=== PATIENT | female | born 1985 | race Hispanic/Latino ===

== ENCOUNTER 2018-01-15 10:22 | Emergency (ER) | payer SELFPAY ==
[2018-01-15 11:05] LABS: APPEARANCE,URINE Cloudy (CLEAR); BILIRUBIN,URINE Negative (NEGATIVE); COLOR,URINE Yellow (YELLOW); GLUCOSE, URINE (UA) >=1000 mg/dL (NEGATIVE); KETONES,URINE Negative (NEGATIVE); LEUKOCYTE ESTERASE ,URINE Moderate (NEGATIVE); NITRATE,URINE Negative (NEGATIVE); OCCULT BLOOD,URINE Trace (NEGATIVE); PH,URINE 6.5 (5.0-8.0); PROTEIN,URINE Negative (NEGATIVE); UROBILINOGEN,URINE 0.2 mg/dL (0.2-1.0)
[2018-01-15 11:15] LABS: HCG,QUAL RESULT NEGATIVE (NEGATIVE)
[2018-01-15 11:25] LABS: BASOPHILS % (AUTO) 0.5 % (0.0-5.0); EOSINOPHILS % (AUTO) 3.9 % (0.0-8.0); HEMATOCRIT 39.4 % (36-48); LYMPHOCYTES % (AUTO) 31.6 % (21.0-51.0); MEAN CORPUSCULAR HEMOGLOBIN 29.3 pg (27.0-33.0); MEAN CORPUSCULAR VOLUME 86.1 fL (79-99); MONOCYTES % (AUTO) 7.3 % (3.0-13.0); NEUTROPHILS % (AUTO) 56.7 % (40.0-77.0); PLATELET COUNT (AUTO) 254 K/uL (130-400); RED BLOOD CELL COUNT(AUTO) 4.58 MIL/uL (4.00-5.50); RED CELL DISTRIBUTION WIDTH 12.7 % (11.0-15.5); WHITE BLOOD COUNT (AUTO) 6.2 K/uL (4.8-10.8)
[2018-01-15 11:31] LABS: AMPHET/METH SCREEN,URINE NEGATIVE (NEGATIVE); BARBITURATE SCREEN, URINE NEGATIVE (NEGATIVE); BENZODIAZEPINES SCREEN,URINE NEGATIVE (NEGATIVE); CANNABINOID SCREEN,URINE NEGATIVE (NEGATIVE); COCAINE SCREEN,URINE POSITIVE (NEGATIVE); OPIATE SCREEN,URINE NEGATIVE (NEGATIVE); PHENCYCLIDINE SCREEN,URINE NEGATIVE (NEGATIVE)
[2018-01-15 11:41] LABS: POTASSIUM 4.2 mmol/L (3.5-5.1)
[2018-01-15 11:42] LABS: ALBUMIN 2.8 g/dL (3.5-5.0); BILIRUBIN,TOTAL 0.1 mg/dL (0.2-1.0); CREATININE 0.9 mg/dL (0.5-1.5)
[2018-01-15 11:48] LABS: BACTERIA,URINE Few /HPF (None Seen); RBC,URINE 0-1 /HPF (0-1)
[2018-01-15] MEDS ORDERED: INSULIN HUMULIN R 100 UNIT/ML 3ML ONE ×2 (12:30→14:25)
[2018-01-15] MEDS ORDERED: CEFTRIAXONE SODIUM 1 GM ONE (12:31)
[2018-01-15] MEDS ORDERED: ACETAMINOPHEN EXTRA STRENGTH 500 MG TABLET ONE (12:54)
[2018-01-15] MEDS ORDERED: SODIUM CHLORIDE 0.9% 1000ML 1,000 ML IV ONE (14:24)
== END 2018-01-15 17:06 | disposition home or self-care (01) ==
LOC: EDH 10:22
DX: N30.00 Acute cystitis without hematuria (principal); E11.65 Type 2 diabetes mellitus with hyperglycemia; F14.10 Cocaine abuse, uncomplicated; Z91.14 Patient's other noncompliance with medication regimen; Z79.4 Long term (current) use of insulin; Z86.73 Personal history of transient ischemic attack (TIA), and cerebral infarction without residual deficits; Z87.891 Personal history of nicotine dependence
CPT/HCPCS: 36415; 80053; 80305; 81001; 81025; 82550; 82948 ×3; 84484 ×2; 85025; 87088; 87186; 93005 ×2; 96361; 96374; 96375; 96376; 99285; J0696; J1815 ×2; J7030

== ENCOUNTER 2018-10-11 11:51 | Emergency (ER) | payer OTHER ==
[2018-10-11] MEDS ORDERED: SODIUM CHLORIDE 0.9% 1000ML 1,000 ML IV ONE ×2 (12:32→13:26)
[2018-10-11] MEDS ORDERED: PROCHLORPERAZINE EDISYLATE 10 MG/2 ML VIAL ONE (12:33)
[2018-10-11 12:41] LABS: BASOPHILS % (AUTO) 0.5 % (0.0-5.0); EOSINOPHILS % (AUTO) 5.1 % (0.0-8.0); HEMATOCRIT 39.4 % (36-48); LYMPHOCYTES % (AUTO) 29.5 % (21.0-51.0); MEAN CORPUSCULAR HEMOGLOBIN 29.7 pg (27.0-33.0); MEAN CORPUSCULAR HGB CONC 33.7 g/dL (32.0-36.0); MEAN CORPUSCULAR VOLUME 88.1 fL (79-99); MONOCYTES % (AUTO) 5.5 % (3.0-13.0); NEUTROPHILS % (AUTO) 59.4 % (40.0-77.0); PLATELET COUNT (AUTO) 269 K/uL (130-400); RED BLOOD CELL COUNT(AUTO) 4.47 MIL/uL (4.00-5.50); RED CELL DISTRIBUTION WIDTH 13.2 % (11.0-15.5); WHITE BLOOD COUNT (AUTO) 7.1 K/uL (4.8-10.8)
[2018-10-11 13:06] LABS: APPEARANCE,URINE Cloudy (CLEAR); BILIRUBIN,URINE Negative (NEGATIVE); COLOR,URINE Yellow (YELLOW); GLUCOSE, URINE (UA) >=1000 mg/dL (NEGATIVE); KETONES,URINE Negative (NEGATIVE); LEUKOCYTE ESTERASE ,URINE Negative (NEGATIVE); NITRATE,URINE Negative (NEGATIVE); OCCULT BLOOD,URINE Negative (NEGATIVE); PH,URINE 6.5 (5.0-8.0); PROTEIN,URINE Negative (NEGATIVE); UROBILINOGEN,URINE 0.2 mg/dL (0.2-1.0)
[2018-10-11 13:10] LABS: ALANINE AMINOTRANSFERASE 24 U/L (12-78); ALBUMIN 2.9 g/dL (3.5-5.0); ASPARTATE AMINOTRANSFERASE 18 U/L (10-37); BILIRUBIN,DIRECT < 0.1 mg/dL (0.0-0.3); BILIRUBIN,TOTAL 0.2 mg/dL (0.2-1.0); CARBON DIOXIDE 29 mmol/L (21-32); CHLORIDE 100 mmol/L (101-111); CREATINE KINASE, TOTAL 54 U/L (21-232); CREATININE 0.8 mg/dL (0.5-1.5); GLOMERULAR FILTR. RATE CALC 87 mL/min (>60); POTASSIUM 4.2 mmol/L (3.5-5.1); SODIUM SERUM 135 mmol/L (136-145); UREA NITROGEN, BLOOD 10 mg/dL (7-18)
[2018-10-11 13:11] LABS: HCG,QUAL RESULT NEGATIVE (NEGATIVE)
[2018-10-11 13:13] LABS: AMPHET/METH SCREEN,URINE NEGATIVE (NEGATIVE); BARBITURATE SCREEN, URINE NEGATIVE (NEGATIVE); BENZODIAZEPINES SCREEN,URINE NEGATIVE (NEGATIVE); CANNABINOID SCREEN,URINE NEGATIVE (NEGATIVE); COCAINE SCREEN,URINE POSITIVE (NEGATIVE); OPIATE SCREEN,URINE NEGATIVE (NEGATIVE); PHENCYCLIDINE SCREEN,URINE NEGATIVE (NEGATIVE)
[2018-10-11 13:13] LABS: GLUCOSE,RANDOM 475 mg/dL (70-105)
[2018-10-11 13:20] LABS: BACTERIA,URINE Rare /HPF (None Seen); RBC,URINE 0-1 /HPF (0-1); SQUAMOUS EPITHELIAL CELL,UR Moderate /HPF (0-2); YEAST,URINE BUDDING Few /HPF (None Seen)
[2018-10-11] MEDS ORDERED: INSULIN HUMULIN R 100 UNIT/ML 3ML ONE (13:27)
== END 2018-10-11 14:44 | disposition home or self-care (01) ==
LOC: EDH 11:51
DX: F14.10 Cocaine abuse, uncomplicated (principal); R20.2 Paresthesia of skin; E11.65 Type 2 diabetes mellitus with hyperglycemia; R42 Dizziness and giddiness; Z79.4 Long term (current) use of insulin; Z86.73 Personal history of transient ischemic attack (TIA), and cerebral infarction without residual deficits; Z72.0 Tobacco use
CPT/HCPCS: 36415; 80048; 80076; 80305; 81001; 81025; 82550; 85025; 93005; 96361; 96374; 96375; 99284; J0780; J1815; J7030 ×2

== ENCOUNTER 2021-09-30 06:37 | Emergency (ER) | payer SELFPAY ==
[~2021-09-30] VITALS: Ht 154.9 cm; Wt 95.3 kg
[2021-09-30] MEDS ORDERED: MORPHINE 2 MG SYG IVP ONE (07:30)
[2021-09-30] MEDS ORDERED: ONDANSETRON 4MG INJ IVP ONE (07:30)
[2021-09-30] MEDS ORDERED: SULFAMETHOX-TMP DS 800/160 TAB PO SCH (07:30)
[2021-09-30] MEDS ORDERED: 0.9%NACL 1000ML 1,000 ML IV ONE (07:30)
[2021-09-30 07:42] LABS: BASOPHILS % (AUTO) 0.3 % (0.0-5.0); EOSINOPHILS % (AUTO) 3.2 % (0.0-8.0); HEMATOCRIT 35.4 % (36-48); LYMPHOCYTES % (AUTO) 27.3 % (21.0-51.0); MEAN CORPUSCULAR HEMOGLOBIN 28.1 pg (27.0-33.0); MEAN CORPUSCULAR HGB CONC 33.3 g/dL (32.0-36.0); MEAN CORPUSCULAR VOLUME 84.3 fL (79-99); NEUTROPHILS % (AUTO) 60.9 % (40.0-77.0); PLATELET COUNT (AUTO) 297 K/uL (130-400); RED CELL DISTRIBUTION WIDTH 13.2 % (11.0-15.5); WHITE BLOOD COUNT (AUTO) 9.9 K/uL (4.8-10.8)
[2021-09-30 07:54] LABS: ALBUMIN 2.3 g/dL (3.5-5.0)
[2021-09-30 07:56] LABS: BILIRUBIN,TOTAL 0.1 mg/dL (0.2-1.0); TOTAL PROTEIN, SERUM 6.7 g/dL (6.0-8.3)
[2021-09-30] MEDS ORDERED: IOHEXOL-350 75 ML VIAL IV ONE (09:28)
[2021-09-30] MEDS ORDERED: ACET1TAB25 PO (10:26)
[2021-09-30] MEDS ORDERED: SULF1TAB42 PO (10:26)
[2021-09-30] MEDS ORDERED: MORPHINE 2 MG SYG IM ONE (10:30)
[2021-09-30] MEDS ORDERED: KETOROLAC 15MG/ML VIAL (15MG/ML) IV ONE (10:30)
[2021-09-30 11:24] VITALS: BP 126/74
== END 2021-09-30 11:27 | disposition home or self-care (01) ==
LOC: EDH 06:37
DX: L02.811 Cutaneous abscess of head [any part, except face] (principal); E11.9 Type 2 diabetes mellitus without complications; I10 Essential (primary) hypertension; Z79.1 Long term (current) use of non-steroidal anti-inflammatories (NSAID); Z79.899 Other long term (current) drug therapy; Z86.73 Personal history of transient ischemic attack (TIA), and cerebral infarction without residual deficits; Z90.49 Acquired absence of other specified parts of digestive tract
CPT/HCPCS: 36415; 70450; 70491; 80053; 83605; 84703; 85025; 87040 ×2; 96372; 96374; 96375; 99285; J1885; J2405; Q9967

== ENCOUNTER 2021-11-13 10:55 | Emergency (ER) | payer OTHER ==
[~2021-11-13] VITALS: Ht 157.5 cm; Wt 95.3 kg
[~2021-11-13 10:55] MED LIST: GABA-529 PO; HYDR-3830 PO; INSLAN SQ; INSU200I SQ; LOSA25TA2 PO; NIFE-39 PO; PEN1DIS.48 MC; SERT50TA PO
[2021-11-13 11:24] LABS: BASOPHILS % (AUTO) 0.5 % (0.0-5.0); EOSINOPHILS % (AUTO) 4.6 % (0.0-8.0); HEMATOCRIT 32.5 % (36-48); LYMPHOCYTES % (AUTO) 26.6 % (21.0-51.0); MEAN CORPUSCULAR HEMOGLOBIN 27.8 pg (27.0-33.0); MEAN CORPUSCULAR HGB CONC 31.7 g/dL (32.0-36.0); MEAN CORPUSCULAR VOLUME 87.8 fL (79-99); MONOCYTES % (AUTO) 6.2 % (3.0-13.0); NEUTROPHILS % (AUTO) 61.9 % (40.0-77.0); PLATELET COUNT (AUTO) 279 K/uL (130-400); RED CELL DISTRIBUTION WIDTH 13.2 % (11.0-15.5); WHITE BLOOD COUNT (AUTO) 8.1 K/uL (4.8-10.8)
[2021-11-13 11:33] LABS: POTASSIUM 4.9 mmol/L (3.5-5.1)
[2021-11-13 11:34] LABS: ALBUMIN 2.3 g/dL (3.5-5.0); BILIRUBIN,TOTAL 0.1 mg/dL (0.2-1.0); CREATININE 1.4 mg/dL (0.5-1.5); TOTAL PROTEIN, SERUM 6.1 g/dL (6.0-8.3)
[2021-11-13 12:22] LABS: APPEARANCE,URINE CLEAR (CLEAR); BILIRUBIN,URINE NEGATIVE (NEGATIVE); COLOR,URINE YELLOW (YELLOW); GLUCOSE, URINE (UA) >=1000 mg/dL (NEGATIVE); KETONES,URINE NEGATIVE (NEGATIVE); LEUKOCYTE ESTERASE ,URINE NEGATIVE (NEGATIVE); NITRATE,URINE NEGATIVE (NEGATIVE); OCCULT BLOOD,URINE SMALL (NEGATIVE); PROTEIN,URINE 100 mg/dL (NEGATIVE); UROBILINOGEN,URINE 0.2 mg/dL (0.2-1.0)
[2021-11-13 12:23] LABS: HCG,QUAL RESULT NEGATIVE (NEGATIVE)
[2021-11-13] MEDS ORDERED: ASPIRIN 81MG CHEW TAB PO SCH (12:30)
[2021-11-13] MEDS ORDERED: NITROGLYCERIN 1GM OINT 1 INCH/1GM TD SCH (12:30)
[2021-11-13] MEDS ORDERED: INSULIN HUMULIN R 100 UNIT/ML 3ML SQ SCH (12:30)
[2021-11-13] MEDS ORDERED: 0.9%NACL 1000ML 2,000 ML IV SCH (12:30)
[2021-11-13 12:32] LABS: BACTERIA,URINE Rare /HPF (None Seen); RBC,URINE 0-1 /HPF (0-1); SQUAMOUS EPITHELIAL CELL,UR Rare /HPF (0-2)
[2021-11-13] MEDS ORDERED: ASPIRIN 81MG CHEW TAB ONE (12:34)
[2021-11-13] MEDS ORDERED: INSULIN HUMULIN R 100 UNIT/ML 3ML ONE (12:35)
[2021-11-13] MEDS ORDERED: NITROGLYCERIN 1GM OINT 1 INCH/1GM TD ONE (12:35)
[2021-11-13] MEDS ORDERED: IOHEXOL-350 75 ML VIAL IV ONE (12:56)
[2021-11-13] MEDS ORDERED: HYDROMORPHONE 0.5 MG SYG (0.5MG/0.5ML) IVP SCH (14:00)
[2021-11-13 15:33] VITALS: BP 140/53
== END 2021-11-13 15:35 | disposition home or self-care (01) ==
LOC: EDH 10:55
DX: R07.89 Other chest pain (principal); E11.65 Type 2 diabetes mellitus with hyperglycemia; I10 Essential (primary) hypertension; F17.210 Nicotine dependence, cigarettes, uncomplicated; Z79.4 Long term (current) use of insulin; Z79.82 Long term (current) use of aspirin; Z79.899 Other long term (current) drug therapy
CPT/HCPCS: 36415; 71045; 71275; 80053; 81001; 81025; 82948; 83690; 84484; 85025; 85378; 93005; 96361; 96372; 96374; 99285; J1170; J1815; J7030; Q9967

== ENCOUNTER 2023-01-22 19:06 | Emergency (ER) | payer BC, OTHER ==
[~2023-01-22] VITALS: Ht 152.4 cm; Wt 136.1 kg
[2023-01-22] MEDS ORDERED: LISINOPRIL 10 MG TABLET PO ONE (21:00)
[2023-01-22 21:08] LABS: BASOPHILS % (AUTO) 0.3 % (0.0-5.0); EOSINOPHILS % (AUTO) 3.9 % (0.0-8.0); HEMATOCRIT 32.3 % (36-48); LYMPHOCYTES % (AUTO) 38.7 % (21.0-51.0); MEAN CORPUSCULAR HEMOGLOBIN 27.9 pg (27.0-33.0); MEAN CORPUSCULAR HGB CONC 32.5 g/dL (32.0-36.0); MEAN CORPUSCULAR VOLUME 85.9 fL (79-99); MONOCYTES % (AUTO) 6.6 % (3.0-13.0); NEUTROPHILS % (AUTO) 50.2 % (40.0-77.0); PLATELET COUNT (AUTO) 271 K/uL (130-400); RED BLOOD CELL COUNT(AUTO) 3.76 MIL/uL (4.00-5.50); RED CELL DISTRIBUTION WIDTH 13.1 % (11.0-15.5); WHITE BLOOD COUNT (AUTO) 6.4 K/uL (4.8-10.8)
[2023-01-22 21:18] LABS: INR 0.93 (0.85-1.15); PROTHROMBIN TIME 9.1 SEC (9.6-11.6)
[2023-01-22 21:20] LABS: PARTIAL THROMBOPLASTIN TIME 23.6 SEC (26.3-35.5)
[2023-01-22 21:29] LABS: ALBUMIN 2.6 g/dL (3.5-5.0); MAGNESIUM 2.6 mg/dL (1.80-2.40); TOTAL PROTEIN, SERUM 6.9 g/dL (6.0-8.3)
[2023-01-22 21:35] LABS: B-TYPE NATRIURETIC PEPTIDE 43 pg/mL (0-100)
[2023-01-22 22:52] LABS: APPEARANCE,URINE CLEAR (CLEAR); BILIRUBIN,URINE NEGATIVE (NEGATIVE); COLOR,URINE COLORLESS (YELLOW); GLUCOSE, URINE (UA) >=1000 mg/dL (NEGATIVE); KETONES,URINE NEGATIVE (NEGATIVE); LEUKOCYTE ESTERASE ,URINE NEGATIVE Leu/uL (NEGATIVE); NITRATE,URINE NEGATIVE (NEGATIVE); OCCULT BLOOD,URINE SMALL (NEGATIVE); PROTEIN,URINE 100 mg/dL (NEGATIVE); UROBILINOGEN,URINE 0.2 mg/dL (0.2-1.0)
[2023-01-22 22:55] LABS: SQUAMOUS EPITHELIAL CELL,UR RARE /HPF (0-2)
[2023-01-22] MEDS ORDERED: 0.9%NACL 1000ML 1,000 ML IV ONE ×2 (23:00→23:06)
[2023-01-22] MEDS ORDERED: INSULIN HUMULIN R 100 UNIT/ML 3ML IV ONE (23:00)
[2023-01-22] MEDS ORDERED: INSULIN HUMULIN R 100 UNIT/ML 3ML ONE (23:06)
[2023-01-22] MEDS ORDERED: HYDRALAZINE 20MG/ML VIAL ONE (23:19)
[2023-01-22] MEDS ORDERED: HYDRALAZINE 20MG/ML VIAL IV ONE (23:30)
[2023-01-22 23:59] VITALS: BP 165/58
[2023-01-23] MEDS ORDERED: HYDRALAZINE 20MG/ML VIAL IV ONE
== END 2023-01-23 00:20 | disposition home or self-care (01) ==
LOC: EDH 19:06
DX: R07.89 Other chest pain (principal); E11.65 Type 2 diabetes mellitus with hyperglycemia; I10 Essential (primary) hypertension; F14.10 Cocaine abuse, uncomplicated; F41.9 Anxiety disorder, unspecified; E11.9 Type 2 diabetes mellitus without complications; E78.00 Pure hypercholesterolemia, unspecified; Z79.4 Long term (current) use of insulin; Z79.899 Other long term (current) drug therapy
CPT/HCPCS: 99284; 96374; 70450; 96361; 96375; 82550; 83735; 84484 ×2; 80053; 85025; 85610; 85730; 82948; 81001; 36415; 96376; 93005 ×2; 83880 ×2; J1815; J7030; J0360

== ENCOUNTER 2023-03-18 16:13 | Observation (INO) | payer BC ==
[~2023-03-18] VITALS: Ht 157.5 cm; Wt 117.0 kg
[~2023-03-18 16:13] MED LIST changes: +AMLO-258 PO; +DICL75TA5 PO; -HYDR-3830 PO; -INSLAN SQ; -INSU200I SQ; -LOSA25TA2 PO; +MONT-39 PO; -NIFE-39 PO; +ONDA4TAB10 PO; -PEN1DIS.48 MC; +PRAV20TA4 PO; +SERT-439 PO; -SERT50TA PO; +TIZA-194 PO; +TRAZ-187 PO
[2023-03-18 16:39] LABS: BASOPHILS % (AUTO) 0.4 % (0.0-5.0); EOSINOPHILS % (AUTO) 2.9 % (0.0-8.0); HEMATOCRIT 39.2 % (36-48); LYMPHOCYTES % (AUTO) 29.2 % (21.0-51.0); MEAN CORPUSCULAR HEMOGLOBIN 27.8 pg (27.0-33.0); MEAN CORPUSCULAR HGB CONC 31.6 g/dL (32.0-36.0); MEAN CORPUSCULAR VOLUME 87.9 fL (79-99); MONOCYTES % (AUTO) 9.7 % (3.0-13.0); NEUTROPHILS % (AUTO) 57.4 % (40.0-77.0); PLATELET COUNT (AUTO) 267 K/uL (130-400); RED BLOOD CELL COUNT(AUTO) 4.46 MIL/uL (4.00-5.50); RED CELL DISTRIBUTION WIDTH 13.6 % (11.0-15.5); WHITE BLOOD COUNT (AUTO) 5.5 K/uL (4.8-10.8)
[2023-03-18 17:20] LABS: ALBUMIN 3.1 g/dL (3.5-5.0); CREATININE 1.7 mg/dL (0.5-1.5); POTASSIUM 4.8 mmol/L (3.5-5.1); TOTAL PROTEIN, SERUM 7.4 g/dL (6.0-8.3)
[2023-03-18] MEDS ORDERED: INSULIN HUMULIN R 100 UNIT/ML 3ML IV ONE ×2 (17:30→18:30)
[2023-03-18 17:31] LABS: ABG OXYGEN SATURATION 76.6 % (95.0-99.0); BASE EXCESS,VENOUS BLOOD GAS 1.5 (-2.0-3.0); HCO3,VENOUS BLOOD GAS 26.3 (21.0-28.0); PCO2,VENOUS BLOOD GAS 42 (32-45); PH,VENOUS BLOOD GAS 7.414 (7.350-7.450)
[2023-03-18] MEDS ORDERED: HYDROCODONE/ACETAMINOPHEN 5/325 MG TAB PO ONE (18:00)
[2023-03-18 18:33] LABS: APPEARANCE,URINE CLEAR (CLEAR); BILIRUBIN,URINE NEGATIVE (NEGATIVE); COLOR,URINE COLORLESS (YELLOW); GLUCOSE, URINE (UA) >=1000 mg/dL (NEGATIVE); KETONES,URINE NEGATIVE (NEGATIVE); LEUKOCYTE ESTERASE ,URINE 25 Leu/uL (NEGATIVE); NITRATE,URINE NEGATIVE (NEGATIVE); PH,URINE 6.5 (5.0-8.0); PROTEIN,URINE 100 mg/dL (NEGATIVE); UROBILINOGEN,URINE 0.2 mg/dL (0.2-1.0)
[2023-03-18] MEDS ORDERED: DEXTROSE 50%-WATER 50 ML DISP.SYRIN IV PRN (19:00)
[2023-03-18] MEDS ORDERED: GLUCAGON 1MG KIT 1 MG ML IM PRN (19:00)
[2023-03-18] MEDS ORDERED: NITROGLYCERIN 0.4 MG SL TAB SL PRN (19:30)
[2023-03-18] MEDS ORDERED: ACETAMINOPHEN 325 MG TAB PO PRN ×2 (19:30)
[2023-03-18] MEDS ORDERED: ONDANSETRON 4MG INJ IV PRN (19:30)
[2023-03-18] MEDS: HEPARIN 5,000 UNIT VIAL SQ SCH (20:57)
[2023-03-18] MEDS ORDERED: FAMOTIDINE 20MG TAB PO SCH (21:00)
[2023-03-18 21:02] LABS: BACTERIA,URINE RARE /HPF (None Seen); SQUAMOUS EPITHELIAL CELL,UR FEW /HPF (0-2)
[2023-03-18 21:03] LABS: OCCULT BLOOD,URINE SMALL (NEGATIVE)
[2023-03-18] MEDS: INSULIN HUMULIN R 100 UNIT/ML 3ML SQ SCH (21:05)
[2023-03-18] MEDS ORDERED: FUROSEMIDE 80 MG TABLET PO SCH (21:30)
[2023-03-18] MEDS ORDERED: TRAZODONE HCL 100 MG TABLET PO PRN (21:30)
[2023-03-18] MEDS ORDERED: CEFTRIAXONE 1G VIAL IVPB SCH (21:30)
[2023-03-18] MEDS ORDERED: EPOE10004 IJ (22:18)
[2023-03-18] MEDS ORDERED: HYDR12.54 PO (22:18)
[2023-03-18] MEDS ORDERED: GABA-529 PO (22:18)
[2023-03-18] MEDS ORDERED: TRAZ-187 PO (22:18)
[2023-03-18] MEDS ORDERED: MONT-39 PO (22:18)
[2023-03-18] MEDS ORDERED: PRAV20TA4 PO (22:18)
[2023-03-18] MEDS ORDERED: ONDA4TAB10 PO (22:18)
[2023-03-18] MEDS ORDERED: ACET-2079 PO (22:18)
[2023-03-18] MEDS ORDERED: ENOX40DI9 SQ (22:18)
[2023-03-18] MEDS ORDERED: INSU100I24 SQ (22:18)
[2023-03-18] MEDS ORDERED: AMLO-258 PO (22:18)
[2023-03-18] MEDS ORDERED: SERT-439 PO (22:18)
[2023-03-18] MEDS ORDERED: IPRA3AMP24 IH (22:18)
[2023-03-18] MEDS ORDERED: INSU100V3 IJ (22:18)
[2023-03-18] MEDS ORDERED: GUAI100L37 PO (22:18)
[2023-03-18] MEDS ORDERED: LACT10SO9 PO (22:18)
[2023-03-18] MEDS ORDERED: TIZA-194 PO (22:18)
[2023-03-18] MEDS ORDERED: FURO80TA87 PO (22:18)
[2023-03-18] MEDS ORDERED: NITR0.4T50 SL (22:18)
[2023-03-18] MEDS ORDERED: VITA1CAP85 PO (22:18)
[2023-03-18] MEDS ORDERED: HYDR-3421 PO (22:18)
[2023-03-18] MEDS ORDERED: DIPH-1242 PO (22:18)
[2023-03-18] MEDS ORDERED: ACET-2247 PO (22:18)
[2023-03-18] MEDS ORDERED: MAAL30 PO (22:18)
[2023-03-18] MEDS ORDERED: FAMO20TA8 PO (22:18)
[2023-03-18] MEDS ORDERED: LINA5TAB PO (22:18)
[2023-03-18] MEDS ORDERED: HYDROXYZINE 25 MG TABLET PO PRN (23:00)
[2023-03-18] MEDS ORDERED: IPRATROPIUM/ALBUTEROL SULFATE 3 ML SOLUTION IH PRN (23:00)
[2023-03-18] MEDS ORDERED: LACTULOSE 20 GM/30 ML UDCUP PO PRN (23:00)
[2023-03-18] MEDS ORDERED: TIZANIDINE HCL 2 MG TABLET PO PRN (23:00)
[2023-03-18] MEDS ORDERED: GUAIFENESIN SUGAR-FREE 100 MG/5 ML UDCUP PO PRN (23:00)
[2023-03-19 06:53] LABS: BASOPHILS % (AUTO) 0.2 % (0.0-5.0); EOSINOPHILS % (AUTO) 4.2 % (0.0-8.0); HEMATOCRIT 36.3 % (36-48); LYMPHOCYTES % (AUTO) 38.1 % (21.0-51.0); MEAN CORPUSCULAR HEMOGLOBIN 27.7 pg (27.0-33.0); MEAN CORPUSCULAR HGB CONC 31.4 g/dL (32.0-36.0); MEAN CORPUSCULAR VOLUME 88.3 fL (79-99); MONOCYTES % (AUTO) 10.2 % (3.0-13.0); NEUTROPHILS % (AUTO) 47.1 % (40.0-77.0); PLATELET COUNT (AUTO) 238 K/uL (130-400); RED BLOOD CELL COUNT(AUTO) 4.11 MIL/uL (4.00-5.50); RED CELL DISTRIBUTION WIDTH 13.7 % (11.0-15.5); WHITE BLOOD COUNT (AUTO) 5.3 K/uL (4.8-10.8)
[2023-03-19 07:29] LABS: POTASSIUM 4.7 mmol/L (3.5-5.1)
[2023-03-19 07:30] LABS: ALBUMIN 2.8 g/dL (3.5-5.0); CREATININE 1.5 mg/dL (0.5-1.5); MAGNESIUM 2.2 mg/dL (1.80-2.40); TOTAL PROTEIN, SERUM 6.9 g/dL (6.0-8.3)
[2023-03-19] MEDS: INSULIN HUMULIN R 100 UNIT/ML 3ML SQ SCH ×2 (08:49→12:54)
[2023-03-19] MEDS ORDERED: AMLODIPINE 5 MG TAB PO SCH (09:00)
[2023-03-19] MEDS ORDERED: LISINOPRIL 40 MG TABLET PO SCH (09:00)
[2023-03-19] MEDS ORDERED: NON-FORMULARY MEDICATION 1 EACH (Hydrochlorothiazide 12.5 MG) PO SCH (09:00)
[2023-03-19] MEDS ORDERED: HYDROCHLOROTHIAZIDE 25 MG TABLET PO SCH (09:00)
[2023-03-19] MEDS ORDERED: METOPROLOL TARTRATE 25 MG TAB PO SCH (09:00)
[2023-03-19] MEDS ORDERED: ASPIRIN 81 MG EC TAB PO SCH (09:00)
[2023-03-19] MEDS ORDERED: SERTRALINE HCL 50 MG TABLET PO SCH (09:00)
[2023-03-19] MEDS ORDERED: FUROSEMIDE 80 MG TABLET PO SCH (09:00)
[2023-03-19] MEDS ORDERED: MONTELUKAST SODIUM 10 MG TAB PO SCH (09:00)
[2023-03-19] MEDS ORDERED: NON-FORMULARY MEDICATION 1 EACH (Pravastatin Sodium 20 MG) PO SCH (09:00)
[2023-03-19] MEDS ORDERED: VITAMIN B COMPLEX 1 CAPSULE PO SCH (09:00)
[2023-03-19] MEDS ORDERED: NON-FORMULARY MEDICATION 1 EACH (Amlodipine Besylate 10 MG) PO SCH (09:00)
[2023-03-19] MEDS: GABAPENTIN 100 MG CAPSULE PO SCH ×2 (09:38→15:35)
[2023-03-19] MEDS: HEPARIN 5,000 UNIT VIAL SQ SCH ×2 (09:40→15:35)
[2023-03-19 15:13] VITALS: BP 99/75
[2023-03-19] MEDS ORDERED: PANTOPRAZOLE 40 MG TAB DR PO SCH (21:00)
[2023-03-19] MEDS ORDERED: ATORVASTATIN 10 MG TABLET PO SCH (21:00)
[2023-03-19] MEDS ORDERED: INSULIN GLARGINE 100 UNITS/ML 10 ML VIAL SQ SCH (21:00)
[2023-03-24] MEDS ORDERED: EPOETIN ALFA-EPBX (NON-ESRD) 10,000 UNIT/ML VIAL IJ NR (09:00)
[2023-03-25] MEDS ORDERED: EPOETIN ALFA 10000 UNIT IJ SCH (09:00)
== END 2023-03-19 17:21 ==
LOC: EDH 16:13 → INTOOBSV 19:01 → EDHIP 19:01
PROVIDERS: ADMIT Internal Medicine; ATTEND Internal Medicine
DX: R07.89 Other chest pain (principal); Z20.822 Contact with and (suspected) exposure to COVID-19; I13.0 Hypertensive heart and chronic kidney disease with heart failure and stage 1 through stage 4 chronic kidney disease, or unspecified chronic kidney disease; I50.32 Chronic diastolic (congestive) heart failure; N18.30 Chronic kidney disease, stage 3 unspecified; E11.65 Type 2 diabetes mellitus with hyperglycemia; K21.9 Gastro-esophageal reflux disease without esophagitis; E78.00 Pure hypercholesterolemia, unspecified; E66.01 Morbid (severe) obesity due to excess calories; F41.9 Anxiety disorder, unspecified; R77.8 Other specified abnormalities of plasma proteins; R10.2 Pelvic and perineal pain; Z68.42 Body mass index [BMI] 45.0-49.9, adult; Z79.899 Other long term (current) drug therapy; Z98.890 Other specified postprocedural states; Z79.4 Long term (current) use of insulin; Z87.01 Personal history of pneumonia (recurrent)
CPT/HCPCS: 96376; 96372 ×2; 96365; 96375; 99285; 83036; 82550 ×2; 83735 ×2; 83874 ×2; 84484 ×3; 80053 ×2; 82803; 83880; 84702; 83690; 85025 ×2; 85378; 87077; 87088; 87186; 82948 ×5; 81001; 36415 ×2; 87635; 71045; 74176; 78582; 93970; 93005 ×2; 36600; 80061; J0696; J1644 ×3; J1815 ×5; A9540; A9558; G0378 ×3

== ENCOUNTER 2023-06-17 20:02 | Observation (INO) | payer BC ==
[~2023-06-17] VITALS: Ht 157.5 cm; Wt 113.2 kg
[~2023-06-17 20:02] MED LIST changes: +DIPH-1242 PO; +FURO40TA5 PO; +GUAI100L37 PO; +INSU100I24 SQ; +IPRA3AMP24 IH; +LISI20TA24 PO; +MAAL30 PO; +NITR0.4T50 SL
[2023-06-17 20:30] LABS: BASOPHILS # (AUTO) 0.02 K/uL (0.00-0.20); BASOPHILS % (AUTO) 0.3 % (0.0-5.0); EOSINOPHILS % (AUTO) 2.6 % (0.0-8.0); HEMATOCRIT 32.6 % (36-48); IMMATURE GRANULOCYTE ABSOLUTE 0.03 K/uL (0-1); LYMPHOCYTES # (AUTO) 2.5 K/uL (1.0-4.8); LYMPHOCYTES % (AUTO) 31.9 % (21.0-51.0); MEAN CORPUSCULAR HEMOGLOBIN 28.7 pg (27.0-33.0); MEAN CORPUSCULAR HGB CONC 33.1 g/dL (32.0-36.0); MEAN CORPUSCULAR VOLUME 86.7 fL (79-99); MONOCYTES # (AUTO) 0.5 K/uL (0.1-1.0); MONOCYTES % (AUTO) 6.8 % (3.0-13.0); NEUTROPHILS # (AUTO) 4.5 K/uL (1.8-7.7); PLATELET COUNT (AUTO) 249 K/uL (130-400); RED BLOOD CELL COUNT(AUTO) 3.76 MIL/uL (4.00-5.50); WHITE BLOOD COUNT (AUTO) 7.7 K/uL (4.8-10.8)
[2023-06-17 20:53] LABS: ALBUMIN 2.4 g/dL (3.5-5.0); BILIRUBIN,TOTAL 0.2 mg/dL (0.2-1.0); CREATININE 2.7 mg/dL (0.5-1.5); TOTAL PROTEIN, SERUM 6.5 g/dL (6.0-8.3)
[2023-06-17 21:20] LABS: APPEARANCE,URINE CLOUDY (CLEAR); BILIRUBIN,URINE NEGATIVE (NEGATIVE); COLOR,URINE YELLOW (YELLOW); GLUCOSE, URINE (UA) >=1000 mg/dL (NEGATIVE); KETONES,URINE NEGATIVE (NEGATIVE); LEUKOCYTE ESTERASE ,URINE NEGATIVE Leu/uL (NEGATIVE); NITRATE,URINE NEGATIVE (NEGATIVE); PH,URINE 5.5 (5.0-8.0); PROTEIN,URINE 300 mg/dL (NEGATIVE); UROBILINOGEN,URINE 0.2 mg/dL (0.2-1.0)
[2023-06-17 21:21] LABS: ADD UA MICROSCOPIC YES
[2023-06-17 21:25] LABS: BACTERIA,URINE MOD /HPF (None Seen); MUCUS,URINE RARE LPF (None Seen); NON-SQUAMOUS EPITHELIAL CELL 1 /HPF (0-2); OTHER CASTS, URINE 8 /LPF (None Seen); SQUAMOUS EPITHELIAL CELL,UR FEW /HPF (0-2); UNCLASSIFIED CRYSTAL 1 /HPF (None Seen); WBC CLUMP FEW /HPF (0-1); YEAST,URINE BUDDING FEW /HPF (None Seen)
[2023-06-17 21:28] LABS: AMPHET/METH SCREEN,URINE NEGATIVE (NEGATIVE); BARBITURATE SCREEN, URINE NEGATIVE (NEGATIVE); BENZODIAZEPINES SCREEN,URINE NEGATIVE (NEGATIVE); CANNABINOID SCREEN,URINE NEGATIVE (NEGATIVE); COCAINE SCREEN,URINE NEGATIVE (NEGATIVE); OPIATE SCREEN,URINE NEGATIVE (NEGATIVE); PHENCYCLIDINE SCREEN,URINE NEGATIVE (NEGATIVE)
[2023-06-17] MEDS ORDERED: INSULIN LISPRO 100 UNIT/ML 3ML SQ ONE (21:30)
[2023-06-17] MEDS ORDERED: KETOROLAC 30MG VIAL (30MG/ML) IVP ONE (21:30)
[2023-06-17] MEDS ORDERED: CEFU500T67 PO (21:35)
[2023-06-17] MEDS ORDERED: FUROSEMIDE 20MG VIAL IV ONE (22:00)
[2023-06-17] MEDS ORDERED: GABAPENTIN 100 MG CAPSULE ONE (23:23)
[2023-06-17] MEDS: GABAPENTIN 100 MG CAPSULE PO SCH (23:30)
[2023-06-18] VITALS (7 sets, daily range): BP systolic 107–196; BP diastolic 57–74; PULSE 68–84; RESP 16–22; O2SAT 96
[2023-06-18] MEDS ORDERED: NITROGLYCERIN 0.4 MG SL TAB SL PRN
[2023-06-18] MEDS: ACETAMINOPHEN 325 MG TAB PO PRN ×2 (01:12→11:01)
[2023-06-18] MEDS ORDERED: GLUCAGON 1MG KIT 1 MG ML IM PRN (02:30)
[2023-06-18] MEDS ORDERED: CLONIDINE HCL 0.1 MG TABLET PO PRN (02:30)
[2023-06-18] MEDS ORDERED: DEXTROSE 50%-WATER 50 ML DISP.SYRIN IV PRN (02:30)
[2023-06-18] MEDS: CEFTRIAXONE 2GM VIAL IVPB SCH (03:47)
[2023-06-18 03:51] LABS: BASOPHILS # (AUTO) 0.03 K/uL (0.00-0.20); BASOPHILS % (AUTO) 0.4 % (0.0-5.0); EOSINOPHILS # (AUTO) 0.25 K/uL (0.00-0.70); EOSINOPHILS % (AUTO) 3.3 % (0.0-8.0); HEMATOCRIT 31.4 % (36-48); IMMATURE GRANULOCYTE ABSOLUTE 0.02 K/uL (0-1); LYMPHOCYTES % (AUTO) 39.4 % (21.0-51.0); MEAN CORPUSCULAR HGB CONC 31.5 g/dL (32.0-36.0); MEAN CORPUSCULAR VOLUME 88.7 fL (79-99); MONOCYTES # (AUTO) 0.6 K/uL (0.1-1.0); MONOCYTES % (AUTO) 7.7 % (3.0-13.0); NEUTROPHILS # (AUTO) 3.7 K/uL (1.8-7.7); NEUTROPHILS % (AUTO) 48.9 % (40.0-77.0); PLATELET COUNT (AUTO) 234 K/uL (130-400); RED BLOOD CELL COUNT(AUTO) 3.54 MIL/uL (4.00-5.50); WHITE BLOOD COUNT (AUTO) 7.5 K/uL (4.8-10.8)
[2023-06-18 03:58] LABS: HEMOGLOBIN A1C 13.1 % (4.0-6.0)
[2023-06-18 04:17] LABS: ALBUMIN 2.2 g/dL (3.5-5.0); BILIRUBIN,TOTAL 0.1 mg/dL (0.2-1.0); CREATININE 2.4 mg/dL (0.5-1.5); POTASSIUM 4.3 mmol/L (3.5-5.1); THYROID STIMULATING HORMONE 0.47 uIU/mL (0.36-3.74); TOTAL PROTEIN, SERUM 5.9 g/dL (6.0-8.3)
[2023-06-18] MEDS: INSULIN HUMULIN R 100 UNIT/ML 3ML SQ SCH ×6 (06:35→21:00)
[2023-06-18] MEDS: Vitamin B Complex/Vit C/Folic Acid PO SCH (08:41)
[2023-06-18] MEDS: FAMOTIDINE 20MG TAB PO SCH (08:41)
[2023-06-18] MEDS: ASPIRIN 81 MG EC TAB PO SCH (08:41)
[2023-06-18] MEDS ORDERED: FENOFIBRATE NANOCRYSTALLIZED 145 MG TAB PO SCH (09:30)
[2023-06-18] MEDS ORDERED: LACTULOSE 20 GM/30 ML UDCUP PO PRN (11:00)
[2023-06-18] MEDS: ONDANSETRON 4MG INJ IV PRN ×2 (11:40→21:54)
[2023-06-18] MEDS: 0.9%NACL 1000ML 1,000 ML IV SCH ×2 (13:49)
[2023-06-18] MEDS ORDERED: ACETAMINOPHEN 325 MG TAB PO PRN ×2 (16:00)
[2023-06-18] MEDS: ACETAMINOPHEN 500 MG TABLET PO PRN ×2 (17:03→21:54)
[2023-06-18 17:35] LABS: PROTEIN,URINE RANDOM 248.7 mg/dL (0-11.9)
[2023-06-18] MEDS: DOCUSATE SODIUM 100 MG CAP PO SCH (20:09)
[2023-06-18] MEDS ORDERED: INSULIN GLARGINE 100 UNITS/ML 10 ML VIAL SQ SCH (21:00)
[2023-06-18] MEDS ORDERED: GUAIFENESIN-DM 200/20 MG 10 ML PO PRN (21:30)
[2023-06-18] MEDS: GABAPENTIN 100 MG CAPSULE PO SCH (21:54)
[2023-06-19] VITALS: BP 129/67; PULSE 64; RESP 20
[2023-06-19] MEDS ORDERED: GABA-529 PO (00:31)
[2023-06-19] MEDS ORDERED: GLIM2TAB30 PO (00:31)
[2023-06-19] MEDS: CEFTRIAXONE 2GM VIAL IVPB SCH (02:21)
[2023-06-19] MEDS: ACETAMINOPHEN 500 MG TABLET PO PRN ×2 (03:36→09:34)
[2023-06-19 04:00] VITALS: BP 149/56; PULSE 70; RESP 18
[2023-06-19 06:00] LABS: BASOPHILS # (AUTO) 0.02 K/uL (0.00-0.20); BASOPHILS % (AUTO) 0.4 % (0.0-5.0); EOSINOPHILS # (AUTO) 0.21 K/uL (0.00-0.70); HEMATOCRIT 33.1 % (36-48); IMMATURE GRANULOCYTE ABSOLUTE 0.01 K/uL (0-1); LYMPHOCYTES # (AUTO) 2.2 K/uL (1.0-4.8); LYMPHOCYTES % (AUTO) 40.7 % (21.0-51.0); MEAN CORPUSCULAR HEMOGLOBIN 28.4 pg (27.0-33.0); MEAN CORPUSCULAR HGB CONC 32.3 g/dL (32.0-36.0); MEAN CORPUSCULAR VOLUME 87.8 fL (79-99); MONOCYTES # (AUTO) 0.3 K/uL (0.1-1.0); MONOCYTES % (AUTO) 6.4 % (3.0-13.0); NEUTROPHILS # (AUTO) 2.6 K/uL (1.8-7.7); NEUTROPHILS % (AUTO) 48.3 % (40.0-77.0); PLATELET COUNT (AUTO) 251 K/uL (130-400); RED BLOOD CELL COUNT(AUTO) 3.77 MIL/uL (4.00-5.50); RED CELL DISTRIBUTION WIDTH 15.3 % (11.0-15.5); WHITE BLOOD COUNT (AUTO) 5.3 K/uL (4.8-10.8)
[2023-06-19] MEDS: 0.9%NACL 1000ML 1,000 ML IV SCH (06:17)
[2023-06-19 06:25] LABS: ALANINE AMINOTRANSFERASE 19 U/L (12-78); ALBUMIN 2.1 g/dL (3.5-5.0); ASPARTATE AMINOTRANSFERASE 18 U/L (10-37); CARBON DIOXIDE 22 mmol/L (21-32); CHLORIDE 108 mmol/L (101-111); CREATININE 1.8 mg/dL (0.5-1.5); FERRITIN 155 ng/mL (15-150); GLOMERULAR FILTR. RATE CALC 36 mL/min (>90); GLUCOSE,RANDOM 251 mg/dL (70-105); POTASSIUM 5.1 mmol/L (3.5-5.1); SODIUM SERUM 137 mmol/L (136-145); TOTAL PROTEIN, SERUM 6.1 g/dL (6.0-8.3); UREA NITROGEN, BLOOD 51 mg/dL (7-18); URIC ACID 7.8 mg/dL (2.6-7.2)
[2023-06-19 06:27] LABS: BILIRUBIN,TOTAL < 0.1 mg/dL (0.2-1.0)
[2023-06-19] MEDS: INSULIN HUMULIN R 100 UNIT/ML 3ML SQ SCH ×2 (06:45)
[2023-06-19 08:00] VITALS: BP 140/66; PULSE 71; RESP 20; O2SAT 98
[2023-06-19] MEDS ORDERED: INSU100I24 SQ (09:04)
[2023-06-19] MEDS ORDERED: CEPH500C2 PO (09:04)
[2023-06-19] MEDS ORDERED: INSU200I SQ (09:04)
[2023-06-19] MEDS: Vitamin B Complex/Vit C/Folic Acid PO SCH (09:30)
[2023-06-19] MEDS: ASPIRIN 81 MG EC TAB PO SCH (09:30)
[2023-06-19] MEDS: FAMOTIDINE 20MG TAB PO SCH (09:30)
[2023-06-19] MEDS: DOCUSATE SODIUM 100 MG CAP PO SCH (09:30)
[2023-06-19 12:00] VITALS: BP 164/56; PULSE 74; RESP 18
== END 2023-06-19 12:40 | disposition home or self-care (01) ==
LOC: EDH 20:02 → EDHIP 23:42 → 4DH 23:59
PROVIDERS: ADMIT Hospitalist; ATTEND Hospitalist
DX: N17.9 Acute kidney failure, unspecified (principal); I13.0 Hypertensive heart and chronic kidney disease with heart failure and stage 1 through stage 4 chronic kidney disease, or unspecified chronic kidney disease; E11.22 Type 2 diabetes mellitus with diabetic chronic kidney disease; I50.9 Heart failure, unspecified; N18.9 Chronic kidney disease, unspecified; D63.1 Anemia in chronic kidney disease; N39.0 Urinary tract infection, site not specified; E86.1 Hypovolemia; E87.1 Hypo-osmolality and hyponatremia; E11.65 Type 2 diabetes mellitus with hyperglycemia; E46 Unspecified protein-calorie malnutrition; E66.01 Morbid (severe) obesity due to excess calories; E78.00 Pure hypercholesterolemia, unspecified; K21.9 Gastro-esophageal reflux disease without esophagitis; I73.9 Peripheral vascular disease, unspecified; E11.51 Type 2 diabetes mellitus with diabetic peripheral angiopathy without gangrene; Z68.42 Body mass index [BMI] 45.0-49.9, adult; Z79.4 Long term (current) use of insulin; Z87.891 Personal history of nicotine dependence; Z90.49 Acquired absence of other specified parts of digestive tract; Z79.899 Other long term (current) drug therapy
CPT/HCPCS: 96372 ×3; 96375 ×2; 99285; 84484 ×4; 80053 ×2; 80305; 85025 ×2; 87088; 81001; 81025; 36415 ×3; 71045; 70450; 93005; 96376; 96365; 80050; 83036; 84156; 82570; 80061; 83880; 87040 ×2; 82948 ×6; 82270; 96366; 83540; 83550; 84550; 82728; G0378 ×37; J1885; J2405 ×2; J0696; 84443

== ENCOUNTER 2023-10-13 12:15 | Emergency (ER) | payer BC ==
[~2023-10-13] VITALS: Ht 157.5 cm; Wt 112.0 kg
[~2023-10-13 12:15] MED LIST changes: -DICL75TA5 PO; -DIPH-1242 PO; -FURO40TA5 PO; +FURO80TA3 PO; +GLIM4TAB36 PO; -GUAI100L37 PO; -INSU100I24 SQ; +INSU200I SQ; +INSU300I SQ; -IPRA3AMP24 IH; -MAAL30 PO; -NITR0.4T50 SL; +SODI650T PO; -TRAZ-187 PO
[2023-10-13 13:21] VITALS: BP 130/70; PULSE 87; RESP 16
[2023-10-13 14:27] LABS: BASOPHILS # (AUTO) 0.03 K/uL (0.00-0.20); BASOPHILS % (AUTO) 0.3 % (0.0-5.0); EOSINOPHILS # (AUTO) 0.13 K/uL (0.00-0.70); EOSINOPHILS % (AUTO) 1.4 % (0.0-8.0); HEMATOCRIT 38.2 % (36-48); IMMATURE GRANULOCYTE ABSOLUTE 0.06 K/uL (0-1); MEAN CORPUSCULAR HEMOGLOBIN 30.4 pg (27.0-33.0); MEAN CORPUSCULAR HGB CONC 32.2 g/dL (32.0-36.0); MEAN CORPUSCULAR VOLUME 94.6 fL (79-99); MONOCYTES # (AUTO) 0.5 K/uL (0.1-1.0); MONOCYTES % (AUTO) 5.3 % (3.0-13.0); NEUTROPHILS # (AUTO) 5.9 K/uL (1.8-7.7); NEUTROPHILS % (AUTO) 61.4 % (40.0-77.0); PLATELET COUNT (AUTO) 266 K/uL (130-400); RED BLOOD CELL COUNT(AUTO) 4.04 MIL/uL (4.00-5.50); RED CELL DISTRIBUTION WIDTH 12.8 % (11.0-15.5); WHITE BLOOD COUNT (AUTO) 9.6 K/uL (4.8-10.8)
[2023-10-13 14:37] LABS: ADD UA MICROSCOPIC YES; APPEARANCE,URINE CLEAR (CLEAR); BILIRUBIN,URINE NEGATIVE (NEGATIVE); COLOR,URINE LIGHT-YELLOW (YELLOW); GLUCOSE, URINE (UA) TRACE mg/dL (NEGATIVE); KETONES,URINE NEGATIVE (NEGATIVE); LEUKOCYTE ESTERASE ,URINE NEGATIVE Leu/uL (NEGATIVE); NITRATE,URINE NEGATIVE (NEGATIVE); OCCULT BLOOD,URINE SMALL (NEGATIVE); PROTEIN,URINE 300 mg/dL (NEGATIVE); UROBILINOGEN,URINE 0.2 mg/dL (0.2-1.0)
[2023-10-13 14:38] LABS: HCG,QUALITATIVE URINE NEGATIVE (NEGATIVE)
[2023-10-13 14:41] LABS: BACTERIA,URINE FEW /HPF (None Seen); MUCUS,URINE RARE LPF (None Seen); SQUAMOUS EPITHELIAL CELL,UR MOD /HPF (0-2)
[2023-10-13 14:42] LABS: CREATININE 1.8 mg/dL (0.5-1.5); POTASSIUM 5.5 mmol/L (3.5-5.1)
[2023-10-13 14:48] LABS: ALBUMIN 2.8 g/dL (3.5-5.0); TOTAL PROTEIN, SERUM 6.9 g/dL (6.0-8.3)
[2023-10-13 15:00] LABS: BILIRUBIN,TOTAL 0.1 mg/dL (0.2-1.0)
== END 2023-10-13 19:48 | disposition home or self-care (01) ==
LOC: EDH 12:15
DX: R10.12 Left upper quadrant pain (principal); R20.2 Paresthesia of skin; I10 Essential (primary) hypertension; E11.9 Type 2 diabetes mellitus without complications; E78.00 Pure hypercholesterolemia, unspecified; F41.9 Anxiety disorder, unspecified; F32.A Depression, unspecified; Z90.49 Acquired absence of other specified parts of digestive tract; Z79.899 Other long term (current) drug therapy; Z98.890 Other specified postprocedural states
CPT/HCPCS: 36415; 70450; 71045; 74176; 80053; 81001; 81025; 83690; 83880; 84484; 85025; 87088; 93005; 93971

== ENCOUNTER 2023-11-18 13:24 | Emergency (ER) | payer BC ==
[~2023-11-18] VITALS: Ht 157.5 cm; Wt 116.1 kg
[~2023-11-18 13:24] MED LIST changes: +AEC81 PO; -AMLO-258 PO; +AZIT250T9 PO; +BACL10TA PO; +DAPA5TAB PO; +HYDR50TA37 PO; +METO2.5T2 PO; +TRAZ-258 PO
[2023-11-18 14:17] VITALS: BP 175/101; PULSE 81; RESP 20
[2023-11-18 14:48] LABS: BASOPHILS # (AUTO) 0.03 K/uL (0.00-0.20); BASOPHILS % (AUTO) 0.4 % (0.0-5.0); EOSINOPHILS # (AUTO) 0.16 K/uL (0.00-0.70); EOSINOPHILS % (AUTO) 2.3 % (0.0-8.0); IMMATURE GRANULOCYTE ABSOLUTE 0.03 K/uL (0-1); LYMPHOCYTES # (AUTO) 2.1 K/uL (1.0-4.8); LYMPHOCYTES % (AUTO) 30.1 % (21.0-51.0); MEAN CORPUSCULAR HEMOGLOBIN 30.6 pg (27.0-33.0); MEAN CORPUSCULAR HGB CONC 33.1 g/dL (32.0-36.0); MEAN CORPUSCULAR VOLUME 92.5 fL (79-99); MONOCYTES # (AUTO) 0.6 K/uL (0.1-1.0); MONOCYTES % (AUTO) 7.9 % (3.0-13.0); NEUTROPHILS # (AUTO) 4.2 K/uL (1.8-7.7); NEUTROPHILS % (AUTO) 58.9 % (40.0-77.0); PLATELET COUNT (AUTO) 258 K/uL (130-400); RED BLOOD CELL COUNT(AUTO) 3.46 MIL/uL (4.00-5.50); RED CELL DISTRIBUTION WIDTH 13.1 % (11.0-15.5); WHITE BLOOD COUNT (AUTO) 7.1 K/uL (4.8-10.8)
[2023-11-18 15:02] LABS: CREATININE 1.6 mg/dL (0.5-1.5); POTASSIUM 5.3 mmol/L (3.5-5.1)
[2023-11-18 15:07] LABS: ALBUMIN 2.6 g/dL (3.5-5.0); BILIRUBIN,TOTAL 0.2 mg/dL (0.2-1.0); TOTAL PROTEIN, SERUM 6.5 g/dL (6.0-8.3)
[2023-11-18] MEDS: KAYEXALATE 15GM/60ML PO ONE (18:24)
== END 2023-11-18 18:29 | disposition home or self-care (01) ==
LOC: EDH 13:24
DX: E87.5 Hyperkalemia (principal); I10 Essential (primary) hypertension; E11.65 Type 2 diabetes mellitus with hyperglycemia; E66.01 Morbid (severe) obesity due to excess calories; Z68.41 Body mass index [BMI] 40.0-44.9, adult; F41.9 Anxiety disorder, unspecified; F32.A Depression, unspecified; E78.00 Pure hypercholesterolemia, unspecified; Z79.82 Long term (current) use of aspirin; Z79.84 Long term (current) use of oral hypoglycemic drugs; Z79.899 Other long term (current) drug therapy; Z98.890 Other specified postprocedural states
CPT/HCPCS: 36415; 80053; 84484; 85025; 93005

== ENCOUNTER 2024-01-27 15:06 | Emergency (ER) | payer BC ==
[~2024-01-27] VITALS: Ht 157.5 cm; Wt 117.9 kg
[2024-01-27 15:44] LABS: BASOPHILS # (AUTO) 0.04 K/uL (0.00-0.20); BASOPHILS % (AUTO) 0.6 % (0.0-5.0); EOSINOPHILS # (AUTO) 0.15 K/uL (0.00-0.70); EOSINOPHILS % (AUTO) 2.4 % (0.0-8.0); HEMATOCRIT 33.6 % (36-48); IMMATURE GRANULOCYTE ABSOLUTE 0.03 K/uL (0-1); LYMPHOCYTES # (AUTO) 1.6 K/uL (1.0-4.8); LYMPHOCYTES % (AUTO) 25.8 % (21.0-51.0); MEAN CORPUSCULAR HEMOGLOBIN 30.9 pg (27.0-33.0); MEAN CORPUSCULAR HGB CONC 34.2 g/dL (32.0-36.0); MEAN CORPUSCULAR VOLUME 90.3 fL (79-99); MONOCYTES # (AUTO) 0.3 K/uL (0.1-1.0); MONOCYTES % (AUTO) 5.4 % (3.0-13.0); NEUTROPHILS # (AUTO) 4.2 K/uL (1.8-7.7); NEUTROPHILS % (AUTO) 65.3 % (40.0-77.0); PLATELET COUNT (AUTO) 240 K/uL (130-400); RED BLOOD CELL COUNT(AUTO) 3.72 MIL/uL (4.00-5.50); WHITE BLOOD COUNT (AUTO) 6.4 K/uL (4.8-10.8)
[2024-01-27 16:09] LABS: ALBUMIN 2.1 g/dL (3.5-5.0); CREATININE 1.7 mg/dL (0.5-1.0); POTASSIUM 4.7 mmol/L (3.5-5.1)
[2024-01-27 16:11] LABS: B-TYPE NATRIURETIC PEPTIDE 114 pg/mL (0-100)
[2024-01-27 16:15] LABS: BILIRUBIN,TOTAL 0.2 mg/dL (0.2-1.0); TOTAL PROTEIN, SERUM 5.8 g/dL (6.0-8.3)
[2024-01-27] MEDS: 0.9%NACL 1000ML 1,000 ML IV ONE (16:40)
[2024-01-27] MEDS: INSULIN HUMULIN R 100 UNIT/ML 3ML IV ONE (16:42)
[2024-01-27] MEDS ORDERED: INSU100I49 SQ (18:29)
[2024-01-27] MEDS ORDERED: GLIP10TA19 PO (18:29)
[2024-01-27] MEDS: ACETAMINOPHEN 325 MG TAB PO ONE (18:41)
[2024-01-27 18:42] VITALS: BP 137/87; PULSE 80; RESP 18; O2SAT 97
[2024-01-27] MEDS ORDERED: IPRATROPIUM/ALBUTEROL SULFATE 3 ML SOLUTION IH ONE (19:00)
== END 2024-01-27 18:49 | disposition home or self-care (01) ==
LOC: EDH 15:06
DX: E11.65 Type 2 diabetes mellitus with hyperglycemia (principal); I12.9 Hypertensive chronic kidney disease with stage 1 through stage 4 chronic kidney disease, or unspecified chronic kidney disease; E11.22 Type 2 diabetes mellitus with diabetic chronic kidney disease; N18.9 Chronic kidney disease, unspecified; E11.40 Type 2 diabetes mellitus with diabetic neuropathy, unspecified; N17.9 Acute kidney failure, unspecified; E78.00 Pure hypercholesterolemia, unspecified; F41.9 Anxiety disorder, unspecified; Z79.4 Long term (current) use of insulin; Z79.82 Long term (current) use of aspirin; Z79.84 Long term (current) use of oral hypoglycemic drugs; Z79.899 Other long term (current) drug therapy; Z90.49 Acquired absence of other specified parts of digestive tract
CPT/HCPCS: 99284; 96374; 96361; 71045; 84484; 80053; 83880; 85025; 82948; 36415; 93005 ×2; J1815; J7030

== ENCOUNTER 2024-03-07 09:43 | Emergency (ER) | payer BC ==
[~2024-03-07] VITALS: Ht 157.5 cm; Wt 115.2 kg
[~2024-03-07 09:43] MED LIST changes: +GLIP10TA19 PO; +INSU100I49 SQ; +ONDA-243 PO; -ONDA4TAB10 PO
[2024-03-07] MEDS: ACETAMINOPHEN 500 MG TABLET PO ONE (10:02)
[2024-03-07 10:23] LABS: BASOPHILS # (AUTO) 0.02 K/uL (0.00-0.20); BASOPHILS % (AUTO) 0.3 % (0.0-5.0); EOSINOPHILS # (AUTO) 0.18 K/uL (0.00-0.70); EOSINOPHILS % (AUTO) 3.1 % (0.0-8.0); HEMATOCRIT 33.6 % (36-48); IMMATURE GRANULOCYTE ABSOLUTE 0.03 K/uL (0-1); LYMPHOCYTES # (AUTO) 1.8 K/uL (1.0-4.8); LYMPHOCYTES % (AUTO) 31.8 % (21.0-51.0); MEAN CORPUSCULAR HEMOGLOBIN 29.6 pg (27.0-33.0); MEAN CORPUSCULAR HGB CONC 32.7 g/dL (32.0-36.0); MEAN CORPUSCULAR VOLUME 90.3 fL (79-99); MONOCYTES # (AUTO) 0.4 K/uL (0.1-1.0); MONOCYTES % (AUTO) 6.8 % (3.0-13.0); NEUTROPHILS # (AUTO) 3.3 K/uL (1.8-7.7); NEUTROPHILS % (AUTO) 57.5 % (40.0-77.0); PLATELET COUNT (AUTO) 233 K/uL (130-400); RED BLOOD CELL COUNT(AUTO) 3.72 MIL/uL (4.00-5.50); RED CELL DISTRIBUTION WIDTH 12.1 % (11.0-15.5); WHITE BLOOD COUNT (AUTO) 5.8 K/uL (4.8-10.8)
[2024-03-07 10:24] LABS: AMPHET/METH SCREEN,URINE NEGATIVE (NEGATIVE); BARBITURATE SCREEN, URINE POSITIVE (NEGATIVE); BENZODIAZEPINES SCREEN,URINE NEGATIVE (NEGATIVE); CANNABINOID SCREEN,URINE NEGATIVE (NEGATIVE); COCAINE SCREEN,URINE NEGATIVE (NEGATIVE); OPIATE SCREEN,URINE NEGATIVE (NEGATIVE); PHENCYCLIDINE SCREEN,URINE NEGATIVE (NEGATIVE)
[2024-03-07 10:36] LABS: CREATININE 1.5 mg/dL (0.5-1.0); POTASSIUM 5.3 mmol/L (3.5-5.1)
[2024-03-07 10:42] LABS: HCG,QUALITATIVE URINE NEGATIVE (NEGATIVE)
[2024-03-07 11:02] LABS: APPEARANCE,URINE CLEAR (CLEAR); BILIRUBIN,URINE NEGATIVE (NEGATIVE); COLOR,URINE LIGHT-YELLOW (YELLOW); GLUCOSE, URINE (UA) >=1000 mg/dL (NEGATIVE); KETONES,URINE NEGATIVE (NEGATIVE); LEUKOCYTE ESTERASE ,URINE NEGATIVE Leu/uL (NEGATIVE); NITRATE,URINE NEGATIVE (NEGATIVE); OCCULT BLOOD,URINE SMALL (NEGATIVE); PROTEIN,URINE 600 mg/dL (NEGATIVE); UROBILINOGEN,URINE 0.2 mg/dL (0.2-1.0)
[2024-03-07 11:10] LABS: ADD UA MICROSCOPIC YES
[2024-03-07 11:12] LABS: BACTERIA,URINE FEW /HPF (None Seen); MUCUS,URINE RARE LPF (None Seen); SQUAMOUS EPITHELIAL CELL,UR FEW /HPF (0-2)
[2024-03-07] MEDS: 0.9%NACL 1000ML 1,000 ML IV ONE (12:05)
[2024-03-07] MEDS: INSULIN HUMULIN R 100 UNIT/ML 3ML IV ONE (12:07)
[2024-03-07 12:37] VITALS: BP 169/60; PULSE 70; RESP 16; O2SAT 99
== END 2024-03-07 12:54 | disposition home or self-care (01) ==
LOC: EDH 09:43
DX: O99.281 Endocrine, nutritional and metabolic diseases complicating pregnancy, first trimester (principal); E87.5 Hyperkalemia; E11.65 Type 2 diabetes mellitus with hyperglycemia; E86.0 Dehydration; I10 Essential (primary) hypertension; E78.00 Pure hypercholesterolemia, unspecified; F32.A Depression, unspecified; F41.9 Anxiety disorder, unspecified; Z3A.01 Less than 8 weeks gestation of pregnancy; Z79.82 Long term (current) use of aspirin; Z79.84 Long term (current) use of oral hypoglycemic drugs; Z79.899 Other long term (current) drug therapy; Z90.49 Acquired absence of other specified parts of digestive tract; Z98.890 Other specified postprocedural states
CPT/HCPCS: 99284; 96374; 96361; 82550; 84484; 80048; 80305; 85025; 82948; 81025; 36415; 81001; J1815; J7030

== ENCOUNTER 2024-04-05 09:55 | Emergency (ER) | payer BC ==
[~2024-04-05] VITALS: Ht 157.5 cm; Wt 115.2 kg
[2024-04-05 10:41] LABS: HEMATOCRIT 33.4 % (36-48); MEAN CORPUSCULAR HEMOGLOBIN 29.9 pg (27.0-33.0); MEAN CORPUSCULAR VOLUME 93.3 fL (79-99); RED BLOOD CELL COUNT(AUTO) 3.58 MIL/uL (4.00-5.50); RED CELL DISTRIBUTION WIDTH 12.6 % (11.0-15.5); WHITE BLOOD COUNT (AUTO) 7.1 K/uL (4.8-10.8)
[2024-04-05 10:45] LABS: CREATININE 2.7 mg/dL (0.5-1.0); POTASSIUM 5.1 mmol/L (3.5-5.1)
[2024-04-05] MEDS: 0.9%NACL 1000ML 1,000 ML IV ONE (11:00)
[2024-04-05] MEDS: INSULIN HUMULIN R 100 UNIT/ML 3ML IV ONE (14:03)
[2024-04-05 14:14] VITALS: BP 106/58; PULSE 82; RESP 14; O2SAT 100
== END 2024-04-05 14:18 | disposition home or self-care (01) ==
LOC: EDH 09:55
DX: R07.89 Other chest pain (principal); I12.9 Hypertensive chronic kidney disease with stage 1 through stage 4 chronic kidney disease, or unspecified chronic kidney disease; E11.22 Type 2 diabetes mellitus with diabetic chronic kidney disease; N18.9 Chronic kidney disease, unspecified; D63.1 Anemia in chronic kidney disease; E11.65 Type 2 diabetes mellitus with hyperglycemia; F32.A Depression, unspecified; F41.9 Anxiety disorder, unspecified; E78.00 Pure hypercholesterolemia, unspecified; E66.9 Obesity, unspecified; Z79.4 Long term (current) use of insulin; Z79.82 Long term (current) use of aspirin; Z79.84 Long term (current) use of oral hypoglycemic drugs; Z79.899 Other long term (current) drug therapy; Z90.49 Acquired absence of other specified parts of digestive tract; Z98.890 Other specified postprocedural states
CPT/HCPCS: 36415; 71045; 80048; 82010; 84484; 85027; 93005

== ENCOUNTER 2024-07-15 12:59 | Emergency (ER) | payer BC ==
[~2024-07-15] VITALS: Ht 157.5 cm; Wt 111.6 kg
[~2024-07-15 12:59] MED LIST changes: -AEC81 PO; +ATOR20TA65 PO; -AZIT250T9 PO; -HYDR50TA37 PO; -INSU100I49 SQ; -INSU300I SQ; -METO2.5T2 PO; -PRAV20TA4 PO; -SERT-439 PO; -TIZA-194 PO; -TRAZ-258 PO
[2024-07-15 14:08] LABS: HEMATOCRIT 34.8 % (36-48); MEAN CORPUSCULAR HEMOGLOBIN 30.1 pg (27.0-33.0); MEAN CORPUSCULAR HGB CONC 33.3 g/dL (32.0-36.0); MEAN CORPUSCULAR VOLUME 90.2 fL (79-99); RED BLOOD CELL COUNT(AUTO) 3.86 MIL/uL (4.00-5.50); RED CELL DISTRIBUTION WIDTH 11.9 % (11.0-15.5); WHITE BLOOD COUNT (AUTO) 9.5 K/uL (4.8-10.8)
[2024-07-15 14:25] LABS: CREATININE 2.3 mg/dL (0.5-1.0); POTASSIUM 4.9 mmol/L (3.5-5.1)
[2024-07-15 14:35] LABS: ALBUMIN 3.3 g/dL (3.5-5.0); BILIRUBIN,TOTAL 0.2 mg/dL (0.2-1.0); MAGNESIUM 2.2 mg/dL (1.80-2.40); TOTAL PROTEIN, SERUM 7.5 g/dL (6.0-8.3)
[2024-07-15 15:32] VITALS: BP 163/86; PULSE 88; RESP 16; TEMP 98.2; O2SAT 97
== END 2024-07-15 15:16 | disposition home or self-care (01) ==
LOC: EDH 12:59
DX: I13.0 Hypertensive heart and chronic kidney disease with heart failure and stage 1 through stage 4 chronic kidney disease, or unspecified chronic kidney disease (principal); E11.22 Type 2 diabetes mellitus with diabetic chronic kidney disease; N18.9 Chronic kidney disease, unspecified; E11.51 Type 2 diabetes mellitus with diabetic peripheral angiopathy without gangrene; E66.01 Morbid (severe) obesity due to excess calories; I50.9 Heart failure, unspecified; J45.909 Unspecified asthma, uncomplicated; Z79.4 Long term (current) use of insulin; Z79.84 Long term (current) use of oral hypoglycemic drugs; Z79.899 Other long term (current) drug therapy; Z90.49 Acquired absence of other specified parts of digestive tract
CPT/HCPCS: 36415; 80053; 83735; 83880; 84484; 85027; 93005

== ENCOUNTER 2025-03-18 10:58 | Emergency (ER) | payer BC ==
[~2025-03-18] VITALS: Ht 157.5 cm; Wt 112.0 kg
[~2025-03-18 10:58] MED LIST changes: +AMLO5TAB4 PO; +ASPI-1719 PO; -BACL10TA PO; +CARV25TA PO; -DAPA5TAB PO; -GLIM4TAB36 PO; -GLIP10TA19 PO; +INSU100I24 SQ; +INSU100I3 SQ; -INSU200I SQ; -LISI20TA24 PO; +SERT-440 PO; +TIZA2CAP9 PO
--- NOTE | 2025-03-18 11:16 | ERN ---
ED Note History of Present Illness Stated Complaint: BREATHING PROBLEMS Chief Complaint: Shortness of Breath Time Seen by MD: 10:59 Dictation: PATIENT IS A 39-YEAR-OLD FEMALE COMING IN VIA EMS WITH COMPLAINTS OF HAVING DIFFUSE ABDOMINAL PAIN WITH CHEST PAIN ONSET THIS MORNING 0 600. NO NAUSEA VOMITING NO ARM PAIN NO BACK PAIN. SHE STATES I DID IN JUST COCAINE LAST NIGHT AND I AM NOT GOING TO LIKE TO YOU. ON-CALL SHE STATES SHE HAS A HISTORY OF STAGE 4 CHRONIC KIDNEY DISEASE DIABETES HYPERTENSION LAST BLOOD SUGAR THIS MORNING WAS 306 STATES SHE HAS NOT BEEN TAKING HER MEDICATIONS BECAUSE SHE CAN NOT TOLERATE HIM BECAUSE SHE IS NAUSEATED. Allergies: Coded Allergies: No Known Drug Allergies (Unverified Allergy, Unknown, 11/05/21) Home Meds Active Scripts Hydroxyzine Pamoate (Hydroxyzine Pamoate) 100 Mg Capsule, 100 MG PO Q6HPRN PRN for ANXIETY, #30 CAP Prov:ASHA HESTER TRAY CHECKER 03/18/25 Amlodipine Besylate (Norvasc 5Mg Tab) 5 Mg Tablet, 10 MG PO DAILY, #30 TAB Prov:ROSA LOZANO MD 02/14/25 Carvedilol (Carvedilol) 25 Mg Tablet, 25 MG PO BID, #60 TAB Prov:ROSA LOZANO MD 02/14/25 Reported Medications Insulin Degludec (Tresiba Flextouch U-100) 100 Unit/Ml (3 Ml) Insuln.pen, 70 UNIT SQ DAILY, SYRINGE 02/11/25 Insulin Aspart (Novolog Flexpen) 100 Unit/Ml (3 Ml) Insuln.pen, 0 SQ BIDLUNCHDINNER, SYRINGE 02/11/25 Aspirin (Aspirin) 81 Mg Tablet, 81 MG PO DAILY, TAB 02/11/25 Furosemide (Furosemide) 80 Mg Tablet, 1 TAB PO BID for 30 Days, #60 TAB 0 Refills 02/11/25 Sertraline HCl (Sertraline HCl) 100 Mg Tablet, 1 TAB PO HS for ANXIETY for 30 Days, #30 TAB 0 Refills 02/08/25 Tizanidine HCl (Tizanidine HCl) 2 Mg Capsule, 2 MG PO TID, CAP 09/18/24 Gabapentin (Gabapentin) 100 Mg Capsule, 300 MG PO TID, CAP 09/18/24 Atorvastatin Calcium (Atorvastatin Calcium) 20 Mg Tablet, 20 MG PO HS, TAB 06/05/24 Sodium Bicarbonate (Sodium Bicarbonate) 650 Mg Tablet, 650 MG PO BID, TAB 09/24/23 Montelukast Sodium (Montelukast Sodium) 10 Mg Tablet, 10 MG PO DAILY, TAB 03/18/23 Ondansetron (Ondansetron Odt) 4 Mg Tab.rapdis, 4 MG PO Q6HPRN PRN for NAUSEA/VOMITING, TAB 02/09/23 Past Medical History Past Medical History: Diabetes-Type II, High Cholesterol, Hypertension, Renal Disese Additional Past Medical Hx: PVD, NEUROPATHY, ESBL Surgical History: Cholecystectomy, Other Surgical History Other: mass liver Social History: Negative, Lives with family, Other History: Not Applicable RN Note Reviewed/Agreed w/PFSH: Yes Review of System Dictation CONSTITUTIONAL: NEGATIVE EXCEPT FOR HPI HEAD/FACE: NEGATIVE EXCEPT FOR HPI EENT: NEGATIVE EXCEPT FOR HPI RESPIRATORY: NEGATIVE EXCEPT FOR HPI CHEST PAIN WITH THE SOB GASTROINTESTINAL/ABDOMINAL: NEGATIVE EXCEPT FOR HPI DIFFUSE ABDOMINAL PAIN WITH NAUSEA GENITOURINARY: NEGATIVE EXCEPT FOR HPI MUSCULOSKELETAL: NEGATIVE EXCEPT FOR HPI INTEGUMENTARY: NEGATIVE EXCEPT FOR HPI NEUROLOGICAL/PSYCH: NEGATIVE EXCEPT FOR HPI HEMATOLOGIC/LYMPHATIC: NEGATIVE EXCEPT FOR HPI ALL SYSTEMS NEGATIVE, EXCEPT NOTED ABOVE. 13 POINT REVIEW OF SYSTEMS ASSESSED AND ALL NEGATIVE EXCEPT FOR ABOVE. Initial Vital Sign VS Vital Signs Date Time Temp Pulse Resp B/P (MAP) Pulse Ox O2 Delivery O2 Flow Rate FiO2 03/18/25 11:05 97.9 80 18 167/82 100 Room Air 0 03/18/25 11:13 21 Physical Exam Dictation VITAL SIGNS REVIEWED GENERAL APPEARANCE: ALERT, ORIENTED X 3, NO ACUTE DISTRESS, WELL DEVELOPED, NOURISHED. MORBID OBESITY HEAD AND FACE: NON-TRAUMATIC. EYES: PERRL, PINK CONJUNCTIVAS, EYELID NO TRAUMA, ANTERIOR CHAMBER WITH ARCUS SENILIS. EARS: PINNAS INTACT AND NO SIGNS OF TRAUMA OR ERYTHEMA EAR CANALS CLEAR AND NO DISCHARGE TM NO ERYTHEMA NOSE: NO DISCHARGE, NO BLEEDING. OROPHARYNX: MOUTH NORMAL, TONGUE PINK, PHARYNX CLEAR,NO ERYTHEMA, TONSILS NO EXUDATES, NO ABSCESSES NOTED, MUCOUS MEMBRANE MOIST NECK: SUPPLE, NON-TENDER, NO THYROMEGALY, NO MASSES, NO JVD, NO BRUITS BREAST:DEFERRED CHEST:NO TENDERNESS, NO CREPITUS, NO PARADOXICAL MOVEMENT, NO RETRACTIONS LUNGS:CLEAR, WELL-VENTILATED, SYMMETRIC, NO RALES, NO WHEEZING, NO RHONCHI, NO STRIDOR, GOOD BREATH SOUNDS BILATERALLY HEART: REGULAR RATE, REGULAR RHYTHM, NO MURMUR, NO GALLOPS VASCULAR: 2+ PERIPHERAL EDEMA BILATERAL LOWER EXTREMITIES, ABDOMEN: SOFT, POSITIVE BOWEL SOUNDS, NONDISTENDED, NO GUARDING, NONTENDER, NO REBOUND, NO MASSES NO HEPATOMEGALY, NO SPLENOMEGALY, NO CHU'S SIGN, NO HERNIAS. NO FOCAL TENDERNESS GENITAL: DEFERRED NEUROLOGICAL: NORMAL SPEECH, MOTOR FUNCTION INTACT, SENSORY FUNCTION INTACT MUSCULOSKELETAL: NECK NONTENDER, FULL RANGE OF MOTION, BACK NONTENDER, FULL RANGE OF MOTION, EXTREMITIES: NONTENDER, FULL RANGE OF MOTION SKIN: COLOR PINK, DRY, NO TURGOR, NO RASH, NO LACERATIONS, NO ABRASIONS, NO CONTUSIONS. LYMPHATIC: DEFERRED Results (Laboratory/Radiology) Laboratory/Radiology Laboratory Tests Test 03/18/25 11:23 03/18/25 11:30 White Blood Count 8.9 K/uL (4.8-10.8) Red Blood Count 4.32 MIL/uL (4.00-5.50) Hemoglobin 12.8 g/dL (12.0-16.0) Hematocrit 38.7 % (36-48) Mean Corpuscular Volume 89.6 fL (79-99) Mean Corpuscular Hemoglobin 29.6 pg (27.0-33.0) Mean Corpuscular Hemoglobin Concent 33.1 g/dL (32.0-36.0) Red Cell Distribution Width 13.4 % (11.0-15.5) Platelet Count 369 K/uL (130-400) Mean Platelet Volume 9.6 fL (7.5-10.5) Immature Granulocyte % (Auto) 0.3 % (0-1) Neutrophils (%) (Auto) 64.7 % (40.0-77.0) Lymphocytes (%) (Auto) 25.9 % (21.0-51.0) Monocytes (%) (Auto) 7.2 % (3.0-13.0) Eosinophils (%) (Auto) 1.6 % (0.0-8.0) Basophils (%) (Auto) 0.3 % (0.0-5.0) Neutrophils # (Auto) 5.8 K/uL (1.8-7.7) Lymphocytes # (Auto) 2.3 K/uL (1.0-4.8) Monocytes # (Auto) 0.6 K/uL (0.1-1.0) Eosinophils # (Auto) 0.14 K/uL (0.00-0.70) Basophils # (Auto) 0.03 K/uL (0.00-0.20) Absolute Immature Granulocyte (auto 0.03 K/uL (0-1) Nucleated Red Blood Cells 0.0 % (0.0-0.19) Sodium Level 134 mmol/L (136-145) L Potassium Level 5.0 mmol/L (3.5-5.1) Chloride Level 105 mmol/L (101-111) Carbon Dioxide Level 22 mmol/L (21-32) Blood Urea Nitrogen 45 mg/dL (7-18) H Creatinine 2.2 mg/dL (0.5-1.0) H Glomerular Filtration Rate Calc 28 mL/min (>90) Random Glucose 157 mg/dL (70-105) H Total Calcium 8.8 mg/dL (8.5-10.1) Magnesium Level 2.20 mg/dL (1.80-2.40) Troponin I High Sensitivity 28 ng/L (4-50) HJ-Fgj-J-Type Natriuretic Peptide 4003 pg/mL (0-125) H Lipase 80 U/L (16-77) H Urine Color LIGHT-YELLOW (YELLOW) Urine Appearance SLIGHTLY CLOUDY (CLEAR) Urine pH 6.0 (5.0-8.0) Urine Specific [place] 1.016 (1.001-1.031) Urine Protein 600 mg/dL (NEGATIVE) H Urine Glucose (UA) 500 mg/dL (NEGATIVE) H Urine Ketones NEGATIVE mg/dL (NEGATIVE) Urine Occult Blood SMALL (NEGATIVE) H Urine Nitrate NEGATIVE (NEGATIVE) Urine Bilirubin NEGATIVE mg/dL (NEGATIVE) Urine Urobilinogen 0.2 mg/dL (0.2-1.0) Urine Leukocyte Esterase NEGATIVE [place]/uL Urine RBC 0-1 /HPF (0-1) Urine WBC 2-5 /HPF (0-1) H Urine Squamous Epithelial Cells Moderate /HPF (0-2) H Urine Bacteria Rare /HPF (None Seen) Urine Opiates Screen NEGATIVE (NEGATIVE) Urine Barbiturates Screen NEGATIVE (NEGATIVE) Urine Phencyclidine Screen NEGATIVE (NEGATIVE) Urine Amphetamines Screen NEGATIVE (NEGATIVE) Urine Benzodiazepines Screen NEGATIVE (NEGATIVE) Urine Cocaine Screen POSITIVE (NEGATIVE) H Urine Marijuana (THC) Screen POSITIVE (NEGATIVE) H SARS-CoV-2 Antigen (Rapid) PRESUMPTIVE NEGATIVE 1212/CHEST X-RAY NEGATIVE Labs Reviewed?: Yes EKG: (+) NSR EKG Comment: EKG NORMAL SINUS RHYTHM/HEART RATE 77/AXIS NORMAL/NO ECTOPY ED Course ED Course Orders Procedure Category Date Status Time Covid19 (Sars Antigen LAB 03/18/25 Complete Rapid) 11:11 Cbc With Differential LAB 03/18/25 Complete 11:11 Chest 1vw RAD 03/18/25 Taken 11:11 12 Lead Ekg Tracing- EKG 03/18/25 Logged Technical 11:11 Magnesium LAB 03/18/25 Complete 11:11 Troponin I High LAB 03/18/25 Complete Sensitivity 11:11 Urinalysis Profile LAB 03/18/25 Complete 11:11 Basic Metabolic Panel LAB 03/18/25 Complete 11:11 Drug Screen Urine LAB 03/18/25 Complete 11:11 Aspirin 325mg Tab PHA 03/18/25 Complete (Aspirin 325mg Tab) 11:30 Probnp LAB 03/18/25 Complete 11:11 Lipase LAB 03/18/25 Complete 11:13 Current Medications Medications (Trade) Dose Ordered Sig/Jai Route PRN Reason Start Time Stop Time Status Last Admin Dose Admin Aspirin (Aspirin 325mg Tab) 325 mg ONCE ONCE PO 03/18/25 11:30 03/18/25 11:31 DC 03/18/25 11:43 Vital Signs Date Time Temp Pulse Resp B/P (MAP) Pulse Ox O2 Delivery O2 Flow Rate FiO2 03/18/25 12:21 98.1 76 16 156/77 98 Room Air* 0 21 03/18/25 11:41 98.1 78 20 106/49 96 Room Air* 0 21 03/18/25 11:13 97.9 80 18 167/82 100 Room Air* 0 21 03/18/25 11:05 97.9 80 18 167/82 100 Room Air 0 HEART Score Response (Comments) Value History: Low suspicion (0) 0 EKG: Normal 0 Risk Factors: 1-2 risk factors (+1) 1 Initial Troponin: Normal limit (0) 0 Total 1 Medical Decision Making MDM MDM: DIFFERENTIAL DIAGNOSIS: ACS/AMI/ELECTROLYTE IMBALANCE/DE HYDRATION/PNEUMONIA/BRONCHITIS/FLUID OVERLOAD/DRUG ABUSE RATIONALE: TESTS CONSIDERED AND ORDERED SECONDARY TO SHARED DECISION MAKING INCLUDE: EKG/LABS/RADIOLOGY PREVIOUS OUTSIDE RECORDS REVIEWED: OLD ER VISITS. RISK OF COMPLICATION AND/OR MORBIDITY OR MORTALITY OF PATIENT MANAGEMENT: NONE MEDICATIONS-PER MEDICATION RECONCILIATION NEED FOR HOSPITALIZATION: PATIENT DOES NOT MEET CRITERIA FOR HOSPITALIZATION. NO NEED FOR EMERGENCY MAJOR/MINOR SURGERY: NO THERE ARE NO SOCIAL CONCERNS WITH THIS PATIENT. POLYSUBSTANCE ABUSE PRESCRIPTION DRUG MANAGEMENT PRESCRIPTIONS WILL INCLUDE SYMPTOMATIC CARE PATIENT'S PRIOR EXTERNAL MEDICAL RECORDS FROM OTHER ER VISITS WERE REVIEWED BY ME INDICATED. PRIOR TESTING AND RESULTS FROM PREVIOUS VISITS WERE REVIEWED. PRIOR TESTS WERE TAKEN INTO ACCOUNT WITH MEDICAL DECISION MAKING AND RESOURCE UTILIZATION, INDEPENDENT HISTORIAN/HISTORIANS WERE USED TO OBTAIN COMPLETE MEDICAL HISTORY. I INDEPENDENTLY INTERPRETED THE TEST THAT WERE PERFORMED, RESULTS WERE REVIEWED BY ME AND CONSIDERED FINDINGS ON RADIOLOGY IF ORDERED. MEDICAL MANAGEMENT AND EXAMINATION INTERPRETATION DISCUSSIONS WERE HAD BY ME WITH OTHER QUALIFIED HEALTHCARE PROFESSIONALS INDICATED FOR THE PATIENT'S CARE. DX & DISP Disposition: Discharge Departure Impression: Primary Impression: Atypical chest pain Additional Impressions: Stage 3 chronic kidney disease, Hyponatremia, Polysubstance abuse, Anemia of chronic renal failure, stage 3b, Uncontrolled diabetes mellitus Condition: Stable Scripts Bumetanide (Bumex) 1 Mg Tab 1 TAB PO DAILY for 5 Days, #5 TAB 0 Refills Prov: ASHA HESTER TRAY CHECKER 03/18/25 Hydroxyzine Pamoate (Hydroxyzine Pamoate) 100 Mg Capsule 100 MG PO Q6HPRN PRN for ANXIETY, #30 CAP Prov: ASHA HESTER TRAY CHECKER 03/18/25 Additional Instructions: FOLLOW-UP WITH PRIMARY CARE PROVIDER IN 1 TO 2 DAYS. TAKE MEDICATIONS DIRECTED HERE IN THE EMERGENCY ROOM. OKAY TO CONTINUE HOME MEDICATIONS UNLESS OTHERWISE DISCUSSED DURING YOUR VISIT IN THE EMERGENCY ROOM TODAY. RETURN TO YOUR NEAREST EMERGENCY ROOM IF SYMPTOMS WORSEN OR IF THERE IS NO IMPROVEMENT. CALL 911 IF YOU NEED IMMEDIATE ASSISTANCE. TAKE TYLENOL OR MOTRIN [id number] NEEDED AND IF NO CONTRAINDICATIONS ARE PRESENT. INCREASE ORAL HYDRATION. A WOUND CULTURE OR URINE CULTURE WAS ORDERED HERE IN THE EMERGENCY ROOM DEPARTMENT PLEASE FOLLOW-UP WITH PRIMARY CARE PROVIDER AND ADVISE THEM TO GET REPEAT PORTS FROM OUR FACILITY. IF YOU HAD ANY RON WRAP/SPLINTS THAT WERE APPLIED HERE, PLEASE DO NOT REMOVE THEM UNTIL YOU SEE YOUR PRIMARY CARE OR SPECIALTY. STOP USING COCAINE OR RISK HEART ATTACK, STROKE, INSTANT . COCAINE IS BEING MIXED WITH FENTANYL AND CAN BE DEADLY. CONTINUE YOUR MEDICATIONS AT HOME AND SEE YOUR PRIMARY CARE DOCTOR FOR FOLLOW UP AND MANAGEMENT. Referrals: GRISEL AGUILA MD (PCP) I have reviewed the case, and I agree with, Diagnosis and Plan ASHA HESTER NP Mar 18, 2025 11:16
[2025-03-18 11:29] LABS: BASOPHILS # (AUTO) 0.03 K/uL (0.00-0.20); BASOPHILS % (AUTO) 0.3 % (0.0-5.0); EOSINOPHILS # (AUTO) 0.14 K/uL (0.00-0.70); EOSINOPHILS % (AUTO) 1.6 % (0.0-8.0); HEMATOCRIT 38.7 % (36-48); IMMATURE GRANULOCYTE ABSOLUTE 0.03 K/uL (0-1); LYMPHOCYTES # (AUTO) 2.3 K/uL (1.0-4.8); LYMPHOCYTES % (AUTO) 25.9 % (21.0-51.0); MEAN CORPUSCULAR HEMOGLOBIN 29.6 pg (27.0-33.0); MEAN CORPUSCULAR HGB CONC 33.1 g/dL (32.0-36.0); MEAN CORPUSCULAR VOLUME 89.6 fL (79-99); MONOCYTES # (AUTO) 0.6 K/uL (0.1-1.0); MONOCYTES % (AUTO) 7.2 % (3.0-13.0); NEUTROPHILS # (AUTO) 5.8 K/uL (1.8-7.7); NEUTROPHILS % (AUTO) 64.7 % (40.0-77.0); PLATELET COUNT (AUTO) 369 K/uL (130-400); RED BLOOD CELL COUNT(AUTO) 4.32 MIL/uL (4.00-5.50); RED CELL DISTRIBUTION WIDTH 13.4 % (11.0-15.5); WHITE BLOOD COUNT (AUTO) 8.9 K/uL (4.8-10.8)
[2025-03-18] MEDS: ASPIRIN 325MG TAB PO ONE (11:43)
[2025-03-18 11:50] LABS: CREATININE 2.2 mg/dL (0.5-1.0); MAGNESIUM 2.2 mg/dL (1.80-2.40)
[2025-03-18 11:55] LABS: BILIRUBIN,URINE NEGATIVE (NEGATIVE); COLOR,URINE LIGHT-YELLOW (YELLOW); GLUCOSE, URINE (UA) 500 mg/dL (NEGATIVE); KETONES,URINE NEGATIVE (NEGATIVE); LEUKOCYTE ESTERASE ,URINE NEGATIVE Leu/uL (NEGATIVE); NITRATE,URINE NEGATIVE (NEGATIVE); OCCULT BLOOD,URINE SMALL (NEGATIVE); PROTEIN,URINE 600 mg/dL (NEGATIVE); UROBILINOGEN,URINE 0.2 mg/dL (0.2-1.0)
[2025-03-18 11:58] LABS: ADD UA MICROSCOPIC YES; APPEARANCE,URINE SLIGHTLY CLOUDY (CLEAR)
[2025-03-18 12:02] LABS: AMPHET/METH SCREEN,URINE NEGATIVE (NEGATIVE); BARBITURATE SCREEN, URINE NEGATIVE (NEGATIVE); BENZODIAZEPINES SCREEN,URINE NEGATIVE (NEGATIVE); CANNABINOID SCREEN,URINE POSITIVE (NEGATIVE); COCAINE SCREEN,URINE POSITIVE (NEGATIVE); OPIATE SCREEN,URINE NEGATIVE (NEGATIVE); PHENCYCLIDINE SCREEN,URINE NEGATIVE (NEGATIVE)
[2025-03-18 12:04] LABS: BACTERIA,URINE Rare /HPF (None Seen); MUCUS,URINE Rare LPF (None Seen); RBC,URINE 0-1 /HPF (0-1); SQUAMOUS EPITHELIAL CELL,UR Moderate /HPF (0-2)
[2025-03-18 12:21] VITALS: BP 156/77; PULSE 76; RESP 16; TEMP 98.1; O2SAT 98
[2025-03-18] MEDS ORDERED: HYDR100C2 PO (12:26)
[2025-03-18] MEDS ORDERED: BUME1TAB7 PO (12:32)
--- NOTE | 2025-03-18 12:44 | HMCIMG ---
EXAM: CR Chest, 1 View. CLINICAL HISTORY: CHEST PAIN COMPARISON: None provided. FINDINGS: LUNGS: The lungs show no infiltrate or other acute finding. PLEURAL SPACES: No evidence of pleural effusion or pneumothorax. MEDIASTINUM: The cardiomediastinal silhouette is within normal limits. BONES: No aggressive appearing osseous lesion seen. IMPRESSION: No acute cardiopulmonary pathology is evident. /[place]
--- NOTE | 2025-03-18 13:36 | EKG ---
[facility] Test Date: 2025-03-18 Test Time: 11:38:45 Pat Name: ALBERTO LEIGH Department: [facility] Room: Gender: F Sba Underwriter: [id number] : [id number] Requested By: ASHA HESTER Order Number: [id number] Reading MD: Jonas Goodwin Measurements Intervals [place] Rate: 77 P: 20 ME: 138 QRS: 22 QRSD: 88 T: 62 QT: 423 QTc: 480 Interpretive Statements Sinus rhythm Compared to ECG 02/15/2025 11:14:41 No significant changes Electronically Signed On 03-18-2025 16:22:38 CDT by Jonas Goodwin Please click the below link to view image of tracing.
== END 2025-03-18 12:39 | disposition home or self-care (01) ==
LOC: EDH 10:58 → EEVIPCON 10:58 → EDH 12:39
DX: I12.9 Hypertensive chronic kidney disease with stage 1 through stage 4 chronic kidney disease, or unspecified chronic kidney disease (principal); E11.22 Type 2 diabetes mellitus with diabetic chronic kidney disease; N18.30 Chronic kidney disease, stage 3 unspecified; E11.51 Type 2 diabetes mellitus with diabetic peripheral angiopathy without gangrene; D63.1 Anemia in chronic kidney disease; E11.65 Type 2 diabetes mellitus with hyperglycemia; E78.00 Pure hypercholesterolemia, unspecified; E87.1 Hypo-osmolality and hyponatremia; F19.10 Other psychoactive substance abuse, uncomplicated; R07.89 Other chest pain; N18.32 Chronic kidney disease, stage 3b; Z79.4 Long term (current) use of insulin; Z79.82 Long term (current) use of aspirin; Z79.899 Other long term (current) drug therapy; Z90.49 Acquired absence of other specified parts of digestive tract; Z20.822 Contact with and (suspected) exposure to COVID-19
CPT/HCPCS: 36415; 71045; 80048; 80305; 81001; 83690; 83735; 83880; 84484; 85025; 87426; 93005; 99284

== ENCOUNTER 2025-05-18 11:35 | Emergency (ER) | payer BC ==
[~2025-05-18] VITALS: Ht 157.5 cm; Wt 108.9 kg
[~2025-05-18 11:35] MED LIST changes: +BUME1TAB7 PO; +HYDR100C2 PO; +OXYC-762 PO
--- NOTE | 2025-05-18 11:43 | ERN ---
ED Note History of Present Illness Stated Complaint: MUILTPLE COMPLAINTS Chief Complaint: Multiple Complaints Time Seen by MD: 11:39 Dictation: PATIENT IS A 40-YEAR-OLD FEMALE TODAY COMING IN WITH COMPLAINTS OF AN OCCIPITAL HEADACHE AND HEART PALPITATIONS INTERMITTENTLY FOR THE LAST 3-4 DAYS. SHE HAS HAD NO NAUSEA VOMITING NO ARM PAIN NO JAW PAIN NO BACK PAIN. SHE STATES SHE TOOK TYLENOL YESTERDAY FOR THE PAIN AND IT HELPED SOME BUT NOT COMPLETELY GO AWAY. SHE IS CURRENTLY ALERT AND ORIENTED X4 SPEECH IS CLEAR NIH IS 0. SHE DOES HAVE DECREASED SENSATION TO BILATERAL LOWER EXTREMITIES BUT STATES SHE HAS DIABETIC NEUROPATHY. PRIMARY CARE DOCTORS [facility]. ADDITIONALLY SHE STATES SHE GAVE UP COCAINE AND DRUGS SEVEN WEEKS AGO HAS BEEN CLEAN SINCE. Allergies: Coded Allergies: No Known Drug Allergies (Unverified Allergy, Unknown, 11/05/21) Home Meds Active Scripts Oxycodone HCl (Oxycodone HCl ER) 10 Mg Tab.er.12h, 1 TAB PO [id number] PRN for pain for 6 Days, #12 TAB 0 Refills Prov:RANI CHAPMAN MD 05/01/25 Bumetanide (Bumex) 1 Mg Tab, 1 TAB PO DAILY for 5 Days, #5 TAB 0 Refills Prov:ASHA HESTER NP 03/18/25 Hydroxyzine Pamoate (Hydroxyzine Pamoate) 100 Mg Capsule, 100 MG PO Q6HPRN PRN for ANXIETY, #30 CAP Prov:ASHA HESTER NP 03/18/25 Amlodipine Besylate (Norvasc 5Mg Tab) 5 Mg Tablet, 10 MG PO DAILY, #30 TAB Prov:ROSA LOZANO MD 02/14/25 Carvedilol (Carvedilol) 25 Mg Tablet, 25 MG PO BID, #60 TAB Prov:ROSA LOZANO MD 02/14/25 Reported Medications Insulin Degludec (Tresiba Flextouch U-100) 100 Unit/Ml (3 Ml) Insuln.pen, 70 UNIT SQ DAILY, SYRINGE 02/11/25 Insulin Aspart (Novolog Flexpen) 100 Unit/Ml (3 Ml) Insuln.pen, 0 SQ BIDLUNCHDINNER, SYRINGE 02/11/25 Aspirin (Aspirin) 81 Mg Tablet, 81 MG PO DAILY, TAB 02/11/25 Furosemide (Furosemide) 80 Mg Tablet, 1 TAB PO BID for 30 Days, #60 TAB 0 Refills 02/11/25 Sertraline HCl (Sertraline HCl) 100 Mg Tablet, 1 TAB PO HS for ANXIETY for 30 Days, #30 TAB 0 Refills 02/08/25 Tizanidine HCl (Tizanidine HCl) 2 Mg Capsule, 2 MG PO TID, CAP 09/18/24 Gabapentin (Gabapentin) 100 Mg Capsule, 300 MG PO TID, CAP 09/18/24 Atorvastatin Calcium (Atorvastatin Calcium) 20 Mg Tablet, 20 MG PO HS, TAB 06/05/24 Sodium Bicarbonate (Sodium Bicarbonate) 650 Mg Tablet, 650 MG PO BID, TAB 09/24/23 Montelukast Sodium (Montelukast Sodium) 10 Mg Tablet, 10 MG PO DAILY, TAB 03/18/23 Ondansetron (Ondansetron Odt) 4 Mg Tab.rapdis, 4 MG PO Q6HPRN PRN for NAUSEA/VOMITING, TAB 02/09/23 Past Medical History Past Medical History: Diabetes-Type II, High Cholesterol, Heart Disease, Hypertension, Liver Disease, Renal Disese Additional Past Medical Hx: PVD, NEUROPATHY, ESBL Surgical History: Cholecystectomy, Other Surgical History Other: mass liver Social History: Negative, Lives with family, Other History: Not Applicable RN Note Reviewed/Agreed w/PFSH: Yes Review of System Dictation CONSTITUTIONAL: NEGATIVE EXCEPT FOR HPI HEAD/FACE: NEGATIVE EXCEPT FOR HPI EENT: NEGATIVE EXCEPT FOR HPI RESPIRATORY: NEGATIVE EXCEPT FOR HPI PALPITATIONS GASTROINTESTINAL/ABDOMINAL: NEGATIVE EXCEPT FOR HPI GENITOURINARY: NEGATIVE EXCEPT FOR HPI MUSCULOSKELETAL: NEGATIVE EXCEPT FOR HPI INTEGUMENTARY: NEGATIVE EXCEPT FOR HPI NEUROLOGICAL/PSYCH: NEGATIVE EXCEPT FOR HPI OCCIPITAL HEADACHE HEMATOLOGIC/LYMPHATIC: NEGATIVE EXCEPT FOR HPI ALL SYSTEMS NEGATIVE, EXCEPT NOTED ABOVE. 13 POINT REVIEW OF SYSTEMS ASSESSED AND ALL NEGATIVE EXCEPT FOR ABOVE. Initial Vital Sign VS Vital Signs Date Time Temp Pulse Resp B/P (MAP) Pulse Ox O2 Delivery O2 Flow Rate FiO2 05/18/25 11:39 98.2 71 16 120/49 100 Room Air 0 05/18/25 11:43 21 Physical Exam Dictation VITAL SIGNS REVIEWED OBESE GENERAL APPEARANCE: ALERT, ORIENTED X 3, MILD ACUTE DISTRESS, WELL DEVELOPED, NOURISHED. HEAD AND FACE: NON-TRAUMATIC. EYES: PERRL, PINK CONJUNCTIVAS, EYELID NO TRAUMA, ANTERIOR CHAMBER WITH ARCUS SENILIS. EARS: PINNAS INTACT AND NO SIGNS OF TRAUMA OR ERYTHEMA EAR CANALS CLEAR AND NO DISCHARGE TM NO ERYTHEMA NOSE: NO DISCHARGE, NO BLEEDING. OROPHARYNX: MOUTH NORMAL, TONGUE PINK, PHARYNX CLEAR,NO ERYTHEMA, TONSILS NO EXUDATES, NO ABSCESSES NOTED, MUCOUS MEMBRANE MOIST NECK: SUPPLE, NON-TENDER, NO THYROMEGALY, NO MASSES, NO JVD, NO BRUITS BREAST:DEFERRED CHEST:NO TENDERNESS, NO CREPITUS, NO PARADOXICAL MOVEMENT, NO RETRACTIONS LUNGS:CLEAR, WELL-VENTILATED, SYMMETRIC, NO RALES, NO WHEEZING, NO RHONCHI, NO STRIDOR, GOOD BREATH SOUNDS BILATERALLY HEART: REGULAR RATE, REGULAR RHYTHM, NO MURMUR, NO GALLOPS VASCULAR: NO PERIPHERAL EDEMA, ABDOMEN: SOFT, POSITIVE BOWEL SOUNDS, NONDISTENDED, NO GUARDING, NONTENDER, NO REBOUND, NO MASSES NO HEPATOMEGALY, NO SPLENOMEGALY, NO CHU'S SIGN, NO HERNIAS. RECTAL: DEFERRED GENITAL: DEFERRED NEUROLOGICAL: NORMAL SPEECH, MOTOR FUNCTION INTACT, SENSORY FUNCTION INTACT NIH IS 0 MUSCULOSKELETAL: NECK NONTENDER, FULL RANGE OF MOTION, BACK NONTENDER, FULL RANGE OF MOTION, EXTREMITIES: NONTENDER, FULL RANGE OF MOTION SKIN: COLOR PINK, DRY, NO TURGOR, NO RASH, NO LACERATIONS, NO ABRASIONS, NO CONTUSIONS. LYMPHATIC: DEFERRED Results (Laboratory/Radiology) Laboratory/Radiology Laboratory Tests Test 05/18/25 11:52 05/18/25 13:40 White Blood Count 6.8 K/uL (4.8-10.8) Red Blood Count 3.25 MIL/uL (4.00-5.50) L Hemoglobin 9.6 g/dL (12.0-16.0) L Hematocrit 30.1 % (36-48) L Mean Corpuscular Volume 92.6 fL (79-99) Mean Corpuscular Hemoglobin 29.5 pg (27.0-33.0) Mean Corpuscular Hemoglobin Concent 31.9 g/dL (32.0-36.0) L Red Cell Distribution Width 12.9 % (11.0-15.5) Platelet Count 291 K/uL (130-400) Mean Platelet Volume 10.7 fL (7.5-10.5) H Immature Granulocyte % (Auto) 0.3 % (0-1) Neutrophils (%) (Auto) 58.4 % (40.0-77.0) Lymphocytes (%) (Auto) 30.0 % (21.0-51.0) Monocytes (%) (Auto) 6.7 % (3.0-13.0) Eosinophils (%) (Auto) 4.0 % (0.0-8.0) Basophils (%) (Auto) 0.6 % (0.0-5.0) Neutrophils # (Auto) 4.0 K/uL (1.8-7.7) Lymphocytes # (Auto) 2.1 K/uL (1.0-4.8) Monocytes # (Auto) 0.5 K/uL (0.1-1.0) Eosinophils # (Auto) 0.27 K/uL (0.00-0.70) Basophils # (Auto) 0.04 K/uL (0.00-0.20) Absolute Immature Granulocyte (auto 0.02 K/uL (0-1) Nucleated Red Blood Cells 0.0 % (0.0-0.19) Sodium Level 138 mmol/L (136-145) Potassium Level 5.0 mmol/L (3.5-5.1) Chloride Level 106 mmol/L (101-111) Carbon Dioxide Level 23 mmol/L (21-32) Blood Urea Nitrogen 56 mg/dL (7-18) H Creatinine 2.9 mg/dL (0.5-1.0) H Glomerular Filtration Rate Calc 20 mL/min (>90) Random Glucose 204 mg/dL (70-105) H Total Calcium 7.8 mg/dL (8.5-10.1) L Magnesium Level 2.40 mg/dL (1.80-2.40) Troponin I High Sensitivity 10 ng/L (4-50) 10 ng/L (4-50) REASON: CHEST PAIN/PALPITATIONS ORDERING PHYSICIAN: ASHA HESTER NP PROCEDURE: CXR1VW - CHEST 1VW CHEST 1VW REASON: CHEST PAIN/PALPITATIONS COMPARISON: Prior study from 05/01/2025 is available FINDINGS: Single view of the chest was obtained. Lungs are clear. Heart size is normal. There is no pulmonary vascular congestion. Mediastinum and bony thorax appear unremarkable. IMPRESSION: 1. Unchanged from prior study with no acute cardiopulmonary process.. Labs Reviewed?: Yes EKG Comment: EKG IS SINUS RHYTHM/HEART RATE 68/AXIS NORMAL/EARLY REPOLARIZATION LEAD V1 TWO THREE 2ND EKG SINUS RHYTHM/HEART RATE 67/AXIS NORMAL/NO CHANGES FROM INITIAL EKG EKG DONE 1405 HIGH SENSITIVITY TROPONIN IS 10, HEART SCORE IS THREE ED Course ED Course Orders Procedure Category Date Status Time Cbc With Differential LAB 05/18/25 Complete 11:39 Chest 1vw RAD 05/18/25 Resulted 11:39 12 Lead Ekg Tracing- EKG 05/18/25 Resulted Technical 11:39 Magnesium LAB 05/18/25 Complete 11:39 Troponin I High LAB 05/18/25 Complete Sensitivity 11:39 Basic Metabolic Panel LAB 05/18/25 Complete 11:39 12 Lead Ekg Tracing- EKG 05/18/25 Complete Technical 13:27 Troponin I High LAB 05/18/25 Complete Sensitivity 13:27 Vital Signs Date Time Temp Pulse Resp B/P (MAP) Pulse Ox O2 Delivery O2 Flow Rate FiO2 05/18/25 11:43 98.2 71 16 120/49 100 Room Air* 0 21 05/18/25 11:39 98.2 71 16 120/49 100 Room Air 0 HEART Score Response (Comments) Value EKG: Repolarization changes 1 Age: < 45yrs (0) 0 Risk Factors: 1-2 risk factors (+1) 1 Initial Troponin: Normal limit (0) 0 Total 2 Medical Decision Making MDM MDM: DIFFERENTIAL DIAGNOSIS: ACS/AMI/ELECTROLYTE IMBALANCE/DEHYDRATION RATIONALE: TESTS CONSIDERED AND ORDERED SECONDARY TO SHARED DECISION MAKING INCLUDE: EKG/LABS PREVIOUS OUTSIDE RECORDS REVIEWED: OLD ER VISITS. RISK OF COMPLICATION AND/OR MORBIDITY OR MORTALITY OF PATIENT MANAGEMENT: NONE MEDICATIONS-PER MEDICATION RECONCILIATION NEED FOR HOSPITALIZATION: PATIENT DOES NOT MEET CRITERIA FOR HOSPITALIZATION. NO NEED FOR EMERGENCY MAJOR/MINOR SURGERY: NO THERE ARE NO SOCIAL CONCERNS WITH THIS PATIENT. PRESCRIPTION DRUG MANAGEMENT NO PRESCRIPTIONS WILL INCLUDE SYMPTOMATIC CARE PATIENT'S PRIOR EXTERNAL MEDICAL RECORDS FROM OTHER ER VISITS WERE REVIEWED BY ME INDICATED. PRIOR TESTING AND RESULTS FROM PREVIOUS VISITS WERE REVIEWED. PRIOR TESTS WERE TAKEN INTO ACCOUNT WITH MEDICAL DECISION MAKING AND RESOURCE UTILIZATION, INDEPENDENT HISTORIAN/HISTORIANS WERE USED TO OBTAIN COMPLETE MEDICAL HISTORY. I INDEPENDENTLY INTERPRETED THE TEST THAT WERE PERFORMED, RESULTS WERE REVIEWED BY ME AND CONSIDERED FINDINGS ON RADIOLOGY IF ORDERED. MEDICAL MANAGEMENT AND EXAMINATION INTERPRETATION DISCUSSIONS WERE HAD BY ME WITH OTHER QUALIFIED HEALTHCARE PROFESSIONALS INDICATED FOR THE PATIENT'S CARE. DX & DISP Disposition: Discharge Departure Impression: Primary Impression: Atypical chest pain Additional Impressions: Stage 3 chronic kidney disease, Anemia of chronic renal failure, stage 3b, Uncontrolled diabetes mellitus, Hypocalcemia Condition: Stable Scripts Calcium Carbonate (Calcium) 600 Mg Calcium (1500 Mg) Tablet 1 TAB PO BID for 30 Days, #60 TAB 0 Refills Prov: ASHA HESTER DOUGH MAKER 05/18/25 Additional Instructions: FOLLOW-UP WITH PRIMARY CARE PROVIDER IN 1 TO 2 DAYS. TAKE MEDICATIONS DIRECTED HERE IN THE EMERGENCY ROOM. OKAY TO CONTINUE HOME MEDICATIONS UNLESS OTHERWISE DISCUSSED DURING YOUR VISIT IN THE EMERGENCY ROOM TODAY. RETURN TO YOUR NEAREST EMERGENCY ROOM IF SYMPTOMS WORSEN OR IF THERE IS NO IMPROVEMENT. CALL 911 IF YOU NEED IMMEDIATE ASSISTANCE. TAKE TYLENOL OR MOTRIN [id number] NEEDED AND IF NO CONTRAINDICATIONS ARE PRESENT. INCREASE ORAL HYDRATION. A WOUND CULTURE OR URINE CULTURE WAS ORDERED HERE IN THE EMERGENCY ROOM DEPARTMENT PLEASE FOLLOW-UP WITH PRIMARY CARE PROVIDER AND ADVISE THEM TO GET REPEAT PORTS FROM OUR FACILITY. IF YOU HAD ANY RON WRAP/SPLINTS THAT WERE APPLIED HERE, PLEASE DO NOT REMOVE THEM UNTIL YOU SEE YOUR PRIMARY CARE OR SPECIALTY. TAKE CALCIUM DIRECTED UNTIL GONE. SEE YOUR PRIMARY CARE DOCTOR FOR FOLLOW UP AND MANAGEMENT IN THE NEXT 1-2 DAYS. Referrals: GRISEL AGUILA MD (PCP) Time of Disposition: 15:16 I have reviewed the case, and I agree with, Diagnosis and Plan ASHA HESTER NP May 18, 2025 11:43
[2025-05-18 11:59] LABS: IMMATURE GRANULOCYTE ABSOLUTE 0.02 K/uL (0-1); NUCLEATED RED BLOOD CELLS 0.0 % (0.0-0.19); PLATELET COUNT (AUTO) 291 K/uL (130-400); RED BLOOD CELL COUNT(AUTO) 3.25 MIL/uL (4.00-5.50); RED CELL DISTRIBUTION WIDTH 12.9 % (11.0-15.5); WHITE BLOOD COUNT (AUTO) 6.8 K/uL (4.8-10.8)
--- NOTE | 2025-05-18 12:01 | EKG ---
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
[2025-05-18 12:07] LABS: CREATININE 2.9 mg/dL (0.5-1.0); GLOMERULAR FILTR. RATE CALC 20.0 mL/min (>90); GLUCOSE,RANDOM 204.0 mg/dL (70-105); SODIUM SERUM 138.0 mmol/L (136-145); UREA NITROGEN, BLOOD 56.0 mg/dL (7-18)
--- NOTE | 2025-05-18 12:16 | HMCIMG ---
CHEST 1VW REASON: CHEST PAIN/PALPITATIONS COMPARISON: Prior study from 05/01/2025 is available FINDINGS: Single view of the chest was obtained. Lungs are clear. Heart size is normal. There is no pulmonary vascular congestion. Mediastinum and bony thorax appear unremarkable. IMPRESSION: 1. Unchanged from prior study with no acute cardiopulmonary process..
--- NOTE | 2025-05-18 14:09 | EKG ---
[facility] Test Date: 2025-05-18 Test Time: 14:05:27 Pat Name: ALBERTO LEIGH Department: 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
[2025-05-18] MEDS ORDERED: CALC-1125 PO (15:17)
[2025-05-18 16:12] VITALS: BP 145/86; PULSE 69; RESP 20; TEMP 98; O2SAT 97
== END 2025-05-18 16:21 | disposition home or self-care (01) ==
LOC: EDH 11:35
DX: I13.10 Hypertensive heart and chronic kidney disease without heart failure, with stage 1 through stage 4 chronic kidney disease, or unspecified chronic kidney disease (principal); E11.22 Type 2 diabetes mellitus with diabetic chronic kidney disease; N18.32 Chronic kidney disease, stage 3b; D63.1 Anemia in chronic kidney disease; E11.51 Type 2 diabetes mellitus with diabetic peripheral angiopathy without gangrene; E11.65 Type 2 diabetes mellitus with hyperglycemia; E78.00 Pure hypercholesterolemia, unspecified; E83.51 Hypocalcemia; R07.89 Other chest pain; Z79.4 Long term (current) use of insulin; Z79.82 Long term (current) use of aspirin; Z79.899 Other long term (current) drug therapy; Z90.49 Acquired absence of other specified parts of digestive tract
CPT/HCPCS: 36415; 71045; 80048; 83735; 84484; 85025; 93005; 99284

== ENCOUNTER 2025-07-10 16:54 | Emergency (ER) | payer BC ==
[~2025-07-10] VITALS: Ht 157.5 cm; Wt 115.2 kg
[~2025-07-10 16:54] MED LIST changes: -AMLO5TAB4 PO; -BUME1TAB7 PO; -CARV25TA PO; -FURO80TA3 PO; +GLIM4TAB36 PO; -HYDR100C2 PO; +HYDR25 PO; +HYDR25TA67 PO; -INSU100I24 SQ; -INSU100I3 SQ; +INSU3INS3 SQ; +METO2.5T2 PO; -ONDA-243 PO; -OXYC-762 PO; -SODI650T PO
--- NOTE | 2025-07-10 17:29 | EKG ---
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
--- NOTE | 2025-07-10 17:39 | ERN ---
ED Note History of Present Illness Stated Complaint: CHEST PAIN Chief Complaint: Chest Pain Time Seen by : 17:13 Time Seen by Midlevel: 17:13 Dictation: The patient is an 40-year-old female with history of DM, HLD, liver mass who presents to the emergency department with complains of chest pain, shortness of breath onset 4 days ago. Patient reports pain is intermittent only lasting about 20 min. Reports she was at her doctors office and her blood sugar was at 67. Denies any cough. Allergies: Coded Allergies: No Known Drug Allergies (Unverified Allergy, Unknown, 11/05/21) Home Meds Active Scripts Insulin Glargine,Hum.rec.anlog (Lantus Solostar) 100 Unit/Ml (3 Ml) Insuln.pen, 25 UNIT SQ HS for 30 Days, #7.5 ML 0 Refills Use with SoloStar pen, 100 units/mL ; 1 injection of 25 units daily Prov:ROSA LOZANO MD 06/13/25 Hydralazine HCl (Hydralazine HCl) 25 Mg Tablet, 25 MG PO AD PRN for IF SBP GREATER THAN 170, #15 TAB Prov:ROSA LOZANO MD 06/13/25 Hydralazine HCl (Apresoline) 25 Mg Tab, 50 MG PO TID, #90 TAB 0 Refills Prov:ROSA LOZANO MD 06/13/25 Reported Medications Metolazone (Metolazone) 2.5 Mg Tablet, 2.5 MG PO 3XWEEK, TAB 05/31/25 Glimepiride (Glimepiride) 4 Mg Tablet, 4 MG PO DAILY, TAB 05/31/25 Aspirin (Aspirin) 81 Mg Tablet, 81 MG PO DAILY, TAB 02/11/25 Sertraline HCl (Sertraline HCl) 100 Mg Tablet, 1 TAB PO HS for ANXIETY for 30 Days, #30 TAB 0 Refills 02/08/25 Tizanidine HCl (Tizanidine HCl) 2 Mg Capsule, 2 MG PO TID, CAP 09/18/24 Gabapentin (Gabapentin) 100 Mg Capsule, 300 MG PO TID, CAP 09/18/24 Atorvastatin Calcium (Atorvastatin Calcium) 20 Mg Tablet, 20 MG PO HS, TAB 06/05/24 Montelukast Sodium (Montelukast Sodium) 10 Mg Tablet, 10 MG PO DAILY, TAB 03/18/23 Past Medical History Past Medical History: Asthma, CVA, Diabetes-Type II, High Cholesterol, Heart Disease, Hypertension, Renal Disese, Other Additional Past Medical Hx: neuropathy Surgical History: Other Surgical History Other: mass liver Social History: Negative, Lives with family, Other History: Not Applicable RN Note Reviewed/Agreed w/PFSH: Yes Review of System Dictation Constitutional: Negative for fever,chills, and weight loss Eyes: Negative for injury, pain,redness, and discharge ENT: Negative for injury,pain or swelling Cardiovascular: Negative for palpitations, and edema chest pain Respiratory: Negative for cough, and wheezing, positive for shortness of breath Abdomen/GI: Negative for abdominal pain, nausea, vomiting, diarrhea, and constipation Back: Negative for injury and pain : Negative for injury, bleeding and discharge MS/Extremity: Negative for injury and deformity Skin: Negative for rash, and discoloration Neuro: Negative for headache, weakness, numbness, tingling, and seizure Psych: Negative for suicide ideation, homicidal ideation, and hallucinations Initial Vital Sign VS Vital Signs Date Time Temp Pulse Resp B/P (MAP) Pulse Ox O2 Delivery O2 Flow Rate FiO2 07/10/25 16:58 97.9 72 18 166/92 98 Room Air 07/10/25 18:11 0 21 Physical Exam Dictation Vital Signs reviewed General Appearance: Alert, oriented x 3, no acute distress, well developed, nourished. Head and Face: non-traumatic. Eyes: PERRL, pink conjunctivas, eyelid no trauma, anterior chamber with arcus senilis. Ears: Pinnas intact and no signs of trauma or erythema ear canals clear and no discharge TM no erythema Nose: No discharge, no bleeding. Oropharynx: Mouth normal, tongue pink. pharynx clear,no erythema, tonsils no exudates, no abscesses noted, mucous membrane moist Neck: Supple, non-tender, no thyromegaly, no masses, no JVD, no bruits Breast:Deferred Chest:No tenderness, no crepitus, no paradoxical movement, no retractions Lungs:Clear, well-ventilated, symmetric, no rales, no wheezing, no rhonchi, no stridor, good breath sounds bilaterally Heart: Regular rate, regular rhythm, no murmur, no gallops Vascular: no peripheral edema, Abdomen: Soft, positive bowel sounds, nondistended, no guarding, nontender, no rebound, no masses no hepatomegaly, no splenomegaly, no Youngblood's sign, no hernias. Rectal: Deferred Genital: Deferred Neurological: Normal speech, motor function intact, sensory function intact Musculoskeletal: Neck nontender, full range of motion, back nontender, full range of motion, Extremities: nontender, full range of motion Skin: Color pink, dry, no turgor, no rash, no lacerations, no abrasions, no contusions. Lymphatic: Deferred Results (Laboratory/Radiology) Laboratory/Radiology Laboratory Tests Test 07/10/25 17:49 07/10/25 18:00 07/10/25 18:02 07/10/25 19:21 Whole Blood Glucose 63 MG/DL (70-110) L 97 MG/DL (70-110) # Urine Color COLORLESS (YELLOW) Urine Appearance CLEAR (CLEAR) Urine pH 5.5 (5.0-8.0) Urine Specific [place] 1.007 (1.001-1.031) Urine Protein 50 mg/dL (NEGATIVE) H Urine Glucose (UA) TRACE mg/dL (NEGATIVE) H Urine Ketones NEGATIVE mg/dL (NEGATIVE) Urine Occult Blood NEGATIVE (NEGATIVE) Urine Nitrate NEGATIVE (NEGATIVE) Urine Bilirubin NEGATIVE mg/dL (NEGATIVE) Urine Urobilinogen 0.2 mg/dL (0.2-1.0) Urine Leukocyte Esterase NEGATIVE [place]/uL Urine RBC 0-1 /HPF (0-1) Urine WBC 0-1 /HPF (0-1) Urine Squamous Epithelial Cells RARE /HPF (0-2) Urine Bacteria RARE /HPF (None Seen) Urine Hyaline Casts 0-1 /LPF (0-1 /LPF) Urine Opiates Screen NEGATIVE (NEGATIVE) Urine Barbiturates Screen NEGATIVE (NEGATIVE) Urine Phencyclidine Screen NEGATIVE (NEGATIVE) Urine Amphetamines Screen NEGATIVE (NEGATIVE) Urine Benzodiazepines Screen NEGATIVE (NEGATIVE) Urine Cocaine Screen POSITIVE (NEGATIVE) H Urine Marijuana (THC) Screen NEGATIVE (NEGATIVE) White Blood Count 10.9 K/uL (4.8-10.8) H Red Blood Count 3.32 MIL/uL (4.00-5.50) L Hemoglobin 9.7 g/dL (12.0-16.0) L Hematocrit 30.6 % (36-48) L Mean Corpuscular Volume 92.2 fL (79-99) Mean Corpuscular Hemoglobin 29.2 pg (27.0-33.0) Mean Corpuscular Hemoglobin Concent 31.7 g/dL (32.0-36.0) L Red Cell Distribution Width 14.0 % (11.0-15.5) Platelet Count 297 K/uL (130-400) Mean Platelet Volume 10.7 fL (7.5-10.5) H Immature Granulocyte % (Auto) 0.6 % (0-1) Neutrophils (%) (Auto) 74.1 % (40.0-77.0) Lymphocytes (%) (Auto) 16.9 % (21.0-51.0) L Monocytes (%) (Auto) 6.4 % (3.0-13.0) Eosinophils (%) (Auto) 1.7 % (0.0-8.0) Basophils (%) (Auto) 0.3 % (0.0-5.0) Neutrophils # (Auto) 8.1 K/uL (1.8-7.7) H Lymphocytes # (Auto) 1.9 K/uL (1.0-4.8) Monocytes # (Auto) 0.7 K/uL (0.1-1.0) Eosinophils # (Auto) 0.19 K/uL (0.00-0.70) Basophils # (Auto) 0.03 K/uL (0.00-0.20) Absolute Immature Granulocyte (auto 0.07 K/uL (0-1) Nucleated Red Blood Cells 0.0 % (0.0-0.19) Sodium Level 142 mmol/L (136-145) Potassium Level 4.5 mmol/L (3.5-5.1) Chloride Level 107 mmol/L (101-111) Carbon Dioxide Level 22 mmol/L (21-32) Blood Urea Nitrogen 74 mg/dL (7-18) H Creatinine 2.8 mg/dL (0.5-1.0) H Glomerular Filtration Rate Calc 21 mL/min (>90) Random Glucose 70 mg/dL (70-105) Total Calcium 8.0 mg/dL (8.5-10.1) L Total Creatine Kinase 184 U/L (21-232) # Troponin I High Sensitivity 16 ng/L (4-50) B-Type Natriuretic Peptide 123 pg/mL (0-100) H Serum Test, Qualitative NEGATIVE (NEGATIVE) Test 07/10/25 19:23 Troponin I High Sensitivity 14 ng/L (4-50) REASON: cp ORDERING PHYSICIAN: DODIE MALAVE PROCEDURE: CXR1VW - CHEST 1VW EXAM: CR Chest, 1 View. CLINICAL HISTORY: cp COMPARISON: None provided. FINDINGS: LUNGS: The lungs show no infiltrate or other acute finding. PLEURAL SPACES: No evidence of pleural effusion or pneumothorax. MEDIASTINUM: Cardiac size and mediastinal contours within normal limits. BONES: No acute osseous abnormality. IMPRESSION: No acute cardiopulmonary pathology is evident. /[place] Labs Reviewed?: Yes EKG: (+) rhythm (Sinus rhythm) EKG Comment: Date:07/10/2025 Time:1709 Ventricular rate:66 [place] interval:139 QRS duration:95 QT/QTc:456/479 EKG interpretation: Sinus rhythm, early repolarization Reviewed by ED Attending no STEMI ED Course ED Course Orders Procedure Category Date Status Time 12 Lead Ekg Tracing- EKG 07/10/25 Complete Technical 17:04 Cbc With Differential LAB 07/10/25 Complete 17:14 Chest 1vw RAD 07/10/25 Resulted 17:14 Creatine Kinase, Total LAB 07/10/25 Complete 17:14 Troponin I High LAB 07/10/25 Complete Sensitivity 17:14 Basic Metabolic Panel LAB 07/10/25 Complete 17:14 Testing, LAB 07/10/25 Complete Serum Hcg 17:14 Pantoprazole 40mg Inj PHA 07/10/25 Complete (Protonix 40mg Inj 17:30 Bedside Glucose CPOE 07/10/25 Transmitted Fingerstick 17:23 Drug Screen Urine LAB 07/10/25 Complete 17:23 Urinalysis Profile LAB 07/10/25 Complete 17:23 Aspirin 81mg Chew Tab PHA 07/11/25 In Process (Aspirin 81mg Chew 09:00 B-Type Natriuretic LAB 07/10/25 Complete Peptide 17:43 Aspirin 81mg Ec Tab PHA 07/10/25 Complete (Aspirin 81mg Ec Tab 18:37 Troponin I High LAB 07/10/25 Complete Sensitivity 18:45 Current Medications Medications (Trade) Dose Ordered Sig/Jai Route PRN Reason Start Time Stop Time Status Last Admin Dose Admin Aspirin (Aspirin 81mg Chew Tab) 81 mg DAILY PO 07/11/25 09:00 08/10/25 08:59 07/10/25 18:38 Aspirin (Aspirin 81mg Ec Tab) 81 mg STK-MED ONCE .ROUTE 07/10/25 18:37 07/10/25 18:37 DC Pantoprazole Sodium (PROTonix 40MG INJ) 40 mg ONCE ONCE IVP 07/10/25 17:30 07/10/25 17:31 DC 07/10/25 18:24 Vital Signs Date Time Temp Pulse Resp B/P (MAP) Pulse Ox O2 Delivery O2 Flow Rate FiO2 07/10/25 19:33 98.8 69 17 141/45 98 Room Air* 0 21 07/10/25 18:11 98.8 70 16 172/76 98 Room Air* 0 21 07/10/25 16:58 97.9 72 18 166/92 98 Room Air HEART Score Response (Comments) Value History: Low suspicion (0) 0 EKG: Repolarization changes 1 Age: < 45yrs (0) 0 Risk Factors: 1-2 risk factors (+1) 1 Initial Troponin: Normal limit (0) 0 HEART Score Risk: Low Risk for MACE (1-3) Total 2 Medical Decision Making MDM The patient is an 40-year-old female with history of DM, HLD, liver mass who presents to the emergency department with complains of chest pain, shortness of breath onset 4 days ago. Patient reports pain is intermittent only lasting about 20 min. Reports she was at her doctors office and her blood sugar was at 67. Denies any cough. CBC showed mild leukocytosis, mild normocytic anemia, chemistry showed of 2.8, BUN 74 patient with a history of CKD. Renal function similar to previous visits. Blood glucose initially was 63 and improved to the 90s. Negative troponins x2, chest x-ray showed no acute pathology, urine drug screen positive for cocaine patient had a left heart catheterization on her previous admission last month ago and had normal coronaries. Patient has been here for similar reasons on multiple occasions. On physical exam patient is in no acute distress, stable vital signs. Blood pressure improved spontaneously. Patient will be discharged to follow up with PCP. Differential diagnosis: ACS, costochondritis, drug abuse, anxiety, electrolyte imbalance Need for hospitalization: Patient does not meet criteria for hospitalization. There are no social concerns with this patient. DX & DISP Disposition: Discharge Departure Impression: Primary Impression: Atypical chest pain Additional Impressions: Cocaine abuse, Chronic kidney disease Condition: Stable Additional Instructions: Your labs were unremarkable. Your chest x-ray was normal. Please follow up with your primary doctor in 1-2 days. please avoid any drug use. FOLLOW-UP WITH PRIMARY CARE PROVIDER IN 1 TO 2 DAYS. TAKE MEDICATIONS DIRECTED HERE IN THE EMERGENCY ROOM. OKAY TO CONTINUE HOME MEDICATIONS UNLESS OTHERWISE DISCUSSED DURING YOUR VISIT IN THE EMERGENCY ROOM TODAY. RETURN TO YOUR NEAREST EMERGENCY ROOM IF SYMPTOMS WORSEN OR IF THERE IS NO IMPROVEMENT. CALL 911 IF YOU NEED IMMEDIATE ASSISTANCE. TAKE TYLENOL [id number] NEEDED AND IF NO CONTRAINDICATIONS ARE PRESENT. INCREASE ORAL HYDRATION. A WOUND CULTURE OR URINE CULTURE WAS ORDERED HERE IN THE EMERGENCY ROOM DEPARTMENT PLEASE FOLLOW-UP WITH PRIMARY CARE PROVIDER AND ADVISE THEM TO GET REPEAT PORTS FROM OUR FACILITY. IF YOU HAD ANY RON WRAP/SPLINTS THAT WERE APPLIED HERE, PLEASE DO NOT REMOVE THEM UNTIL YOU SEE YOUR PRIMARY CARE OR SPECIALTY. Referrals: GRISEL AGUILA MD (PCP) Time of Disposition: 19:55 I have reviewed the case, and I agree with, Diagnosis and Plan DODIE MALAVE Jul 10, 2025 17:39
[2025-07-10 18:05] LABS: APPEARANCE,URINE CLEAR (CLEAR); GLUCOSE, URINE (UA) TRACE mg/dL (NEGATIVE); LEUKOCYTE ESTERASE ,URINE NEGATIVE Leu/uL (NEGATIVE); NITRATE,URINE NEGATIVE (NEGATIVE); OCCULT BLOOD,URINE NEGATIVE (NEGATIVE)
[2025-07-10 18:09] LABS: ADD UA MICROSCOPIC YES; HYALINE CASTS, URINE 0-1 /LPF (0-1 /LPF); SQUAMOUS EPITHELIAL CELL,UR RARE /HPF (0-2)
[2025-07-10 18:13] LABS: AMPHET/METH SCREEN,URINE NEGATIVE (NEGATIVE); BARBITURATE SCREEN, URINE NEGATIVE (NEGATIVE); CANNABINOID SCREEN,URINE NEGATIVE (NEGATIVE); COCAINE SCREEN,URINE POSITIVE (NEGATIVE)
[2025-07-10 18:18] LABS: IMMATURE GRANULOCYTE ABSOLUTE 0.07 K/uL (0-1); NUCLEATED RED BLOOD CELLS 0.0 % (0.0-0.19); PLATELET COUNT (AUTO) 297 K/uL (130-400); RED BLOOD CELL COUNT(AUTO) 3.32 MIL/uL (4.00-5.50); RED CELL DISTRIBUTION WIDTH 14.0 % (11.0-15.5); WHITE BLOOD COUNT (AUTO) 10.9 K/uL (4.8-10.8)
--- NOTE | 2025-07-10 18:26 | NUR ---
PT GLUCOSE 63, PT GIVEN ONE CONTAINER OF APPLE JUICE, PT TOLERATED, WILL RECHECK GLUCOSE IN 20 MINUTES.
[2025-07-10 18:36] LABS: CREATINE KINASE, TOTAL 184.0 U/L (21-232); CREATININE 2.8 mg/dL (0.5-1.0); GLOMERULAR FILTR. RATE CALC 21.0 mL/min (>90); GLUCOSE,RANDOM 70.0 mg/dL (70-105); SODIUM SERUM 142.0 mmol/L (136-145); UREA NITROGEN, BLOOD 74.0 mg/dL (7-18)
[2025-07-10] MEDS: ASPIRIN 81MG CHEW TAB PO SCH (18:38)
[2025-07-10] MEDS: ASPIRIN 81 MG EC TAB ONE (18:39)
--- NOTE | 2025-07-10 18:43 | HMCIMG ---
EXAM: CR Chest, 1 View. CLINICAL HISTORY: cp COMPARISON: None provided. FINDINGS: LUNGS: The lungs show no infiltrate or other acute finding. PLEURAL SPACES: No evidence of pleural effusion or pneumothorax. MEDIASTINUM: Cardiac size and mediastinal contours within normal limits. BONES: No acute osseous abnormality. IMPRESSION: No acute cardiopulmonary pathology is evident. /[place]
--- NOTE | 2025-07-10 19:32 | NUR ---
PT CARE ASSUMED AT THIS TIME.
[2025-07-10 20:14] VITALS: BP 147/61; PULSE 78; RESP 13; TEMP 98.8; O2SAT 100
== END 2025-07-10 20:27 | disposition home or self-care (01) ==
LOC: EDH 16:54
DX: F14.10 Cocaine abuse, uncomplicated (principal); I13.10 Hypertensive heart and chronic kidney disease without heart failure, with stage 1 through stage 4 chronic kidney disease, or unspecified chronic kidney disease; E11.22 Type 2 diabetes mellitus with diabetic chronic kidney disease; N18.9 Chronic kidney disease, unspecified; E11.40 Type 2 diabetes mellitus with diabetic neuropathy, unspecified; J45.909 Unspecified asthma, uncomplicated; E78.00 Pure hypercholesterolemia, unspecified; Z79.82 Long term (current) use of aspirin; Z79.899 Other long term (current) drug therapy; Z86.73 Personal history of transient ischemic attack (TIA), and cerebral infarction without residual deficits
CPT/HCPCS: 99284; 96374; 71045; 82550; 84484 ×2; 80048; 83880; 80305; 84703; 85025; 82948 ×2; 36415; 93005; 81001; J2470

== ENCOUNTER 2025-07-30 12:24 | Emergency (ER) | payer BC ==
[~2025-07-30] VITALS: Ht 154.9 cm; Wt 108.9 kg
--- NOTE | 2025-07-30 13:28 | HMCIMG ---
Examinations: 1. Noncontrast CT examination of the chest. 2. Noncontrast CT examination of the abdomen and pelvis. Clinical history: Pain following fall Comparison: CT images dated February 07, 2025 Findings: Thin collimated axial CT images of the chest, abdomen, and pelvis were obtained with sagittal and coronal reformatted images also provided. The total DLP has been recorded in the electronic medical record. Central airways are patent. Scattered areas of mild atelectasis and/or parenchymal scarring bilaterally. No suspicious pulmonary nodule or focal airspace disease. There is no axillary, supraclavicular, mediastinal, or obvious hilar lymphadenopathy. Heart size is within normal limits. Thyromegaly and calcified isthmic nodule may be further characterized with dedicated ultrasound imaging on a nonemergent basis. Limited evaluation of the abdominal organs without intravenous contrast. The gallbladder is surgically absent. The liver is prominent; the right hepatic lobe measures up to 21 cm in the craniocaudal dimension. Clips are noted within the right hepatic lobe, clinical correlation is advised. No intrahepatic biliary ductal dilatation. Bilateral adrenal glands, spleen, and pancreas are within normal limits. There is bilateral perinephric fat stranding that may reflect renal parenchymal disease, recommend correlation with laboratory parameters. No radiopaque renal calculus or hydronephrosis. Colonic diverticulosis without evidence for diverticulitis. Bowel loops are normal in caliber without evidence of obstruction or ileus. There is abundant colonic fecal matter that may reflect a component of mild constipation. The appendix is within normal limits. No abnormality within the unopacified bladder. Pelvic organs demonstrate appropriate CT appearances. There is no ascites or lymphadenopathy. There is no hemoperitoneum or pneumoperitoneum. Mild edema within the lumbar extraspinal soft tissues. Mild edema within the lower ventral soft tissues with overlying skin thickening, concerning for cellulitis. Clinical correlation is advised. There is no defined, drainable fluid collection appreciated. There is no displaced fracture appreciated. IMPRESSION: 1. No acute intrathoracic or intraabdominal findings. 2. Mild edema and skin thickening in lower ventral soft tissues, concerning for cellulitis. 3. Bilateral perinephric fat stranding, may reflect renal parenchymal disease. 4. Hepatomegaly with right hepatic lobe measuring up to 21 cm. Surgical clips in right hepatic lobe, clinical correlation advised. /[place]
--- NOTE | 2025-07-30 13:47 | ERN ---
General Chief Complaint: Mechanical Fall Stated Complaint: FALL Time Seen by MD: 12:26 Source: patient History of Present Illness Initial Comments Patient is a 40-year-old female coming in to be evaluated after she states she was walking and stepped on a curb which made her fall back and landed in her brought up. She states that along with the she might have hit her chest. She states that she falls mild ecchymosis on her chest region. Allergies: Coded Allergies: No Known Drug Allergies (Unverified Allergy, Unknown, 11/05/21) Home Meds Active Scripts Insulin Glargine,Hum.rec.anlog (Lantus Solostar) 100 Unit/Ml (3 Ml) Insuln.pen, 25 UNIT SQ HS for 30 Days, #7.5 ML 0 Refills Use with SoloStar pen, 100 units/mL ; 1 injection of 25 units daily Prov:ROSA LOZANO MD 06/13/25 Hydralazine HCl (Hydralazine HCl) 25 Mg Tablet, 25 MG PO AD PRN for IF SBP GREATER THAN 170, #15 TAB Prov:ROSA LOZANO MD 06/13/25 Hydralazine HCl (Apresoline) 25 Mg Tab, 50 MG PO TID, #90 TAB 0 Refills Prov:ROSA LOZANO MD 06/13/25 Reported Medications Metolazone (Metolazone) 2.5 Mg Tablet, 2.5 MG PO 3XWEEK, TAB 05/31/25 Glimepiride (Glimepiride) 4 Mg Tablet, 4 MG PO DAILY, TAB 05/31/25 Aspirin (Aspirin) 81 Mg Tablet, 81 MG PO DAILY, TAB 02/11/25 Sertraline HCl (Sertraline HCl) 100 Mg Tablet, 1 TAB PO HS for ANXIETY for 30 Days, #30 TAB 0 Refills 02/08/25 Tizanidine HCl (Tizanidine HCl) 2 Mg Capsule, 2 MG PO TID, CAP 09/18/24 Gabapentin (Gabapentin) 100 Mg Capsule, 300 MG PO TID, CAP 09/18/24 Atorvastatin Calcium (Atorvastatin Calcium) 20 Mg Tablet, 20 MG PO HS, TAB 06/05/24 Montelukast Sodium (Montelukast Sodium) 10 Mg Tablet, 10 MG PO DAILY, TAB 03/18/23 Past Medical History Past Medical History: A-Fib, Asthma, CVA, Diabetes-Type II, High Cholesterol, Heart Disease, Hypertension, Renal Disese, Other Medical History Other: neuropathy Past Surgical History: Other Surgical History Other: mass liver Social History Social History: Negative, Lives with family, Other Female( History) History: Not Applicable LMP: Jul 15, 2025 ROS Dictation CONSTITUTIONAL: No chills, no fever, no weakness, no diaphoresis, no malaise. HEAD/FACE: No signs of trauma. EENT: No eye pain, no blurred vision, no tearing, no double vision, no ear pain, no ear discharge, no nose pain, no nasal congestion, no throat pain, no throat swelling, no mouth pain. RESPIRATORY: No cough, no orthopnea, no SOB, no stridor, no wheezing. CARDIOVASCULAR: No chest pain, no edema, no palpitations, no syncope. GASTROINTESTINAL/ABDOMINAL: No abdominal pain, no constipation, no diarrhea, no nausea, no vomiting. GENITOURINARY: No abnormal discharge, no dysuria, no frequent urination, no hematuria. No complaints of pain in the genitals. MUSCULOSKELETAL: No back pain, no gout, no joint pain, no joint swelling, muscle pain, no muscle stiffness, no neck pain. INTEGUMENTARY: No change in color, no change in hair/nails, no dryness, no lesion, no lumps, no rash. NEUROLOGICAL/PSYCH: No anxiety, not depressed, no emotional problem, no headache, no numbness, no pre-existing deficit, no history of seizures, no tremors, no weakness. HEMATOLOGIC/LYMPHATIC: Not anemic, no history of blood clots, no apparent bleeding, no bruising, glands not swollen. All Systems Negative, Except as Noted. Physical Exam Physical Exam Dictation VITAL SIGNS: Reviewed. GENERAL APPEARANCE: Alert, oriented x3, no acute distress, obese. HEAD AND FACE: Non-traumatic. EYES: PERRL, pink conjunctivas, eyelid no trauma, anterior chamber clear. EARS: Pinnas intact and no signs of trauma or erythema. Ear canals clear and no discharge. TMs no erythema. NOSE: No discharge, no bleeding. OROPHARYNX: Mouth normal, teeth no caries, tongue pink. Pharynx clear, no erythema. Tonsils no exudates, no abscesses noted. Mucous membrane moist. NECK: Supple, non-tender, no thyromegaly, no masses, no JVD, no bruits. BREAST: Deferred. CHEST: tenderness, no crepitus, no paradoxical movement, no retractions. Left chest ecchymosis LUNGS: Clear, well-ventilated, symmetric, no rales, no wheezing, no rhonchi, no stridor, good breath sounds bilaterally. HEART: Regular rate, regular rhythm, no murmur, no gallops. VASCULAR: No peripheral edema. ABDOMEN: Soft, positive bowel sounds, nondistended, no guarding, nontender, no rebound, no masses no hepatomegaly, no splenomegaly, no Youngblood's sign, no hernias. RECTAL: Deferred. GENITAL: Deferred. NEUROLOGICAL: Normal speech, gross motor function intact, gross sensory function intact. MUSCULOSKELETAL: Neck nontender, full range of motion, back nontender, full range of motion. EXTREMITIES: Nontender, full range of motion. Right arm tenderness on palpation, ecchymosis, SKIN: Color pink, dry, no turgor, no rash, no lacerations, no abrasions, no contusions. LYMPHATICS: Deferred. Results Laboratory and Microbiology Labs Reviewed?: Yes EKG/XRAY/US/CT/MRI X-RAY Comment [place] [id number] [id number] IMAGING REPORT Signed PATIENT: ALBERTO LEIGH MR#: [id number] : 1985 SEX: F AGE: 40 LOCATION: [facility] ORDER 1234 STATUS: [facility] REPORT#: [id number] SERVICE 1232 REASON: fall ORDERING PHYSICIAN: INDRA ARGUELLES MD PROCEDURE: FORARMR - FOREARM 2VWS RT EXAM: CR right Forearm, 2 View. CLINICAL HISTORY: fall COMPARISON: None provided. FINDINGS: Mildly displaced fractures at the distal metaphyses of the radius and ulna. Subtle dorsal angulation of the distal radial fracture fragment. Joint spaces remain anatomically aligned. Soft tissue edema within the distal forearm/wrist. IMPRESSION: 1. Mildly displaced fractures of distal radius and ulna metaphyses with subtle dorsal angulation of distal radial fracture fragment. 2. Soft tissue edema in distal forearm/wrist. /[place] DICTATED BY: JOHN PALACIOS Jr., MD DATE: 07/30/251518 ELECTRONICALLY SIGNED BY: JOHN PALACIOS Jr., MD DATE: 07/30/251518 CT Scan Comment [place] [id number] [place] [id number] IMAGING REPORT Signed PATIENT: ALBERTO LEIGH MR#: [id number] : 1985 SEX: F AGE: 40 LOCATION: [facility] ORDER 1234 STATUS: REG REPORT#: [id number] SERVICE 1232 REASON: fall ORDERING PHYSICIAN: INDRA ARGUELLES MD PROCEDURE: CAP WO - CT CHEST/ABD/PELV W/O CONTRAST Examinations: 1. Noncontrast CT examination of the chest. 2. Noncontrast CT examination of the abdomen and pelvis. Clinical history: Pain following fall Comparison: CT images dated February 07, 2025 Findings: Thin collimated axial CT images of the chest, abdomen, and pelvis were obtained with sagittal and coronal reformatted images also provided. The total DLP has been recorded in the electronic medical record. Central airways are patent. Scattered areas of mild atelectasis and/or parenchymal scarring bilaterally. No suspicious pulmonary nodule or focal airspace disease. There is no axillary, supraclavicular, mediastinal, or obvious hilar lymphadenopathy. Heart size is within normal limits. Thyromegaly and calcified isthmic nodule may be further characterized with dedicated ultrasound imaging on a nonemergent basis. Limited evaluation of the abdominal organs without intravenous contrast. The gallbladder is surgically absent. The liver is prominent; the right hepatic lobe measures up to 21 cm in the craniocaudal dimension. Clips are noted within the right hepatic lobe, clinical correlation is advised. No intrahepatic biliary ductal dilatation. Bilateral adrenal glands, spleen, and pancreas are within normal limits. There is bilateral perinephric fat stranding that may reflect renal parenchymal disease, recommend correlation with laboratory parameters. No radiopaque renal calculus or hydronephrosis. Colonic diverticulosis without evidence for diverticulitis. Bowel loops are normal in caliber without evidence of obstruction or ileus. There is abundant colonic fecal matter that may reflect a component of mild constipation. The appendix is within normal limits. No abnormality within the unopacified bladder. Pelvic organs demonstrate appropriate CT appearances. There is no ascites or lymphadenopathy. There is no hemoperitoneum or pneumoperitoneum. Mild edema within the lumbar extraspinal soft tissues. Mild edema within the lower ventral soft tissues with overlying skin thickening, concerning for cellulitis. Clinical correlation is advised. There is no defined, drainable fluid collection appreciated. There is no displaced fracture appreciated. IMPRESSION: 1. No acute intrathoracic or intraabdominal findings. 2. Mild edema and skin thickening in lower ventral soft tissues, concerning for cellulitis. 3. Bilateral perinephric fat stranding, may reflect renal parenchymal disease. 4. Hepatomegaly with right hepatic lobe measuring up to 21 cm. Surgical clips in right hepatic lobe, clinical correlation advised. /[place] DICTATED BY: JOHN PALACIOS Jr., MD DATE: 07/30/251426 ELECTRONICALLY SIGNED BY: JOHN PALACIOS Jr., MD DATE: 07/30/251426 [facility] MDM: Differential diagnosis: Fall, arm contusion, chest wall discomfort. Radial ulnar fracture Rationale: Tests considered and ordered secondary to shared decision making include: Previous outside records reviewed: Old ER visits. Risk of complication and/or morbidity or mortality of patient management: None Medications-Per medication reconciliation Need for hospitalization: Patient does not meet criteria for hospitalization. Need for emergency major/minor surgery: No Patient is a 40-year-old female coming in complaining of a fall. Per patient she had landed right arm in his also complaining of mild chest discomfort the fall. CT of the chest and abdomen were performed to rule out any internal organ issues, x-ray of right arm was performed no acute findings were present. Patient had wrist splint sugar-tong with a sling placed. Did advise her appropriate follow up with PCP and medical review specialist for ongoing evaluation and management. ED Course Orders Procedure Category Date Status Time Forearm 2vws Rt RAD 07/30/25 Resulted 12:32 Ct Chest/Abd/Pelv W/O CT 07/30/25 Resulted Contrast 12:32 Acetaminophen 500mg PHA 07/30/25 Complete Tab (Tylenol 500mg T 13:30 Current Medications Medications (Trade) Dose Ordered Sig/Jai Route PRN Reason Start Time Stop Time Status Last Admin Dose Admin Acetaminophen (TYLenol 500MG TAB) 500 mg ONCE ONCE PO 07/30/25 13:30 07/30/25 13:31 DC 07/30/25 13:29 Vital Signs Date Time Temp Pulse Resp B/P (MAP) Pulse Ox O2 Delivery O2 Flow Rate FiO2 07/30/25 14:13 97.9 76 16 127/79 100 Room Air* 0 21 07/30/25 13:48 97.9 76 16 127/79 100 Room Air* 0 21 07/30/25 12:26 97.9 80 16 122/83 100 Room Air 0 DX & DISP Disposition: Discharge Departure Impression: Primary Impression: Fall Additional Impressions: Arm contusion, Chest wall pain, Fracture of radial shaft with ulna, closed Condition: Stable Scripts Acetaminophen (Tylenol) 500 Mg Tab 1 TAB PO Q6HPRN PRN for pain or fever for 5 Days, #30 TAB 0 Refills Prov: INDRA ARGUELLES MD 07/30/25 Additional Instructions: FOLLOW-UP WITH PRIMARY CARE PROVIDER IN 1 TO 2 DAYS. TAKE MEDICATIONS DIRECTED HERE IN THE EMERGENCY ROOM. OKAY TO CONTINUE HOME MEDICATIONS UNLESS OTHERWISE DISCUSSED DURING YOUR VISIT IN THE EMERGENCY ROOM TODAY. RETURN TO YOUR NEAREST EMERGENCY ROOM IF SYMPTOMS WORSEN OR IF THERE IS NO IMPROVEMENT. CALL 911 IF YOU NEED IMMEDIATE ASSISTANCE. TAKE TYLENOL [id number] NEEDED AND IF NO CONTRAINDICATIONS ARE PRESENT. INCREASE ORAL HYDRATION. A WOUND CULTURE OR URINE CULTURE WAS ORDERED HERE IN THE EMERGENCY ROOM DEPARTMENT PLEASE FOLLOW-UP WITH PRIMARY CARE PROVIDER AND ADVISE THEM TO GET REPORTS FROM OUR FACILITY. IF YOU HAD ANY RON WRAP/SPLINTS THAT WERE APPLIED HERE, PLEASE DO NOT REMOVE THEM UNTIL YOU SEE YOUR PRIMARY CARE OR SPECIALTY. Referrals: Referrals: GRISEL AGUILA MD (PCP) UMA ALMANZA MD Time of Disposition: 14:25 INDRA ARGUELLES MD Jul 30, 2025 13:47
[2025-07-30 14:13] VITALS: BP 127/79; PULSE 76; RESP 16; TEMP 97.9; O2SAT 100
--- NOTE | 2025-07-30 14:19 | HMCIMG ---
EXAM: CR right Forearm, 2 View. CLINICAL HISTORY: fall COMPARISON: None provided. FINDINGS: Mildly displaced fractures at the distal metaphyses of the radius and ulna. Subtle dorsal angulation of the distal radial fracture fragment. Joint spaces remain anatomically aligned. Soft tissue edema within the distal forearm/wrist. IMPRESSION: 1. Mildly displaced fractures of distal radius and ulna metaphyses with subtle dorsal angulation of distal radial fracture fragment. 2. Soft tissue edema in distal forearm/wrist. /[place]
[2025-07-30] MEDS ORDERED: ACET-66 PO (14:26)
== END 2025-07-30 14:28 | disposition home or self-care (01) ==
LOC: EDH 12:24
DX: S52.591A Other fractures of lower end of right radius, initial encounter for closed fracture (principal); S52.691A Other fracture of lower end of right ulna, initial encounter for closed fracture; I48.91 Unspecified atrial fibrillation; E11.9 Type 2 diabetes mellitus without complications; I11.9 Hypertensive heart disease without heart failure; E78.00 Pure hypercholesterolemia, unspecified; J45.909 Unspecified asthma, uncomplicated; Z79.82 Long term (current) use of aspirin; Z79.899 Other long term (current) drug therapy; Z86.73 Personal history of transient ischemic attack (TIA), and cerebral infarction without residual deficits; W18.39XA Other fall on same level, initial encounter; Y93.01 Activity, walking, marching and hiking; Y92.89 Other specified places as the place of occurrence of the external cause; Y99.8 Other external cause status
CPT/HCPCS: 29125; 71250; 73090; 74176; 99284

== ENCOUNTER 2025-08-03 15:06 | Inpatient (IN) | payer BC ==
[~2025-08-03] VITALS: Ht 154.9 cm; Wt 121.6 kg
[~2025-08-03 15:06] MED LIST changes: +ACET-66 PO
[2025-08-03 15:35] LABS: APPEARANCE,URINE CLEAR (CLEAR); GLUCOSE, URINE (UA) 70 mg/dL (NEGATIVE); LEUKOCYTE ESTERASE ,URINE NEGATIVE Leu/uL (NEGATIVE); NITRATE,URINE NEGATIVE (NEGATIVE); OCCULT BLOOD,URINE SMALL (NEGATIVE)
[2025-08-03 15:37] LABS: ADD UA MICROSCOPIC YES
[2025-08-03 15:42] LABS: AMPHET/METH SCREEN,URINE NEGATIVE (NEGATIVE); BARBITURATE SCREEN, URINE NEGATIVE (NEGATIVE); CANNABINOID SCREEN,URINE NEGATIVE (NEGATIVE); COCAINE SCREEN,URINE POSITIVE (NEGATIVE)
[2025-08-03 15:43] LABS: SQUAMOUS EPITHELIAL CELL,UR FEW /HPF (0-2)
[2025-08-03 15:52] LABS: IMMATURE GRANULOCYTE ABSOLUTE 0.03 K/uL (0-1); NUCLEATED RED BLOOD CELLS 0.0 % (0.0-0.19); PLATELET COUNT (AUTO) 218 K/uL (130-400); RED BLOOD CELL COUNT(AUTO) 2.59 MIL/uL (4.00-5.50); RED CELL DISTRIBUTION WIDTH 14.3 % (11.0-15.5); WHITE BLOOD COUNT (AUTO) 7.7 K/uL (4.8-10.8)
[2025-08-03 16:06] LABS: CREATININE 2.8 mg/dL (0.5-1.0); GLOMERULAR FILTR. RATE CALC 21.0 mL/min (>90); GLUCOSE,RANDOM 129.0 mg/dL (70-105); SODIUM SERUM 140.0 mmol/L (136-145)
[2025-08-03 16:12] LABS: UREA NITROGEN, BLOOD 105.0 mg/dL (7-18)
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
--- NOTE | 2025-08-03 16:34 | HMCIMG ---
EXAM: CT Head Without IV contrast. CLINICAL HISTORY: fall, headache, dizziness TECHNIQUE: Axial computed tomography images of the head/brain without intravenous contrast. COMPARISON: None provided. FINDINGS: BRAIN: No evidence of acute hemorrhage. No mass lesion. No CT evidence for acute territorial infarct. No midline shift or extra-axial collections. VENTRICLES: No hydrocephalus. ORBITS: The orbits are unremarkable. SINUSES AND MASTOIDS: The paranasal sinuses and mastoid air cells are clear. BONES: No fracture. SOFT TISSUES: Unremarkable. IMPRESSION: No acute intracranial abnormality. /[place]
[2025-08-03 17:34] LABS: ASPARTATE AMINOTRANSFERASE 24.0 U/L (10-37); TOTAL PROTEIN, SERUM 6.6 g/dL (6.0-8.3)
[2025-08-03 17:43] LABS: INR <= 0.93 (0.85-1.15)
[2025-08-03] MEDS: NA ZIRCON CYCLOSIL(LOKELMA 10GM) PO SCH (19:22)
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
[2025-08-03] MEDS: HYDROcodone/APAP 5/325 1 TAB TABLET PO ONE (21:31)
--- NOTE | 2025-08-03 21:37 | NUR ---
PATIENT DID NOT BRING HOME MEDICATIONS
[2025-08-04] VITALS (7 sets, daily range): BP systolic 117–163; BP diastolic 60–82; PULSE 66–88; RESP 18–20; TEMP 97.8–98.4; O2SAT 94–97
[2025-08-04] MEDS ORDERED: FURO80TA3 PO (01:38)
[2025-08-04 05:20] LABS: IMMATURE GRANULOCYTE ABSOLUTE 0.05 K/uL (0-1); NUCLEATED RED BLOOD CELLS 0.0 % (0.0-0.19); PLATELET COUNT (AUTO) 206 K/uL (130-400); RED BLOOD CELL COUNT(AUTO) 2.56 MIL/uL (4.00-5.50); RED CELL DISTRIBUTION WIDTH 14.4 % (11.0-15.5); WHITE BLOOD COUNT (AUTO) 9.0 K/uL (4.8-10.8)
[2025-08-04 05:51] LABS: ASPARTATE AMINOTRANSFERASE 25.0 U/L (10-37); CREATININE 2.4 mg/dL (0.5-1.0); GLOMERULAR FILTR. RATE CALC 25.0 mL/min (>90); GLUCOSE,RANDOM 114.0 mg/dL (70-105); SODIUM SERUM 142.0 mmol/L (136-145); TOTAL PROTEIN, SERUM 6.0 g/dL (6.0-8.3)
[2025-08-04 05:55] LABS: % IRON SATURATION 7.8 % (22-44); IRON, SERUM 22.0 mcg/dL (50-170)
[2025-08-04 06:00] LABS: UREA NITROGEN, BLOOD 100.0 mg/dL (7-18)
--- NOTE | 2025-08-04 06:07 | EKG ---
[facility] Test Date: 2025-08-03 Test Time: 16:07:58 Pat Name: ALBERTO LEIGH Department: [facility] Room: 429 1 Gender: F Suede Cleaner: STUDENT : 1985 Requested By: AJAY MASTERS Order Number: [id number] Reading MD: Wilber Grey Measurements Intervals [place] Rate: 77 P: -10 SC: 133 QRS: 22 QRSD: 77 T: 32 QT: 398 QTc: 452 Interpretive Statements Sinus rhythm Compared to ECG 07/10/2025 17:09:18 ST (T wave) deviation no longer present Electronically Signed On 08-04-2025 19:00:47 FIBER MACHINE TENDER by Wilber Grey Please click the below link to view image of tracing.
[2025-08-04] MEDS: HYDROcodone/APAP 5/325 1 TAB TABLET PO ONE (06:24)
--- NOTE | 2025-08-04 06:45 | NUR ---
home meds let corazon deal know about home meds. no new orders given to continue.
--- NOTE | 2025-08-04 07:19 | NUR ---
nephrology paged dr. roque. spoke with drew. pending call back.
--- NOTE | 2025-08-04 07:26 | NUR ---
nephrology let dr. roque know about consult and potassium 5.3. he is aware and will come and see the patient today
[2025-08-04] MEDS: GABAPENTIN 300 MG CAPSULE PO SCH (08:19)
[2025-08-04] MEDS: TIZANIDINE HCL 2 MG TABLET PO SCH (08:19)
--- NOTE | 2025-08-04 11:52 | NUR ---
DCP:HOME Pt currently lives at home alone. Pt denies any DME and states that she only has o2 from [facility]. Pt denies having home health or provider services. Pt does not feel that she requires resources for substance use/abuse at this time. PCP is Dr. Milton Price and uses [facility] for any RX needs. At DC pt will want to go home and family can assist with transportation .
[2025-08-04 12:45] LABS: ABG OXYGEN SATURATION 60.6 % (94.0-98.0); BASE EXCESS,VENOUS BLOOD GAS -7.0 (-2.0-3.0); HCO3,VENOUS BLOOD GAS 19.6 (22.0-29.0); PCO2,VENOUS BLOOD GAS 43 (38-54); PH,VENOUS BLOOD GAS 7.276 (7.320-7.430); PO2,VENOUS BLOOD GAS 35.5 mmHg (23.0-48.0); TEMPERATURE, CELSIUS BG 37.0 CELSIUS (35.5-37.0); VENT MODE, BG NC (ROOM AIR)
[2025-08-04 12:56] LABS: NUCLEATED RED BLOOD CELLS 0.0 % (0.0-0.19); PLATELET COUNT (AUTO) 214.0 K/uL (130-400); RED BLOOD CELL COUNT(AUTO) 2.77 MIL/uL (4.00-5.50); RED CELL DISTRIBUTION WIDTH 14.5 % (11.0-15.5); WHITE BLOOD COUNT (AUTO) 8.0 K/uL (4.8-10.8)
[2025-08-04 13:16] LABS: ASPARTATE AMINOTRANSFERASE 24.0 U/L (10-37); CREATININE 2.6 mg/dL (0.5-1.0); GLOMERULAR FILTR. RATE CALC 23.0 mL/min (>90); GLUCOSE,RANDOM 106.0 mg/dL (70-105); SODIUM SERUM 140.0 mmol/L (136-145); TOTAL PROTEIN, SERUM 6.6 g/dL (6.0-8.3)
[2025-08-04 13:20] LABS: UREA NITROGEN, BLOOD 98.0 mg/dL (7-18)
[2025-08-04] MEDS: SODIUM ZIRCONIUM CYCLOSILICATE 5 GM POWD.PACK PO ONE ×2 (13:50→14:42)
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
[2025-08-04] MEDS: SODIUM BICARB 50MEQ 50ML VIAL IV SCH (14:49)
[2025-08-04] MEDS: SODIUM BICARBONATE 650 MG TAB PO SCH (14:50)
--- NOTE | 2025-08-04 15:26 | CONS ---
NEPHROLOGY CONSULTATION NOTE Date/Time Patient Seen: Aug 04, 2025 1210 Reason for Consultation: Renal failure, hyperkalemia HISTORY OF PRESENT ILLNESS: This is a 39-year-old female with a past medical history of chronic kidney disease, uncontrolled diabetes mellitus type II, hypertension, congestive heart failure, GERD, peripheral vascular disease hyperlipidemia, anxiety disorder, morbid obesity, asthma, left carotid stenosis, and noncompliance She presented to the emergency room with complaints dizziness and lightheadedness for two days. Imagining studies were noted. In the emergency room she was noted with a worsening renal failure and hyperkalemia. Hyperkalemia was treated medically Renal function remains elevated Electrolytes show hyperkalemia Hemoglobin has remained stable She was seen in the medical floor, in no acute distress No family at the bedside Prognosis remains guarded REVIEW OF SYSTEMS: GENERAL: Positive for generalized weakness NEUROLOGIC: Negative for any blurry vision, blind spots, double vision, facial asymmetry, dysphagia, dysarthria, hemiparesis, hemisensory deficits, vertigo, ataxia. HEENT: Negative for any head trauma, neck trauma, neck stiffness, photophobia, phonophobia, sinusitis, rhinitis. CARDIAC: Negative for any chest pain, dyspnea on exertion, paroxysmal nocturnal dyspnea, peripheral edema. PULMONARY: Negative for any shortness of breath, wheezing, COPD, or TB exposure. GASTROINTESTINAL: Negative for any abdominal pain, nausea, vomiting, bright red blood per rectum, melena. GENITOURINARY: Negative for any dysuria, hematuria, incontinence. INTEGUMENTARY: Negative for any rashes, cuts, insect bites. RHEUMATOLOGIC: Negative for any joint pains, photosensitive rashes, history of vasculitis or kidney problems. HEMATOLOGIC: Negative for any abnormal bruising, frequent infections or bleeding. PAST MEDICAL HISTORY: Chronic kidney disease, uncontrolled diabetes mellitus type II, hypertension, congestive heart failure, GERD, peripheral vascular disease hyperlipidemia, anxiety disorder, morbid obesity, asthma, left carotid stenosis, noncompliance PAST SURGICAL HISTORY: Liver mass excision and cholecystectomy PAST SOCIAL HISTORY: Current alcohol use, tobacco use, marijuana and cocaine FAMILY HISTORY: Noncontributory PHYSICAL EXAM: GENERAL: Alert and oriented x 3. No acute distress. Well-nourished. EYES: EOMI. Anicteric. HENT: Moist mucous membranes. No scleral icterus. No cervical lymphadenopathy. LUNGS: Clear to auscultation bilaterally. No accessory muscle use. CARDIOVASCULAR: Regular rate and rhythm. No murmur. No JVD. ABDOMEN: Soft, non-tender and non-distended. No palpable masses. EXTREMITIES: No edema. Non-tender. SKIN: No rashes or lesions. Warm. NEUROLOGIC: No focal neurological deficits. CN II-XII grossly intact, but not individually tested. PSYCHIATRIC: Cooperative. Appropriate mood and affect. MEDICATIONS: [ ] Current Medications Medications (Trade) Dose Ordered Sig/Jai Route PRN Reason Start Time Stop Time Status Last Admin Dose Admin Acetaminophen (TYLenol 325MG TAB) 650 mg Q4H PRN PO MILD PAIN (1-3) 08/03/25 20:00 08/04/25 12:30 DC Acetaminophen (TYLenol 325MG TAB) 650 mg Q6H PRN PO TEMPERATURE GREATER THAN 101.5 08/03/25 20:00 09/02/25 19:59 Acetaminophen (TYLenol 325MG TAB) 650 mg Q6H PRN PO MILD PAIN (1-3) 08/04/25 14:30 09/03/25 14:29 Acetaminophen (TYLenol 500MG TAB) 500 mg Q6H PRN PO MILD PAIN (1-3) 08/04/25 12:30 09/03/25 12:29 Acetaminophen (TYLenol 500MG TAB) 500 mg Q6H6 PRN PO pain or fever 08/04/25 07:00 08/04/25 07:03 DC Acetaminophen/ Hydrocodone Bitart (NORco 5/325MG) 1 tab Q6H PRN PO MODERATE PAIN (4-6) 08/04/25 14:30 08/09/25 14:29 Atorvastatin Calcium (LIPItor 20MG) 20 mg HS PO 08/04/25 21:00 09/03/25 20:59 Furosemide (LASix 40MG VIAL) 80 mg BID IV 08/04/25 21:00 09/03/25 20:59 Furosemide (LASix 80MG TAB) 80 mg BID PO 08/04/25 09:00 08/04/25 12:30 DC 08/04/25 08:19 80 MG Gabapentin (NEURontin 300 MG CAP) 300 mg DAILY PO 08/05/25 09:00 09/03/25 08:59 Gabapentin (NEURontin 300 MG CAP) 300 mg TID PO 08/04/25 09:00 08/04/25 12:30 DC 08/04/25 08:19 300 MG Hydralazine HCl (APRESOLine 20MG INJ) 10 mg Q6H PRN IV ADMINISTER FOR SBP > 160 08/04/25 00:30 09/03/25 00:29 08/04/25 00:51 10 MG Hydralazine HCl (APRESOLine 20MG INJ) 10 mg Q6H PRN IV For:SBP above 160;DBP above 90 08/04/25 14:30 09/03/25 14:29 Hydralazine HCl ([id number] TAB) 50 mg TID PO 08/04/25 09:00 09/03/25 08:59 08/04/25 15:19 50 MG Insulin Glargine (LANtus 100 UNITS/ML 10 ML VIAL) 25 units HS SQ 08/04/25 21:00 09/03/25 20:59 Ketorolac Tromethamine (toRADol) 15 mg Q8H PRN IV MODERATE PAIN (4-6) 08/04/25 14:30 08/09/25 14:29 Morphine Sulfate (morPHINE 2MG SYG) 1 mg Q4H PRN IVP SEVERE PAIN (7-10) 08/04/25 14:30 08/11/25 14:29 Ondansetron HCl (zoFRAN 4MG INJ) 4 mg Q6H PRN IV NAUSEA/VOMITING 08/03/25 20:00 09/02/25 19:59 Oxycodone/ Acetaminophen (perCOCET) 1 tab Q6H PRN PO SEVERE PAIN (7-10) 08/04/25 14:30 08/11/25 14:29 Pantoprazole Sodium (PROTonix 40MG TAB) 40 mg DAILY PO 08/04/25 09:00 09/03/25 08:59 08/04/25 08:19 40 MG Sertraline HCl (ZOloft 50 mg tab) 100 mg HS PO 08/04/25 21:00 09/03/25 20:59 Sodium Bicarbonate (Sodium Bicarbonate) 1,300 mg TID PO 08/04/25 14:00 09/03/25 13:59 08/04/25 14:50 1,300 MG Sodium Bicarbonate (Sodium Bicarb 50meq 50ml Vial) 50 meq ONCE IV 08/04/25 14:00 08/04/25 18:00 08/04/25 14:49 50 MEQ Sodium Zirconium Cyclosilicate (Lokelma 10gm Powder) 10 gm ONCE PO 08/03/25 17:30 08/03/25 22:30 DC 08/03/25 19:22 10 GM Tizanidine HCl (Tizanidine HCl) 2 mg TID PO 08/04/25 09:00 09/03/25 08:59 08/04/25 14:50 2 MG Vitamin B Complex/ Vit C/Folic Acid (Nephrovite Tablet) 1 cap DAILY PO 08/05/25 09:00 09/04/25 08:59 Vital Signs (last 8hr) Date Time Temp Pulse Resp B/P (MAP) Pulse Ox O2 Delivery O2 Flow Rate FiO2 08/04/25 15:19 73 143/77 08/04/25 15:04 98.4 73 18 145/77 97 Nasal Cannula 2.0 08/04/25 12:00 98.1 66 20 117/72 99 Room Air 08/04/25 08:20 98.2 72 18 140/80 97 Nasal Cannula 2.0 08/04/25 08:18 72 148/80 08/04/25 08:00 97 Nasal Cannula* 2 28 DIAGNOSTICS / RADIOLOGY: [place] [address] IMAGING REPORT Signed PATIENT: ALBERTO LEIGH MR#: [id number] : 1985 SEX: F AGE: 40 LOCATION: [facility] ORDER 1526 STATUS: REG ER REPORT#: [id number] SERVICE 1524 REASON: fall, headache, dizziness ORDERING PHYSICIAN: AJAY MASTERS CNP PROCEDURE: HEAD WO - CT HEAD/BRAIN W/O CONTRAST EXAM: CT Head Without IV contrast. CLINICAL HISTORY: fall, headache, dizziness TECHNIQUE: Axial computed tomography images of the head/brain without intravenous contrast. COMPARISON: None provided. FINDINGS: BRAIN: No evidence of acute hemorrhage. No mass lesion. No CT evidence for acute territorial infarct. No midline shift or extra-axial collections. VENTRICLES: No hydrocephalus. ORBITS: The orbits are unremarkable. SINUSES AND MASTOIDS: The paranasal sinuses and mastoid air cells are clear. BONES: No fracture. SOFT TISSUES: Unremarkable. IMPRESSION: No acute intracranial abnormality. /[place] DICTATED BY: TRENTON HATHAWAY MD DATE: 08/03/251732 ELECTRONICALLY SIGNED BY: TRENTON HATHAWAY MD DATE: 08/03/251732 LABORATORY: [ ] Hematology Labs: Test 08/04/25 12:40 08/04/25 04:51 08/03/25 15:38 Range/Units White Blood Count 8.0 4.8-10.8 K/uL Red Blood Count 2.77 L 4.00-5.50 MIL/uL Hemoglobin 8.1 L 12.0-16.0 g/dL Hematocrit 26.2 L 36-48 % Mean Corpuscular Volume 94.6 79-99 fL Mean Corpuscular Hemoglobin 29.2 27.0-33.0 pg Mean Corpuscular Hemoglobin Concent 30.9 L 32.0-36.0 g/dL Red Cell Distribution Width 14.5 11.0-15.5 % Platelet Count 214 130-400 K/uL Mean Platelet Volume 11.0 H 7.5-10.5 fL Nucleated Red Blood Cells 0.0 0.0-0.19 % Immature Granulocyte % (Auto) 0.6 0-1 % Neutrophils (%) (Auto) 70.7 40.0-77.0 % Lymphocytes (%) (Auto) 20.3 L 21.0-51.0 % Monocytes (%) (Auto) 7.1 3.0-13.0 % Eosinophils (%) (Auto) 1.1 0.0-8.0 % Basophils (%) (Auto) 0.2 0.0-5.0 % Neutrophils # (Auto) 6.4 1.8-7.7 K/uL Lymphocytes # (Auto) 1.8 1.0-4.8 K/uL Monocytes # (Auto) 0.6 0.1-1.0 K/uL Eosinophils # (Auto) 0.10 0.00-0.70 K/uL Basophils # (Auto) 0.02 0.00-0.20 K/uL Absolute Immature Granulocyte (auto 0.05 0-1 K/uL Red Blood Cell Morphology See comments Chemistry Labs: Test 08/04/25 12:40 08/04/25 10:45 08/04/25 04:51 08/03/25 15:38 Range/Units Sodium Level 140 136-145 mmol/L Potassium Level 5.6 H 3.5-5.1 mmol/L Chloride Level 108 101-111 mmol/L Carbon Dioxide Level 22 21-32 mmol/L Blood Urea Nitrogen 98 *H 7-18 mg/dL Creatinine 2.6 H 0.5-1.0 mg/dL Glomerular Filtration Rate Calc 23 >90 mL/min Random Glucose 106 H 70-105 mg/dL Total Calcium 8.0 L 8.5-10.1 mg/dL Magnesium Level 2.50 H 1.80-2.40 mg/dL Total Bilirubin 0.3 # 0.2-1.0 mg/dL Aspartate Amino Transf (AST/SGOT) 24 10-37 U/L Alanine Aminotransferase (ALT/SGPT) 38 12-78 U/L Alkaline Phosphatase 110 50-136 U/L Total Protein 6.6 6.0-8.3 g/dL Albumin 3.0 L 3.5-5.0 g/dL Whole Blood Glucose 101 70-110 MG/DL Iron Level 22 #L 50-170 mcg/dL Total Iron Binding Capacity 281 250-450 mcg/dL Percent Iron Saturation 7.8 L 22-44 % Direct Bilirubin 0.1 0.0-0.3 mg/dL Total Creatine Kinase 514 #*H 21-232 U/L B-Type Natriuretic Peptide 149 H 0-100 pg/mL Coagulation Labs: Test 08/03/25 15:38 Range/Units Prothrombin Time 9.9 9.6-11.6 SEC Prothromb Time International Ratio <= 0.93 0.85-1.15 Activated Partial Thromboplast Time 25.4 L 26.3-35.5 SEC Assessment: Hyperkalemia Acute on chronic renal failure Uncontrolled diabetes mellitus type 2 Anemia Intractable epigastric abdominal pain Hypertension Morbid obesity Congestive heart failure GERD Peripheral vascular disease Hyperlipidemia History of hyperkalemia Poor venous access Anxiety disorder Polysubstance abuse Active alcohol drinker Nicotine dependence PLAN: Labs, diagnostic, radiologic exams reviewed and interpreted by myself and supervising physician. We have reviewed external records in detail She will receive one dose of Lokelma for hyperkalemia Lasix to be changed to 80 mg IV b.i.d. Start Nephro-Martin daily. She was counseled on the importance of being compliant with a renal diabetic diet. May have Tylenol 500 mg p.o. q.6 p.r.n. for pain. Decrease gabapentin to 300 mg p.o. daily 1.5 L fluid restriction Require close monitoring of renal function and electrolytes Order CBC, CMP, uric acid, complete iron panel, ferritin and electrolytes in am IV iron/Epogen as needed Continue with antibiotics Renal diabetic diet BiPAP as necessary, for respiratory distress Monitor blood pressure adjust medication doses as needed Avoid hypotensive episodes May use Dilaudid 0.5 mg IV every 6 hours as needed for severe pain Monitor blood sugars Strict intake, output, and daily weight should be monitored Please renally adjust medications Avoid nephrotoxic and nonsteroidal drugs Avoid contrast if possible Will continue to monitor renal function, anemia, electrolytes Treatment plan discussed with patient Questions were answered We have discussed with the other team physicians in detail about the care plan We will continue to monitor the patient closely Thank you for allowing us to participate in the care of this patient ATTESTATION BY PHYSICIAN I have seen and examined the patient. I reviewed the documentation, medical decision making, and treatment plan as noted by the mid-level provider above. I agree with the findings and plan of care. MANJIT LOYA MD, ELIZABETH FNP Aug 04, 2025 15:26 MANJIT LOYA MD Aug 04, 2025 19:44
[2025-08-04] MEDS: HYDROcodone/APAP 5/325 1 TAB TABLET PO PRN (18:29)
[2025-08-04 18:43] LABS: APPEARANCE,URINE CLEAR (CLEAR); GLUCOSE, URINE (UA) NEGATIVE (NEGATIVE); LEUKOCYTE ESTERASE ,URINE NEGATIVE Leu/uL (NEGATIVE); NITRATE,URINE NEGATIVE (NEGATIVE); OCCULT BLOOD,URINE NEGATIVE (NEGATIVE)
[2025-08-04 18:46] LABS: CREATININE,URINE RANDOM 30.52 mg/dL (30-135)
[2025-08-04 18:48] LABS: ADD UA MICROSCOPIC YES
[2025-08-04 18:49] LABS: SQUAMOUS EPITHELIAL CELL,UR FEW /HPF (0-2)
--- NOTE | 2025-08-04 19:09 | CONS ---
GASTROENTEROLOGY CONSULTATION NOTE Date of Consultation: Aug 04, 2025 Time of Consultation: 19:09 History of Present Illness: This is a 40-year-old female with past medical history of atrial fibrillation, asthma, hyperlipidemia, hypertension, CVA, CKD, PAD, respiratory failure on home oxygen who patient takes aspirin daily. We were consulted due to anemia and melena. Hemoglobin was 7.4 with a platelet count of 206. Review of Systems: CONSTITUTIONAL: No malaise or change in sensation of wellbeing. ENMT: No rhinorrhea, otorrhea, sinus pain, ear ache. CARDIOVASCULAR: No angina, palpitations, orthopnea or paroxysmal dyspnea. RESPIRATORY: No SOB. GASTROINTESTINAL: No abdominal pain, nausea, vomiting, diarrhea, hematemesis, melena or change in the patient's habitual bowel movements consistency/number. GENITOURINARY: No dysuria, hematuria or change in bladder continence. MUSCULOSKELETAL: No new muscle pain or decrease in muscular strength. No new joint swelling, redness or tenderness. SKIN: No new rash. Past Medical History: PAST MEDICAL HISTORY: [Atrial fibrillation, asthma Diabetes, hypertension, hyperlipidemia, CVA cocaine use, CKD stage 4, peripheral arterial disease to bilateral lower extremities, chronic hypoxemic respiratory failure on home O2] PAST SURGICAL HISTORY: [ Cholecystectomy and liver mass excision ] PAST SOCIAL HISTORY: [ Patient lives alone. Patient states to be a heavy smoker alcohol drinker and recreational drug user qt she stopped smoking cigarette six months ago and stopped drinking beer five months ago. Last cocaine use three weeks ago] FAMILY HISTORY: [Hypertension, diabetes and cardiovascular disease ] Coded Allergies: No Known Drug Allergies (Unverified Allergy, Unknown, 11/05/21) Coded Allergies: No Known Drug Allergies (Unverified Allergy, Unknown, 11/05/21) Physical Exam: GEN: Awake, alert, oriented in person, time and place, and in no acute distress. HEENT: No sinus tenderness. Tympanic membranes were not examined. No rhinorrhea. Oral pharyngeal mucosa is pink, moist and within normal limits. Neck is supple with no cervical lymphadenopathy, thyromegaly or JVD. CHEST: Inspection, palpation and percussion of the chest were unremarkable. Lung auscultation revealed normal breath sounds bilaterally. CARDIAC: PMI is within normal limits. Heart sounds are regular. Normal S1, S2. No gallop or murmur. ABD: Soft, non-tender and not distended. No peritoneal signs on palpation. No organomegaly. Normal bowel sounds. EXT: No cyanosis or clubbing. No edema. SKIN: Intact. No rashes. JOINTS: No evidence of synovitis or acute arthritis. NEURO: Alert and oriented to name, place and person. Cranial nerve examination is unremarkable. No focal motor deficits. Normal speech. Gait is normal. Strength is normal. Vital Sign (Last 24 Hours) 08/04/25 08/04/25 08/04/25 08:00 15:04 15:19 Temp 98.4 Pulse 73 Resp 18 B/P (MAP) 143/77 Pulse Ox 97 O2 Delivery Nasal Cannula O2 Flow Rate 2.0 FiO2 28 Intake & Output (last 24hrs) 08/03/25 08/03/25 08/04/25 15:00 23:00 07:00 Intake Total 200 ml Output Total 400 ml Balance -200 ml Laboratory: [ ] Laboratory: Test 08/04/25 15:56 08/04/25 15:40 08/04/25 12:44 08/04/25 12:40 Range/Units Whole Blood Glucose 109 70-110 MG/DL Urine Color LIGHT-YELLOW YELLOW Urine Appearance CLEAR CLEAR Urine pH 5.5 5.0-8.0 Urine Specific [place] 1.009 1.001-1.031 Urine Protein 50 H NEGATIVE mg/dL Urine Glucose (UA) NEGATIVE NEGATIVE mg/dL Urine Ketones NEGATIVE NEGATIVE mg/dL Urine Occult Blood NEGATIVE NEGATIVE Urine Nitrate NEGATIVE NEGATIVE Urine Bilirubin NEGATIVE NEGATIVE mg/dL Urine Urobilinogen 0.2 0.2-1.0 mg/dL Urine Leukocyte Esterase NEGATIVE NEGATIVE [place]/uL Urine RBC 0-1 0-1 /HPF Urine WBC 0-1 0-1 /HPF Urine Squamous Epithelial Cells FEW 0-2 /HPF Urine Bacteria RARE None Seen /HPF Urine Random Creatinine 30.52 30-135 mg/dL Urine Random Sodium 79 40-220 mmol/l Urine Random Potassium 25 25-125 mmol/L Urine Random Chloride 93 L 110-250 mmol/L Blood Gas Specimen Type Venous Arterial Blood Oxygen Saturation 60.6 L 94.0-98.0 % Venous Blood pH 7.276 L 7.320-7.430 Venous Blood pCO2 at Patient Temp 43 38-54 Venous Blood pO2 at Patient Temp 35.5 23.0-48.0 mmHg Venous Blood HCO3 19.6 L 22.0-29.0 Venous Blood Base Excess -7.0 L -2.0-3.0 Blood Gas Temperature 37.0 35.5-37.0 CELSIUS Blood Gas Flow-by 2.00 0.00-15.00 L/min Blood Gas Vent Mode NC ROOM AIR FiO2 28.0 % Blood Gas Specimen Comment RARM NICOLA White Blood Count 8.0 4.8-10.8 K/uL Red Blood Count 2.77 L 4.00-5.50 MIL/uL Hemoglobin 8.1 L 12.0-16.0 g/dL Hematocrit 26.2 L 36-48 % Mean Corpuscular Volume 94.6 79-99 fL Mean Corpuscular Hemoglobin 29.2 27.0-33.0 pg Mean Corpuscular Hemoglobin Concent 30.9 L 32.0-36.0 g/dL Red Cell Distribution Width 14.5 11.0-15.5 % Platelet Count 214 130-400 K/uL Mean Platelet Volume 11.0 H 7.5-10.5 fL Nucleated Red Blood Cells 0.0 0.0-0.19 % Sodium Level 140 136-145 mmol/L Potassium Level 5.6 H 3.5-5.1 mmol/L Chloride Level 108 101-111 mmol/L Carbon Dioxide Level 22 21-32 mmol/L Blood Urea Nitrogen 98 *H 7-18 mg/dL Creatinine 2.6 H 0.5-1.0 mg/dL Glomerular Filtration Rate Calc 23 >90 mL/min Random Glucose 106 H 70-105 mg/dL Total Calcium 8.0 L 8.5-10.1 mg/dL Magnesium Level 2.50 H 1.80-2.40 mg/dL Total Bilirubin 0.3 # 0.2-1.0 mg/dL Aspartate Amino Transf (AST/SGOT) 24 10-37 U/L Alanine Aminotransferase (ALT/SGPT) 38 12-78 U/L Alkaline Phosphatase 110 50-136 U/L Total Protein 6.6 6.0-8.3 g/dL Albumin 3.0 L 3.5-5.0 g/dL Test 08/04/25 04:51 08/03/25 15:38 08/03/25 15:15 Range/Units Immature Granulocyte % (Auto) 0.6 0-1 % Neutrophils (%) (Auto) 70.7 40.0-77.0 % Lymphocytes (%) (Auto) 20.3 L 21.0-51.0 % Monocytes (%) (Auto) 7.1 3.0-13.0 % Eosinophils (%) (Auto) 1.1 0.0-8.0 % Basophils (%) (Auto) 0.2 0.0-5.0 % Neutrophils # (Auto) 6.4 1.8-7.7 K/uL Lymphocytes # (Auto) 1.8 1.0-4.8 K/uL Monocytes # (Auto) 0.6 0.1-1.0 K/uL Eosinophils # (Auto) 0.10 0.00-0.70 K/uL Basophils # (Auto) 0.02 0.00-0.20 K/uL Absolute Immature Granulocyte (auto 0.05 0-1 K/uL Iron Level 22 #L 50-170 mcg/dL Total Iron Binding Capacity 281 250-450 mcg/dL Percent Iron Saturation 7.8 L 22-44 % Red Blood Cell Morphology See comments Prothrombin Time 9.9 9.6-11.6 SEC Prothromb Time International Ratio <= 0.93 0.85-1.15 Activated Partial Thromboplast Time 25.4 L 26.3-35.5 SEC Direct Bilirubin 0.1 0.0-0.3 mg/dL Total Creatine Kinase 514 #*H 21-232 U/L B-Type Natriuretic Peptide 149 H 0-100 pg/mL Urine Opiates Screen POSITIVE H NEGATIVE Urine Barbiturates Screen NEGATIVE NEGATIVE Urine Phencyclidine Screen NEGATIVE NEGATIVE Urine Amphetamines Screen NEGATIVE NEGATIVE Urine Benzodiazepines Screen NEGATIVE NEGATIVE Urine Cocaine Screen POSITIVE H NEGATIVE Urine Marijuana (THC) Screen NEGATIVE NEGATIVE Current Medications Medications (Trade) Dose Ordered Sig/Jai Route PRN Reason Start Time Stop Time Status Last Admin Dose Admin Acetaminophen (TYLenol 325MG TAB) 650 mg Q4H PRN PO MILD PAIN (1-3) 08/03/25 20:00 08/04/25 12:30 DC Acetaminophen (TYLenol 325MG TAB) 650 mg Q6H PRN PO TEMPERATURE GREATER THAN 101.5 08/03/25 20:00 09/02/25 19:59 Acetaminophen (TYLenol 325MG TAB) 650 mg Q6H PRN PO MILD PAIN (1-3) 08/04/25 14:30 09/03/25 14:29 Acetaminophen (TYLenol 500MG TAB) 500 mg Q6H PRN PO MILD PAIN (1-3) 08/04/25 12:30 09/03/25 12:29 Acetaminophen (TYLenol 500MG TAB) 500 mg Q6H6 PRN PO pain or fever 08/04/25 07:00 08/04/25 07:03 DC Acetaminophen/ Hydrocodone Bitart (NORco 5/325MG) 1 tab Q6H PRN PO MODERATE PAIN (4-6) 08/04/25 14:30 08/09/25 14:29 08/04/25 18:29 1 TAB Atorvastatin Calcium (LIPItor 20MG) 20 mg HS PO 08/04/25 21:00 09/03/25 20:59 Furosemide (LASix 40MG VIAL) 80 mg BID IV 08/04/25 21:00 09/03/25 20:59 Furosemide (LASix 80MG TAB) 80 mg BID PO 08/04/25 09:00 08/04/25 12:30 DC 08/04/25 08:19 80 MG Gabapentin (NEURontin 300 MG CAP) 300 mg DAILY PO 08/05/25 09:00 09/03/25 08:59 Gabapentin (NEURontin 300 MG CAP) 300 mg TID PO 08/04/25 09:00 08/04/25 12:30 DC 08/04/25 08:19 300 MG Hydralazine HCl (APRESOLine 20MG INJ) 10 mg Q6H PRN IV ADMINISTER FOR SBP > 160 08/04/25 00:30 09/03/25 00:29 08/04/25 00:51 10 MG Hydralazine HCl (APRESOLine 20MG INJ) 10 mg Q6H PRN IV For:SBP above 160;DBP above 90 08/04/25 14:30 09/03/25 14:29 Hydralazine HCl ([id number] TAB) 50 mg TID PO 08/04/25 09:00 09/03/25 08:59 08/04/25 15:19 50 MG Insulin Glargine (LANtus 100 UNITS/ML 10 ML VIAL) 25 units HS SQ 08/04/25 21:00 09/03/25 20:59 Ketorolac Tromethamine (toRADol) 15 mg Q8H PRN IV MODERATE PAIN (4-6) 08/04/25 14:30 08/09/25 14:29 Morphine Sulfate (morPHINE 2MG SYG) 1 mg Q4H PRN IVP SEVERE PAIN (7-10) 08/04/25 14:30 08/11/25 14:29 Ondansetron HCl (zoFRAN 4MG INJ) 4 mg Q6H PRN IV NAUSEA/VOMITING 08/03/25 20:00 09/02/25 19:59 Oxycodone/ Acetaminophen (perCOCET) 1 tab Q6H PRN PO SEVERE PAIN (7-10) 08/04/25 14:30 08/11/25 14:29 Pantoprazole Sodium (PROTonix 40MG TAB) 40 mg DAILY PO 08/04/25 09:00 09/03/25 08:59 08/04/25 08:19 40 MG Sertraline HCl (ZOloft 50 mg tab) 100 mg HS PO 08/04/25 21:00 09/03/25 20:59 Sodium Bicarbonate (Sodium Bicarbonate) 1,300 mg TID PO 08/04/25 14:00 09/03/25 13:59 08/04/25 14:50 1,300 MG Sodium Bicarbonate (Sodium Bicarb 50meq 50ml Vial) 50 meq ONCE IV 08/04/25 14:00 08/04/25 18:00 DC 08/04/25 14:49 50 MEQ Sodium Zirconium Cyclosilicate (Lokelma 10gm Powder) 10 gm ONCE PO 08/03/25 17:30 08/03/25 22:30 DC 08/03/25 19:22 10 GM Tizanidine HCl (Tizanidine HCl) 2 mg TID PO 08/04/25 09:00 09/03/25 08:59 08/04/25 14:50 2 MG Vitamin B Complex/ Vit C/Folic Acid (Nephrovite Tablet) 1 cap DAILY PO 08/05/25 09:00 09/04/25 08:59 Diagnostics / Radiology: [COPY/PASTE HERE IF NO REPORTS PLEASE DELETE SECTION] Assessment: Melena Anemia Atrial fibrillation HTN Plan: Plan for close outpatient f/u for EGD Continue GI prophylaxis Advance diet as tolerated Avoid NSAIDs Antireflux measures Monitor H&H and transfuse as needed Call with questions, concerns or change in clinical status Patient to follow-up at clinic post discharge Thank you for this consult [facility] Aug 04, 2025 19:09
--- NOTE | 2025-08-04 20:44 | HMCIMG ---
EXAM: CR Left Tibia and Fibula, 4 views. CLINICAL HISTORY: Pain. COMPARISON: None provided. FINDINGS: No acute fracture or aggressive appearing osseous lesion. Mild osteopenia. Degenerative changes in the included knee and ankle joints. Diffuse soft tissue swelling is evident. Atherosclerotic vascular calcifications. IMPRESSION: No acute bony abnormality is evident. Degenerative changes. /[place]
--- NOTE | 2025-08-04 20:45 | HMCIMG ---
EXAM: CR Chest, 1 view CLINICAL HISTORY: Shortness of breath. COMPARISON: 07/10/2025. FINDINGS: The lungs show no infiltrates or other acute findings. No pleural effusion or pneumothorax. The cardiomediastinal silhouette is within normal limits. No acute osseous abnormality. IMPRESSION: No acute cardiopulmonary process is evident. Compared to the prior study, there is no significant interval change. /[place]
[2025-08-05] VITALS (10 sets, daily range): BP systolic 128–176; BP diastolic 58–90; PULSE 82–92; RESP 18–19; TEMP 98–98.6; O2SAT 96–97
[2025-08-05 04:08] LABS: NUCLEATED RED BLOOD CELLS 0.0 % (0.0-0.19); PLATELET COUNT (AUTO) 186 K/uL (130-400); RED BLOOD CELL COUNT(AUTO) 2.67 MIL/uL (4.00-5.50); RED CELL DISTRIBUTION WIDTH 14.4 % (11.0-15.5); WHITE BLOOD COUNT (AUTO) 8.1 K/uL (4.8-10.8)
[2025-08-05 04:32] LABS: % IRON SATURATION 7.6 % (22-44); IRON, SERUM 23.0 mcg/dL (50-170)
[2025-08-05 04:40] LABS: ASPARTATE AMINOTRANSFERASE 18.0 U/L (10-37); CREATININE 2.8 mg/dL (0.5-1.0); GLOMERULAR FILTR. RATE CALC 21.0 mL/min (>90); GLUCOSE,RANDOM 124.0 mg/dL (70-105); PHOSPHORUS 6.5 mg/dL (2.5-4.9); SODIUM SERUM 137.0 mmol/L (136-145); TOTAL PROTEIN, SERUM 6.7 g/dL (6.0-8.3)
[2025-08-05 04:42] LABS: EOSINOPHILS % (MANUAL) 1 % (1-6); LYMPHOCYTES % (MANUAL) 20 % (22-44); MAN.DIFF COMMENT-IMPRESSION MANUAL DIFFERENTIAL; MONOCYTES % (MANUAL) 7 % (2-9); SEGMENTED NEUTROPHILS % 72 % (40-70)
[2025-08-05 04:44] LABS: UREA NITROGEN, BLOOD 102.0 mg/dL (7-18)
[2025-08-05] MEDS: Vitamin B Complex/Vit C/Folic Acid PO SCH (08:37)
[2025-08-05] MEDS: GABAPENTIN 300 MG CAPSULE PO SCH (08:38)
[2025-08-05] MEDS ORDERED: COMPOUND IV MISC 1 EACH IVSOLN MISC PRN (12:00)
[2025-08-05] MEDS ORDERED: COMPOUND IV REFRIGERATED 1 EACH IVSOLN MISC PRN (12:00)
[2025-08-05] MEDS: NA ZIRCON CYCLOSIL(LOKELMA 10GM) PO ONE (12:18)
[2025-08-05] MEDS ORDERED: PHARMACY COMMUNICATION MISC SCH (13:00)
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
--- NOTE | 2025-08-05 21:21 | PN ---
FOLLOWUP PROGRESS NOTE SUBJECTIVE: A 40-year-old female, who has a history of known chronic renal insufficiency. The patient with a history of known drug abuse. The patient initially presented to the hospital with failure to thrive. The patient has been having dizziness and poor oral intake. The patient was also noted to have some hematochezia. Laboratory values revealed an elevated BUN and creatinine as well as significant hyperkalemia and she is being seen for all of the above. REVIEW OF SYSTEMS: GENERAL: She is feeling weak and tired. HEENT: No change in vision. No change in hearing. CARDIOVASCULAR: There is no current chest pain or palpitations. PULMONARY: No shortness of breath. GASTROINTESTINAL: She is tolerating a diet. MUSCULOSKELETAL: Complains of weakness. PHYSICAL EXAMINATION: VITAL SIGNS: Blood pressure 146/80, pulse in the 90s. GENERAL: She is a chronically much older than appearing female, lying in bed on the medical floor. HEENT: Head is atraumatic. Pupils are equal, round and reactive to light. Oropharynx is without exudate. Nares are clear. NECK: There is no JVP. There is no thyromegaly. No mass. CARDIOVASCULAR: Regular. There is no S3 or S4 gallop. LUNGS: Coarse with equal thoracic movement. ABDOMEN: Soft, nondistended, and nontender. EXTREMITIES: Revealed no clubbing, no cyanosis. NEUROLOGICAL: She is awake. She is at her baseline. LABORATORY DATA: Sodium 137, potassium 5.4, BUN 102, creatinine 2.8, iron level is noted, hemoglobin 7.7, and hematocrit 25. IMPRESSION: * Acute on chronic renal failure. * Hyperkalemia. * History of gastrointestinal bleeding. * Anemia. PLAN: The patient's creatinine has remained fairly stable. The patient will be given a dose of Lokelma for the hyperkalemia. She will be started on IV iron for the anemia. There is no acute need for any form of renal replacement therapy. All nonsteroidals will be held and we will follow the patient closely. TID: [id number] RECEIPT: [id number]
--- NOTE | 2025-08-05 21:35 | PN ---
ORTHOPEDIC CONSULTATION CHIEF COMPLAINT: Right wrist pain. HISTORY OF PRESENT ILLNESS: This 40-year-old female with multiple medical problems to include atrial fibrillation, asthma, hyperlipidemia, hypertension, CVA in 2007, chronic kidney disease, peripheral vascular disease, hypoxic respiratory failure, and type 2 diabetes. She has been having dizziness and lightheadedness. She has been falling and in fact fell on 07/30/2025 injuring her right wrist. She went to her doctor and they diagnosed her as having a fracture of her distal radius, but states they did not put any support on it. So she was sent to the hospital to have her wrist evaluated. She states when they asked her other problems and because of her dizziness and lightheadedness, she was admitted. PAST SURGICAL HISTORY: Positive for cholecystectomy and liver mass excision. PHYSICAL EXAMINATION: This is a well-developed, adult female, appearing stated age of 40 years. She is alert and pleasant and cooperative during the exam. She does have some contusions around her right forearm. She is motor and sensory intact to the radial, ulnar, and median nerves of her right upper extremity with a palpable radial pulse. X-RAYS: X-rays that had been taken on a previous visit do show an impacted mildly dorsally angulated fracture of the distal radius at a concurrent impaction of the ulna. ASSESSMENT: Fracture radius and ulna, minimally displaced on the right. PLAN: We will place this patient in a sugar-tong splint and she can use the sling as needed. We would like to see her in our office in approximately 3 weeks and they will call for an appointment. TID: [id number] RECEIPT: [id number]
[2025-08-06] VITALS (8 sets, daily range): BP systolic 113–159; BP diastolic 53–80; PULSE 76–91; RESP 18–20; TEMP 97.9–98.2; O2SAT 94
[2025-08-06 04:33] LABS: IMMATURE GRANULOCYTE ABSOLUTE 0.01 K/uL (0-1); NUCLEATED RED BLOOD CELLS 0.0 % (0.0-0.19); PLATELET COUNT (AUTO) 195 K/uL (130-400); RED BLOOD CELL COUNT(AUTO) 2.45 MIL/uL (4.00-5.50); RED CELL DISTRIBUTION WIDTH 14.2 % (11.0-15.5); WHITE BLOOD COUNT (AUTO) 6.2 K/uL (4.8-10.8)
[2025-08-06 05:05] LABS: ASPARTATE AMINOTRANSFERASE 18.0 U/L (10-37); CREATININE 2.8 mg/dL (0.5-1.0); GLOMERULAR FILTR. RATE CALC 21.0 mL/min (>90); GLUCOSE,RANDOM 138.0 mg/dL (70-105); SODIUM SERUM 136.0 mmol/L (136-145); TOTAL PROTEIN, SERUM 6.1 g/dL (6.0-8.3)
[2025-08-06 05:11] LABS: UREA NITROGEN, BLOOD 93.0 mg/dL (7-18)
--- NOTE | 2025-08-06 06:13 | HMCIMG ---
EXAM: CR Both Knees, 4 View. CLINICAL HISTORY: severe pain COMPARISON: None provided. FINDINGS: BONES: No acute fracture or aggressive appearing osseous lesion. JOINTS: The joint spaces show mild osteoarthritic changes, left more than right. There is no joint effusion appreciated. SOFT TISSUES: The soft tissues are unremarkable. IMPRESSION: 1. No acute findings. 2. 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 /[place]
--- NOTE | 2025-08-06 11:51 | PN ---
FOLLOWUP PROGRESS NOTE SUBJECTIVE: A 40-year-old female with a history of diabetes mellitus and hypertension, presents with a history of known substance abuse. She initially presented with failure to thrive status post falls. She has a history of known chronic renal insufficiency. Creatinine has been elevated. The patient did have hyperkalemia upon admission that was treated medically and she is being seen as a followup visit for all of the above. REVIEW OF SYSTEMS: GENERAL: She is feeling improved. HEENT: No change in vision. No change in hearing. CARDIOVASCULAR: There is no current chest pain or palpitations. PULMONARY: There is no shortness of breath. GASTROINTESTINAL: She is tolerating a diet. MUSCULOSKELETAL: Complaints of weakness. PHYSICAL EXAMINATION: VITAL SIGNS: Blood pressure 157/79, pulse in 80s. GENERAL: Chronically ill female, much older than appearing. HEENT: Head is atraumatic. Pupils are equal, round, and reactive to light. Oropharynx is without exudate. Nares are clear. NECK: There is no JVP. There is no thyromegaly, no mass. CARDIOVASCULAR: Regular. There is no S3 or S4 gallop. LUNGS: Coarse with equal thoracic movement. ABDOMEN: Soft, nondistended, and nontender. EXTREMITIES: Reveal no clubbing, no cyanosis. NEUROLOGICAL: She is awake. She is alert. LABORATORY DATA: Sodium 136, potassium 4.9, BUN 93, creatinine 2.8. Hemoglobin 7.1 and hematocrit 22. IMPRESSION: * Acute on chronic renal dysfunction. * Diabetes mellitus. * Hypertension. * History of substance abuse. PLAN: The patient does have known chronic renal insufficiency. There is no acute need for any form of renal replacement therapy. The patient's potassium is much improved with the medical management. We will continue to follow closely. The patient has been counseled in regards to her substance abuse. Once she is discharged, she can follow up in the [facility]. TID: [id number] RECEIPT: [id number]
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
[2025-08-06 14:36] LABS: % IRON SATURATION 94.3 % (22-44); IRON, SERUM 284.0 mcg/dL (50-170)
[2025-08-07] VITALS (7 sets, daily range): BP systolic 120–174; BP diastolic 51–84; PULSE 77–84; RESP 19–20; TEMP 97.6–98.4; O2SAT 97
[2025-08-07] MEDS: LIDOCAINE 4% ADH..PATCH TP ONE (02:48)
--- NOTE | 2025-08-07 04:58 | PN ---
PROGRESS NOTE SUBJECTIVE: The patient is wearing her short arm splint. She states it is comfortable. She still has soreness when she moves her hand. PHYSICAL EXAMINATION: She remains motor and sensory intact to the right fingers and has good capillary refill. The patient remains afebrile at 98.1 with a pulse of 76, respirations of 18, blood pressure 113/53. LABORATORY DATA: White count 6.2, hemoglobin 7.1, and 195,000 platelets. BUN of 93. ASSESSMENT: Fracture, right distal radius and ulna. PLAN: We are going to keep her in the splint. We would like to see her in the office in 2-3 weeks to call for an appointment. The patient is otherwise stable for discharge. TID: [id number] RECEIPT: [id number]
[2025-08-07 05:56] LABS: IMMATURE GRANULOCYTE ABSOLUTE 0.02 K/uL (0-1); NUCLEATED RED BLOOD CELLS 0.0 % (0.0-0.19); PLATELET COUNT (AUTO) 198 K/uL (130-400); RED BLOOD CELL COUNT(AUTO) 2.64 MIL/uL (4.00-5.50); RED CELL DISTRIBUTION WIDTH 13.9 % (11.0-15.5); WHITE BLOOD COUNT (AUTO) 5.5 K/uL (4.8-10.8)
[2025-08-07 06:21] LABS: CREATININE 2.8 mg/dL (0.5-1.0); GLOMERULAR FILTR. RATE CALC 21.0 mL/min (>90); GLUCOSE,RANDOM 100.0 mg/dL (70-105); SODIUM SERUM 137.0 mmol/L (136-145)
[2025-08-07 06:24] LABS: ASPARTATE AMINOTRANSFERASE 17.0 U/L (10-37); TOTAL PROTEIN, SERUM 6.4 g/dL (6.0-8.3)
[2025-08-07 06:25] LABS: UREA NITROGEN, BLOOD 93.0 mg/dL (7-18)
--- NOTE | 2025-08-07 14:04 | PN ---
NEPHROLOGY PROGRESS NOTE Date/Time Patient Seen: Aug 07, 2025 SUBJECTIVE: This is a 39-year-old female with a past medical history of chronic kidney disease, uncontrolled diabetes mellitus type II, hypertension, congestive heart failure, GERD, peripheral vascular disease hyperlipidemia, anxiety disorder, morbid obesity, asthma, left carotid stenosis, and noncompliance She presented to the emergency room with complaints dizziness and lightheadedness for two days. Imagining studies were noted. In the emergency room she was noted with a worsening renal failure and hyperkalemia. Hyperkalemia was treated medically Renal function is stable Electrolytes are stable Hemoglobin has remained stable Continues on Lasix 80 mg IV b.i.d.. No surgical intervention planned for fracture radius and ulna, minimally d isplaced on the right, splint in place She was seen in the medical floor, in no acute distress No family at the bedside Prognosis remains guarded REVIEW OF SYSTEMS: GENERAL: Positive for generalized weakness NEUROLOGIC: Negative for any blurry vision, blind spots, double vision, facial asymmetry, dysphagia, dysarthria, hemiparesis, hemisensory deficits, vertigo, ataxia. HEENT: Negative for any head trauma, neck trauma, neck stiffness, photophobia, phonophobia, sinusitis, rhinitis. CARDIAC: Negative for any chest pain, dyspnea on exertion, paroxysmal nocturnal dyspnea, peripheral edema. PULMONARY: Negative for any shortness of breath, wheezing, COPD, or TB exposure. GASTROINTESTINAL: Negative for any abdominal pain, nausea, vomiting, bright red blood per rectum, melena. GENITOURINARY: Negative for any dysuria, hematuria, incontinence. INTEGUMENTARY: Negative for any rashes, cuts, insect bites. RHEUMATOLOGIC: Negative for any joint pains, photosensitive rashes, history of vasculitis or kidney problems. HEMATOLOGIC: Negative for any abnormal bruising, frequent infections or bleeding. Vital Signs (last 8hr) Date Time Temp Pulse Resp B/P (MAP) Pulse Ox O2 Delivery O2 Flow Rate FiO2 08/07/25 11:59 97.9 77 20 135/59 94 Room Air 08/07/25 09:38 174/84 08/07/25 08:00 97.7 79 20 174/84 97 Room Air 2.0 24 PHYSICAL EXAM: GENERAL: Alert and oriented x 3. No acute distress. Well-nourished. EYES: EOMI. Anicteric. HENT: Moist mucous membranes. No scleral icterus. No cervical lymphadenopathy. LUNGS: Clear to auscultation bilaterally. No accessory muscle use. CARDIOVASCULAR: Regular rate and rhythm. No murmur. No JVD. ABDOMEN: Soft, non-tender and non-distended. No palpable masses. EXTREMITIES: No edema. Non-tender. SKIN: No rashes or lesions. Warm. NEUROLOGIC: No focal neurological deficits. CN II-XII grossly intact, but not individually tested. PSYCHIATRIC: Cooperative. Appropriate mood and affect. Current Medications Medications (Trade) Dose Ordered Sig/Jai Route Start Time Stop Time Status Last Admin Dose Admin Atorvastatin Calcium (LIPItor 20MG) 20 mg HS PO 08/04/25 21:00 09/03/25 20:59 08/06/25 20:26 20 MG Furosemide (LASix 40MG VIAL) 80 mg BID IV 08/04/25 21:00 09/03/25 20:59 08/07/25 09:38 80 MG Furosemide (LASix 80MG TAB) 80 mg BID PO 08/04/25 09:00 08/04/25 12:30 DC 08/04/25 08:19 80 MG Gabapentin (NEURontin 300 MG CAP) 300 mg DAILY PO 08/05/25 09:00 09/03/25 08:59 08/07/25 09:38 300 MG Gabapentin (NEURontin 300 MG CAP) 300 mg TID PO 08/04/25 09:00 08/04/25 12:30 DC 08/04/25 08:19 300 MG Hydralazine HCl ([id number] TAB) 50 mg TID PO 08/04/25 09:00 09/03/25 08:59 08/07/25 09:38 50 MG Insulin Glargine (LANtus 100 UNITS/ML 10 ML VIAL) 25 units HS SQ 08/04/25 21:00 09/03/25 20:59 08/06/25 20:40 25 UNITS Pantoprazole Sodium (PROTonix 40MG TAB) 40 mg DAILY PO 08/04/25 09:00 09/03/25 08:59 08/07/25 09:38 40 MG Pharmacy Profile Note (Pharmacy Communication) 1 each AD MISC 08/05/25 13:00 08/05/25 12:55 DC Sertraline HCl (ZOloft 50 mg tab) 100 mg HS PO 08/04/25 21:00 09/03/25 20:59 08/06/25 20:27 100 MG Sodium Bicarbonate (Sodium Bicarbonate) 1,300 mg TID PO 08/04/25 14:00 09/03/25 13:59 08/07/25 11:29 1,300 MG Sodium Bicarbonate (Sodium Bicarb 50meq 50ml Vial) 50 meq ONCE IV 08/04/25 14:00 08/04/25 18:00 DC 08/04/25 14:49 50 MEQ Sodium Zirconium Cyclosilicate (Lokelma 10gm Powder) 10 gm ONCE PO 08/03/25 17:30 08/03/25 22:30 DC 08/03/25 19:22 10 GM Tizanidine HCl (Tizanidine HCl) 2 mg TID PO 08/04/25 09:00 09/03/25 08:59 08/07/25 09:38 2 MG Vitamin B Complex/ Vit C/Folic Acid (Nephrovite Tablet) 1 cap DAILY PO 08/05/25 09:00 09/04/25 08:59 08/07/25 09:37 1 CAP LABORATORY: [ ] Hematology Labs: Test 08/07/25 05:53 Range/Units White Blood Count 5.5 4.8-10.8 K/uL Red Blood Count 2.64 L 4.00-5.50 MIL/uL Hemoglobin 7.6 L 12.0-16.0 g/dL Hematocrit 24.1 L 36-48 % Mean Corpuscular Volume 91.3 79-99 fL Mean Corpuscular Hemoglobin 28.8 27.0-33.0 pg Mean Corpuscular Hemoglobin Concent 31.5 L 32.0-36.0 g/dL Red Cell Distribution Width 13.9 11.0-15.5 % Platelet Count 198 130-400 K/uL Mean Platelet Volume 10.3 7.5-10.5 fL Immature Granulocyte % (Auto) 0.4 0-1 % Neutrophils (%) (Auto) 65.2 40.0-77.0 % Lymphocytes (%) (Auto) 24.5 21.0-51.0 % Monocytes (%) (Auto) 8.2 3.0-13.0 % Eosinophils (%) (Auto) 1.5 0.0-8.0 % Basophils (%) (Auto) 0.2 0.0-5.0 % Neutrophils # (Auto) 3.6 1.8-7.7 K/uL Lymphocytes # (Auto) 1.3 1.0-4.8 K/uL Monocytes # (Auto) 0.5 0.1-1.0 K/uL Eosinophils # (Auto) 0.08 0.00-0.70 K/uL Basophils # (Auto) 0.01 0.00-0.20 K/uL Absolute Immature Granulocyte (auto 0.02 0-1 K/uL Nucleated Red Blood Cells 0.0 0.0-0.19 % Chemistry Labs: Test 08/07/25 05:53 08/07/25 05:00 08/06/25 13:38 Range/Units Sodium Level 137 136-145 mmol/L Potassium Level 4.4 3.5-5.1 mmol/L Chloride Level 101 101-111 mmol/L Carbon Dioxide Level 25 21-32 mmol/L Blood Urea Nitrogen 93 *H 7-18 mg/dL Creatinine 2.8 H 0.5-1.0 mg/dL Glomerular Filtration Rate Calc 21 >90 mL/min Random Glucose 100 70-105 mg/dL Total Calcium 7.7 L 8.5-10.1 mg/dL Magnesium Level 2.20 1.80-2.40 mg/dL Total Bilirubin 0.3 0.2-1.0 mg/dL Aspartate Amino Transf (AST/SGOT) 17 10-37 U/L Alanine Aminotransferase (ALT/SGPT) 31 12-78 U/L Alkaline Phosphatase 110 50-136 U/L Total Protein 6.4 6.0-8.3 g/dL Albumin 2.8 L 3.5-5.0 g/dL Whole Blood Glucose 95 # 70-110 MG/DL Iron Level 284 #H 50-170 mcg/dL Total Iron Binding Capacity 301 250-450 mcg/dL Percent Iron Saturation 94.3 H 22-44 % DIAGNOSTICS / RADIOLOGY: [address] [address] IMAGING REPORT Signed PATIENT: ALBERTO LEIGH MR#: [id number] : 1985 SEX: F AGE: 40 LOCATION: [facility] ORDER DT: 11/1525 STATUS: REG ER REPORT#: [id number] SERVICE 23 REASON: fall, headache, dizziness ORDERING PHYSICIAN: AJAY MASTERS CNP PROCEDURE: HEAD WO - CT HEAD/BRAIN W/O CONTRAST EXAM: CT Head Without IV contrast. CLINICAL HISTORY: fall, headache, dizziness TECHNIQUE: Axial computed tomography images of the head/brain without intravenous contrast. COMPARISON: None provided. FINDINGS: BRAIN: No evidence of acute hemorrhage. No mass lesion. No CT evidence for acute territorial infarct. No midline shift or extra-axial collections. VENTRICLES: No hydrocephalus. ORBITS: The orbits are unremarkable. SINUSES AND MASTOIDS: The paranasal sinuses and mastoid air cells are clear. BONES: No fracture. SOFT TISSUES: Unremarkable. IMPRESSION: No acute intracranial abnormality. /[place] DICTATED BY: TRENTON HATHAWAY MD DATE: 08/03/251732 ELECTRONICALLY SIGNED BY: TRENTON HATHAWAY MD DATE: 08/03/251732 Assessment: Hyperkalemia Acute on chronic renal failure Uncontrolled diabetes mellitus type 2 Anemia Intractable epigastric abdominal pain Hypertension Morbid obesity Congestive heart failure GERD Peripheral vascular disease Hyperlipidemia History of hyperkalemia Poor venous access Anxiety disorder Polysubstance abuse Active alcohol drinker Nicotine dependence PLAN: Labs, diagnostic, radiologic exams reviewed and interpreted by myself and supervising physician. We have reviewed external records in detail There is no emergent need for renal replacement therapy at this time. Continue with the high-dose diuretics She was counseled on the importance of compliance with a renal diabetic diet and fluid restriction. Preserve nondominant arm Multiple questions were answered 1.5 L fluid restriction Require close monitoring of renal function and electrolytes Order CBC, CMP,and electrolytes in am Continue with antibiotics Renal diabetic diet BiPAP as necessary, for respiratory distress Monitor blood pressure adjust medication doses as needed Avoid hypotensive episodes May use Dilaudid 0.5 mg IV every 6 hours as needed for severe pain Monitor blood sugars Strict intake, output, and daily weight should be monitored Please renally adjust medications Avoid nephrotoxic and nonsteroidal drugs Avoid contrast if possible Will continue to monitor renal function, anemia, electrolytes Treatment plan discussed with patient Questions were answered We have discussed with the other team physicians in detail about the care plan We will continue to monitor the patient closely ATTESTATION BY PHYSICIAN I have seen and examined the patient. I reviewed the documentation, medical decision making, and treatment plan as noted by the mid-level provider above. I agree with the findings and plan of care. MANJIT LOYA MD, [facility] Aug 07, 2025 14:04
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
--- NOTE | 2025-08-07 22:30 | PN ---
GASTROENTEROLOGY PROGRESS NOTE Date of Visit: Aug 07, 2025 Time of Visit: 22:30 Events / Notes: [ ] Review of Systems: CONSTITUTIONAL: No malaise or change in sensation of wellbeing. ENMT: No rhinorrhea, otorrhea, sinus pain, ear ache. CARDIOVASCULAR: No angina, palpitations, orthopnea or paroxysmal dyspnea. RESPIRATORY: No SOB. GASTROINTESTINAL: No abdominal pain, nausea, vomiting, diarrhea, hematemesis, melena or change in the patient's habitual bowel movements consistency/number. GENITOURINARY: No dysuria, hematuria or change in bladder continence. MUSCULOSKELETAL: No new muscle pain or decrease in muscular strength. No new joint swelling, redness or tenderness. SKIN: No new rash. Physical Exam: GEN: Awake, alert, oriented in person, time and place, and in no acute distress. HEENT: No sinus tenderness. Tympanic membranes were not examined. No rhinorrhea. Oral pharyngeal mucosa is pink, moist and within normal limits. Neck is supple with no cervical lymphadenopathy, thyromegaly or JVD. CHEST: Inspection, palpation and percussion of the chest were unremarkable. Lung auscultation revealed normal breath sounds bilaterally. CARDIAC: PMI is within normal limits. Heart sounds are regular. Normal S1, S2. No gallop or murmur. ABD: Soft, non-tender and not distended. No peritoneal signs on palpation. No organomegaly. Normal bowel sounds. EXT: No cyanosis or clubbing. No edema. SKIN: Intact. No rashes. JOINTS: No evidence of synovitis or acute arthritis. NEURO: Alert and oriented to name, place and person. Cranial nerve examination is unremarkable. No focal motor deficits. Normal speech. Gait is normal. Strength is normal. Vital Signs (last 8hr) Date Time Temp Pulse Resp B/P (MAP) Pulse Ox O2 Delivery O2 Flow Rate FiO2 08/07/25 21:35 84 135/51 08/07/25 20:00 97.9 84 19 135/51 93 Room Air 21 08/07/25 16:05 139/54 08/07/25 16:00 97.5 84 20 163/80 97 Nasal Cannula 2.0 24 Laboratory: [ ] Laboratory: Test 08/07/25 19:55 08/07/25 05:53 08/06/25 13:38 08/05/25 23:34 Range/Units Whole Blood Glucose 133 H 70-110 MG/DL White Blood Count 5.5 4.8-10.8 K/uL Red Blood Count 2.64 L 4.00-5.50 MIL/uL Hemoglobin 7.6 L 12.0-16.0 g/dL Hematocrit 24.1 L 36-48 % Mean Corpuscular Volume 91.3 79-99 fL Mean Corpuscular Hemoglobin 28.8 27.0-33.0 pg Mean Corpuscular Hemoglobin Concent 31.5 L 32.0-36.0 g/dL Red Cell Distribution Width 13.9 11.0-15.5 % Platelet Count 198 130-400 K/uL Mean Platelet Volume 10.3 7.5-10.5 fL Immature Granulocyte % (Auto) 0.4 0-1 % Neutrophils (%) (Auto) 65.2 40.0-77.0 % Lymphocytes (%) (Auto) 24.5 21.0-51.0 % Monocytes (%) (Auto) 8.2 3.0-13.0 % Eosinophils (%) (Auto) 1.5 0.0-8.0 % Basophils (%) (Auto) 0.2 0.0-5.0 % Neutrophils # (Auto) 3.6 1.8-7.7 K/uL Lymphocytes # (Auto) 1.3 1.0-4.8 K/uL Monocytes # (Auto) 0.5 0.1-1.0 K/uL Eosinophils # (Auto) 0.08 0.00-0.70 K/uL Basophils # (Auto) 0.01 0.00-0.20 K/uL Absolute Immature Granulocyte (auto 0.02 0-1 K/uL Nucleated Red Blood Cells 0.0 0.0-0.19 % Sodium Level 137 136-145 mmol/L Potassium Level 4.4 3.5-5.1 mmol/L Chloride Level 101 101-111 mmol/L Carbon Dioxide Level 25 21-32 mmol/L Blood Urea Nitrogen 93 *H 7-18 mg/dL Creatinine 2.8 H 0.5-1.0 mg/dL Glomerular Filtration Rate Calc 21 >90 mL/min Random Glucose 100 70-105 mg/dL Total Calcium 7.7 L 8.5-10.1 mg/dL Magnesium Level 2.20 1.80-2.40 mg/dL Total Bilirubin 0.3 0.2-1.0 mg/dL Aspartate Amino Transf (AST/SGOT) 17 10-37 U/L Alanine Aminotransferase (ALT/SGPT) 31 12-78 U/L Alkaline Phosphatase 110 50-136 U/L Total Protein 6.4 6.0-8.3 g/dL Albumin 2.8 L 3.5-5.0 g/dL Iron Level 284 #H 50-170 mcg/dL Total Iron Binding Capacity 301 250-450 mcg/dL Percent Iron Saturation 94.3 H 22-44 % Stool Occult Blood NEGATIVE NEGATIVE Current Medications Medications (Trade) Dose Ordered Sig/Jai Route PRN Reason Start Time Stop Time Status Last Admin Dose Admin Acetaminophen (TYLenol 325MG TAB) 650 mg Q4H PRN PO MILD PAIN (1-3) 08/03/25 20:00 08/04/25 12:30 DC Acetaminophen (TYLenol 325MG TAB) 650 mg Q6H PRN PO TEMPERATURE GREATER THAN 101.5 08/03/25 20:00 09/02/25 19:59 Acetaminophen (TYLenol 325MG TAB) 650 mg Q6H PRN PO MILD PAIN (1-3) 08/04/25 14:30 08/05/25 16:23 DC Acetaminophen (TYLenol 500MG TAB) 500 mg Q6H PRN PO MILD PAIN (1-3) 08/04/25 12:30 09/03/25 12:29 Acetaminophen (TYLenol 500MG TAB) 500 mg Q6H6 PRN PO pain or fever 08/04/25 07:00 08/04/25 07:03 DC Acetaminophen/ Hydrocodone Bitart (NORco 5/325MG) 1 tab Q6H PRN PO MODERATE PAIN (4-6) 08/04/25 14:30 08/09/25 14:29 08/07/25 02:35 1 TAB Atorvastatin Calcium (LIPItor 20MG) 20 mg HS PO 08/04/25 21:00 09/03/25 20:59 08/07/25 21:24 20 MG Furosemide (LASix 40MG VIAL) 80 mg BID IV 08/04/25 21:00 09/03/25 20:59 08/07/25 21:25 80 MG Furosemide (LASix 80MG TAB) 80 mg BID PO 08/04/25 09:00 08/04/25 12:30 DC 08/04/25 08:19 80 MG Gabapentin (NEURontin 300 MG CAP) 300 mg DAILY PO 08/05/25 09:00 09/03/25 08:59 08/07/25 09:38 300 MG Gabapentin (NEURontin 300 MG CAP) 300 mg TID PO 08/04/25 09:00 08/04/25 12:30 DC 08/04/25 08:19 300 MG Hydralazine HCl (APRESOLine 20MG INJ) 10 mg Q6H PRN IV ADMINISTER FOR SBP > 160 08/04/25 00:30 09/03/25 00:29 08/04/25 00:51 10 MG Hydralazine HCl (APRESOLine 20MG INJ) 10 mg Q6H PRN IV For:SBP above 160;DBP above 90 08/04/25 14:30 08/05/25 16:24 DC Hydralazine HCl ([id number] TAB) 50 mg TID PO 08/04/25 09:00 09/03/25 08:59 08/07/25 21:35 50 MG Insulin Glargine (LANtus 100 UNITS/ML 10 ML VIAL) 25 units HS SQ 08/04/25 21:00 09/03/25 20:59 08/07/25 21:27 25 UNITS Ketorolac Tromethamine (toRADol) 15 mg Q8H PRN IV MODERATE PAIN (4-6) 08/04/25 14:30 08/05/25 11:43 DC Morphine Sulfate (morPHINE 2MG SYG) 1 mg Q4H PRN IVP SEVERE PAIN (7-10) 08/04/25 14:30 08/11/25 14:29 08/07/25 21:38 1 MG Ondansetron HCl (zoFRAN 4MG INJ) 4 mg Q6H PRN IV NAUSEA/VOMITING 08/03/25 20:00 09/02/25 19:59 Oxycodone/ Acetaminophen (perCOCET) 1 tab Q6H PRN PO SEVERE PAIN (7-10) 08/04/25 14:30 08/05/25 16:23 DC 08/04/25 21:23 1 TAB Pantoprazole Sodium (PROTonix 40MG TAB) 40 mg DAILY PO 08/04/25 09:00 09/03/25 08:59 08/07/25 09:38 40 MG Pharmacy Profile Note (Pharmacy Communication) 1 each AD MISC 08/05/25 13:00 08/05/25 12:55 DC Sertraline HCl (ZOloft 50 mg tab) 100 mg HS PO 08/04/25 21:00 09/03/25 20:59 08/07/25 21:24 100 MG Sodium Bicarbonate (Sodium Bicarbonate) 1,300 mg TID PO 08/04/25 14:00 09/03/25 13:59 08/07/25 21:34 1,300 MG Sodium Bicarbonate (Sodium Bicarb 50meq 50ml Vial) 50 meq ONCE IV 08/04/25 14:00 08/04/25 18:00 DC 08/04/25 14:49 50 MEQ Sodium Zirconium Cyclosilicate (Lokelma 10gm Powder) 10 gm ONCE PO 08/03/25 17:30 08/03/25 22:30 DC 08/03/25 19:22 10 GM Tizanidine HCl (Tizanidine HCl) 2 mg TID PO 08/04/25 09:00 09/03/25 08:59 08/07/25 21:24 2 MG Vitamin B Complex/ Vit C/Folic Acid (Nephrovite Tablet) 1 cap DAILY PO 08/05/25 09:00 09/04/25 08:59 08/07/25 09:37 1 CAP Diagnostics / Radiology: [COPY/PASTE HERE IF NO REPORTS PLEASE DELETE SECTION] Assessment: Melena Anemia Atrial fibrillation HTN Plan: Plan for close outpatient f/u for EGD Continue GI prophylaxis Advance diet as tolerated Avoid NSAIDs Antireflux measures Monitor H&H and transfuse as needed Call with questions, concerns or change in clinical status Patient to follow-up at clinic post discharge Thank you for this consult BISMARK JONES [employer]STR[employer] PROCESSING TECH Aug 07, 2025 22:30
[2025-08-08 03:48] VITALS: BP 142/57; PULSE 88; RESP 19; TEMP 98.4
--- NOTE | 2025-08-08 06:00 | NUR ---
24 HOUR URINE COLLECTED STARTED 08/08/25 AT 0600.
[2025-08-08 06:15] LABS: NUCLEATED RED BLOOD CELLS 0.0 % (0.0-0.19); PLATELET COUNT (AUTO) 241.0 K/uL (130-400); RED BLOOD CELL COUNT(AUTO) 2.67 MIL/uL (4.00-5.50); RED CELL DISTRIBUTION WIDTH 13.9 % (11.0-15.5); WHITE BLOOD COUNT (AUTO) 6.2 K/uL (4.8-10.8)
[2025-08-08 06:34] LABS: ASPARTATE AMINOTRANSFERASE 19.0 U/L (10-37); CREATININE 2.9 mg/dL (0.5-1.0); GLOMERULAR FILTR. RATE CALC 20.0 mL/min (>90); GLUCOSE,RANDOM 104.0 mg/dL (70-105); PHOSPHORUS 5.7 mg/dL (2.5-4.9); SODIUM SERUM 137.0 mmol/L (136-145); TOTAL PROTEIN, SERUM 6.5 g/dL (6.0-8.3)
[2025-08-08 06:46] LABS: UREA NITROGEN, BLOOD 93.0 mg/dL (7-18)
[2025-08-08 08:00] VITALS: BP 144/77; PULSE 86; RESP 18; TEMP 98.3
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
[2025-08-08 12:00] VITALS: BP 140/75; PULSE 78; RESP 18; TEMP 98
--- NOTE | 2025-08-08 13:02 | PN ---
NEPHROLOGY PROGRESS NOTE Date/Time Patient Seen: Aug 08, 2025 SUBJECTIVE: This is a 39-year-old female with a past medical history of chronic kidney disease, uncontrolled diabetes mellitus type II, hypertension, congestive heart failure, GERD, peripheral vascular disease hyperlipidemia, anxiety disorder, morbid obesity, asthma, left carotid stenosis, and noncompliance She presented to the emergency room with complaints dizziness and lightheadedness for two days. Imagining studies were noted. In the emergency room she was noted with a worsening renal failure and hyperkalemia. Hyperkalemia was treated medically Renal function is stable Electrolytes are stable Hemoglobin has remained stable Continues on Lasix 80 mg IV b.i.d.. No surgical intervention planned for fracture radius and ulna, minimally d isplaced on the right, splint in place Nurse reports noncompliance with fluid restriction She was seen in the medical floor, in no acute distress No family at the bedside Prognosis remains guarded REVIEW OF SYSTEMS: GENERAL: Positive for generalized weakness NEUROLOGIC: Negative for any blurry vision, blind spots, double vision, facial asymmetry, dysphagia, dysarthria, hemiparesis, hemisensory deficits, vertigo, ataxia. HEENT: Negative for any head trauma, neck trauma, neck stiffness, photophobia, phonophobia, sinusitis, rhinitis. CARDIAC: Negative for any chest pain, dyspnea on exertion, paroxysmal nocturnal dyspnea, peripheral edema. PULMONARY: Negative for any shortness of breath, wheezing, COPD, or TB exposure. GASTROINTESTINAL: Negative for any abdominal pain, nausea, vomiting, bright red blood per rectum, melena. GENITOURINARY: Negative for any dysuria, hematuria, incontinence. INTEGUMENTARY: Negative for any rashes, cuts, insect bites. RHEUMATOLOGIC: Negative for any joint pains, photosensitive rashes, history of vasculitis or kidney problems. HEMATOLOGIC: Negative for any abnormal bruising, frequent infections or bleeding. Vital Signs (last 8hr) Date Time Temp Pulse Resp B/P (MAP) Pulse Ox O2 Delivery O2 Flow Rate FiO2 08/07/25 11:59 97.9 77 20 135/59 94 Room Air 08/07/25 09:38 174/84 08/07/25 08:00 97.7 79 20 174/84 97 Room Air 2.0 24 PHYSICAL EXAM: GENERAL: Alert and oriented x 3. No acute distress. Well-nourished. EYES: EOMI. Anicteric. HENT: Moist mucous membranes. No scleral icterus. No cervical lymphadenopathy. LUNGS: Clear to auscultation bilaterally. No accessory muscle use. CARDIOVASCULAR: Regular rate and rhythm. No murmur. No JVD. ABDOMEN: Soft, non-tender and non-distended. No palpable masses. EXTREMITIES: No edema. Non-tender. SKIN: No rashes or lesions. Warm. NEUROLOGIC: No focal neurological deficits. CN II-XII grossly intact, but not individually tested. PSYCHIATRIC: Cooperative. Appropriate mood and affect. Current Medications Medications (Trade) Dose Ordered Sig/Jai Route Start Time Stop Time Status Last Admin Dose Admin Atorvastatin Calcium (LIPItor 20MG) 20 mg HS PO 08/04/25 21:00 09/03/25 20:59 08/06/25 20:26 20 MG Furosemide (LASix 40MG VIAL) 80 mg BID IV 08/04/25 21:00 09/03/25 20:59 08/07/25 09:38 80 MG Furosemide (LASix 80MG TAB) 80 mg BID PO 08/04/25 09:00 08/04/25 12:30 DC 08/04/25 08:19 80 MG Gabapentin (NEURontin 300 MG CAP) 300 mg DAILY PO 08/05/25 09:00 09/03/25 08:59 08/07/25 09:38 300 MG Gabapentin (NEURontin 300 MG CAP) 300 mg TID PO 08/04/25 09:00 08/04/25 12:30 DC 08/04/25 08:19 300 MG Hydralazine HCl ([id number] TAB) 50 mg TID PO 08/04/25 09:00 09/03/25 08:59 08/07/25 09:38 50 MG Insulin Glargine (LANtus 100 UNITS/ML 10 ML VIAL) 25 units HS SQ 08/04/25 21:00 09/03/25 20:59 08/06/25 20:40 25 UNITS Pantoprazole Sodium (PROTonix 40MG TAB) 40 mg DAILY PO 08/04/25 09:00 09/03/25 08:59 08/07/25 09:38 40 MG Pharmacy Profile Note (Pharmacy Communication) 1 each AD MISC 08/05/25 13:00 08/05/25 12:55 DC Sertraline HCl (ZOloft 50 mg tab) 100 mg HS PO 08/04/25 21:00 09/03/25 20:59 08/06/25 20:27 100 MG Sodium Bicarbonate (Sodium Bicarbonate) 1,300 mg TID PO 08/04/25 14:00 09/03/25 13:59 08/07/25 11:29 1,300 MG Sodium Bicarbonate (Sodium Bicarb 50meq 50ml Vial) 50 meq ONCE IV 08/04/25 14:00 08/04/25 18:00 DC 08/04/25 14:49 50 MEQ Sodium Zirconium Cyclosilicate (Lokelma 10gm Powder) 10 gm ONCE PO 08/03/25 17:30 08/03/25 22:30 DC 08/03/25 19:22 10 GM Tizanidine HCl (Tizanidine HCl) 2 mg TID PO 08/04/25 09:00 09/03/25 08:59 08/07/25 09:38 2 MG Vitamin B Complex/ Vit C/Folic Acid (Nephrovite Tablet) 1 cap DAILY PO 08/05/25 09:00 09/04/25 08:59 08/07/25 09:37 1 CAP LABORATORY: [ ] Hematology Labs: Test 08/08/25 06:08 08/07/25 05:53 Range/Units White Blood Count 6.2 4.8-10.8 K/uL Red Blood Count 2.67 L 4.00-5.50 MIL/uL Hemoglobin 7.8 L 12.0-16.0 g/dL Hematocrit 23.9 L 36-48 % Mean Corpuscular Volume 89.5 79-99 fL Mean Corpuscular Hemoglobin 29.2 27.0-33.0 pg Mean Corpuscular Hemoglobin Concent 32.6 32.0-36.0 g/dL Red Cell Distribution Width 13.9 11.0-15.5 % Platelet Count 241 130-400 K/uL Mean Platelet Volume 10.6 H 7.5-10.5 fL Nucleated Red Blood Cells 0.0 0.0-0.19 % Immature Granulocyte % (Auto) 0.4 0-1 % Neutrophils (%) (Auto) 65.2 40.0-77.0 % Lymphocytes (%) (Auto) 24.5 21.0-51.0 % Monocytes (%) (Auto) 8.2 3.0-13.0 % Eosinophils (%) (Auto) 1.5 0.0-8.0 % Basophils (%) (Auto) 0.2 0.0-5.0 % Neutrophils # (Auto) 3.6 1.8-7.7 K/uL Lymphocytes # (Auto) 1.3 1.0-4.8 K/uL Monocytes # (Auto) 0.5 0.1-1.0 K/uL Eosinophils # (Auto) 0.08 0.00-0.70 K/uL Basophils # (Auto) 0.01 0.00-0.20 K/uL Absolute Immature Granulocyte (auto 0.02 0-1 K/uL Chemistry Labs: Test 08/08/25 11:31 08/08/25 06:08 08/06/25 13:38 Range/Units Whole Blood Glucose 122 H 70-110 MG/DL Sodium Level 137 136-145 mmol/L Potassium Level 4.6 3.5-5.1 mmol/L Chloride Level 99 L 101-111 mmol/L Carbon Dioxide Level 26 21-32 mmol/L Blood Urea Nitrogen 93 *H 7-18 mg/dL Creatinine 2.9 H 0.5-1.0 mg/dL Glomerular Filtration Rate Calc 20 >90 mL/min Random Glucose 104 70-105 mg/dL Total Calcium 7.8 L 8.5-10.1 mg/dL Phosphorus Level 5.7 H 2.5-4.9 mg/dL Magnesium Level 2.20 1.80-2.40 mg/dL Total Bilirubin 0.2 0.2-1.0 mg/dL Aspartate Amino Transf (AST/SGOT) 19 10-37 U/L Alanine Aminotransferase (ALT/SGPT) 27 12-78 U/L Alkaline Phosphatase 107 50-136 U/L Total Protein 6.5 6.0-8.3 g/dL Albumin 2.8 L 3.5-5.0 g/dL Iron Level 284 #H 50-170 mcg/dL Total Iron Binding Capacity 301 250-450 mcg/dL Percent Iron Saturation 94.3 H 22-44 % DIAGNOSTICS / RADIOLOGY: [address] [address] IMAGING REPORT Signed PATIENT: ALBERTO LEIGH MR#: [id number] : 1985 SEX: F AGE: 40 LOCATION: [facility] ORDER 25 STATUS: REG ER REPORT#: [id number] SERVICE REASON: fall, headache, dizziness ORDERING PHYSICIAN: AJAY MASTERS CNP PROCEDURE: HEAD WO - CT HEAD/BRAIN W/O CONTRAST EXAM: CT Head Without IV contrast. CLINICAL HISTORY: fall, headache, dizziness TECHNIQUE: Axial computed tomography images of the head/brain without intravenous contrast. COMPARISON: None provided. FINDINGS: BRAIN: No evidence of acute hemorrhage. No mass lesion. No CT evidence for acute territorial infarct. No midline shift or extra-axial collections. VENTRICLES: No hydrocephalus. ORBITS: The orbits are unremarkable. SINUSES AND MASTOIDS: The paranasal sinuses and mastoid air cells are clear. BONES: No fracture. SOFT TISSUES: Unremarkable. IMPRESSION: No acute intracranial abnormality. /[place] DICTATED BY: TRENTON HATHAWAY MD DATE: 08/03/251732 ELECTRONICALLY SIGNED BY: TRENTON HATHAWAY MD DATE: 08/03/251732 Assessment: Hyperkalemia Acute on chronic renal failure Uncontrolled diabetes mellitus type 2 Anemia Intractable epigastric abdominal pain Hypertension Morbid obesity Congestive heart failure GERD Peripheral vascular disease Hyperlipidemia History of hyperkalemia Poor venous access Anxiety disorder Polysubstance abuse Active alcohol drinker Nicotine dependence PLAN: Labs, diagnostic, radiologic exams reviewed and interpreted by myself and supervising physician. We have reviewed external records in detail There is no emergent need for renal replacement therapy at this time. Continue with the high-dose diuretics She was counseled on the importance of compliance with a renal diabetic diet and fluid restriction. Preserve nondominant arm Multiple questions were answered 1.5 L fluid restriction Require close monitoring of renal function and electrolytes Order CBC, CMP,and electrolytes in am Continue with antibiotics Renal diabetic diet BiPAP as necessary, for respiratory distress Monitor blood pressure adjust medication doses as needed Avoid hypotensive episodes May use Dilaudid 0.5 mg IV every 6 hours as needed for severe pain Monitor blood sugars Strict intake, output, and daily weight should be monitored Please renally adjust medications Avoid nephrotoxic and nonsteroidal drugs Avoid contrast if possible Will continue to monitor renal function, anemia, electrolytes Treatment plan discussed with patient Questions were answered We have discussed with the other team physicians in detail about the care plan We will continue to monitor the patient closely ATTESTATION BY PHYSICIAN I have seen and examined the patient. I reviewed the documentation, medical decision making, and treatment plan as noted by the mid-level provider above. I agree with the findings and plan of care. MANJIT LOYA MD, [facility] Aug 08, 2025 13:02
--- NOTE | 2025-08-08 14:23 | PN ---
GASTROENTEROLOGY PROGRESS NOTE Date of Visit: Aug 08, 2025 Time of Visit: 14:23 Events / Notes: [ ] Review of Systems: CONSTITUTIONAL: No malaise or change in sensation of wellbeing. ENMT: No rhinorrhea, otorrhea, sinus pain, ear ache. CARDIOVASCULAR: No angina, palpitations, orthopnea or paroxysmal dyspnea. RESPIRATORY: No SOB. GASTROINTESTINAL: No abdominal pain, nausea, vomiting, diarrhea, hematemesis, melena or change in the patient's habitual bowel movements consistency/number. GENITOURINARY: No dysuria, hematuria or change in bladder continence. MUSCULOSKELETAL: No new muscle pain or decrease in muscular strength. No new joint swelling, redness or tenderness. SKIN: No new rash. Physical Exam: GEN: Awake, alert, oriented in person, time and place, and in no acute distress. HEENT: No sinus tenderness. Tympanic membranes were not examined. No rhinorrhea. Oral pharyngeal mucosa is pink, moist and within normal limits. Neck is supple with no cervical lymphadenopathy, thyromegaly or JVD. CHEST: Inspection, palpation and percussion of the chest were unremarkable. Lung auscultation revealed normal breath sounds bilaterally. CARDIAC: PMI is within normal limits. Heart sounds are regular. Normal S1, S2. No gallop or murmur. ABD: Soft, non-tender and not distended. No peritoneal signs on palpation. No organomegaly. Normal bowel sounds. EXT: No cyanosis or clubbing. No edema. SKIN: Intact. No rashes. JOINTS: No evidence of synovitis or acute arthritis. NEURO: Alert and oriented to name, place and person. Cranial nerve examination is unremarkable. No focal motor deficits. Normal speech. Gait is normal. Strength is normal. Vital Signs (last 8hr) Date Time Temp Pulse Resp B/P (MAP) Pulse Ox O2 Delivery O2 Flow Rate FiO2 08/08/25 12:00 98.1 78 18 140/75 94 Nasal Cannula 2.0 24 08/08/25 10:00 86 144/77 08/08/25 08:00 98.2 86 18 144/77 94 Room Air Laboratory: [ ] Laboratory: Test 08/08/25 11:31 08/08/25 06:08 08/07/25 05:53 Range/Units Whole Blood Glucose 122 H 70-110 MG/DL White Blood Count 6.2 4.8-10.8 K/uL Red Blood Count 2.67 L 4.00-5.50 MIL/uL Hemoglobin 7.8 L 12.0-16.0 g/dL Hematocrit 23.9 L 36-48 % Mean Corpuscular Volume 89.5 79-99 fL Mean Corpuscular Hemoglobin 29.2 27.0-33.0 pg Mean Corpuscular Hemoglobin Concent 32.6 32.0-36.0 g/dL Red Cell Distribution Width 13.9 11.0-15.5 % Platelet Count 241 130-400 K/uL Mean Platelet Volume 10.6 H 7.5-10.5 fL Nucleated Red Blood Cells 0.0 0.0-0.19 % Sodium Level 137 136-145 mmol/L Potassium Level 4.6 3.5-5.1 mmol/L Chloride Level 99 L 101-111 mmol/L Carbon Dioxide Level 26 21-32 mmol/L Blood Urea Nitrogen 93 *H 7-18 mg/dL Creatinine 2.9 H 0.5-1.0 mg/dL Glomerular Filtration Rate Calc 20 >90 mL/min Random Glucose 104 70-105 mg/dL Total Calcium 7.8 L 8.5-10.1 mg/dL Phosphorus Level 5.7 H 2.5-4.9 mg/dL Magnesium Level 2.20 1.80-2.40 mg/dL Total Bilirubin 0.2 0.2-1.0 mg/dL Aspartate Amino Transf (AST/SGOT) 19 10-37 U/L Alanine Aminotransferase (ALT/SGPT) 27 12-78 U/L Alkaline Phosphatase 107 50-136 U/L Total Protein 6.5 6.0-8.3 g/dL Albumin 2.8 L 3.5-5.0 g/dL Immature Granulocyte % (Auto) 0.4 0-1 % Neutrophils (%) (Auto) 65.2 40.0-77.0 % Lymphocytes (%) (Auto) 24.5 21.0-51.0 % Monocytes (%) (Auto) 8.2 3.0-13.0 % Eosinophils (%) (Auto) 1.5 0.0-8.0 % Basophils (%) (Auto) 0.2 0.0-5.0 % Neutrophils # (Auto) 3.6 1.8-7.7 K/uL Lymphocytes # (Auto) 1.3 1.0-4.8 K/uL Monocytes # (Auto) 0.5 0.1-1.0 K/uL Eosinophils # (Auto) 0.08 0.00-0.70 K/uL Basophils # (Auto) 0.01 0.00-0.20 K/uL Absolute Immature Granulocyte (auto 0.02 0-1 K/uL Current Medications Medications (Trade) Dose Ordered Sig/Jai Route PRN Reason Start Time Stop Time Status Last Admin Dose Admin Acetaminophen (TYLenol 325MG TAB) 650 mg Q4H PRN PO MILD PAIN (1-3) 08/03/25 20:00 08/04/25 12:30 DC Acetaminophen (TYLenol 325MG TAB) 650 mg Q6H PRN PO TEMPERATURE GREATER THAN 101.5 08/03/25 20:00 09/02/25 19:59 Acetaminophen (TYLenol 325MG TAB) 650 mg Q6H PRN PO MILD PAIN (1-3) 08/04/25 14:30 08/05/25 16:23 DC Acetaminophen (TYLenol 500MG TAB) 500 mg Q6H PRN PO MILD PAIN (1-3) 08/04/25 12:30 09/03/25 12:29 Acetaminophen (TYLenol 500MG TAB) 500 mg Q6H6 PRN PO pain or fever 08/04/25 07:00 08/04/25 07:03 DC Acetaminophen/ Hydrocodone Bitart (NORco 5/325MG) 1 tab Q6H PRN PO MODERATE PAIN (4-6) 08/04/25 14:30 08/09/25 14:29 08/07/25 02:35 1 TAB Atorvastatin Calcium (LIPItor 20MG) 20 mg HS PO 08/04/25 21:00 09/03/25 20:59 08/07/25 21:24 20 MG Furosemide (LASix 40MG VIAL) 80 mg BID IV 08/04/25 21:00 09/03/25 20:59 08/08/25 10:01 80 MG Furosemide (LASix 80MG TAB) 80 mg BID PO 08/04/25 09:00 08/04/25 12:30 DC 08/04/25 08:19 80 MG Gabapentin (NEURontin 300 MG CAP) 300 mg DAILY PO 08/05/25 09:00 09/03/25 08:59 08/08/25 10:01 300 MG Gabapentin (NEURontin 300 MG CAP) 300 mg TID PO 08/04/25 09:00 08/04/25 12:30 DC 08/04/25 08:19 300 MG Hydralazine HCl (APRESOLine 20MG INJ) 10 mg Q6H PRN IV ADMINISTER FOR SBP > 160 08/04/25 00:30 09/03/25 00:29 08/04/25 00:51 10 MG Hydralazine HCl (APRESOLine 20MG INJ) 10 mg Q6H PRN IV For:SBP above 160;DBP above 90 08/04/25 14:30 08/05/25 16:24 DC Hydralazine HCl ([id number] TAB) 50 mg TID PO 08/04/25 09:00 09/03/25 08:59 08/08/25 10:00 50 MG Insulin Glargine (LANtus 100 UNITS/ML 10 ML VIAL) 25 units HS SQ 08/04/25 21:00 09/03/25 20:59 08/07/25 21:27 25 UNITS Ketorolac Tromethamine (toRADol) 15 mg Q8H PRN IV MODERATE PAIN (4-6) 08/04/25 14:30 08/05/25 11:43 DC Morphine Sulfate (morPHINE 2MG SYG) 1 mg Q4H PRN IVP SEVERE PAIN (7-10) 08/04/25 14:30 08/11/25 14:29 08/08/25 10:03 1 MG Ondansetron HCl (zoFRAN 4MG INJ) 4 mg Q6H PRN IV NAUSEA/VOMITING 08/03/25 20:00 09/02/25 19:59 Oxycodone/ Acetaminophen (perCOCET) 1 tab Q6H PRN PO SEVERE PAIN (7-10) 08/04/25 14:30 08/05/25 16:23 DC 08/04/25 21:23 1 TAB Pantoprazole Sodium (PROTonix 40MG TAB) 40 mg DAILY PO 08/04/25 09:00 09/03/25 08:59 08/08/25 10:01 40 MG Pharmacy Profile Note (Pharmacy Communication) 1 each AD MISC 08/05/25 13:00 08/05/25 12:55 DC Sertraline HCl (ZOloft 50 mg tab) 100 mg HS PO 08/04/25 21:00 09/03/25 20:59 08/07/25 21:24 100 MG Sodium Bicarbonate (Sodium Bicarbonate) 1,300 mg TID PO 08/04/25 14:00 09/03/25 13:59 08/08/25 10:00 1,300 MG Sodium Bicarbonate (Sodium Bicarb 50meq 50ml Vial) 50 meq ONCE IV 08/04/25 14:00 08/04/25 18:00 DC 08/04/25 14:49 50 MEQ Sodium Zirconium Cyclosilicate (Lokelma 10gm Powder) 10 gm ONCE PO 08/03/25 17:30 08/03/25 22:30 DC 08/03/25 19:22 10 GM Tizanidine HCl (Tizanidine HCl) 2 mg TID PO 08/04/25 09:00 09/03/25 08:59 08/08/25 10:01 2 MG Vitamin B Complex/ Vit C/Folic Acid (Nephrovite Tablet) 1 cap DAILY PO 08/05/25 09:00 09/04/25 08:59 08/08/25 10:00 1 CAP Diagnostics / Radiology: [COPY/PASTE HERE IF NO REPORTS PLEASE DELETE SECTION] Assessment: Melena Anemia Atrial fibrillation HTN Plan: Plan for close outpatient f/u for EGD Continue GI prophylaxis Advance diet as tolerated Avoid NSAIDs Antireflux measures Monitor H&H and transfuse as needed Call with questions, concerns or change in clinical status Patient to follow-up at clinic post discharge Thank you for this consult BISMARK JONES Aug 08, 2025 14:23
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
[2025-08-08 16:00] VITALS: O2SAT 97
[2025-08-08 20:00] VITALS: BP 146/76; PULSE 81; RESP 18; TEMP 97.6; O2SAT 95
[2025-08-09] VITALS (7 sets, daily range): BP systolic 130–152; BP diastolic 41–89; PULSE 74–85; RESP 18–19; TEMP 97.6–98.4; O2SAT 97
[2025-08-09 04:24] LABS: IMMATURE GRANULOCYTE ABSOLUTE 0.03 K/uL (0-1); NUCLEATED RED BLOOD CELLS 0.0 % (0.0-0.19); PLATELET COUNT (AUTO) 223 K/uL (130-400); RED BLOOD CELL COUNT(AUTO) 2.44 MIL/uL (4.00-5.50); RED CELL DISTRIBUTION WIDTH 13.7 % (11.0-15.5); WHITE BLOOD COUNT (AUTO) 6.3 K/uL (4.8-10.8)
[2025-08-09 04:57] LABS: ASPARTATE AMINOTRANSFERASE 17.0 U/L (10-37); CREATININE 2.9 mg/dL (0.5-1.0); GLOMERULAR FILTR. RATE CALC 20.0 mL/min (>90); GLUCOSE,RANDOM 123.0 mg/dL (70-105); PHOSPHORUS 5.4 mg/dL (2.5-4.9); SODIUM SERUM 135.0 mmol/L (136-145); TOTAL PROTEIN, SERUM 6.3 g/dL (6.0-8.3)
[2025-08-09 05:08] LABS: UREA NITROGEN, BLOOD 95.0 mg/dL (7-18)
--- NOTE | 2025-08-09 13:31 | PN ---
NEPHROLOGY PROGRESS NOTE Date/Time Patient Seen: Aug 09, 2025 SUBJECTIVE: This is a 39-year-old female with a past medical history of chronic kidney disease, uncontrolled diabetes mellitus type II, hypertension, congestive heart failure, GERD, peripheral vascular disease hyperlipidemia, anxiety disorder, morbid obesity, asthma, left carotid stenosis, and noncompliance She presented to the emergency room with complaints dizziness and lightheadedness for two days. Imagining studies were noted. In the emergency room she was noted with a worsening renal failure and hyperkalemia. Hyperkalemia was treated medically Renal function is stable Electrolytes are stable Hemoglobin has remained stable Continues on Lasix 80 mg IV b.i.d.. No surgical intervention planned for fracture radius and ulna, minimally d isplaced on the right, splint in place Nurse reports noncompliance with fluid restriction She is complaining abdominal pain She was seen in the medical floor, in no acute distress No family at the bedside Prognosis remains guarded REVIEW OF SYSTEMS: GENERAL: Positive for generalized weakness NEUROLOGIC: Negative for any blurry vision, blind spots, double vision, facial asymmetry, dysphagia, dysarthria, hemiparesis, hemisensory deficits, vertigo, ataxia. HEENT: Negative for any head trauma, neck trauma, neck stiffness, photophobia, phonophobia, sinusitis, rhinitis. CARDIAC: Negative for any chest pain, dyspnea on exertion, paroxysmal nocturnal dyspnea, peripheral edema. PULMONARY: Negative for any shortness of breath, wheezing, COPD, or TB exposure. GASTROINTESTINAL: Negative for any abdominal pain, nausea, vomiting, bright red blood per rectum, melena. GENITOURINARY: Negative for any dysuria, hematuria, incontinence. INTEGUMENTARY: Negative for any rashes, cuts, insect bites. RHEUMATOLOGIC: Negative for any joint pains, photosensitive rashes, history of vasculitis or kidney problems. HEMATOLOGIC: Negative for any abnormal bruising, frequent infections or bleeding. Vital Signs (last 8hr) Date Time Temp Pulse Resp B/P (MAP) Pulse Ox O2 Delivery O2 Flow Rate FiO2 08/09/25 11:36 97.5 74 19 130/63 95 Room Air 08/09/25 08:51 81 139/53 08/09/25 07:57 98.1 81 19 139/53 96 Nasal Cannula 2.0 Intake and Output 08/09/25 07:00 Intake Total 1031.0 ml Output Total 3150 ml Balance -2119.0 ml Intake Oral 1000 ml IV Total 31.0 ml Output Urine Total 3150 ml PHYSICAL EXAM: GENERAL: Alert and oriented x 3. No acute distress. Well-nourished. EYES: EOMI. Anicteric. HENT: Moist mucous membranes. No scleral icterus. No cervical lymphadenopathy. LUNGS: Clear to auscultation bilaterally. No accessory muscle use. CARDIOVASCULAR: Regular rate and rhythm. No murmur. No JVD. ABDOMEN: Soft, non-tender and non-distended. No palpable masses. EXTREMITIES: No edema. Non-tender. SKIN: No rashes or lesions. Warm. NEUROLOGIC: No focal neurological deficits. CN II-XII grossly intact, but not individually tested. PSYCHIATRIC: Cooperative. Appropriate mood and affect. Current Medications Medications (Trade) Dose Ordered Sig/Jai Route Start Time Stop Time Status Last Admin Dose Admin Atorvastatin Calcium (LIPItor 20MG) 20 mg HS PO 08/04/25 21:00 09/03/25 20:59 08/08/25 20:38 20 MG Furosemide (LASix 40MG VIAL) 80 mg BID IV 08/04/25 21:00 09/03/25 20:59 08/09/25 08:48 80 MG Furosemide (LASix 80MG TAB) 80 mg BID PO 08/04/25 09:00 08/04/25 12:30 DC 08/04/25 08:19 80 MG Gabapentin (NEURontin 300 MG CAP) 300 mg DAILY PO 08/05/25 09:00 09/03/25 08:59 08/09/25 08:49 300 MG Gabapentin (NEURontin 300 MG CAP) 300 mg TID PO 08/04/25 09:00 08/04/25 12:30 DC 08/04/25 08:19 300 MG Hydralazine HCl ([id number] TAB) 50 mg TID PO 08/04/25 09:00 09/03/25 08:59 08/09/25 08:51 50 MG Insulin Glargine (LANtus 100 UNITS/ML 10 ML VIAL) 25 units HS SQ 08/04/25 21:00 09/03/25 20:59 08/08/25 20:46 25 UNITS Pantoprazole Sodium (PROTonix 40MG TAB) 40 mg DAILY PO 08/04/25 09:00 09/03/25 08:59 08/09/25 08:51 40 MG Pharmacy Profile Note (Pharmacy Communication) 1 each AD MISC 08/05/25 13:00 08/05/25 12:55 DC Sertraline HCl (ZOloft 50 mg tab) 100 mg HS PO 08/04/25 21:00 09/03/25 20:59 08/08/25 20:39 100 MG Sodium Bicarbonate (Sodium Bicarbonate) 1,300 mg TID PO 08/04/25 14:00 09/03/25 13:59 08/09/25 08:48 1,300 MG Sodium Bicarbonate (Sodium Bicarb 50meq 50ml Vial) 50 meq ONCE IV 08/04/25 14:00 08/04/25 18:00 DC 08/04/25 14:49 50 MEQ Sodium Zirconium Cyclosilicate (Lokelma 10gm Powder) 10 gm ONCE PO 08/03/25 17:30 08/03/25 22:30 DC 08/03/25 19:22 10 GM Tizanidine HCl (Tizanidine HCl) 2 mg TID PO 08/04/25 09:00 09/03/25 08:59 08/09/25 08:49 2 MG Vitamin B Complex/ Vit C/Folic Acid (Nephrovite Tablet) 1 cap DAILY PO 08/05/25 09:00 09/04/25 08:59 08/09/25 08:51 1 CAP LABORATORY: [ ] Hematology Labs: Test 08/09/25 03:46 Range/Units White Blood Count 6.3 4.8-10.8 K/uL Red Blood Count 2.44 L 4.00-5.50 MIL/uL Hemoglobin 7.1 L 12.0-16.0 g/dL Hematocrit 22.2 L 36-48 % Mean Corpuscular Volume 91.0 79-99 fL Mean Corpuscular Hemoglobin 29.1 27.0-33.0 pg Mean Corpuscular Hemoglobin Concent 32.0 32.0-36.0 g/dL Red Cell Distribution Width 13.7 11.0-15.5 % Platelet Count 223 130-400 K/uL Mean Platelet Volume 10.9 H 7.5-10.5 fL Immature Granulocyte % (Auto) 0.5 0-1 % Neutrophils (%) (Auto) 61.0 40.0-77.0 % Lymphocytes (%) (Auto) 27.3 21.0-51.0 % Monocytes (%) (Auto) 9.3 3.0-13.0 % Eosinophils (%) (Auto) 1.7 0.0-8.0 % Basophils (%) (Auto) 0.2 0.0-5.0 % Neutrophils # (Auto) 3.9 1.8-7.7 K/uL Lymphocytes # (Auto) 1.7 1.0-4.8 K/uL Monocytes # (Auto) 0.6 0.1-1.0 K/uL Eosinophils # (Auto) 0.11 0.00-0.70 K/uL Basophils # (Auto) 0.01 0.00-0.20 K/uL Absolute Immature Granulocyte (auto 0.03 0-1 K/uL Nucleated Red Blood Cells 0.0 0.0-0.19 % Chemistry Labs: Test 08/09/25 11:17 08/09/25 03:46 Range/Units Whole Blood Glucose 110 70-110 MG/DL Sodium Level 135 L 136-145 mmol/L Potassium Level 4.1 3.5-5.1 mmol/L Chloride Level 97 L 101-111 mmol/L Carbon Dioxide Level 27 21-32 mmol/L Blood Urea Nitrogen 95 *H 7-18 mg/dL Creatinine 2.9 H 0.5-1.0 mg/dL Glomerular Filtration Rate Calc 20 >90 mL/min Random Glucose 123 H 70-105 mg/dL Total Calcium 7.7 L 8.5-10.1 mg/dL Phosphorus Level 5.4 H 2.5-4.9 mg/dL Magnesium Level 2.20 1.80-2.40 mg/dL Total Bilirubin 0.3 # 0.2-1.0 mg/dL Aspartate Amino Transf (AST/SGOT) 17 10-37 U/L Alanine Aminotransferase (ALT/SGPT) 23 12-78 U/L Alkaline Phosphatase 100 50-136 U/L Total Protein 6.3 6.0-8.3 g/dL Albumin 2.7 L 3.5-5.0 g/dL DIAGNOSTICS / RADIOLOGY: [address] [address] IMAGING REPORT Signed PATIENT: ALBERTO LEIGH MR#: [id number] : 1985 SEX: F AGE: 40 LOCATION: [facility] ORDER 37 STATUS: ADM IN REPORT#: [id number] SERVICE 35 REASON: severe pain ORDERING PHYSICIAN: EMELY OH WELDING FOREMAN PROCEDURE: KNEE 2VBIL - KNEE 2VW BILATERAL EXAM: CR Both Knees, 4 View. CLINICAL HISTORY: severe pain COMPARISON: None provided. FINDINGS: BONES: No acute fracture or aggressive appearing osseous lesion. JOINTS: The joint spaces show mild osteoarthritic changes, left more than right. There is no joint effusion appreciated. SOFT TISSUES: The soft tissues are unremarkable. IMPRESSION: 1. No acute findings. 2. 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 /[place] DICTATED BY: JOHN PALACIOS Jr., MD DATE: 08/06/25711 ELECTRONICALLY SIGNED BY: JOHN PALACIOS Jr., MD DATE: 08/06/25711 PATIENT: ALBERTO LEIGH MR#: [id number] : 1985 SEX: F AGE: 40 LOCATION: ED ORDER 1526 STATUS: REG ER REPORT#: [id number] SERVICE 1524 REASON: fall, headache, dizziness ORDERING PHYSICIAN: AJAY MASTERS CNP PROCEDURE: HEAD WO - CT HEAD/BRAIN W/O CONTRAST EXAM: CT Head Without IV contrast. CLINICAL HISTORY: fall, headache, dizziness TECHNIQUE: Axial computed tomography images of the head/brain without intravenous contrast. COMPARISON: None provided. FINDINGS: BRAIN: No evidence of acute hemorrhage. No mass lesion. No CT evidence for acute territorial infarct. No midline shift or extra-axial collections. VENTRICLES: No hydrocephalus. ORBITS: The orbits are unremarkable. SINUSES AND MASTOIDS: The paranasal sinuses and mastoid air cells are clear. BONES: No fracture. SOFT TISSUES: Unremarkable. IMPRESSION: No acute intracranial abnormality. /[place] DICTATED BY: TRENTON HATHAWAY MD DATE: 08/03/251732 ELECTRONICALLY SIGNED BY: TRENTON HATHAWAY MD DATE: 08/03/251732 Assessment: Hyperkalemia Acute on chronic renal failure Uncontrolled diabetes mellitus type 2 Anemia Intractable epigastric abdominal pain Hypertension Morbid obesity Congestive heart failure GERD Peripheral vascular disease Hyperlipidemia History of hyperkalemia Poor venous access Anxiety disorder Polysubstance abuse Active alcohol drinker Nicotine dependence PLAN: Labs, diagnostic, radiologic exams reviewed and interpreted by myself and supervising physician. We have reviewed external records in detail There is no emergent need for renal replacement therapy at this time. Start Epogen 19860 units weekly Order chest x-ray and abdominal x-ray No need for iron Continue with the high-dose diuretics She was counseled on the importance of compliance with a renal diabetic diet and fluid restriction. Preserve nondominant arm Multiple questions were answered 1.5 L fluid restriction Require close monitoring of renal function and electrolytes Order CBC, CMP,and electrolytes in am Continue with antibiotics Renal diabetic diet BiPAP as necessary, for respiratory distress Monitor blood pressure adjust medication doses as needed Avoid hypotensive episodes May use Dilaudid 0.5 mg IV every 6 hours as needed for severe pain Monitor blood sugars Strict intake, output, and daily weight should be monitored Please renally adjust medications Avoid nephrotoxic and nonsteroidal drugs Avoid contrast if possible Will continue to monitor renal function, anemia, electrolytes Treatment plan discussed with patient Questions were answered We have discussed with the other team physicians in detail about the care plan We will continue to monitor the patient closely ATTESTATION BY PHYSICIAN I have seen and examined the patient. I reviewed the documentation, medical decision making, and treatment plan as noted by the mid-level provider above. I agree with the findings and plan of care. MANJIT LOYA MD, ELIZABETH WELDING FOREMAN Aug 09, 2025 13:31
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
--- NOTE | 2025-08-09 15:00 | NUR ---
NEW ORDERS DR. LOYA ON FLOOR ROUNDING, NEW ORDERS GIVEN CHEST X-RAY AND COMPLETE ABDOMINAL ULTRASOUND ORDERED DUE TO LEFT SIDED PAIN PATIENT EXPRESSED TO LASIX 80MG IV WAS D/C AND CHANGED TO BUMEX 2MG IV BID CMP/CBC/MAGNESIUM AND PHOSPHORUS WERE ORDERED FOR ROUTINE LABS PROCTRIT 10,000 UNITS ONCE TODAY THEN ONCE WEEKLY WERE ORDERED TOO BUT WERE ENTERED IN BY DR. RAMIREZ ALL NEW ORDERES ENTERED
[2025-08-09] MEDS: EPOETIN ALFA-EPBX (NON-ESRD) 10,000 UNIT/ML VIAL SQ SCH (18:46)
[2025-08-09] MEDS: BUMETANIDE 1MG/4ML VIAL IVP SCH (20:05)
[2025-08-10] VITALS (8 sets, daily range): BP systolic 102–155; BP diastolic 46–79; PULSE 73–91; RESP 16–20; TEMP 98–98.5; O2SAT 94–96
--- NOTE | 2025-08-10 02:20 | NUR ---
BLOOD SUGAR: PT STATES "I THINK MY BLOOD SUGAR IS LOW." PT VOICES DIZZINESS AND WEAKNESS. SPOT BLOOD SUGAR-96. PT VOICED TO NURSE, "ANYTHING LESS THAN 100, AND I FEEL SHAKY." 1 APPLE JUICE GIVEN. ENCOURAGED TO USE CALL LIGHT FOR ASSISTANCE, CALL [facility]MAN WITHIN REACH.
[2025-08-10 04:29] LABS: IMMATURE GRANULOCYTE ABSOLUTE 0.01 K/uL (0-1); NUCLEATED RED BLOOD CELLS 0.0 % (0.0-0.19); PLATELET COUNT (AUTO) 212 K/uL (130-400); RED BLOOD CELL COUNT(AUTO) 2.51 MIL/uL (4.00-5.50); RED CELL DISTRIBUTION WIDTH 13.6 % (11.0-15.5); WHITE BLOOD COUNT (AUTO) 5.5 K/uL (4.8-10.8)
[2025-08-10 05:00] LABS: ASPARTATE AMINOTRANSFERASE 19.0 U/L (10-37); CREATININE 3.1 mg/dL (0.5-1.0); GLOMERULAR FILTR. RATE CALC 19.0 mL/min (>90); GLUCOSE,RANDOM 123.0 mg/dL (70-105); PHOSPHORUS 5.4 mg/dL (2.5-4.9); SODIUM SERUM 133.0 mmol/L (136-145); TOTAL PROTEIN, SERUM 6.0 g/dL (6.0-8.3)
[2025-08-10 05:11] LABS: UREA NITROGEN, BLOOD 90.0 mg/dL (7-18)
--- NOTE | 2025-08-10 05:46 | HMCIMG ---
EXAM: CR Chest, 2 View. CLINICAL HISTORY: LEFT SIDED PAIN COMPARISON: X-ray dated 08/04 FINDINGS: LUNGS: Haziness in the left lower zone PLEURAL SPACES: No evidence of pleural effusion or pneumothorax. MEDIASTINUM: The cardiomediastinal silhouette is within normal limits. BONES: No acute osseous abnormality. IMPRESSION: Haziness in the left lower zone , concerning pneumonia /[place]
[2025-08-10 12:12] LABS: FREE KAPPA LIGHT CHAINS,S 81.9 mg/L (3.3-19.4)
--- NOTE | 2025-08-10 12:40 | PN ---
NEPHROLOGY PROGRESS NOTE Date/Time Patient Seen: Aug 10, 2025 SUBJECTIVE: This is a 39-year-old female with a past medical history of chronic kidney disease, uncontrolled diabetes mellitus type II, hypertension, congestive heart failure, GERD, peripheral vascular disease hyperlipidemia, anxiety disorder, morbid obesity, asthma, left carotid stenosis, and noncompliance She presented to the emergency room with complaints dizziness and lightheadedness for two days. Imagining studies were noted. In the emergency room she was noted with a worsening renal failure and hyperkalemia. Hyperkalemia was treated medically Renal function is stable Electrolytes are stable Hemoglobin has remained stable Continues on diuretics She has been started on Epogen for anemia as per Hematology No surgical intervention planned for fracture radius and ulna, minimally displaced on the right, splint in place She was seen in the medical floor, in no acute distress No family at the bedside Prognosis remains guarded REVIEW OF SYSTEMS: GENERAL: Positive for generalized weakness NEUROLOGIC: Negative for any blurry vision, blind spots, double vision, facial asymmetry, dysphagia, dysarthria, hemiparesis, hemisensory deficits, vertigo, ataxia. HEENT: Negative for any head trauma, neck trauma, neck stiffness, photophobia, phonophobia, sinusitis, rhinitis. CARDIAC: Negative for any chest pain, dyspnea on exertion, paroxysmal nocturnal dyspnea, peripheral edema. PULMONARY: Negative for any shortness of breath, wheezing, COPD, or TB exposure. GASTROINTESTINAL: Negative for any abdominal pain, nausea, vomiting, bright red blood per rectum, melena. GENITOURINARY: Negative for any dysuria, hematuria, incontinence. INTEGUMENTARY: Negative for any rashes, cuts, insect bites. RHEUMATOLOGIC: Negative for any joint pains, photosensitive rashes, history of vasculitis or kidney problems. HEMATOLOGIC: Negative for any abnormal bruising, frequent infections or bleeding. Vital Signs (last 8hr) Date Time Temp Pulse Resp B/P (MAP) Pulse Ox O2 Delivery O2 Flow Rate FiO2 08/09/25 11:36 97.5 74 19 130/63 95 Room Air 08/09/25 08:51 81 139/53 08/09/25 07:57 98.1 81 19 139/53 96 Nasal Cannula 2.0 Intake and Output 08/09/25 07:00 Intake Total 1031.0 ml Output Total 3150 ml Balance -2119.0 ml Intake Oral 1000 ml IV Total 31.0 ml Output Urine Total 3150 ml PHYSICAL EXAM: GENERAL: Alert and oriented x 3. No acute distress. Well-nourished. EYES: EOMI. Anicteric. HENT: Moist mucous membranes. No scleral icterus. No cervical lymphadenopathy. LUNGS: Clear to auscultation bilaterally. No accessory muscle use. CARDIOVASCULAR: Regular rate and rhythm. No murmur. No JVD. ABDOMEN: Soft, non-tender and non-distended. No palpable masses. EXTREMITIES: No edema. Non-tender. SKIN: No rashes or lesions. Warm. NEUROLOGIC: No focal neurological deficits. CN II-XII grossly intact, but not individually tested. PSYCHIATRIC: Cooperative. Appropriate mood and affect. Current Medications Medications (Trade) Dose Ordered Sig/Jai Route Start Time Stop Time Status Last Admin Dose Admin Atorvastatin Calcium (LIPItor 20MG) 20 mg HS PO 08/04/25 21:00 09/03/25 20:59 08/08/25 20:38 20 MG Furosemide (LASix 40MG VIAL) 80 mg BID IV 08/04/25 21:00 09/03/25 20:59 08/09/25 08:48 80 MG Furosemide (LASix 80MG TAB) 80 mg BID PO 08/04/25 09:00 08/04/25 12:30 DC 08/04/25 08:19 80 MG Gabapentin (NEURontin 300 MG CAP) 300 mg DAILY PO 08/05/25 09:00 09/03/25 08:59 08/09/25 08:49 300 MG Gabapentin (NEURontin 300 MG CAP) 300 mg TID PO 08/04/25 09:00 08/04/25 12:30 DC 08/04/25 08:19 300 MG Hydralazine HCl ([id number] TAB) 50 mg TID PO 08/04/25 09:00 09/03/25 08:59 08/09/25 08:51 50 MG Insulin Glargine (LANtus 100 UNITS/ML 10 ML VIAL) 25 units HS SQ 08/04/25 21:00 09/03/25 20:59 08/08/25 20:46 25 UNITS Pantoprazole Sodium (PROTonix 40MG TAB) 40 mg DAILY PO 08/04/25 09:00 09/03/25 08:59 08/09/25 08:51 40 MG Pharmacy Profile Note (Pharmacy Communication) 1 each AD MISC 08/05/25 13:00 08/05/25 12:55 DC Sertraline HCl (ZOloft 50 mg tab) 100 mg HS PO 08/04/25 21:00 09/03/25 20:59 08/08/25 20:39 100 MG Sodium Bicarbonate (Sodium Bicarbonate) 1,300 mg TID PO 08/04/25 14:00 09/03/25 13:59 08/09/25 08:48 1,300 MG Sodium Bicarbonate (Sodium Bicarb 50meq 50ml Vial) 50 meq ONCE IV 08/04/25 14:00 08/04/25 18:00 DC 08/04/25 14:49 50 MEQ Sodium Zirconium Cyclosilicate (Lokelma 10gm Powder) 10 gm ONCE PO 08/03/25 17:30 08/03/25 22:30 DC 08/03/25 19:22 10 GM Tizanidine HCl (Tizanidine HCl) 2 mg TID PO 08/04/25 09:00 09/03/25 08:59 08/09/25 08:49 2 MG Vitamin B Complex/ Vit C/Folic Acid (Nephrovite Tablet) 1 cap DAILY PO 08/05/25 09:00 09/04/25 08:59 08/09/25 08:51 1 CAP LABORATORY: [ ] Hematology Labs: Test 08/10/25 04:16 Range/Units White Blood Count 5.5 4.8-10.8 K/uL Red Blood Count 2.51 L 4.00-5.50 MIL/uL Hemoglobin 7.4 L 12.0-16.0 g/dL Hematocrit 22.3 L 36-48 % Mean Corpuscular Volume 88.8 79-99 fL Mean Corpuscular Hemoglobin 29.5 27.0-33.0 pg Mean Corpuscular Hemoglobin Concent 33.2 32.0-36.0 g/dL Red Cell Distribution Width 13.6 11.0-15.5 % Platelet Count 212 130-400 K/uL Mean Platelet Volume 10.7 H 7.5-10.5 fL Immature Granulocyte % (Auto) 0.2 0-1 % Neutrophils (%) (Auto) 61.5 40.0-77.0 % Lymphocytes (%) (Auto) 27.1 21.0-51.0 % Monocytes (%) (Auto) 8.8 3.0-13.0 % Eosinophils (%) (Auto) 2.0 0.0-8.0 % Basophils (%) (Auto) 0.4 0.0-5.0 % Neutrophils # (Auto) 3.4 1.8-7.7 K/uL Lymphocytes # (Auto) 1.5 1.0-4.8 K/uL Monocytes # (Auto) 0.5 0.1-1.0 K/uL Eosinophils # (Auto) 0.11 0.00-0.70 K/uL Basophils # (Auto) 0.02 0.00-0.20 K/uL Absolute Immature Granulocyte (auto 0.01 0-1 K/uL Nucleated Red Blood Cells 0.0 0.0-0.19 % Chemistry Labs: Test 08/10/25 11:15 08/10/25 05:15 08/10/25 04:16 Range/Units Whole Blood Glucose 100 70-110 MG/DL Bedside Glucose Comment Notified Nurse Sodium Level 133 L 136-145 mmol/L Potassium Level 4.3 3.5-5.1 mmol/L Chloride Level 95 L 101-111 mmol/L Carbon Dioxide Level 27 21-32 mmol/L Blood Urea Nitrogen 90 *H 7-18 mg/dL Creatinine 3.1 H 0.5-1.0 mg/dL Glomerular Filtration Rate Calc 19 >90 mL/min Random Glucose 123 H 70-105 mg/dL Total Calcium 7.9 L 8.5-10.1 mg/dL Phosphorus Level 5.4 H 2.5-4.9 mg/dL Magnesium Level 2.10 1.80-2.40 mg/dL Total Bilirubin 0.2 0.2-1.0 mg/dL Aspartate Amino Transf (AST/SGOT) 19 10-37 U/L Alanine Aminotransferase (ALT/SGPT) 21 12-78 U/L Alkaline Phosphatase 98 50-136 U/L Total Protein 6.0 6.0-8.3 g/dL Albumin 2.6 L 3.5-5.0 g/dL DIAGNOSTICS / RADIOLOGY: [address] [address] IMAGING REPORT Signed PATIENT: ALBERTO LEIGH MR#: [id number] : 1985 SEX: F AGE: 40 LOCATION: [facility] ORDER 07 STATUS: ADM IN REPORT#: [id number] SERVICE 99 REASON: LEFT SIDED PAIN ORDERING PHYSICIAN: MANJIT LOYA MD PROCEDURE: CXR1VW - CHEST 1VW EXAM: CR Chest, 2 View. CLINICAL HISTORY: LEFT SIDED PAIN COMPARISON: X-ray dated 08/04 FINDINGS: LUNGS: Haziness in the left lower zone PLEURAL SPACES: No evidence of pleural effusion or pneumothorax. MEDIASTINUM: The cardiomediastinal silhouette is within normal limits. BONES: No acute osseous abnormality. IMPRESSION: Haziness in the left lower zone , concerning pneumonia /[place] DICTATED BY: JOHN PALACIOS Jr., MD DATE: 08/10/25644 ELECTRONICALLY SIGNED BY: JOHN PALACIOS Jr., MD DATE: 08/10/25644 PATIENT: ALBERTO LEIGH MR#: [id number] : 1985 SEX: F AGE: 40 LOCATION: [facility] ORDER 37 STATUS: ADM IN REPORT#: [id number] SERVICE 35 REASON: severe pain ORDERING PHYSICIAN: EMELY OH LAB SUPPORT TECHNICIAN PROCEDURE: KNEE 2VBIL - KNEE 2VW BILATERAL EXAM: CR Both Knees, 4 View. CLINICAL HISTORY: severe pain COMPARISON: None provided. FINDINGS: BONES: No acute fracture or aggressive appearing osseous lesion. JOINTS: The joint spaces show mild osteoarthritic changes, left more than right. There is no joint effusion appreciated. SOFT TISSUES: The soft tissues are unremarkable. IMPRESSION: 1. No acute findings. 2. 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 /[place] DICTATED BY: JOHN PLAACIOS Jr., MD DATE: 08/06/25711 ELECTRONICALLY SIGNED BY: JOHN PALACIOS Jr., MD DATE: 08/06/25711 PATIENT: ALBERTO LEIGH MR#: [id number] : 1985 SEX: F AGE: 40 LOCATION: [facility] ORDER 25 STATUS: REG ER REPORT#: [id number] SERVICE 23 REASON: fall, headache, dizziness ORDERING PHYSICIAN: AJAY MASTERS CNP PROCEDURE: HEAD WO - CT HEAD/BRAIN W/O CONTRAST EXAM: CT Head Without IV contrast. CLINICAL HISTORY: fall, headache, dizziness TECHNIQUE: Axial computed tomography images of the head/brain without intravenous contrast. COMPARISON: None provided. FINDINGS: BRAIN: No evidence of acute hemorrhage. No mass lesion. No CT evidence for acute territorial infarct. No midline shift or extra-axial collections. VENTRICLES: No hydrocephalus. ORBITS: The orbits are unremarkable. SINUSES AND MASTOIDS: The paranasal sinuses and mastoid air cells are clear. BONES: No fracture. SOFT TISSUES: Unremarkable. IMPRESSION: No acute intracranial abnormality. /[place] DICTATED BY: TRENTON HATHAWAY MD DATE: 08/03/251732 ELECTRONICALLY SIGNED BY: TRENTON HATHAWAY MD DATE: 08/03/251732 Assessment: Hyperkalemia Acute on chronic renal failure Uncontrolled diabetes mellitus type 2 Anemia Intractable epigastric abdominal pain Hypertension Morbid obesity Congestive heart failure GERD Peripheral vascular disease Hyperlipidemia History of hyperkalemia Poor venous access Anxiety disorder Polysubstance abuse Active alcohol drinker Nicotine dependence PLAN: Labs, diagnostic, radiologic exams reviewed and interpreted by myself and supervising physician. We have reviewed external records in detail There is no emergent need for renal replacement therapy at this time. Continue with the high-dose diuretics Defer anemia management to Hematology She was counseled on the importance of compliance with a renal diabetic diet and fluid restriction. Preserve nondominant arm Multiple questions were answered 1.5 L fluid restriction Require close monitoring of renal function and electrolytes Order CBC, CMP,and electrolytes in am Continue with antibiotics Renal diabetic diet BiPAP as necessary, for respiratory distress Monitor blood pressure adjust medication doses as needed Avoid hypotensive episodes May use Dilaudid 0.5 mg IV every 6 hours as needed for severe pain Monitor blood sugars Strict intake, output, and daily weight should be monitored Please renally adjust medications Avoid nephrotoxic and nonsteroidal drugs Avoid contrast if possible Will continue to monitor renal function, anemia, electrolytes Treatment plan discussed with patient Questions were answered We have discussed with the other team physicians in detail about the care plan We will continue to monitor the patient closely ATTESTATION BY PHYSICIAN I have seen and examined the patient. I reviewed the documentation, medical decision making, and treatment plan as noted by the mid-level provider above. I agree with the findings and plan of care. MANJIT LOYA MD, [facility] Aug 10, 2025 12:40
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
--- NOTE | 2025-08-10 14:11 | NUR ---
[facility] Consult: Patient assessed by wound healing team. See wound assessment. Assessment and recommendations provided to primary nurse. Education provided.
--- NOTE | 2025-08-10 14:20 | NUR ---
NEW ORDERS DR LOYA ON FLOOR ROUNDING ORDERED CMP,CBC,MAGNESIUM AND PHOSPHURUS FOR ROUTINE LABS TOMORROW AM ORDERS ENTERED
--- NOTE | 2025-08-10 16:30 | NUR ---
WOUND CARE WOUND CARE CONSULTED ABOUT LEFT HARD ABCESS ON BUTTOCK REDNESS/ HARDNESS AROUND AREA WHEN WOUND CARE WAS PRESENT DRAINAGE WAS NOTED SO WOUND CULTURE WAS ORDERED WOUND CULTURE COLLECTED AND SENT TO LAB NEW ORDERS PLACED FOR WOUND CARE, CLEAN WITH NS, APPLY BACTROBAN, COVER WITH GAUZE AND SECURE WITH TAPE BID PRN
--- NOTE | 2025-08-10 16:54 | CONS ---
CONSULTATION NOTE Date of Service: Aug 10, 2025 Reason for Consultation: [bump to left buttock ] Requesting Physician: [ Ilya] HISTORY OF PRESENT ILLNESS: Patient is evaluated at bedside in room 419 for initial wound care evaluation. Patient report lump to left buttock that she noted today. She reports she has had abscess in the past to various location on buttocks and thighs. REVIEW OF SYSTEMS CONSTITUTIONAL: Denies fever, chills, or fatigue. HEAD/FACE: No signs of trauma. EENT: Denies eye pain, blurred vision, double vision, or light sensitivity. RESPIRATORY: Denies shortness of breath, cough, wheezing CARDIOVASCULAR: Denies chest pain, palpitation, syncope GASTROINTESTINAL/ABDOMINAL: Denies abdominal pain, constipation, diarrhea, nausea or vomiting GENITOURINARY: Denies dysuria or hematuria. MUSCULOSKELETAL: Denies joint pain, tenderness, or trauma. INTEGUMENTARY: Denies rash or itchiness NEUROLOGICAL/PSYCH: Denies anxiety, depression, heat or cold intolerance. PAST MEDICAL HISTORY: [ ] PAST SURGICAL HISTORY: [ ] PAST SOCIAL HISTORY: [ ] FAMILY HISTORY: [ ] Coded Allergies: No Known Drug Allergies (Unverified Allergy, Unknown, 11/05/21) PHYSICAL EXAM EYES: Anicteric. Pupils equal and reactive. HENT: No oral thrush seen, moist Oral mucosa NECK: Supple, no JVD or thyromegaly. LUNGS: Good air entry. No rales, no rhonchi. CARDIOVASCULAR: S1, S2 regular. No murmur heard. ABDOMEN: Soft, non tender, bowel sounds present, no organomegaly CENTRAL NERVOUS SYSTEM: Awake, alert, oriented x 3. No focal deficits. SKIN: abscess noted to left buttock with mild periwound erythema with mild pain on palpation with purulent drainage noted with palpation of abscess. LYMPHATICS: No peripheral lymphadenopathy MUSCULOSKELETAL: No joint swelling, erythema or tenderness. EXTREMITIES: No cyanosis or clubbing BACK: No deformity, no pressure ulcer. GENITOURINARY: No dysuria or hematuria Vital Sign (Last 24 Hours) 08/10/25 08/10/25 02:40 15:51 Temp 98.4 Pulse 77 Resp 18 B/P (MAP) 144/73 Pulse Ox 94 O2 Delivery Room Air O2 Flow Rate 2 FiO2 28 Intake & Output (last 24hrs) 08/09/25 08/09/25 08/10/25 15:00 23:00 07:00 Intake Total 939.0 ml 240 ml Output Total 1300 ml 350 ml Balance -361.0 ml -110 ml LABS: Laboratory: Test 08/10/25 15:07 08/10/25 05:15 08/10/25 04:16 Range/Units Whole Blood Glucose 134 H 70-110 MG/DL Bedside Glucose Comment Notified Nurse White Blood Count 5.5 4.8-10.8 K/uL Red Blood Count 2.51 L 4.00-5.50 MIL/uL Hemoglobin 7.4 L 12.0-16.0 g/dL Hematocrit 22.3 L 36-48 % Mean Corpuscular Volume 88.8 79-99 fL Mean Corpuscular Hemoglobin 29.5 27.0-33.0 pg Mean Corpuscular Hemoglobin Concent 33.2 32.0-36.0 g/dL Red Cell Distribution Width 13.6 11.0-15.5 % Platelet Count 212 130-400 K/uL Mean Platelet Volume 10.7 H 7.5-10.5 fL Immature Granulocyte % (Auto) 0.2 0-1 % Neutrophils (%) (Auto) 61.5 40.0-77.0 % Lymphocytes (%) (Auto) 27.1 21.0-51.0 % Monocytes (%) (Auto) 8.8 3.0-13.0 % Eosinophils (%) (Auto) 2.0 0.0-8.0 % Basophils (%) (Auto) 0.4 0.0-5.0 % Neutrophils # (Auto) 3.4 1.8-7.7 K/uL Lymphocytes # (Auto) 1.5 1.0-4.8 K/uL Monocytes # (Auto) 0.5 0.1-1.0 K/uL Eosinophils # (Auto) 0.11 0.00-0.70 K/uL Basophils # (Auto) 0.02 0.00-0.20 K/uL Absolute Immature Granulocyte (auto 0.01 0-1 K/uL Nucleated Red Blood Cells 0.0 0.0-0.19 % Sodium Level 133 L 136-145 mmol/L Potassium Level 4.3 3.5-5.1 mmol/L Chloride Level 95 L 101-111 mmol/L Carbon Dioxide Level 27 21-32 mmol/L Blood Urea Nitrogen 90 *H 7-18 mg/dL Creatinine 3.1 H 0.5-1.0 mg/dL Glomerular Filtration Rate Calc 19 >90 mL/min Random Glucose 123 H 70-105 mg/dL Total Calcium 7.9 L 8.5-10.1 mg/dL Phosphorus Level 5.4 H 2.5-4.9 mg/dL Magnesium Level 2.10 1.80-2.40 mg/dL Total Bilirubin 0.2 0.2-1.0 mg/dL Aspartate Amino Transf (AST/SGOT) 19 10-37 U/L Alanine Aminotransferase (ALT/SGPT) 21 12-78 U/L Alkaline Phosphatase 98 50-136 U/L Total Protein 6.0 6.0-8.3 g/dL Albumin 2.6 L 3.5-5.0 g/dL DIAGNOSTICS / RADIOLOGY: [ ] PROBLEM LIST : Medical Problems: Cutaneous abscess of left buttock PLAN: Collect culture to left buttock wound Wound care to left buttock wound - Cleanse with normal saline, pat dry, apply mupirocin, cover with gauze, secure with tape change BID and prn MYNOR MONDRAGON INFECTION CONTROL NURSE Aug 10, 2025 16:54
--- NOTE | 2025-08-10 17:00 | NUR ---
DIET PATIENT HAD FAMILY MEMBERS VISIT AND WHO BROUGHT HER FOOD AND DRINKS FROM THE OUTSIDE PATIENT WAS EDUCATED ON IMPORTANCE OF STRICT INPUT/OUTPUTS AND RENAL NONDIALYSIS DIET BUT STILL HAD WHAT WAS BROUGHT TO HER BY FAMILY/ FRIENDS ADVISED FAMILY IN THE ROOM ABOUT FOOD AND DRINK RESTRICTIONS WELL
[2025-08-10] MEDS: MUPIROCIN OINTMENT 22 GM TUBE TP SCH (22:15)
--- NOTE | 2025-08-10 22:48 | HMCIMG ---
EXAM: US Abdomen complete CLINICAL HISTORY: Left sided pain. TECHNIQUE: Real-time ultrasound of the abdomen (complete) with image documentation. COMPARISON: CT chest abdomen and pelvis without contrast dated 07/30/2025. This demonstrated hepatomegaly measuring 21 cm. A prior limited abdominal sonography of the abdominal wall dated 05/02/2025 is available for comparison. FINDINGS: LIVER: The liver demonstrates increased size measuring 20 cm with increased echotexture. Portal vein shows hepatopetal flow. GALLBLADDER: Post-cholecystectomy state. COMMON BILE DUCT: The CBD measures 5 mm. No dilation. PANCREAS: The pancreas is partly visualized. The distal pancreas is obscured by overlying bowel gas. KIDNEYS: The right kidney measures 11.5 x 5.3 x 5.2 cm. The left kidney measures 10.3 x 6.1 x 5.3 cm. No hydronephrosis. SPLEEN: The spleen measures 12 cm. AORTA: The aorta is obscured. IVC: The IVC is patent. LIMITATIONS/ARTIFACTS: Limited examination due to patient's body habitus. OTHER FINDINGS: Left upper quadrant area of pain is negative. IMPRESSION: 1. No acute intra-abdominal process. 2. Hepatomegaly with fatty infiltration of the liver. 3. Post-cholecystectomy state. 4. As compared to the prior multiple examinations including the CT chest, abdomen and pelvis dated July 30, 2025 and abdominal wall sonography dated May 02, 2025, there is no interval change. /[place]
[2025-08-11] VITALS (9 sets, daily range): BP systolic 105–163; BP diastolic 50–93; PULSE 78–86; RESP 16–18; TEMP 98–98.6; O2SAT 2–98
[2025-08-11 04:33] LABS: IMMATURE GRANULOCYTE ABSOLUTE 0.01 K/uL (0-1); NUCLEATED RED BLOOD CELLS 0.0 % (0.0-0.19); PLATELET COUNT (AUTO) 240 K/uL (130-400); RED BLOOD CELL COUNT(AUTO) 2.60 MIL/uL (4.00-5.50); RED CELL DISTRIBUTION WIDTH 13.9 % (11.0-15.5); WHITE BLOOD COUNT (AUTO) 5.6 K/uL (4.8-10.8)
[2025-08-11 04:58] LABS: ASPARTATE AMINOTRANSFERASE 23.0 U/L (10-37); CREATININE 3.0 mg/dL (0.5-1.0); GLOMERULAR FILTR. RATE CALC 19.0 mL/min (>90); GLUCOSE,RANDOM 120.0 mg/dL (70-105); PHOSPHORUS 5.1 mg/dL (2.5-4.9); SODIUM SERUM 135.0 mmol/L (136-145); TOTAL PROTEIN, SERUM 6.2 g/dL (6.0-8.3)
[2025-08-11 05:08] LABS: UREA NITROGEN, BLOOD 88.0 mg/dL (7-18)
--- NOTE | 2025-08-11 06:21 | NUR ---
I&Os PATIENT REPORTED REMOVING NUN'S CAP FROM TOILET DUE TO IRRITATION TO WOUND ON LEFT BUTTOCK. PATIENT INFORMED ON IMPORTANCE OF ACCURATE MEASUREMENTS OF INTAKE AND OUTPUT AND ENCOURAGED TO USE THE NUN'S CAP.
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
--- NOTE | 2025-08-11 13:04 | PN ---
NEPHROLOGY PROGRESS NOTE Date/Time Patient Seen: Aug 11, 2025 SUBJECTIVE: This is a 39-year-old female with a past medical history of chronic kidney disease, uncontrolled diabetes mellitus type II, hypertension, congestive heart failure, GERD, peripheral vascular disease hyperlipidemia, anxiety disorder, morbid obesity, asthma, left carotid stenosis, and noncompliance She presented to the emergency room with complaints dizziness and lightheadedness for two days. Imagining studies were noted. In the emergency room she was noted with a worsening renal failure and hyperkalemia. Hyperkalemia was treated medically Renal function and electrolytes are stable Hemoglobin has remained stable, continues on Epogen as per Hematology Continues on diuretics No surgical intervention planned for fracture radius and ulna, minimally displaced on the right, splint in place She was seen in the medical floor, in no acute distress No family at the bedside Prognosis remains guarded REVIEW OF SYSTEMS: GENERAL: Positive for generalized weakness NEUROLOGIC: Negative for any blurry vision, blind spots, double vision, facial asymmetry, dysphagia, dysarthria, hemiparesis, hemisensory deficits, vertigo, ataxia. HEENT: Negative for any head trauma, neck trauma, neck stiffness, photophobia, phonophobia, sinusitis, rhinitis. CARDIAC: Negative for any chest pain, dyspnea on exertion, paroxysmal nocturnal dyspnea, peripheral edema. PULMONARY: Negative for any shortness of breath, wheezing, COPD, or TB exposure. GASTROINTESTINAL: Negative for any abdominal pain, nausea, vomiting, bright red blood per rectum, melena. GENITOURINARY: Negative for any dysuria, hematuria, incontinence. INTEGUMENTARY: Negative for any rashes, cuts, insect bites. RHEUMATOLOGIC: Negative for any joint pains, photosensitive rashes, history of vasculitis or kidney problems. HEMATOLOGIC: Negative for any abnormal bruising, frequent infections or bleeding. Vital Signs (last 8hr) Date Time Temp Pulse Resp B/P (MAP) Pulse Ox O2 Delivery O2 Flow Rate FiO2 08/11/25 11:16 98.1 78 16 163/74 99 Room Air 08/11/25 09:00 82 105/66 08/11/25 08:00 Room Air* 0 21 08/11/25 07:39 98.2 82 18 /66 99 Nasal Cannula 2.0 Intake and Output 08/11/25 07:00 Intake Total 819.0 ml Output Total 1900 ml Balance -1081.0 ml Intake Oral 670 ml IV Total 149.0 ml Output Urine Total 1900 ml PHYSICAL EXAM: GENERAL: Alert and oriented x 3. No acute distress. Well-nourished. EYES: EOMI. Anicteric. HENT: Moist mucous membranes. No scleral icterus. No cervical lymphadenopathy. LUNGS: Clear to auscultation bilaterally. No accessory muscle use. CARDIOVASCULAR: Regular rate and rhythm. No murmur. No JVD. ABDOMEN: Soft, non-tender and non-distended. No palpable masses. EXTREMITIES: No edema. Non-tender. SKIN: No rashes or lesions. Warm. NEUROLOGIC: No focal neurological deficits. CN II-XII grossly intact, but not individually tested. PSYCHIATRIC: Cooperative. Appropriate mood and affect. Current Medications Medications (Trade) Dose Ordered Sig/Jai Route Start Time Stop Time Status Last Admin Dose Admin Atorvastatin Calcium (LIPItor 20MG) 20 mg HS PO 08/04/25 21:00 09/03/25 20:59 08/08/25 20:38 20 MG Furosemide (LASix 40MG VIAL) 80 mg BID IV 08/04/25 21:00 09/03/25 20:59 08/09/25 08:48 80 MG Furosemide (LASix 80MG TAB) 80 mg BID PO 08/04/25 09:00 08/04/25 12:30 DC 08/04/25 08:19 80 MG Gabapentin (NEURontin 300 MG CAP) 300 mg DAILY PO 08/05/25 09:00 09/03/25 08:59 08/09/25 08:49 300 MG Gabapentin (NEURontin 300 MG CAP) 300 mg TID PO 08/04/25 09:00 08/04/25 12:30 DC 08/04/25 08:19 300 MG Hydralazine HCl ([id number] TAB) 50 mg TID PO 08/04/25 09:00 09/03/25 08:59 08/09/25 08:51 50 MG Insulin Glargine (LANtus 100 UNITS/ML 10 ML VIAL) 25 units HS SQ 08/04/25 21:00 09/03/25 20:59 08/08/25 20:46 25 UNITS Pantoprazole Sodium (PROTonix 40MG TAB) 40 mg DAILY PO 08/04/25 09:00 09/03/25 08:59 08/09/25 08:51 40 MG Pharmacy Profile Note (Pharmacy Communication) 1 each AD MISC 08/05/25 13:00 08/05/25 12:55 DC Sertraline HCl (ZOloft 50 mg tab) 100 mg HS PO 08/04/25 21:00 09/03/25 20:59 08/08/25 20:39 100 MG Sodium Bicarbonate (Sodium Bicarbonate) 1,300 mg TID PO 08/04/25 14:00 09/03/25 13:59 08/09/25 08:48 1,300 MG Sodium Bicarbonate (Sodium Bicarb 50meq 50ml Vial) 50 meq ONCE IV 08/04/25 14:00 08/04/25 18:00 DC 08/04/25 14:49 50 MEQ Sodium Zirconium Cyclosilicate (Lokelma 10gm Powder) 10 gm ONCE PO 08/03/25 17:30 08/03/25 22:30 DC 08/03/25 19:22 10 GM Tizanidine HCl (Tizanidine HCl) 2 mg TID PO 08/04/25 09:00 09/03/25 08:59 08/09/25 08:49 2 MG Vitamin B Complex/ Vit C/Folic Acid (Nephrovite Tablet) 1 cap DAILY PO 08/05/25 09:00 09/04/25 08:59 08/09/25 08:51 1 CAP LABORATORY: [ ] Hematology Labs: Test 08/11/25 03:57 Range/Units White Blood Count 5.6 4.8-10.8 K/uL Red Blood Count 2.60 L 4.00-5.50 MIL/uL Hemoglobin 7.6 L 12.0-16.0 g/dL Hematocrit 23.8 L 36-48 % Mean Corpuscular Volume 91.5 79-99 fL Mean Corpuscular Hemoglobin 29.2 27.0-33.0 pg Mean Corpuscular Hemoglobin Concent 31.9 L 32.0-36.0 g/dL Red Cell Distribution Width 13.9 11.0-15.5 % Platelet Count 240 130-400 K/uL Mean Platelet Volume 10.8 H 7.5-10.5 fL Immature Granulocyte % (Auto) 0.2 0-1 % Neutrophils (%) (Auto) 59.4 40.0-77.0 % Lymphocytes (%) (Auto) 28.4 21.0-51.0 % Monocytes (%) (Auto) 10.0 3.0-13.0 % Eosinophils (%) (Auto) 1.6 0.0-8.0 % Basophils (%) (Auto) 0.4 0.0-5.0 % Neutrophils # (Auto) 3.3 1.8-7.7 K/uL Lymphocytes # (Auto) 1.6 1.0-4.8 K/uL Monocytes # (Auto) 0.6 0.1-1.0 K/uL Eosinophils # (Auto) 0.09 0.00-0.70 K/uL Basophils # (Auto) 0.02 0.00-0.20 K/uL Absolute Immature Granulocyte (auto 0.01 0-1 K/uL Nucleated Red Blood Cells 0.0 0.0-0.19 % Chemistry Labs: Test 08/11/25 10:38 08/11/25 05:11 08/11/25 03:57 Range/Units Whole Blood Glucose 119 H 70-110 MG/DL Bedside Glucose Comment Notified Nurse Sodium Level 135 L 136-145 mmol/L Potassium Level 4.2 3.5-5.1 mmol/L Chloride Level 95 L 101-111 mmol/L Carbon Dioxide Level 31 21-32 mmol/L Blood Urea Nitrogen 88 *H 7-18 mg/dL Creatinine 3.0 H 0.5-1.0 mg/dL Glomerular Filtration Rate Calc 19 >90 mL/min Random Glucose 120 H 70-105 mg/dL Total Calcium 7.8 L 8.5-10.1 mg/dL Phosphorus Level 5.1 H 2.5-4.9 mg/dL Magnesium Level 2.10 1.80-2.40 mg/dL Total Bilirubin 0.2 0.2-1.0 mg/dL Aspartate Amino Transf (AST/SGOT) 23 10-37 U/L Alanine Aminotransferase (ALT/SGPT) 24 12-78 U/L Alkaline Phosphatase 100 50-136 U/L Total Protein 6.2 6.0-8.3 g/dL Albumin 2.6 L 3.5-5.0 g/dL DIAGNOSTICS / RADIOLOGY: [place] [id number] [address] IMAGING REPORT Signed PATIENT: ALBERTO LEIGH MR#: [id number] : 1985 SEX: F AGE: 40 LOCATION: [facility] ORDER 07 STATUS: ADM IN REPORT#: [id number] SERVICE 99 REASON: LEFT SIDED PAIN ORDERING PHYSICIAN: MANJIT LOYA MD PROCEDURE: CXR1VW - CHEST 1VW EXAM: CR Chest, 2 View. CLINICAL HISTORY: LEFT SIDED PAIN COMPARISON: X-ray dated 08/04 FINDINGS: LUNGS: Haziness in the left lower zone PLEURAL SPACES: No evidence of pleural effusion or pneumothorax. MEDIASTINUM: The cardiomediastinal silhouette is within normal limits. BONES: No acute osseous abnormality. IMPRESSION: Haziness in the left lower zone , concerning pneumonia /[place] DICTATED BY: JOHN PALACIOS Jr., MD DATE: 08/10/25644 ELECTRONICALLY SIGNED BY: JOHN PALACIOS Jr., MD DATE: 08/10/25644 PATIENT: ALBERTO LEIGH MR#: [id number] : 1985 SEX: F AGE: 40 LOCATION: [facility] ORDER 37 STATUS: ADM IN REPORT#: [id number] SERVICE 35 REASON: severe pain ORDERING PHYSICIAN: EMELY OH MACHINE BRUSHER PROCEDURE: KNEE 2VBIL - KNEE 2VW BILATERAL EXAM: CR Both Knees, 4 View. CLINICAL HISTORY: severe pain COMPARISON: None provided. FINDINGS: BONES: No acute fracture or aggressive appearing osseous lesion. JOINTS: The joint spaces show mild osteoarthritic changes, left more than right. There is no joint effusion appreciated. SOFT TISSUES: The soft tissues are unremarkable. IMPRESSION: 1. No acute findings. 2. 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 /[place] DICTATED BY: JOHN PALACIOS Jr., MD DATE: 08/06/25711 ELECTRONICALLY SIGNED BY: JOHN PALACIOS Jr., MD DATE: 08/06/25711 PATIENT: ALBERTO LEIGH MR#: [id number] : 1985 SEX: F AGE: 40 LOCATION: [facility] ORDER 25 STATUS: REG ER REPORT#: [id number] SERVICE 23 REASON: fall, headache, dizziness ORDERING PHYSICIAN: AJAY MASTERS CNP PROCEDURE: HEAD WO - CT HEAD/BRAIN W/O CONTRAST EXAM: CT Head Without IV contrast. CLINICAL HISTORY: fall, headache, dizziness TECHNIQUE: Axial computed tomography images of the head/brain without intravenous contrast. COMPARISON: None provided. FINDINGS: BRAIN: No evidence of acute hemorrhage. No mass lesion. No CT evidence for acute territorial infarct. No midline shift or extra-axial collections. VENTRICLES: No hydrocephalus. ORBITS: The orbits are unremarkable. SINUSES AND MASTOIDS: The paranasal sinuses and mastoid air cells are clear. BONES: No fracture. SOFT TISSUES: Unremarkable. IMPRESSION: No acute intracranial abnormality. /[place] DICTATED BY: TRENTON HATHAWAY MD DATE: 08/03/251732 ELECTRONICALLY SIGNED BY: TRENTON HATHAWAY MD DATE: 08/03/251732 Assessment: Hyperkalemia Acute on chronic renal failure Uncontrolled diabetes mellitus type 2 Anemia Intractable epigastric abdominal pain Hypertension Morbid obesity Congestive heart failure GERD Peripheral vascular disease Hyperlipidemia History of hyperkalemia Poor venous access Anxiety disorder Polysubstance abuse Active alcohol drinker Nicotine dependence PLAN: Labs, diagnostic, radiologic exams reviewed and interpreted by myself and supervising physician. We have reviewed external records in detail From Nephrology standpoint, patient may be discharged Follow up in the renal clinic in one week Continue with Bumex There is no emergent need for renal replacement therapy at this time. Defer anemia management to Hematology She was counseled on the importance of compliance with a renal diabetic diet and fluid restriction. Preserve nondominant arm Multiple questions were answered 1.5 L fluid restriction Require close monitoring of renal function and electrolytes Order CBC, CMP,and electrolytes in am Continue with antibiotics Renal diabetic diet BiPAP as necessary, for respiratory distress Monitor blood pressure adjust medication doses as needed Avoid hypotensive episodes May use Dilaudid 0.5 mg IV every 6 hours as needed for severe pain Monitor blood sugars Strict intake, output, and daily weight should be monitored Please renally adjust medications Avoid nephrotoxic and nonsteroidal drugs Avoid contrast if possible Will continue to monitor renal function, anemia, electrolytes Treatment plan discussed with patient Questions were answered We have discussed with the other team physicians in detail about the care plan We will continue to monitor the patient closely ATTESTATION BY PHYSICIAN I have seen and examined the patient. I reviewed the documentation, medical decision making, and treatment plan as noted by the mid-level provider above. I agree with the findings and plan of care. MANJIT LOYA MD, [facility] Aug 11, 2025 13:04
[2025-08-11 14:13] LABS: ALBUMIN (IFE & ELECTROPHOR) 2.7 g/dL (2.9-4.4); ALBUMIN/GLOBULIN RATIO (IFE) 0.9 (0.7-1.7); ALPHA-1 (IFE & PEP) 0.3 g/dL (0.0-0.4); ALPHA-2 (IFE & PEP) 0.9 g/dL (0.4-1.0); BETA (IFE & ELP) 0.9 g/dL (0.7-1.3); GAMMA GLOBULINS (IFE & ELP) 0.9 g/dL (0.4-1.8); GLOBULIN TOTAL (IFE) 3.1 g/dL (2.2-3.9); IGA (IFE) 234 mg/dL (87-352); IGG (IMMUNOFIXATION) 960 mg/dL (586-1602); IGM (IMMUNOFIXATION) 110 mg/dL (26-217); M-SPIKE (IEP) Not Observed g/dL (Not Observed)
[2025-08-11 16:12] LABS: GAMMA URINE 8.2 % (.)
--- NOTE | 2025-08-11 21:57 | PN ---
GASTROENTEROLOGY PROGRESS NOTE Date of Visit: Aug 11, 2025 Time of Visit: 21:57 Events / Notes: [ ] Review of Systems: CONSTITUTIONAL: No malaise or change in sensation of wellbeing. ENMT: No rhinorrhea, otorrhea, sinus pain, ear ache. CARDIOVASCULAR: No angina, palpitations, orthopnea or paroxysmal dyspnea. RESPIRATORY: No SOB. GASTROINTESTINAL: No abdominal pain, nausea, vomiting, diarrhea, hematemesis, melena or change in the patient's habitual bowel movements consistency/number. GENITOURINARY: No dysuria, hematuria or change in bladder continence. MUSCULOSKELETAL: No new muscle pain or decrease in muscular strength. No new joint swelling, redness or tenderness. SKIN: No new rash. Physical Exam: GEN: Awake, alert, oriented in person, time and place, and in no acute distress. HEENT: No sinus tenderness. Tympanic membranes were not examined. No rhinorrhea. Oral pharyngeal mucosa is pink, moist and within normal limits. Neck is supple with no cervical lymphadenopathy, thyromegaly or JVD. CHEST: Inspection, palpation and percussion of the chest were unremarkable. Lung auscultation revealed normal breath sounds bilaterally. CARDIAC: PMI is within normal limits. Heart sounds are regular. Normal S1, S2. No gallop or murmur. ABD: Soft, non-tender and not distended. No peritoneal signs on palpation. No organomegaly. Normal bowel sounds. EXT: No cyanosis or clubbing. No edema. SKIN: Intact. No rashes. JOINTS: No evidence of synovitis or acute arthritis. NEURO: Alert and oriented to name, place and person. Cranial nerve examination is unremarkable. No focal motor deficits. Normal speech. Gait is normal. Strength is normal. Vital Signs (last 8hr) Date Time Temp Pulse Resp B/P (MAP) Pulse Ox O2 Delivery O2 Flow Rate FiO2 08/11/25 20:00 98.1 80 18 131/50 96 Room Air 08/11/25 16:16 98.6 86 18 152/74 99 Nasal Cannula 2.0 08/11/25 14:19 68 163/74 Laboratory: [ ] Laboratory: Test 08/11/25 19:55 08/11/25 03:57 Range/Units Whole Blood Glucose 146 H 70-110 MG/DL Bedside Glucose Comment Notified Nurse White Blood Count 5.6 4.8-10.8 K/uL Red Blood Count 2.60 L 4.00-5.50 MIL/uL Hemoglobin 7.6 L 12.0-16.0 g/dL Hematocrit 23.8 L 36-48 % Mean Corpuscular Volume 91.5 79-99 fL Mean Corpuscular Hemoglobin 29.2 27.0-33.0 pg Mean Corpuscular Hemoglobin Concent 31.9 L 32.0-36.0 g/dL Red Cell Distribution Width 13.9 11.0-15.5 % Platelet Count 240 130-400 K/uL Mean Platelet Volume 10.8 H 7.5-10.5 fL Immature Granulocyte % (Auto) 0.2 0-1 % Neutrophils (%) (Auto) 59.4 40.0-77.0 % Lymphocytes (%) (Auto) 28.4 21.0-51.0 % Monocytes (%) (Auto) 10.0 3.0-13.0 % Eosinophils (%) (Auto) 1.6 0.0-8.0 % Basophils (%) (Auto) 0.4 0.0-5.0 % Neutrophils # (Auto) 3.3 1.8-7.7 K/uL Lymphocytes # (Auto) 1.6 1.0-4.8 K/uL Monocytes # (Auto) 0.6 0.1-1.0 K/uL Eosinophils # (Auto) 0.09 0.00-0.70 K/uL Basophils # (Auto) 0.02 0.00-0.20 K/uL Absolute Immature Granulocyte (auto 0.01 0-1 K/uL Nucleated Red Blood Cells 0.0 0.0-0.19 % Sodium Level 135 L 136-145 mmol/L Potassium Level 4.2 3.5-5.1 mmol/L Chloride Level 95 L 101-111 mmol/L Carbon Dioxide Level 31 21-32 mmol/L Blood Urea Nitrogen 88 *H 7-18 mg/dL Creatinine 3.0 H 0.5-1.0 mg/dL Glomerular Filtration Rate Calc 19 >90 mL/min Random Glucose 120 H 70-105 mg/dL Total Calcium 7.8 L 8.5-10.1 mg/dL Phosphorus Level 5.1 H 2.5-4.9 mg/dL Magnesium Level 2.10 1.80-2.40 mg/dL Total Bilirubin 0.2 0.2-1.0 mg/dL Aspartate Amino Transf (AST/SGOT) 23 10-37 U/L Alanine Aminotransferase (ALT/SGPT) 24 12-78 U/L Alkaline Phosphatase 100 50-136 U/L Total Protein 6.2 6.0-8.3 g/dL Albumin 2.6 L 3.5-5.0 g/dL Current Medications Medications (Trade) Dose Ordered Sig/Jai Route PRN Reason Start Time Stop Time Status Last Admin Dose Admin Acetaminophen (TYLenol 325MG TAB) 650 mg Q4H PRN PO MILD PAIN (1-3) 08/03/25 20:00 08/04/25 12:30 DC Acetaminophen (TYLenol 325MG TAB) 650 mg Q6H PRN PO TEMPERATURE GREATER THAN 101.5 08/03/25 20:00 09/02/25 19:59 08/10/25 21:18 650 MG Acetaminophen (TYLenol 325MG TAB) 650 mg Q6H PRN PO MILD PAIN (1-3) 08/04/25 14:30 08/05/25 16:23 DC Acetaminophen (TYLenol 500MG TAB) 500 mg Q6H PRN PO MILD PAIN (1-3) 08/04/25 12:30 09/03/25 12:29 08/11/25 09:45 500 MG Acetaminophen (TYLenol 500MG TAB) 500 mg Q6H6 PRN PO pain or fever 08/04/25 07:00 08/04/25 07:03 DC Acetaminophen/ Hydrocodone Bitart (NORco 5/325MG) 1 tab Q6H PRN PO MODERATE PAIN (4-6) 08/04/25 14:30 08/09/25 14:29 DC 08/08/25 22:56 1 TAB Atorvastatin Calcium (LIPItor 20MG) 20 mg HS PO 08/04/25 21:00 09/03/25 20:59 08/10/25 21:05 20 MG Bumetanide (Bumex 1mg Vial) 2 mg BID IVP 08/09/25 21:00 09/08/25 20:59 08/11/25 09:27 2 MG Epoetin Arpit-epbx (Retacrit) 10,000 unit [id number] SQ 08/09/25 15:00 09/08/25 14:59 08/09/25 18:46 10,000 UNIT Furosemide (LASix 40MG VIAL) 80 mg BID IV 08/04/25 21:00 08/09/25 17:08 DC 08/09/25 08:48 80 MG Furosemide (LASix 80MG TAB) 80 mg BID PO 08/04/25 09:00 08/04/25 12:30 DC 08/04/25 08:19 80 MG Gabapentin (NEURontin 300 MG CAP) 300 mg DAILY PO 08/05/25 09:00 09/03/25 08:59 08/11/25 09:27 300 MG Gabapentin (NEURontin 300 MG CAP) 300 mg TID PO 08/04/25 09:00 08/04/25 12:30 DC 08/04/25 08:19 300 MG Hydralazine HCl (APRESOLine 20MG INJ) 10 mg Q6H PRN IV ADMINISTER FOR SBP > 160 08/04/25 00:30 09/03/25 00:29 08/11/25 01:16 10 MG Hydralazine HCl (APRESOLine 20MG INJ) 10 mg Q6H PRN IV For:SBP above 160;DBP above 90 08/04/25 14:30 08/05/25 16:24 DC Hydralazine HCl ([id number] TAB) 50 mg TID PO 08/04/25 09:00 09/03/25 08:59 08/11/25 14:19 50 MG Insulin Glargine (LANtus 100 UNITS/ML 10 ML VIAL) 25 units HS SQ 08/04/25 21:00 09/03/25 20:59 08/10/25 21:06 25 UNITS Ketorolac Tromethamine (toRADol) 15 mg Q8H PRN IV MODERATE PAIN (4-6) 08/04/25 14:30 08/05/25 11:43 DC Morphine Sulfate (morPHINE 2MG SYG) 1 mg Q4H PRN IVP SEVERE PAIN (7-10) 08/04/25 14:30 08/09/25 17:29 DC 08/09/25 14:15 1 MG Morphine Sulfate (morPHINE 2MG SYG) 2 mg Q4H PRN IVP SEVERE PAIN (7-10) 08/10/25 01:00 08/17/25 00:59 08/11/25 16:25 2 MG Mupirocin (Bactroban Oint) left buttock wound BID TP 08/10/25 21:00 09/09/25 20:59 08/11/25 09:39 1 APPL Ondansetron HCl (zoFRAN 4MG INJ) 4 mg Q6H PRN IV NAUSEA/VOMITING 08/03/25 20:00 09/02/25 19:59 Oxycodone/ Acetaminophen (perCOCET) 1 tab Q6H PRN PO SEVERE PAIN (7-10) 08/04/25 14:30 08/05/25 16:23 DC 08/04/25 21:23 1 TAB Pantoprazole Sodium (PROTonix 40MG TAB) 40 mg DAILY PO 08/04/25 09:00 09/03/25 08:59 08/11/25 09:28 40 MG Pharmacy Profile Note (Pharmacy Communication) 1 each AD MISC 08/05/25 13:00 08/05/25 12:55 DC Sertraline HCl (ZOloft 50 mg tab) 100 mg HS PO 08/04/25 21:00 09/03/25 20:59 08/10/25 21:05 100 MG Sodium Bicarbonate (Sodium Bicarbonate) 1,300 mg TID PO 08/04/25 14:00 09/03/25 13:59 08/11/25 14:20 1,300 MG Sodium Bicarbonate (Sodium Bicarb 50meq 50ml Vial) 50 meq ONCE IV 08/04/25 14:00 08/04/25 18:00 DC 08/04/25 14:49 50 MEQ Sodium Zirconium Cyclosilicate (Lokelma 10gm Powder) 10 gm ONCE PO 08/03/25 17:30 08/03/25 22:30 DC 08/03/25 19:22 10 GM Tizanidine HCl (Tizanidine HCl) 2 mg TID PO 08/04/25 09:00 09/03/25 08:59 08/11/25 14:19 2 MG Vitamin B Complex/ Vit C/Folic Acid (Nephrovite Tablet) 1 cap DAILY PO 08/05/25 09:00 09/04/25 08:59 08/11/25 09:27 1 CAP Diagnostics / Radiology: [COPY/PASTE HERE IF NO REPORTS PLEASE DELETE SECTION] Assessment: Melena Anemia Atrial fibrillation HTN Plan: Plan for close outpatient f/u for EGD Continue GI prophylaxis Advance diet as tolerated Avoid NSAIDs Antireflux measures Monitor H&H and transfuse as needed Call with questions, concerns or change in clinical status Patient to follow-up at clinic post discharge Thank you for this consult BISMARK JONES [employer] Aug 11, 2025 21:57
[2025-08-12 04:16] VITALS: BP 103/50; PULSE 77; RESP 18; TEMP 98.4
[2025-08-12 04:22] LABS: IMMATURE GRANULOCYTE ABSOLUTE 0.02 K/uL (0-1); NUCLEATED RED BLOOD CELLS 0.0 % (0.0-0.19); PLATELET COUNT (AUTO) 229 K/uL (130-400); RED BLOOD CELL COUNT(AUTO) 2.50 MIL/uL (4.00-5.50); RED CELL DISTRIBUTION WIDTH 13.7 % (11.0-15.5); WHITE BLOOD COUNT (AUTO) 6.1 K/uL (4.8-10.8)
[2025-08-12 04:45] LABS: ASPARTATE AMINOTRANSFERASE 18.0 U/L (10-37); CREATININE 2.8 mg/dL (0.5-1.0); GLOMERULAR FILTR. RATE CALC 21.0 mL/min (>90); GLUCOSE,RANDOM 108.0 mg/dL (70-105); SODIUM SERUM 135.0 mmol/L (136-145); TOTAL PROTEIN, SERUM 6.3 g/dL (6.0-8.3)
[2025-08-12 04:50] LABS: UREA NITROGEN, BLOOD 83.0 mg/dL (7-18)
[2025-08-12 07:49] VITALS: BP 122/70; PULSE 76; RESP 16; TEMP 98.5
[2025-08-12 09:27] VITALS: O2SAT 95
--- NOTE | 2025-08-12 10:02 | PN ---
NEPHROLOGY PROGRESS NOTE Date/Time Patient Seen: Aug 12, 2025 SUBJECTIVE: This is a 39-year-old female with a past medical history of chronic kidney disease, uncontrolled diabetes mellitus type II, hypertension, congestive heart failure, GERD, peripheral vascular disease hyperlipidemia, anxiety disorder, morbid obesity, asthma, left carotid stenosis, and noncompliance She presented to the emergency room with complaints dizziness and lightheadedness for two days. Imagining studies were noted. In the emergency room she was noted with a worsening renal failure and hyperkalemia. Hyperkalemia was treated medically Renal function and electrolytes are stable Hemoglobin has remained stable, continues on Epogen as per Hematology Continues on diuretics No surgical intervention planned for fracture radius and ulna, minimally displaced on the right, splint in place She was seen in the medical floor, in no acute distress No family at the bedside Prognosis remains guarded REVIEW OF SYSTEMS: GENERAL: Positive for generalized weakness NEUROLOGIC: Negative for any blurry vision, blind spots, double vision, facial asymmetry, dysphagia, dysarthria, hemiparesis, hemisensory deficits, vertigo, ataxia. HEENT: Negative for any head trauma, neck trauma, neck stiffness, photophobia, phonophobia, sinusitis, rhinitis. CARDIAC: Negative for any chest pain, dyspnea on exertion, paroxysmal nocturnal dyspnea, peripheral edema. PULMONARY: Negative for any shortness of breath, wheezing, COPD, or TB exposure. GASTROINTESTINAL: Negative for any abdominal pain, nausea, vomiting, bright red blood per rectum, melena. GENITOURINARY: Negative for any dysuria, hematuria, incontinence. INTEGUMENTARY: Negative for any rashes, cuts, insect bites. RHEUMATOLOGIC: Negative for any joint pains, photosensitive rashes, history of vasculitis or kidney problems. HEMATOLOGIC: Negative for any abnormal bruising, frequent infections or bleeding. Vital Signs (last 8hr) Date Time Temp Pulse Resp B/P (MAP) Pulse Ox O2 Delivery O2 Flow Rate FiO2 08/11/25 11:16 98.1 78 16 163/74 99 Room Air 08/11/25 09:00 82 105/66 08/11/25 08:00 Room Air* 0 21 08/11/25 07:39 98.2 82 18 /66 99 Nasal Cannula 2.0 Intake and Output 08/11/25 07:00 Intake Total 819.0 ml Output Total 1900 ml Balance -1081.0 ml Intake Oral 670 ml IV Total 149.0 ml Output Urine Total 1900 ml PHYSICAL EXAM: GENERAL: Alert and oriented x 3. No acute distress. Well-nourished. EYES: EOMI. Anicteric. HENT: Moist mucous membranes. No scleral icterus. No cervical lymphadenopathy. LUNGS: Clear to auscultation bilaterally. No accessory muscle use. CARDIOVASCULAR: Regular rate and rhythm. No murmur. No JVD. ABDOMEN: Soft, non-tender and non-distended. No palpable masses. EXTREMITIES: No edema. Non-tender. SKIN: No rashes or lesions. Warm. NEUROLOGIC: No focal neurological deficits. CN II-XII grossly intact, but not individually tested. PSYCHIATRIC: Cooperative. Appropriate mood and affect. Current Medications Medications (Trade) Dose Ordered Sig/Jai Route Start Time Stop Time Status Last Admin Dose Admin Atorvastatin Calcium (LIPItor 20MG) 20 mg HS PO 08/04/25 21:00 09/03/25 20:59 08/08/25 20:38 20 MG Furosemide (LASix 40MG VIAL) 80 mg BID IV 08/04/25 21:00 09/03/25 20:59 08/09/25 08:48 80 MG Furosemide (LASix 80MG TAB) 80 mg BID PO 08/04/25 09:00 08/04/25 12:30 DC 08/04/25 08:19 80 MG Gabapentin (NEURontin 300 MG CAP) 300 mg DAILY PO 08/05/25 09:00 09/03/25 08:59 08/09/25 08:49 300 MG Gabapentin (NEURontin 300 MG CAP) 300 mg TID PO 08/04/25 09:00 08/04/25 12:30 DC 08/04/25 08:19 300 MG Hydralazine HCl ([id number] TAB) 50 mg TID PO 08/04/25 09:00 09/03/25 08:59 08/09/25 08:51 50 MG Insulin Glargine (LANtus 100 UNITS/ML 10 ML VIAL) 25 units HS SQ 08/04/25 21:00 09/03/25 20:59 08/08/25 20:46 25 UNITS Pantoprazole Sodium (PROTonix 40MG TAB) 40 mg DAILY PO 08/04/25 09:00 09/03/25 08:59 08/09/25 08:51 40 MG Pharmacy Profile Note (Pharmacy Communication) 1 each AD MISC 08/05/25 13:00 08/05/25 12:55 DC Sertraline HCl (ZOloft 50 mg tab) 100 mg HS PO 08/04/25 21:00 09/03/25 20:59 08/08/25 20:39 100 MG Sodium Bicarbonate (Sodium Bicarbonate) 1,300 mg TID PO 08/04/25 14:00 09/03/25 13:59 08/09/25 08:48 1,300 MG Sodium Bicarbonate (Sodium Bicarb 50meq 50ml Vial) 50 meq ONCE IV 08/04/25 14:00 08/04/25 18:00 DC 08/04/25 14:49 50 MEQ Sodium Zirconium Cyclosilicate (Lokelma 10gm Powder) 10 gm ONCE PO 08/03/25 17:30 08/03/25 22:30 DC 08/03/25 19:22 10 GM Tizanidine HCl (Tizanidine HCl) 2 mg TID PO 08/04/25 09:00 09/03/25 08:59 08/09/25 08:49 2 MG Vitamin B Complex/ Vit C/Folic Acid (Nephrovite Tablet) 1 cap DAILY PO 08/05/25 09:00 09/04/25 08:59 08/09/25 08:51 1 CAP LABORATORY: [ ] Hematology Labs: Test 08/12/25 04:16 Range/Units White Blood Count 6.1 4.8-10.8 K/uL Red Blood Count 2.50 L 4.00-5.50 MIL/uL Hemoglobin 7.4 L 12.0-16.0 g/dL Hematocrit 23.1 L 36-48 % Mean Corpuscular Volume 92.4 79-99 fL Mean Corpuscular Hemoglobin 29.6 27.0-33.0 pg Mean Corpuscular Hemoglobin Concent 32.0 32.0-36.0 g/dL Red Cell Distribution Width 13.7 11.0-15.5 % Platelet Count 229 130-400 K/uL Mean Platelet Volume 10.2 7.5-10.5 fL Immature Granulocyte % (Auto) 0.3 0-1 % Neutrophils (%) (Auto) 64.2 40.0-77.0 % Lymphocytes (%) (Auto) 25.3 21.0-51.0 % Monocytes (%) (Auto) 8.2 3.0-13.0 % Eosinophils (%) (Auto) 1.8 0.0-8.0 % Basophils (%) (Auto) 0.2 0.0-5.0 % Neutrophils # (Auto) 3.9 1.8-7.7 K/uL Lymphocytes # (Auto) 1.6 1.0-4.8 K/uL Monocytes # (Auto) 0.5 0.1-1.0 K/uL Eosinophils # (Auto) 0.11 0.00-0.70 K/uL Basophils # (Auto) 0.01 0.00-0.20 K/uL Absolute Immature Granulocyte (auto 0.02 0-1 K/uL Nucleated Red Blood Cells 0.0 0.0-0.19 % Chemistry Labs: Test 08/12/25 04:16 08/11/25 19:55 08/11/25 03:57 Range/Units Sodium Level 135 L 136-145 mmol/L Potassium Level 4.7 3.5-5.1 mmol/L Chloride Level 95 L 101-111 mmol/L Carbon Dioxide Level 31 21-32 mmol/L Blood Urea Nitrogen 83 *H 7-18 mg/dL Creatinine 2.8 H 0.5-1.0 mg/dL Glomerular Filtration Rate Calc 21 >90 mL/min Random Glucose 108 H 70-105 mg/dL Total Calcium 8.1 L 8.5-10.1 mg/dL Magnesium Level 2.20 1.80-2.40 mg/dL Total Bilirubin 0.2 0.2-1.0 mg/dL Aspartate Amino Transf (AST/SGOT) 18 10-37 U/L Alanine Aminotransferase (ALT/SGPT) 24 12-78 U/L Alkaline Phosphatase 98 50-136 U/L Total Protein 6.3 6.0-8.3 g/dL Albumin 2.7 L 3.5-5.0 g/dL Whole Blood Glucose 146 H 70-110 MG/DL Bedside Glucose Comment Notified Nurse Phosphorus Level 5.1 H 2.5-4.9 mg/dL DIAGNOSTICS / RADIOLOGY: [address] [address] IMAGING REPORT Signed PATIENT: ALBERTO LEIGH MR#: [id number] : 1985 SEX: F AGE: 40 LOCATION: [facility] ORDER 07 STATUS: ADM IN REPORT#: [id number] SERVICE 99 REASON: LEFT SIDED PAIN ORDERING PHYSICIAN: MANJIT LOYA MD PROCEDURE: CXR1VW - CHEST 1VW EXAM: CR Chest, 2 View. CLINICAL HISTORY: LEFT SIDED PAIN COMPARISON: X-ray dated 08/04 FINDINGS: LUNGS: Haziness in the left lower zone PLEURAL SPACES: No evidence of pleural effusion or pneumothorax. MEDIASTINUM: The cardiomediastinal silhouette is within normal limits. BONES: No acute osseous abnormality. IMPRESSION: Haziness in the left lower zone , concerning pneumonia /[place] DICTATED BY: JOHN PALACIOS Jr., MD DATE: 08/10/25644 ELECTRONICALLY SIGNED BY: JOHN PALACIOS Jr., MD DATE: 08/10/25644 PATIENT: ALBERTO LEIGH MR#: [id number] : 1985 SEX: F AGE: 40 LOCATION: [facility] ORDER 37 STATUS: ADM IN REPORT#: [id number] SERVICE 35 REASON: severe pain ORDERING PHYSICIAN: EMELY OH STRETCH BOX TENDER PROCEDURE: KNEE 2VBIL - KNEE 2VW BILATERAL EXAM: CR Both Knees, 4 View. CLINICAL HISTORY: severe pain COMPARISON: None provided. FINDINGS: BONES: No acute fracture or aggressive appearing osseous lesion. JOINTS: The joint spaces show mild osteoarthritic changes, left more than right. There is no joint effusion appreciated. SOFT TISSUES: The soft tissues are unremarkable. IMPRESSION: 1. No acute findings. 2. 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 /[place] DICTATED BY: JOHN PALACIOS Jr., MD DATE: 08/06/25711 ELECTRONICALLY SIGNED BY: JOHN PALACIOS Jr., MD DATE: 08/06/25711 PATIENT: ALBERTO LEIGH MR#: [id number] : 1985 SEX: F AGE: 40 LOCATION: [facility] ORDER 1526 STATUS: REG ER REPORT#: [id number] SERVICE 1524 REASON: fall, headache, dizziness ORDERING PHYSICIAN: AJAY MASTERS CNP PROCEDURE: HEAD WO - CT HEAD/BRAIN W/O CONTRAST EXAM: CT Head Without IV contrast. CLINICAL HISTORY: fall, headache, dizziness TECHNIQUE: Axial computed tomography images of the head/brain without intravenous contrast. COMPARISON: None provided. FINDINGS: BRAIN: No evidence of acute hemorrhage. No mass lesion. No CT evidence for acute territorial infarct. No midline shift or extra-axial collections. VENTRICLES: No hydrocephalus. ORBITS: The orbits are unremarkable. SINUSES AND MASTOIDS: The paranasal sinuses and mastoid air cells are clear. BONES: No fracture. SOFT TISSUES: Unremarkable. IMPRESSION: No acute intracranial abnormality. /[place] DICTATED BY: TRENTON HATHAWAY MD DATE: 08/03/251732 ELECTRONICALLY SIGNED BY: TRENTON HATHAWAY MD DATE: 08/03/251732 Assessment: Hyperkalemia Acute on chronic renal failure Uncontrolled diabetes mellitus type 2 Anemia Intractable epigastric abdominal pain Hypertension Morbid obesity Congestive heart failure GERD Peripheral vascular disease Hyperlipidemia History of hyperkalemia Poor venous access Anxiety disorder Polysubstance abuse Active alcohol drinker Nicotine dependence PLAN: Labs, diagnostic, radiologic exams reviewed and interpreted by myself and supervising physician. We have reviewed external records in detail From Nephrology standpoint, patient may be discharged Follow up in the renal clinic in one week Transitioned to Bumex2 mg p.o. b.i.d. There is no emergent need for renal replacement therapy at this time. Defer anemia management to Hematology She was counseled on the importance of compliance with a renal diabetic diet and fluid restriction. Preserve nondominant arm Multiple questions were answered 1.5 L fluid restriction Require close monitoring of renal function and electrolytes Order CBC, CMP,and electrolytes in am Continue with antibiotics Renal diabetic diet BiPAP as necessary, for respiratory distress Monitor blood pressure adjust medication doses as needed Avoid hypotensive episodes May use Dilaudid 0.5 mg IV every 6 hours as needed for severe pain Monitor blood sugars Strict intake, output, and daily weight should be monitored Please renally adjust medications Avoid nephrotoxic and nonsteroidal drugs Avoid contrast if possible Will continue to monitor renal function, anemia, electrolytes Treatment plan discussed with patient Questions were answered We have discussed with the other team physicians in detail about the care plan We will continue to monitor the patient closely ATTESTATION BY PHYSICIAN I have seen and examined the patient. I reviewed the documentation, medical decision making, and treatment plan as noted by the mid-level provider above. I agree with the findings and plan of care. MANJIT LOYA MD, [facility] Aug 12, 2025 10:02
[2025-08-12] MEDS ORDERED: SODI650T PO (11:20)
[2025-08-12 11:40] VITALS: BP 122/60; PULSE 74; RESP 17; TEMP 98.7
[2025-08-12 13:08] VITALS: BP 122/60
[2025-08-12] MEDS ORDERED: BUME1TAB7 PO (13:51)
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
== END 2025-08-12 14:45 | disposition home or self-care (01) | DRG 812 ==
LOC: EDH 15:06 → EDHIP 19:51 → 4AH 08-04 01:02 → 4CH 08-04 20:05
PROVIDERS: ADMIT Internal Medicine; ATTEND Internal Medicine
DX: D64.9 Anemia, unspecified (principal); M62.82 Rhabdomyolysis; R62.7 Adult failure to thrive; N17.9 Acute kidney failure, unspecified; J96.11 Chronic respiratory failure with hypoxia; Z68.43 Body mass index [BMI] 50.0-59.9, adult; L02.31 Cutaneous abscess of buttock; E11.22 Type 2 diabetes mellitus with diabetic chronic kidney disease; K92.1 Melena; S52.501A Unspecified fracture of the lower end of right radius, initial encounter for closed fracture; S52.601A Unspecified fracture of lower end of right ulna, initial encounter for closed fracture; I13.0 Hypertensive heart and chronic kidney disease with heart failure and stage 1 through stage 4 chronic kidney disease, or unspecified chronic kidney disease; N18.4 Chronic kidney disease, stage 4 (severe); J45.909 Unspecified asthma, uncomplicated; E11.51 Type 2 diabetes mellitus with diabetic peripheral angiopathy without gangrene; E66.01 Morbid (severe) obesity due to excess calories; E87.5 Hyperkalemia; R79.89 Other specified abnormal findings of blood chemistry; E78.00 Pure hypercholesterolemia, unspecified; F17.200 Nicotine dependence, unspecified, uncomplicated; F41.9 Anxiety disorder, unspecified; M17.0 Bilateral primary osteoarthritis of knee; I48.91 Unspecified atrial fibrillation; K21.9 Gastro-esophageal reflux disease without esophagitis; X58.XXXA Exposure to other specified factors, initial encounter; Z79.82 Long term (current) use of aspirin; Z99.81 Dependence on supplemental oxygen; Z82.49 Family history of ischemic heart disease and other diseases of the circulatory system; Z83.3 Family history of diabetes mellitus; Z91.119 Patient's noncompliance with dietary regimen due to unspecified reason; Z86.73 Personal history of transient ischemic attack (TIA), and cerebral infarction without residual deficits; Y93.89 Activity, other specified; Y92.89 Other specified places as the place of occurrence of the external cause; Y99.8 Other external cause status
CPT/HCPCS: 36415; 36556; 36600; 70450; 71045; 73565; 73590; 76700; 80048; 80051; 80053; 80076; 80305; 81001; 82270; 82550; 82570; 82728; 82803; 82948; 83521; 83540; 83550; 83735; 83880; 83935; 84100; 84156; 84166; 85014; 85018; 85025; 85027; 85610; 85730; 86325; 86334; 86850; 86900; 86901; 87070; 87076; 87086; 87186; 93005; 99285; C1894; G0378; J0360; J1756; J1815; J1938; J2270; J3490; J7050; 73560; C1750; Q5106

== ENCOUNTER 2025-09-05 18:45 | Inpatient (IN) | payer BC ==
[~2025-09-05] VITALS: Ht 154.9 cm; Wt 121.1 kg
[~2025-09-05 18:45] MED LIST changes: +BUME1TAB7 PO; -HYDR25TA67 PO; -METO2.5T2 PO; +SODI650T PO
--- NOTE | 2025-09-05 19:03 | EKG ---
[facility] Test Date: 2025-09-05 Test Time: 19:01:47 Pat Name: ALBETRO LEIGH Department: [facility] Room: ED Gender: F Associate Professor Of Kinesiology: [id number] : 1985 Requested By: INDRA ARGUELLES Order Number: [id number] Reading MD: Wilber Grey Measurements Intervals [place] Rate: 90 P: 40 TN: 141 QRS: -2 QRSD: 84 T: 55 QT: 390 QTc: 477 Interpretive Statements Sinus rhythm Compared to ECG 08/03/2025 16:07:58 No significant changes Electronically Signed On 09-05-2025 23:54:21 SPECIAL EVENTS ASSISTANT by Wilber Grey Please click the below link to view image of tracing.
--- NOTE | 2025-09-05 19:07 | ERN ---
ED Note History of Present Illness Stated Complaint: CHEST PAIN Chief Complaint: Chest Pain Time Seen by : 18:53 Time Seen by Midlevel: 19:00 Dictation: 40-year-old female with a history of high cholesterol, heart disease, hypertension, renal disease. Patient isn't on dialysis but states takes Lokelma at home. Patient states last dose was this morning. Complaining of chest pain and feeling confused. Patient states she had a fall yesterday, ground level but stopped her fall with her knee and elbow. Denies any head injury, denies any LOC. And states that she has been taking any of her home medications today because she has not eaten. Allergies: Coded Allergies: No Known Drug Allergies (Unverified Allergy, Unknown, 11/05/21) Home Meds Active Scripts Bumetanide (Bumex) 1 Mg Tab, 2 TAB PO BID for 30 Days, #60 TAB 0 Refills Prov:KARMEN AGUIRREKandace 08/12/25 Sodium Bicarbonate (Sodium Bicarbonate) 650 Mg Tablet, 1300 MG PO TID for 30 Days, #90 TAB Prov:KARMEN AGUIRRE 08/12/25 Acetaminophen (Tylenol) 500 Mg Tab, 1 TAB PO Q6HPRN PRN for pain or fever for 5 Days, #30 TAB 0 Refills Prov:INDRA ARGUELLES MD 07/30/25 Insulin Glargine,Hum.rec.anlog (Lantus Solostar) 100 Unit/Ml (3 Ml) Insuln.pen, 25 UNIT SQ HS for 30 Days, #7.5 ML 0 Refills Use with SoloStar pen, 100 units/mL ; 1 injection of 25 units daily Prov:ROSA LOZANO MD 06/13/25 Hydralazine HCl (Apresoline) 25 Mg Tab, 50 MG PO TID, #90 TAB 0 Refills Prov:ROSA LOZANO MD 06/13/25 Reported Medications Glimepiride (Glimepiride) 4 Mg Tablet, 4 MG PO DAILY, TAB 05/31/25 Aspirin (Aspirin) 81 Mg Tablet, 81 MG PO DAILY, TAB 02/11/25 Sertraline HCl (Sertraline HCl) 100 Mg Tablet, 1 TAB PO HS for ANXIETY for 30 Days, #30 TAB 0 Refills 5/21/25 Tizanidine HCl (Tizanidine HCl) 2 Mg Capsule, 2 MG PO TID, CAP 09/18/24 Gabapentin (Gabapentin) 100 Mg Capsule, 300 MG PO TID, CAP 09/18/24 Atorvastatin Calcium (Atorvastatin Calcium) 20 Mg Tablet, 20 MG PO HS, TAB 06/05/24 Montelukast Sodium (Montelukast Sodium) 10 Mg Tablet, 10 MG PO DAILY, TAB 03/18/23 Past Medical History Past Medical History: Asthma, CVA, Diabetes-Type II, High Cholesterol, Heart Disease, Hypertension, Renal Disese, Other Additional Past Medical Hx: neuropathy Surgical History: Other Surgical History Other: mass liver Social History: Negative, Lives with family, Other History: Not Applicable Review of System Dictation Constitutional: Negative for fever,chills, and weight loss Eyes: Negative for injury, pain,redness, and discharge ENT: Negative for injury,pain or swelling Cardiovascular: Complaining of chest pain Respiratory: Negative for shortness of breath, cough, and wheezing, Abdomen/GI: Negative for abdominal pain, nausea, vomiting, diarrhea, and constipation Back: Negative for injury and pain : Negative for injury, bleeding and discharge MS/Extremity: Negative for injury and deformity Skin: Negative for rash, and discoloration Neuro: Negative for headache, weakness, numbness, tingling, and seizure Psych: Negative for suicide ideation, homicidal ideation, and hallucinations Review of Systems: was completed Initial Vital Sign VS Vital Signs Date Time Temp Pulse Resp B/P (MAP) Pulse Ox O2 Delivery O2 Flow Rate FiO2 09/05/25 18:46 98.1 86 20 184/84 98 Room Air 09/05/25 20:33 0 21 Physical Exam Dictation General: awake, alert, NAD Head/Face: Normocephalic, atraumatic Eyes: PERRL, EOMI, vision at baseline ENT: oral cavity clear, TMs clear, no signs of infection Neck: Trachea midline, supple, no nuchal rigidity Cardiovascular: RRR, normal S1/S2, No MRGs, no JVD Respiratory: CTAB, no respiratory distress, No rales or wheezes Abdomen: Soft, non-tender, non-distended, normal bowel sounds, no guarding or rebound. Skin: Warm, dry, normal turgor, no rash MS/Extremity: Pulses equal, no cyanosis, neurovascular intact, FROM Neuro: COAx4, GCS 15, strength 5/5, CN 2-12 intact, normal cerebellar exam, normal gait, Psych: Normal behavior, mood, and affect normal Results (Laboratory/Radiology) Laboratory/Radiology Laboratory Tests Test 09/05/25 19:37 09/05/25 19:44 09/05/25 20:37 09/05/25 21:01 Urine Opiates Screen POSITIVE (NEGATIVE) H Urine Barbiturates Screen NEGATIVE (NEGATIVE) Urine Phencyclidine Screen NEGATIVE (NEGATIVE) Urine Amphetamines Screen NEGATIVE (NEGATIVE) Urine Benzodiazepines Screen NEGATIVE (NEGATIVE) Urine Cocaine Screen NEGATIVE (NEGATIVE) Urine Marijuana (THC) Screen NEGATIVE (NEGATIVE) White Blood Count 10.4 K/uL (4.8-10.8) Red Blood Count 3.09 MIL/uL (4.00-5.50) L Hemoglobin 8.9 g/dL (12.0-16.0) L Hematocrit 28.7 % (36-48) L Mean Corpuscular Volume 92.9 fL (79-99) Mean Corpuscular Hemoglobin 28.8 pg (27.0-33.0) Mean Corpuscular Hemoglobin Concent 31.0 g/dL (32.0-36.0) L Red Cell Distribution Width 13.7 % (11.0-15.5) Platelet Count 264 K/uL (130-400) Mean Platelet Volume 9.9 fL (7.5-10.5) Immature Granulocyte % (Auto) 0.5 % (0-1) Neutrophils (%) (Auto) 84.7 % (40.0-77.0) H Lymphocytes (%) (Auto) 9.7 % (21.0-51.0) L Monocytes (%) (Auto) 4.0 % (3.0-13.0) Eosinophils (%) (Auto) 1.0 % (0.0-8.0) Basophils (%) (Auto) 0.1 % (0.0-5.0) Neutrophils # (Auto) 8.9 K/uL (1.8-7.7) H Lymphocytes # (Auto) 1.0 K/uL (1.0-4.8) Monocytes # (Auto) 0.4 K/uL (0.1-1.0) Eosinophils # (Auto) 0.10 K/uL (0.00-0.70) Basophils # (Auto) 0.01 K/uL (0.00-0.20) Absolute Immature Granulocyte (auto 0.05 K/uL (0-1) Nucleated Red Blood Cells 0.0 % (0.0-0.19) White Cell Morphology Comment See comments Red Blood Cell Morphology ANISO 1+ Sodium Level 135 mmol/L (136-145) L Potassium Level 4.8 mmol/L (3.5-5.1) Chloride Level 100 mmol/L (101-111) L Carbon Dioxide Level 25 mmol/L (21-32) Blood Urea Nitrogen 61 mg/dL (7-18) H Creatinine 2.4 mg/dL (0.5-1.0) H Glomerular Filtration Rate Calc 25 mL/min (>90) Random Glucose 40 mg/dL (70-105) *L Total Calcium 7.6 mg/dL (8.5-10.1) L Ammonia 15 umol/L (11-32) Troponin I High Sensitivity 18 ng/L (4-50) Whole Blood Glucose 36 MG/DL (70-110) *L 124 MG/DL (70-110) #H Labs Reviewed?: Yes EKG Comment: EKGs done at 7:01 p.m.. Sinus rhythm rate 90. No STEMI interpreted by ER MD. ED Course ED Course Orders Procedure Category Date Status Time 12 Lead Ekg Tracing- EKG 09/05/25 Complete Technical 18:55 Cbc With Differential LAB 09/05/25 Complete 19:00 Basic Metabolic Panel LAB 09/05/25 Complete 19:00 Troponin I High LAB 09/05/25 Complete Sensitivity 19:00 Chest 1vw RAD 09/05/25 Taken 19:00 12 Lead Ekg Tracing- EKG 09/05/25 Logged Technical 19:00 Drug Screen Urine LAB 09/05/25 Complete 19:00 Ammonia LAB 09/05/25 Complete 19:00 Dextrose 50%-Water PHA 09/05/25 Complete (D50w) 20:30 Current Medications Medications (Trade) Dose Ordered Sig/Jai Route PRN Reason Start Time Stop Time Status Last Admin Dose Admin Dextrose (D50w) 50 ml ONCE ONCE IV 09/05/25 20:30 09/05/25 20:31 DC 09/05/25 21:09 Vital Signs Date Time Temp Pulse Resp B/P (MAP) Pulse Ox O2 Delivery O2 Flow Rate FiO2 09/05/25 20:33 80 18 190/86 95 Room Air* 0 21 09/05/25 18:46 98.1 86 20 184/84 98 Room Air HEART Score Response (Comments) Value History: Low suspicion (0) 0 EKG: Normal 0 Age: < 45yrs (0) 0 Risk Factors: 3+ risk factors (+2) 2 Initial Troponin: Normal limit (0) 0 Total 2 Medical Decision Making MDM MDM: 40-year-old female with a history of hypertension, type 2 diabetes and ESRD not on dialysis presents with a feeling weak, feeling confused and chest pain. On arrival patient was awake alert and oriented. Serum blood glucose of 40 noted. Immediate treatment was initiated with the oral carbohydrates , repeat blood sugar was 36. IV D50 given. Reports taking glimepiride earlier today with a oral intake, which is the likely eating etiology of hypoglycemia. Given underlying advanced under disease there is a high-risk for prolonged recurrent hypoglycemia due to decreased turgor clearance. You have been presenting chest pain, metabolic derangement and metabolic induced hyperglycemia patient requires continuous glucose monitoring and inpatient management periods of pulmonary associated hyperglycemia is known to reoccur despite initial dextrose administration and may require continuous dextrose infusion and or okay tight therapy. Admission is warranted for close monitoring serum glucose checks, medication adjustment, and evaluation of chest pain in stating of the metabolic instability. Differential diagnosis: ACS, hyperkalemia, Rationale: Tests considered and ordered secondary to shared decision making include: labs, ECG and radiology Previous outside records reviewed: Old ER visits. Risk of complication and/or morbidity or mortality of patient management: None Medications-Per medication reconciliation Need for hospitalization: Patient does meet criteria for hospitalization. Need for emergency major/minor surgery: No There are no social concerns with this patient. Prescription drug management Prescriptions will include symptomatic care Patient's prior external medical records from other ER visits were reviewed by me as indicated. Prior testing and results from previous visits were reviewed. Prior tests were taken into account with medical decision making and resource utilization, independent historian/historians were used to obtain complete medical history. I independently interpreted the test that were performed, results were reviewed by me and considered findings on radiology if ordered. Medical management and examination interpretation discussions were had by me wit h other qualified healthcare professionals as indicated for the patient's care. DX & DISP Disposition: Inpatient Decision to Admit Date: Sep 05, 2025 Departure Impression: Primary Impression: Hypoglycemia Condition: Stable Referrals: GRISEL AGUILA MD (PCP) I have reviewed the case, and I agree with, Diagnosis and Plan AJAY MASTERS CNP Sep 05, 2025 19:07
[2025-09-05 19:52] LABS: IMMATURE GRANULOCYTE ABSOLUTE 0.05 K/uL (0-1); NUCLEATED RED BLOOD CELLS 0.0 % (0.0-0.19); PLATELET COUNT (AUTO) 264 K/uL (130-400); RED BLOOD CELL COUNT(AUTO) 3.09 MIL/uL (4.00-5.50); RED CELL DISTRIBUTION WIDTH 13.7 % (11.0-15.5); WHITE BLOOD COUNT (AUTO) 10.4 K/uL (4.8-10.8)
[2025-09-05 19:55] LABS: AMPHET/METH SCREEN,URINE NEGATIVE (NEGATIVE); BARBITURATE SCREEN, URINE NEGATIVE (NEGATIVE); CANNABINOID SCREEN,URINE NEGATIVE (NEGATIVE); COCAINE SCREEN,URINE NEGATIVE (NEGATIVE)
[2025-09-05 20:04] LABS: CREATININE 2.4 mg/dL (0.5-1.0); GLOMERULAR FILTR. RATE CALC 25.0 mL/min (>90); SODIUM SERUM 135.0 mmol/L (136-145); UREA NITROGEN, BLOOD 61.0 mg/dL (7-18)
[2025-09-05 20:07] LABS: GLUCOSE,RANDOM 40.0 mg/dL (70-105)
--- NOTE | 2025-09-05 20:09 | NUR ---
PATIENT EATING SANDWICH AND DRINKING JUICE FOR BLOOD SUGAR 40.
[2025-09-05] MEDS: DEXTROSE 50%-WATER 50 ML DISP.SYRIN IV ONE (21:09)
--- NOTE | 2025-09-05 21:25 | HP ---
History of Present Illness Reason for Visit: confusion History of Present Illness Ms. Mohan is a 40-year-old female that was seen and examined today on 09/05/2025. Patient is a good historian of personal health Patient reports that she came to the emergency department with a chief complaint of confusion. Onset was today. Location is head. Duration is constant. Character is described as, "like I was weak and then I fell down. " there was no alleviating factors. There was no aggravating factors. Patient denies any current chest pain or shortness and breath. Patient states that she took glipizide last night and has not eaten all day. Today in the emergency department CBC unremarkable, BUN 61, creatinine 2.4, GFR 25, glucose is 40 mg/dL, no urinalysis has been collected or sent to lab, toxicology is positive for opiates. Emergency room physician recommended that patient be admitted with a diagnosis of hypoglycemia Past Medical History Patient History: Cardiovascular disease MOTHER FATHER Completed stroke BROTHER Diabetes mellitus MOTHER FATHER Hypertension MOTHER FATHER Sudden MOTHER FATHER PAST MEDICAL HISTORY: [Atrial fibrillation, asthma Diabetes, hypertension, hyperlipidemia, CVA cocaine use, CKD stage 4, peripheral arterial disease to bilateral lower extremities, chronic hypoxemic respiratory failure on home O2] PAST SURGICAL HISTORY: [ Cholecystectomy and liver mass excision ] PAST SOCIAL HISTORY: [ Patient lives alone. Patient states to be a heavy smoker alcohol drinker and recreational drug user qt she stopped smoking cigarette six months ago and stopped drinking beer five months ago. Last cocaine use three weeks ago] Review of Systems General: No Fever, No Chills, No Night Sweats, No Fatigue, No Malaise, No Appetite, No Other HEENT: No Head Aches, No Visual Changes, No Eye Pain, No Ear Pain, No Dysphasia, No Sinus Congestion, No Post Nasal Drip, No Sore Throat, No Other Pulmonary: No Dyspnea, No Cough, No Pleuritic Chest Pain, No Other Cardiovascular: No: Chest Pain, Palpitations, Orthopnea, Paroxysmal Noc. Dyspnea, Edema, Lt Headedness, Other Gastrointestinal: No: Nausea, Vomiting, Abdominal Pain, Diarrhea, Constipation, Melena, Hematochezia, Other Genitourinary: No Dysuria, No Frequency, No Incontinence, No Hematuria, No Retention, No Other Musculoskeletal: No: other, neck pain, shoulder pain, arm pain, back pain, hand pain, leg pain, foot pain Skin: No Urticaria, No Rash, No Other Neurological: Confusion; No: Weakness, Numbness, Incoordination, Change in speech, Seizures, Other Allergies: Coded Allergies: No Known Drug Allergies (Unverified Allergy, Unknown, 11/05/21) Scheduled Aspirin (Aspirin), 81 MG PO DAILY, (Reported) Atorvastatin Calcium (Atorvastatin Calcium), 20 MG PO HS, (Reported) Bumetanide (Bumex), 2 TAB PO BID Gabapentin (Gabapentin), 300 MG PO TID, (Reported) Glimepiride (Glimepiride), 4 MG PO DAILY, (Reported) Hydralazine HCl (Apresoline), 50 MG PO TID Insulin Glargine,Hum.rec.anlog (Lantus Solostar), 25 UNIT SQ HS Montelukast Sodium (Montelukast Sodium), 10 MG PO DAILY, (Reported) Sertraline HCl (Sertraline HCl), 1 TAB PO HS, (Reported) Sodium Bicarbonate (Sodium Bicarbonate), 1,300 MG PO TID Tizanidine HCl (Tizanidine HCl), 2 MG PO TID, (Reported) Scheduled PRN Acetaminophen (Tylenol), 1 TAB PO Q6HPRN PRN for pain or fever Exam Vital Signs Vital Signs Date Time Temp Pulse Resp B/P (MAP) Pulse Ox O2 Delivery O2 Flow Rate FiO2 09/05/25 20:33 80 18 190/86 95 Room Air* 0 21 09/05/25 18:46 98.1 General Appearance: Alert, Oriented X3, Cooperative, mild distress HEENT: Atraumatic, EOMI Respiratory: Clear to auscultation, Normal air movement, NL respiratory effort Cardiovascular: Regular rate, Regular rhythm, Normal S1, Normal S2 Abdominal: Normal bowel sounds, Soft, No tenderness Extremities: No edema Skin: No significant lesion Neuro: Normal gait, Normal speech, Strength at 5/5 X4 ext, Sensation intact, Cranial nerves 3-12 NL Psych/Mental Status: Mental status NL, Mood NL, Thoughts/Content NL Assessment/Plan ASSESSMENT: [ Hypoglycemia, POA CKD stage 4, POA CHF with LVEF 55-60 by 2D echo on 06/01/2025 Hypertension Hyperlipidemia Anxiety Atrial fibrillation Asthma CAD History of CVA] PLAN: [ Admit patient to medical floor as inpatient status. Place patient on telemetry monitoring. Glucometer checks every 2 hours. Regular diet. D10 at 30 mL/HR Discontinue D10 once patient has three consecutive glucose readings greater than 200 Monitor intake and output every shift Weight patient daily Avoid nephrotoxic agents when possible Renally dose all medications when possible Consider diuresis if patient develops any pedal edema, JVD or shortness and breath Reviewed patient's 2D echo from 06/01/2025 that showed LVEF 55-60% does not specified with a systolic or diastolic Consider resuming home medications once they have been reconciled At time of admission home medications not been reconciled For now: Hydralazine 10 mg IV every 4 hours for systolic blood pressure greater than 160 mmHg Atorvastatin 40 mg by mouth once daily Metoprolol 12.5 mg by mouth 3 times daily Administer metoprolol 5 mg IV every 5 minutes as needed for AFib RVR with heart rate greater than 120 beats per minute max three doses. Albuterol 2.5 mg nebulized every 6 hours as needed for wheezing or shortness and breath Fall precautions GI prophylaxis, Protonix DVT prophylaxis, heparin ADVANCED CARE PLANNING 1. Which of the following were discussed? Hospice Care - Yes Therapeutic options - yes Advance Directives - Yes - Other discussions - patient wishes to remain a full code at this time 2. Discussed with who? Patient 3. Voluntary nature of this service was explained to the patient? Yes 4. Amount of time spent - ___16 minutes____ 5. Reviewed by Physician? (if this service was performed by NPP) Yes This document was generated in part using voice recognition software, occasional wrong word or sound alike substitutions may have occurred due to the inherent limitations of voice recognition software. Read the chart carefully and recognize using context, where the substitutions have occurred. Although every effort was made to edit the content, supervisor of research and typing errors may occur ATTESTATION BY PHYSICIAN I have seen and examined the patient. I reviewed the documentation, medical decision making, and treatment plan as noted by the mid-level provider above. I agree with the findings and plan of care. ] IVY JUNE [facility] Sep 05, 2025 21:25
[2025-09-05] MEDS: PHARMACY COMMUNICATION MISC SCH (22:00)
[2025-09-05] MEDS ORDERED: LACTULOSE 20 GM/30 ML UDCUP PO PRN (22:00)
[2025-09-05 22:37] LABS: APPEARANCE,URINE CLEAR (CLEAR); GLUCOSE, URINE (UA) TRACE mg/dL (NEGATIVE); LEUKOCYTE ESTERASE ,URINE NEGATIVE Leu/uL (NEGATIVE); NITRATE,URINE NEGATIVE (NEGATIVE); OCCULT BLOOD,URINE +- (TRACE) (NEGATIVE)
[2025-09-05 22:38] LABS: ADD UA MICROSCOPIC YES
[2025-09-05 22:39] LABS: SQUAMOUS EPITHELIAL CELL,UR RARE /HPF (0-2)
--- NOTE | 2025-09-05 22:45 | HMCIMG ---
EXAM: CR Chest, 2 Views. CLINICAL HISTORY: Sob. COMPARISON: CR dated 08/09/2025. FINDINGS: LUNGS: Reticular opacities involving the left lower lung zone, concerning infective aetiology. PLEURAL SPACES: No pleural effusion or pneumothorax. MEDIASTINUM: Cardiac size and mediastinal contours within normal limits. BONES: No acute osseous abnormality. IMPRESSION: Reticular opacities involving the left lower lung zone, concerning infective aetiology. Compared to the prior study, there is mild resolution of the left-sided haziness. /Davey
[2025-09-05] MEDS: DEXTROSE 10%-WATER 1,000 ML IV SCH (23:02)
[2025-09-06] VITALS (8 sets, daily range): BP systolic 137; BP diastolic 59; PULSE 85–96; RESP 18; TEMP 97.9; O2SAT 97–99
[2025-09-06] MEDS: DEXTROSE 50%-WATER 50 ML DISP.SYRIN IV PRN (00:40)
[2025-09-06] MEDS: ALBUTEROL 0.083% 2.5 MG/3 ML INH IH SCH (00:47)
--- NOTE | 2025-09-06 00:53 | NUR ---
PATIENT GIVEN JUICE REFUSING SANDWICH.
[2025-09-06] MEDS ORDERED: GLUCAGON 1MG KIT 1 MG ML IM PRN (01:00)
--- NOTE | 2025-09-06 03:24 | NUR ---
PATIENT REFUSED FOOD, PATIENT DRANK JUICE.
--- NOTE | 2025-09-06 05:23 | NUR ---
PATIENT ATE A LITTLE AT THIS TIME.
[2025-09-06] MEDS ORDERED: TIRZ7.5P SQ (06:21)
[2025-09-06] MEDS ORDERED: ACET-2079 PO (06:25)
[2025-09-06] MEDS ORDERED: OMEP40CA21 PO (06:29)
[2025-09-06] MEDS ORDERED: DAPA5TAB PO (06:30)
[2025-09-06] MEDS ORDERED: LABE-9 PO (06:31)
[2025-09-06] MEDS ORDERED: FURO80TA3 PO (06:50)
[2025-09-06] MEDS ORDERED: GLIM2TAB30 PO (06:56)
[2025-09-06] MEDS ORDERED: FOLI0.8T22 PO (06:58)
[2025-09-06] MEDS ORDERED: CLOP75TA32 PO (06:58)
[2025-09-06 07:18] LABS: IMMATURE GRANULOCYTE ABSOLUTE 0.02 K/uL (0-1); NUCLEATED RED BLOOD CELLS 0.0 % (0.0-0.19); PLATELET COUNT (AUTO) 242 K/uL (130-400); RED BLOOD CELL COUNT(AUTO) 2.90 MIL/uL (4.00-5.50); RED CELL DISTRIBUTION WIDTH 13.8 % (11.0-15.5); WHITE BLOOD COUNT (AUTO) 7.3 K/uL (4.8-10.8)
[2025-09-06 07:33] LABS: CREATININE 2.5 mg/dL (0.5-1.0); GLOMERULAR FILTR. RATE CALC 24.0 mL/min (>90); GLUCOSE,RANDOM 79.0 mg/dL (70-105); PHOSPHORUS 4.6 mg/dL (2.5-4.9); SODIUM SERUM 135.0 mmol/L (136-145); UREA NITROGEN, BLOOD 62.0 mg/dL (7-18)
--- NOTE | 2025-09-06 12:00 | NUR ---
DCP:HOME Pt currently lives alone at home. Pt states that she has 2L of o2 from [facility]. Pt denies any other DME, home health, or provider services. Pt states that she can complete ADLs independently. PCP is Dr. Milton Price and uses [facility] for any RX needs. At DC pt will want to go home and family can assist with transportation.
[2025-09-06] MEDS ORDERED: PHARMACY COMMUNICATION 1 EACH EACH MISC SCH (14:30)
--- NOTE | 2025-09-06 18:00 | PN ---
[facility] PROGRESS NOTE Date of Service: Sep 06, 2025 Time of Service: 17:02 SUBJECTIVE: She is a 40 year old female with past medical history of Atrial fibrillation, asthma Diabetes, hypertension, hyperlipidemia, CVA cocaine use, CKD stage 4, peripheral arterial disease to bilateral lower extremities, chronic hypoxemic respiratory failure on home O2 came to the hospital with confusion and dizziness. Recently her mounjaro dose was increased from 5mg to 7.5mg. She took a dose of mounjaro 3 days back. Then she developed nausea, vomiting and constipation. She said that she didn't have a bowel movement for the past 2 days. She is able to eat food but she had nausea, vomiting and she said that she couldn't keep her food down. When she is about to go to her PCP office she developed confusion and dizziness. She fell down and she was brought to the ER. Also she said that she took glipizide 1 or 2 pills before the episode. In the ER she had many episodes of diarrhea, nausea and vomiting. She also complained of abdominal pain in the epigastric region. She has a surgical history of Cholecystectomy and liver mass excision. She is a smoker, drink alcohol and recreational drug user. She stopped smoking cigarette six months ago and stopped drinking beer five months ago. Last cocaine use three weeks ago. In the emergency department, CBC unremarkable, BUN 61, creatinine 2.4, GFR 25, glucose is 40 mg/dL, no urinalysis has been collected or sent to lab, toxicology is positive for opiates. The patient is admitted to the hospital for further management. As she is hypoglycemic we started her on dextrose 50W at 50ml/hr. 09/06/2025: Patient is seen and evaluated in the room 323. She complained of abdominal pain, nausea, vomiting. She has abdominal pain in the epigastric region. Overnight the nurses reported that the patient is unable to tolerate any solid foods but she took liquids and jelly. Also today morning she could not keep her food down. Vital signs are in the normal range. Labs are normal except for hemoglobin 8.2, sodium 135, BUN 62, creatinine 2.5, glucose levels are 92>60>71>73>106>75. Today we increased the dose of D50W to 75ml/hr. Also complained that she is having pain in her left wrist. When we asked about it then she said that she had a fracture of the wrist. She is requesting IV pain meds. So we added IV morphine for moderate pain. We also did a abdominal X -ray to rule out any obstruction and we are waiting for the report. She is also requesting bariatric surgery for weight loss. So we will consult bariatric donaldson rgery. REVIEW OF SYSTEMS CONSTITUTIONAL: Denies fevers, chills, or night sweats. No unintentional weight loss reported. NEUROLOGICAL: Denies headache, amaurosis fugax, motor weakness, sensory deficit, vertigo/spinning sensation, gait abnormalities, or tremors. ENT: No hearing loss, otalgia, otorrhea, rhinitis, rhinorrhea, hoarseness, or sore throat. CARDIOVASCULAR: Denies any exertional angina, dyspnea on exertion, orthopnea, paroxysmal nocturnal dyspnea, palpitations, life-threatening arrhythmias, claudication. PULMONARY: Denies any shortness of breath, cough, phlegm/sputum, hemoptysis, pleuritic chest pain. SLEEP: Denies morning headaches, daytime somnolence or napping. Denies difficulty falling asleep, staying asleep, waking from sleep. Denies knowledge of snoring. GASTROINTESTINAL: nausea, vomiting, abdominal pain, diarrhea, constipation. Denies any type of dysphagia to either liquids or solids. Denies pyrosis, early satiety, or changes in stool consistency or caliber. Denies coffee-ground emesis, hematemesis, hematochezia, or melanotic stools. GENITOURINARY: Denies frequency, urgency, nocturia, hematuria or incontinence (Storage/Irritative symptoms.) Low urinary stream, straining to void, urinary intermittency or hesitancy, splitting of the voiding stream, terminal dribbling. ENDOCRINOLOGIC: Denies polyuria, polydipsia, polyphagia or heat/cold intolerances. HEMATOLOGIC: Denies thrombophilia/previous clots, or coagulopathy/bleeding disorders. ONCOLOGIC: Denies personal history of malignancy. DERMATOLOGIC: Denies rashes or pruritus. PSYCHIATRIC: Denies any suicidal or homicidal ideation. Denies hallucinations. PHYSICAL EXAM GENERAL APPEARANCE: The patient is awake, alert, and oriented, in no acute cardiopulmonary distress. NEUROLOGICAL: Cranial nerves II-XII grossly intact. Motor is 5/5 in bilateral upper and lower extremities proximal to distal. No sensory deficits. HEENT: Face is symmetric. Pupils are equal and reactive. Extraocular movements are intact. NECK: Supple. No JVD. No thyromegaly. No submental, submandibular, pre- /postauricular, occipital or supraclavicular lymphadenopathy. CHEST: Normal chest expansion. No Telemetry. LUNGS: Absence of any rales, rhonchi or any wheezing. CARDIOVASCULAR: Regular. S1 and S2 normal. No appreciable rubs, murmurs or gallops. ABDOMEN: Tenderness in the upper epigastric region Soft, and nondistended. There is no rebound, voluntary guarding, or rigidity. : Deferred. No Hawley. EXTREMITIES: bruises on her legs. Non-edematous and not cyanotic. No clubbing. Good capillary refill. SKIN: No skin breakdown. Vital Signs (last 8hr) Date Time Temp Pulse Resp B/P (MAP) Pulse Ox O2 Delivery O2 Flow Rate FiO2 09/06/25 10:51 90 18 09/06/25 10:51 18 N/A Room Air 0.0 21 LABS: Laboratory: Test 09/06/25 15:53 09/06/25 06:53 09/05/25 19:44 09/05/25 19:37 Range/Units Whole Blood Glucose 75 70-110 MG/DL White Blood Count 7.3 # 4.8-10.8 K/uL Red Blood Count 2.90 L 4.00-5.50 MIL/uL Hemoglobin 8.2 L 12.0-16.0 g/dL Hematocrit 27.1 L 36-48 % Mean Corpuscular Volume 93.4 79-99 fL Mean Corpuscular Hemoglobin 28.3 27.0-33.0 pg Mean Corpuscular Hemoglobin Concent 30.3 L 32.0-36.0 g/dL Red Cell Distribution Width 13.8 11.0-15.5 % Platelet Count 242 130-400 K/uL Mean Platelet Volume 10.3 7.5-10.5 fL Immature Granulocyte % (Auto) 0.3 0-1 % Neutrophils (%) (Auto) 72.3 40.0-77.0 % Lymphocytes (%) (Auto) 18.5 L 21.0-51.0 % Monocytes (%) (Auto) 6.7 3.0-13.0 % Eosinophils (%) (Auto) 2.1 0.0-8.0 % Basophils (%) (Auto) 0.1 0.0-5.0 % Neutrophils # (Auto) 5.3 1.8-7.7 K/uL Lymphocytes # (Auto) 1.4 1.0-4.8 K/uL Monocytes # (Auto) 0.5 0.1-1.0 K/uL Eosinophils # (Auto) 0.15 0.00-0.70 K/uL Basophils # (Auto) 0.01 0.00-0.20 K/uL Absolute Immature Granulocyte (auto 0.02 0-1 K/uL Nucleated Red Blood Cells 0.0 0.0-0.19 % Sodium Level 135 L 136-145 mmol/L Potassium Level 4.7 3.5-5.1 mmol/L Chloride Level 101 101-111 mmol/L Carbon Dioxide Level 24 21-32 mmol/L Blood Urea Nitrogen 62 H 7-18 mg/dL Creatinine 2.5 H 0.5-1.0 mg/dL Glomerular Filtration Rate Calc 24 >90 mL/min Random Glucose 79 # 70-105 mg/dL Total Calcium 7.5 L 8.5-10.1 mg/dL Phosphorus Level 4.6 2.5-4.9 mg/dL Magnesium Level 2.10 1.80-2.40 mg/dL White Cell Morphology Comment See comments Red Blood Cell Morphology ANISO 1+ Ammonia 15 11-32 umol/L Troponin I High Sensitivity 18 4-50 ng/L B-Type Natriuretic Peptide 112 H 0-100 pg/mL Urine Color LIGHT-YELLOW YELLOW Urine Appearance CLEAR CLEAR Urine pH 6.0 5.0-8.0 Urine Specific Jenkins 1.013 1.001-1.031 Urine Protein 100 H NEGATIVE mg/dL Urine Glucose (UA) TRACE H NEGATIVE mg/dL Urine Ketones NEGATIVE NEGATIVE mg/dL Urine Occult Blood +- (TRACE) H NEGATIVE Urine Nitrate NEGATIVE NEGATIVE Urine Bilirubin NEGATIVE NEGATIVE mg/dL Urine Urobilinogen 0.2 0.2-1.0 mg/dL Urine Leukocyte Esterase NEGATIVE NEGATIVE Venus/uL Urine RBC 0-1 0-1 /HPF Urine WBC 0-1 0-1 /HPF Urine Squamous Epithelial Cells RARE 0-2 /HPF Urine Bacteria RARE None Seen /HPF Urine Opiates Screen POSITIVE H NEGATIVE Urine Barbiturates Screen NEGATIVE NEGATIVE Urine Phencyclidine Screen NEGATIVE NEGATIVE Urine Amphetamines Screen NEGATIVE NEGATIVE Urine Benzodiazepines Screen NEGATIVE NEGATIVE Urine Cocaine Screen NEGATIVE NEGATIVE Urine Marijuana (THC) Screen NEGATIVE NEGATIVE Current Medications Medications (Trade) Dose Ordered Sig/Jai Route PRN Reason Start Time Stop Time Status Last Admin Dose Admin Acetaminophen (TYLenol 325MG TAB) 650 mg Q6H PRN PO TEMPERATURE GREATER THAN 101.5 09/05/25 22:00 10/05/25 21:59 Albuterol Sulfate (Proventil 0.083% 2.5mg/3ml) 2.5 mg [id number] IH 09/06/25 00:00 10/06/25 00:00 09/06/25 10:50 2.5 MG Aspirin (Aspirin 81mg Ec Tab) 81 mg DAILY PO 09/07/25 09:00 10/07/25 08:59 Atorvastatin Calcium (LIPItor 40MG) 40 mg HS PO 09/06/25 21:00 10/06/25 20:59 Bumetanide (Bumex 1mg Tab) 1 mg BID PO 09/06/25 21:00 10/06/25 20:59 Clopidogrel Bisulfate (plaVIX 75MG) 75 mg DAILY PO 09/07/25 09:00 10/07/25 08:59 Dextrose 1,000 ml @ 75 mls/hr [id number] IV 09/05/25 21:30 10/05/25 21:29 09/05/25 23:02 30 MLS/HR Dextrose (D50w) 50 ml AD PRN IV HYPOGLYCEMIA PROTOCOL 09/06/25 01:00 10/06/25 00:59 09/06/25 05:27 50 ML Gabapentin (NEURontin 100 mg CAP) 300 mg BID PO 09/06/25 21:00 10/06/25 20:59 Glucagon (Glucagon 1mg Kit) 1 mg AD PRN IM HYPOGLYCEMIA PROTOCOL 09/06/25 01:00 10/06/25 00:59 Heparin Sodium (Porcine) (HEParin 5,000 UNIT VIAL) 5,000 unit BID SQ 09/06/25 09:00 10/06/25 08:59 09/06/25 08:38 5,000 UNIT Hydralazine HCl (APRESOLine 20MG INJ) 10 mg Q6H PRN IV For:SBP above 160;DBP above 90 09/05/25 22:00 10/05/25 21:59 Hydromorphone HCl (DiLAUDid 0.5MG INJ) 0.25 mg Q4H PRN IVP SEVERE PAIN (7-10) 09/05/25 22:00 09/10/25 21:59 Labetalol HCl (TRANdate 100 MG TABLET) 100 mg BID PO 09/06/25 21:00 10/06/25 20:59 Lactulose (Constulose 20gm/ 30ml Udcup) 20 gm BID PRN PO CONSTIPATION 09/05/25 22:00 10/05/25 21:59 Metoprolol Tartrate (loprESSOR) 5 mg Q5M PRN IV AFIB RVR HR >120 BPM 09/05/25 22:30 Metoprolol Tartrate (loprESSOR) 12.5 mg TID PO 09/06/25 09:00 09/06/25 16:06 DC 09/06/25 15:34 12.5 MG Morphine Sulfate (morPHINE 2MG SYG) 1 mg Q4HPRN PRN IVP MODERATE PAIN (4-6) 09/06/25 17:00 09/13/25 16:59 Ondansetron HCl (zoFRAN 4MG INJ) 4 mg Q6H PRN IV NAUSEA/VOMITING 09/05/25 22:00 10/05/25 21:59 09/06/25 10:26 4 MG Pantoprazole Sodium (PROTonix 40MG TAB) 40 mg DAILY PO 09/06/25 09:00 10/06/25 08:59 09/06/25 08:38 40 MG Pharmacy Profile Note (Lace Assessment) 1 each AD MISC 09/06/25 14:30 09/06/25 14:05 DC Pharmacy Profile Note (Pharmacy Communication) 1 each ONCE MISC 09/05/25 22:00 09/06/25 07:05 DC Sertraline HCl (ZOloft 50 mg tab) 100 mg HS PO 09/06/25 21:00 10/06/25 20:59 Vitamin B Complex/ Vit C/Folic Acid (Nephrovite Tablet) 1 cap DAILY PO 09/07/25 09:00 10/07/25 08:59 DIAGNOSTICS / RADIOLOGY: [place] [id number] IMAGING REPORT Signed PATIENT: ALBERTO LEIGH MR#: [id number] : 1985 SEX: F AGE: 40 LOCATION: [facility] ORDER 01 STATUS: ADM IN REPORT#: [id number] SERVICE 99 REASON: sob ORDERING PHYSICIAN: AJAY MASTERS CNP PROCEDURE: CXR1VW - CHEST 1VW EXAM: CR Chest, 2 Views. CLINICAL HISTORY: Sob. COMPARISON: CR dated 08/09/2025. FINDINGS: LUNGS: Reticular opacities involving the left lower lung zone, concerning infective aetiology. PLEURAL SPACES: No pleural effusion or pneumothorax. MEDIASTINUM: Cardiac size and mediastinal contours within normal limits. BONES: No acute osseous abnormality. IMPRESSION: Reticular opacities involving the left lower lung zone, concerning infective aetiology. Compared to the prior study, there is mild resolution of the left-sided haziness. /[place] DICTATED BY: JOHN PALACIOS Jr., MD DATE: 09/05/252234 ELECTRONICALLY SIGNED BY: JOHN PALACIOS Jr., MD DATE: 09/05/252234 ASSESSMENT: Constipation and abdominal pain due to Mounjaro use, POA Hypoglycemia due to glipizide use and constipation, POA Hypertension Hyperlipidemia atrial fibrillation CKD stage 4 Hyponatremia Anxiety Asthma History of CVA CHF with LVEF 55 to 60% by 2D echo on 06/01/2025 BMI of 51. PLAN: Constipation and abdominal pain due to Mounjaro use, POA Her mounjaro dose is increased from 5mg to 7.5mg. Then she developed constipation. She also had abdominal pain, nausea and diarrhea. We ordered a KUB and we are waiting for the report. We started her on a renal non dialysis diet. Hypoglycemia due to glipizide use and constipation, POA Her glucose levels are 36>124>88>65>56>132>57>92>60>71>73>106>75. She is started on dextrose 50W at 50 ml/hr in the ER. Today we increased the dose to 75ml/hr. we will monitor her blood glucose levels. Hypertension Today her blood pressure is 146/71. Continue bumetanide, labetalol. We will monitor her blood pressure. Hyperlipidemia Continue atorvastatin. atrial fibrillation She is not having any symptoms now. Continue heparin, aspirin and clopidogrel. CKD stage 4 His BUN is 61>62 and creatinine is 2.4>2.5. We will repeat her labs tomorrow. Hyponatremia Her sodium levels are 135>135. We will repeat her labs tomorrow. BMI of 51. Her BMI is 51. She is requesting bariatric surgery. So we placed a consult for bariatric surgery. DVT prophylaxis with SCD and heparin. GI prophylaxis with pantoprazole. She is on renal non dialysis diet. ATTESTATION BY PHYSICIAN I have seen and examined the patient. I reviewed the documentation, medical decision making, and treatment plan as noted by the resident physician above. I agree with the findings and plan of care. BENJAMIN Maria IV, MD, MD Sep 06, 2025 18:00
--- NOTE | 2025-09-06 20:26 | HMCIMG ---
STUDY: X-RAY OF THE ABDOMEN, 1 VIEW HISTORY: Rule out constipation. TECHNIQUE: A single supine frontal view of the abdomen was obtained and submitted for interpretation. COMPARISON: Abdominal ultrasound from 08/10/2025 (limited examination due to body habitus). FINDINGS: Bowel gas pattern: Non-specific, non-obstructive bowel gas pattern with fecal material present in the colon. The stomach appears distended. No markedly dilated small bowel loops, abnormal airfluid levels, or free intraperitoneal air are identified on this supine view. Soft tissues: Multiple surgical clips are seen in the right upper abdomen, likely related to prior cholecystectomy. No abnormal soft tissue mass, organomegaly, or radiopaque foreign body is identified. Bones and joints: Visualized lumbar spine demonstrates degenerative changes, including endplate osteophytes and facet arthropathy. Pelvic bones and visualized hips appear intact without acute osseous abnormality. IMPRESSION: * Non-specific, non-obstructive bowel gas pattern with a distended stomach; no plain-film evidence of high-grade bowel obstruction or radiographic features diagnostic of constipation. Correlate with clinical examination and, if symptoms persist or worsen, consider further evaluation with cross-sectional imaging as clinically indicated. * Right upper quadrant surgical clips compatible with prior cholecystectomy. * Degenerative changes in the lumbar spine without acute osseous abnormality. * Compared with the limited abdominal ultrasound from 08/10/2025, there is no new radiographic abnormality identified; assessment of bowel and solid organs remains constrained by differences in imaging modality and the single supine view. /[place]
[2025-09-06] MEDS: BUMETANIDE 1 MG TAB PO SCH (21:14)
[2025-09-07] VITALS (13 sets, daily range): BP systolic 122–156; BP diastolic 50–70; PULSE 85–94; RESP 18–20; TEMP 98.1–99; O2SAT 96–100
[2025-09-07 04:52] LABS: NUCLEATED RED BLOOD CELLS 0.0 % (0.0-0.19); PLATELET COUNT (AUTO) 213.0 K/uL (130-400); RED BLOOD CELL COUNT(AUTO) 2.66 MIL/uL (4.00-5.50); RED CELL DISTRIBUTION WIDTH 14.0 % (11.0-15.5); WHITE BLOOD COUNT (AUTO) 6.7 K/uL (4.8-10.8)
[2025-09-07 05:08] LABS: CREATININE 3.2 mg/dL (0.5-1.0); GLOMERULAR FILTR. RATE CALC 18.0 mL/min (>90); GLUCOSE,RANDOM 126.0 mg/dL (70-105); PHOSPHORUS 5.1 mg/dL (2.5-4.9); SODIUM SERUM 134.0 mmol/L (136-145); UREA NITROGEN, BLOOD 61.0 mg/dL (7-18)
[2025-09-07] MEDS: Vitamin B Complex/Vit C/Folic Acid PO SCH (09:43)
[2025-09-07] MEDS: ASPIRIN 81 MG EC TAB PO SCH (09:43)
--- NOTE | 2025-09-07 13:30 | NUR ---
LEFT SEVERAL MESSAGES FOR ELIAS [employer] CONSULTANT, RETURN CALL, STATES SHE WILL TALK TO PATIENT ABOUT THE PROGRAM AROUND 3 TODAY
[2025-09-07] MEDS: 0.9% NACL 500ML IV.SOLN 500 ML IV ONE (14:48)
--- NOTE | 2025-09-07 17:52 | PN ---
[facility] PROGRESS NOTE Date of Service: Sep 07, 2025 Time of Service: 17:29 SUBJECTIVE: She is a 40 year old female with past medical history of Atrial fibrillation, asthma Diabetes, hypertension, hyperlipidemia, CVA cocaine use, CKD stage 4, peripheral arterial disease to bilateral lower extremities, chronic hypoxemic respiratory failure on home O2 came to the hospital with confusion and dizziness. Recently her mounjaro dose was increased from 5mg to 7.5mg. She took a dose of mounjaro 3 days back. Then she developed nausea, vomiting and constipation. She said that she didn't have a bowel movement for the past 2 days. She is able to eat food but she had nausea, vomiting and she said that she couldn't keep her food down. When she is about to go to her PCP office she developed confusion and dizziness. She fell down and she was brought to the ER. Also she said that she took glipizide 1 or 2 pills before the episode. In the ER she had many episodes of diarrhea, nausea and vomiting. She also complained of abdominal pain in the epigastric region. She has a surgical history of Cholecystectomy and liver mass excision. She is a smoker, drink alcohol and recreational drug user. She stopped smoking cigarette six months ago and stopped drinking beer five months ago. Last cocaine use three weeks ago. In the emergency department, CBC unremarkable, BUN 61, creatinine 2.4, GFR 25, glucose is 40 mg/dL, no urinalysis has been collected or sent to lab, toxicology is positive for opiates. The patient is admitted to the hospital for further management. As she is hypoglycemic we started her on dextrose 50W at 50ml/hr. 09/06/2025: Patient is seen and evaluated in the room 323. She complained of abdominal pain, nausea, vomiting. She has abdominal pain in the epigastric region. Overnight the nurses reported that the patient is unable to tolerate any solid foods but she took liquids and jelly. Also today morning she could not keep her food down. Vital signs are in the normal range. Labs are normal except for hemoglobin 8.2, sodium 135, BUN 62, creatinine 2.5, glucose levels are 92>60>71>73>106>75. Today we increased the dose of D50W to 75ml/hr. Also complained that she is having pain in her left wrist. When we asked about it then she said that she had a fracture of the wrist. She is requesting IV pain meds. So we added IV morphine for moderate pain. We also did a abdominal X -ray to rule out any obstruction and we are waiting for the report. She is also requesting bariatric surgery for weight loss. So we will consult bariatric donaldson sarah. 09/07/2025: Patient is seen and evaluated in the room 323. She said is having mild nausea but her stomach pain got better. She is able to eat her diet. Her vitals are in the normal range. Her labs are normal except for hemoglobin 7.6, phosphate 5.1, sodium 134, BUN is 61, creatinine is 3.2, glucose is 124. As her creatinine level is increased we gave a bolus of lactate ringer at 50 ml/hr. Her X-ray showed non obstructive bowel gas pattern. We also added docusate 100mg BID and senna 1 tab PO for constipation. We may decrease the dosage of glipizide to 0.5 mg on discharge. We also informed bariatric surgery. REVIEW OF SYSTEMS CONSTITUTIONAL: Denies fevers, chills, or night sweats. No unintentional weight loss reported. NEUROLOGICAL: Denies headache, amaurosis fugax, motor weakness, sensory deficit, vertigo/spinning sensation, gait abnormalities, or tremors. ENT: No hearing loss, otalgia, otorrhea, rhinitis, rhinorrhea, hoarseness, or sore throat. CARDIOVASCULAR: Denies any exertional angina, dyspnea on exertion, orthopnea, paroxysmal nocturnal dyspnea, palpitations, life-threatening arrhythmias, claudication. PULMONARY: Denies any shortness of breath, cough, phlegm/sputum, hemoptysis, pleuritic chest pain. SLEEP: Denies morning headaches, daytime somnolence or napping. Denies difficulty falling asleep, staying asleep, waking from sleep. Denies knowledge of snoring. GASTROINTESTINAL: nausea, vomiting, abdominal pain, diarrhea, constipation. Denies any type of dysphagia to either liquids or solids. Denies pyrosis, early satiety, or changes in stool consistency or caliber. Denies coffee-ground emesis, hematemesis, hematochezia, or melanotic stools. GENITOURINARY: Denies frequency, urgency, nocturia, hematuria or incontinence (Storage/Irritative symptoms.) Low urinary stream, straining to void, urinary intermittency or hesitancy, splitting of the voiding stream, terminal dribbling. ENDOCRINOLOGIC: Denies polyuria, polydipsia, polyphagia or heat/cold intolerances. HEMATOLOGIC: Denies thrombophilia/previous clots, or coagulopathy/bleeding disorders. ONCOLOGIC: Denies personal history of malignancy. DERMATOLOGIC: Denies rashes or pruritus. PSYCHIATRIC: Denies any suicidal or homicidal ideation. Denies hallucinations. PHYSICAL EXAM GENERAL APPEARANCE: The patient is awake, alert, and oriented, in no acute cardiopulmonary distress. NEUROLOGICAL: Cranial nerves II-XII grossly intact. Motor is 5/5 in bilateral upper and lower extremities proximal to distal. No sensory deficits. HEENT: Face is symmetric. Pupils are equal and reactive. Extraocular movements are intact. NECK: Supple. No JVD. No thyromegaly. No submental, submandibular, pre- /postauricular, occipital or supraclavicular lymphadenopathy. CHEST: Normal chest expansion. No Telemetry. LUNGS: Absence of any rales, rhonchi or any wheezing. CARDIOVASCULAR: Regular. S1 and S2 normal. No appreciable rubs, murmurs or gallops. ABDOMEN: Tenderness in the upper epigastric region Soft, and nondistended. There is no rebound, voluntary guarding, or rigidity. : Deferred. No Hawley. EXTREMITIES: bruises on her legs. Non-edematous and not cyanotic. No clubbing. Good capillary refill. SKIN: No skin breakdown. Vital Signs (last 8hr) Date Time Temp Pulse Resp B/P (MAP) Pulse Ox O2 Delivery O2 Flow Rate FiO2 09/07/25 15:13 97 Room Air* 0 21 09/07/25 12:00 98.6 86 20 145/65 97 Nasal Cannula 09/07/25 11:40 89 18 09/07/25 11:40 89 18 N/A Room Air 21 LABS: Laboratory: Test 09/07/25 15:24 09/07/25 12:34 09/07/25 04:41 09/06/25 06:53 Range/Units Whole Blood Glucose 121 H 70-110 MG/DL Urine Random Creatinine 46.43 30-135 mg/dL White Blood Count 6.7 4.8-10.8 K/uL Red Blood Count 2.66 L 4.00-5.50 MIL/uL Hemoglobin 7.6 L 12.0-16.0 g/dL Hematocrit 25.2 L 36-48 % Mean Corpuscular Volume 94.7 79-99 fL Mean Corpuscular Hemoglobin 28.6 27.0-33.0 pg Mean Corpuscular Hemoglobin Concent 30.2 L 32.0-36.0 g/dL Red Cell Distribution Width 14.0 11.0-15.5 % Platelet Count 213 130-400 K/uL Mean Platelet Volume 10.1 7.5-10.5 fL Nucleated Red Blood Cells 0.0 0.0-0.19 % Sodium Level 134 L 136-145 mmol/L Potassium Level 4.9 3.5-5.1 mmol/L Chloride Level 101 101-111 mmol/L Carbon Dioxide Level 24 21-32 mmol/L Blood Urea Nitrogen 61 H 7-18 mg/dL Creatinine 3.2 H 0.5-1.0 mg/dL Glomerular Filtration Rate Calc 18 >90 mL/min Random Glucose 126 #H 70-105 mg/dL Total Calcium 7.2 L 8.5-10.1 mg/dL Phosphorus Level 5.1 H 2.5-4.9 mg/dL Magnesium Level 2.20 1.80-2.40 mg/dL Immature Granulocyte % (Auto) 0.3 0-1 % Neutrophils (%) (Auto) 72.3 40.0-77.0 % Lymphocytes (%) (Auto) 18.5 L 21.0-51.0 % Monocytes (%) (Auto) 6.7 3.0-13.0 % Eosinophils (%) (Auto) 2.1 0.0-8.0 % Basophils (%) (Auto) 0.1 0.0-5.0 % Neutrophils # (Auto) 5.3 1.8-7.7 K/uL Lymphocytes # (Auto) 1.4 1.0-4.8 K/uL Monocytes # (Auto) 0.5 0.1-1.0 K/uL Eosinophils # (Auto) 0.15 0.00-0.70 K/uL Basophils # (Auto) 0.01 0.00-0.20 K/uL Absolute Immature Granulocyte (auto 0.02 0-1 K/uL Test 09/05/25 19:44 09/05/25 19:37 Range/Units White Cell Morphology Comment See comments Red Blood Cell Morphology ANISO 1+ Hemoglobin A1c 6.3 H 4.8-5.6 % Ammonia 15 11-32 umol/L Troponin I High Sensitivity 18 4-50 ng/L B-Type Natriuretic Peptide 112 H 0-100 pg/mL Urine Color LIGHT-YELLOW YELLOW Urine Appearance CLEAR CLEAR Urine pH 6.0 5.0-8.0 Urine Specific Milo 1.013 1.001-1.031 Urine Protein 100 H NEGATIVE mg/dL Urine Glucose (UA) TRACE H NEGATIVE mg/dL Urine Ketones NEGATIVE NEGATIVE mg/dL Urine Occult Blood +- (TRACE) H NEGATIVE Urine Nitrate NEGATIVE NEGATIVE Urine Bilirubin NEGATIVE NEGATIVE mg/dL Urine Urobilinogen 0.2 0.2-1.0 mg/dL Urine Leukocyte Esterase NEGATIVE NEGATIVE Venus/uL Urine RBC 0-1 0-1 /HPF Urine WBC 0-1 0-1 /HPF Urine Squamous Epithelial Cells RARE 0-2 /HPF Urine Bacteria RARE None Seen /HPF Urine Opiates Screen POSITIVE H NEGATIVE Urine Barbiturates Screen NEGATIVE NEGATIVE Urine Phencyclidine Screen NEGATIVE NEGATIVE Urine Amphetamines Screen NEGATIVE NEGATIVE Urine Benzodiazepines Screen NEGATIVE NEGATIVE Urine Cocaine Screen NEGATIVE NEGATIVE Urine Marijuana (THC) Screen NEGATIVE NEGATIVE Current Medications Medications (Trade) Dose Ordered Sig/Jai Route PRN Reason Start Time Stop Time Status Last Admin Dose Admin Acetaminophen (TYLenol 325MG TAB) 650 mg Q6H PRN PO TEMPERATURE GREATER THAN 101.5 09/05/25 22:00 10/05/25 21:59 Albuterol Sulfate (Proventil 0.083% 2.5mg/3ml) 2.5 mg [id number] IH 09/06/25 00:00 10/06/25 00:00 09/07/25 11:40 2.5 MG Aspirin (Aspirin 81mg Ec Tab) 81 mg DAILY PO 09/07/25 09:00 10/07/25 08:59 09/07/25 09:43 81 MG Atorvastatin Calcium (LIPItor 40MG) 40 mg HS PO 09/06/25 21:00 10/06/25 20:59 09/06/25 21:12 40 MG Bumetanide (Bumex 1mg Tab) 1 mg BID PO 09/06/25 21:00 10/06/25 20:59 09/07/25 10:06 1 MG Clopidogrel Bisulfate (plaVIX 75MG) 75 mg DAILY PO 09/07/25 09:00 10/07/25 08:59 09/07/25 09:45 75 MG Dextrose 1,000 ml @ 75 mls/hr [id number] IV 09/05/25 21:30 10/05/25 21:29 09/07/25 09:58 75 MLS/HR Dextrose (D50w) 50 ml AD PRN IV HYPOGLYCEMIA PROTOCOL 09/06/25 01:00 10/06/25 00:59 09/06/25 05:27 50 ML Docusate Sodium (COLace 100MG CAP) 100 mg BID PO 09/07/25 21:00 10/07/25 20:59 Gabapentin (NEURontin 100 mg CAP) 300 mg BID PO 09/06/25 21:00 10/06/25 20:59 09/07/25 09:43 300 MG Glucagon (Glucagon 1mg Kit) 1 mg AD PRN IM HYPOGLYCEMIA PROTOCOL 09/06/25 01:00 10/06/25 00:59 Heparin Sodium (Porcine) (HEParin 5,000 UNIT VIAL) 5,000 unit BID SQ 09/06/25 09:00 10/06/25 08:59 09/07/25 09:45 5,000 UNIT Hydralazine HCl (APRESOLine 20MG INJ) 10 mg Q6H PRN IV For:SBP above 160;DBP above 90 09/05/25 22:00 10/05/25 21:59 Hydromorphone HCl (DiLAUDid 0.5MG INJ) 0.25 mg Q4H PRN IVP SEVERE PAIN (7-10) 09/05/25 22:00 09/10/25 21:59 09/07/25 06:39 0.25 MG Labetalol HCl (TRANdate 100 MG TABLET) 100 mg BID PO 09/06/25 21:00 10/06/25 20:59 09/07/25 09:45 100 MG Lactulose (Constulose 20gm/ 30ml Udcup) 20 gm BID PRN PO CONSTIPATION 09/05/25 22:00 10/05/25 21:59 Metoprolol Tartrate (loprESSOR) 5 mg Q5M PRN IV AFIB RVR HR >120 BPM 09/05/25 22:30 Metoprolol Tartrate (loprESSOR) 12.5 mg TID PO 09/06/25 09:00 09/06/25 16:06 DC 09/06/25 15:34 12.5 MG Morphine Sulfate (morPHINE 2MG SYG) 1 mg Q4HPRN PRN IVP MODERATE PAIN (4-6) 09/06/25 17:00 09/13/25 16:59 09/07/25 13:04 1 MG Ondansetron HCl (zoFRAN 4MG INJ) 4 mg Q6H PRN IV NAUSEA/VOMITING 09/05/25 22:00 10/05/25 21:59 09/06/25 10:26 4 MG Pantoprazole Sodium (PROTonix 40MG TAB) 40 mg DAILY PO 09/06/25 09:00 10/06/25 08:59 09/07/25 09:45 40 MG Pharmacy Profile Note (Lace Assessment) 1 each AD MISC 09/06/25 14:30 09/06/25 14:05 DC Pharmacy Profile Note (Pharmacy Communication) 1 each ONCE MISC 09/05/25 22:00 09/06/25 07:05 DC Sennosides (Senna) 1 tab DAILY PO 09/08/25 09:00 10/08/25 08:59 Sertraline HCl (ZOloft 50 mg tab) 100 mg HS PO 09/06/25 21:00 10/06/25 20:59 09/06/25 21:13 100 MG Vitamin B Complex/ Vit C/Folic Acid (Nephrovite Tablet) 1 cap DAILY PO 09/07/25 09:00 10/07/25 08:59 09/07/25 09:43 1 [facility] RADIOLOGY: [place] [address] IMAGING REPORT Signed PATIENT: ALBERTO LEIGH MR#: [id number] : 1985 SEX: F AGE: 40 LOCATION: 3DH ORDER 28 STATUS: ADM IN REPORT#: [id number] SERVICE 26 REASON: rule out constipation ORDERING PHYSICIAN: BENJAMIN MOTA MD PROCEDURE: ABD 1VW - ABD 1VW STUDY: X-RAY OF THE ABDOMEN, 1 VIEW HISTORY: Rule out constipation. TECHNIQUE: A single supine frontal view of the abdomen was obtained and submitted for interpretation. COMPARISON: Abdominal ultrasound from 08/10/2025 (limited examination due to body habitus). FINDINGS: Bowel gas pattern: Non-specific, non-obstructive bowel gas pattern with fecal material present in the colon. The stomach appears distended. No markedly dilated small bowel loops, abnormal airfluid levels, or free intraperitoneal air are identified on this supine view. Soft tissues: Multiple surgical clips are seen in the right upper abdomen, likely related to prior cholecystectomy. No abnormal soft tissue mass, organomegaly, or radiopaque foreign body is identified. Bones and joints: Visualized lumbar spine demonstrates degenerative changes, including endplate osteophytes and facet arthropathy. Pelvic bones and visualized hips appear intact without acute osseous abnormality. IMPRESSION: * Non-specific, non-obstructive bowel gas pattern with a distended stomach; no plain-film evidence of high-grade bowel obstruction or radiographic features diagnostic of constipation. Correlate with clinical examination and, if symptoms persist or worsen, consider further evaluation with cross-sectional imaging as clinically indicated. * Right upper quadrant surgical clips compatible with prior cholecystectomy. * Degenerative changes in the lumbar spine without acute osseous abnormality. * Compared with the limited abdominal ultrasound from 08/10/2025, there is no new radiographic abnormality identified; assessment of bowel and solid organs remains constrained by differences in imaging modality and the single supine view. /[place] DICTATED BY: LUCRECIA FRANCE MD DATE: 09/06/252124 ELECTRONICALLY SIGNED BY: LUCRECIA FRANCE MD DATE: 09/06/252124 ASSESSMENT: Constipation and abdominal pain due to Mounjaro use, POA Hypoglycemia due to glipizide use and constipation, POA Hypertension Hyperlipidemia atrial fibrillation CKD stage 4 Hyponatremia Hyperphosphoremia Anxiety Asthma History of CVA CHF with LVEF 55 to 60% by 2D echo on 06/01/2025 BMI of 51. PLAN: Constipation and abdominal pain due to Mounjaro use, POA Her mounjaro dose is increased from 5mg to 7.5mg. Then she developed constipation. She also had abdominal pain, nausea and diarrhea. We ordered a KUB and it showed non obstructive bowel gas pattern We started her on a renal non dialysis diet. She complained of mild nausea but she is able to eat her food today. We also added docusate 100mg BID and senna 1 tab PO for constipation. Hypoglycemia due to glipizide use and constipation, POA Her glucose levels are 36>124>88>65>56>132>57>92>60>71>73>106>75>98>137>124>156>121. She is started on dextrose 50W at 50 ml/hr in the ER. we will monitor her blood glucose levels. We may decrease the dosage of glipizide to 0.5 mg on discharge. Hypertension Today her blood pressure is 145/65. Continue bumetanide, labetalol. We will monitor her blood pressure. Hyperlipidemia Continue atorvastatin. atrial fibrillation She is not having any symptoms now. Continue heparin, aspirin and clopidogrel. CKD stage 4 His BUN is 61>62>61 and creatinine is 2.4>2.5>3.2. We gave a bolus of lactate ringer at 50 ml/hr. We will repeat her labs tomorrow. Hyponatremia Her sodium levels are 135>135>134. We will repeat her labs tomorrow. Hyperphosphoremia Today her phosphorus level is 5.1. We will repeat her labs tomorrow. BMI of 51. Her BMI is 51. She is requesting bariatric surgery. So we placed a consult for bariatric surgery. DVT prophylaxis with SCD and heparin. GI prophylaxis with pantoprazole. She is on renal non dialysis diet. ATTESTATION BY PHYSICIAN I have seen and examined the patient. I reviewed the documentation, medical decision making, and treatment plan as noted by the resident physician above. I agree with the findings and plan of care. BENJAMIN Maria IV, MD, MD Sep 07, 2025 17:52
[2025-09-08] VITALS (15 sets, daily range): BP systolic 127–162; BP diastolic 58–84; PULSE 82–95; RESP 18–20; TEMP 98.1–99.6; O2SAT 93–99
[2025-09-08 05:37] LABS: NUCLEATED RED BLOOD CELLS 0.0 % (0.0-0.19); PLATELET COUNT (AUTO) 187.0 K/uL (130-400); RED BLOOD CELL COUNT(AUTO) 2.71 MIL/uL (4.00-5.50); RED CELL DISTRIBUTION WIDTH 13.8 % (11.0-15.5); WHITE BLOOD COUNT (AUTO) 5.7 K/uL (4.8-10.8)
[2025-09-08 06:05] LABS: CREATININE 2.9 mg/dL (0.5-1.0); GLOMERULAR FILTR. RATE CALC 20.0 mL/min (>90); GLUCOSE,RANDOM 105.0 mg/dL (70-105); PHOSPHORUS 4.9 mg/dL (2.5-4.9); SODIUM SERUM 133.0 mmol/L (136-145); UREA NITROGEN, BLOOD 61.0 mg/dL (7-18)
[2025-09-08] MEDS: SENNOSIDES 8.6 MG TABLET PO SCH (09:57)
--- NOTE | 2025-09-08 16:02 | CONS ---
GASTROENTEROLOGY CONSULTATION NOTE Date of Consultation: Sep 08, 2025 Time of Consultation: 16:01 History of Present Illness: [ 40-year-old female patient with past medical history for hypertension, heart disease, atrial fibrillation, asthma, diabetes, CVA in 2006, history of cocaine use, PAD, renal disease, high cholesterol who presented to the emergency room for complaints of chest pain, feeling confused, and post fall yesterday. We were consulted for bloody stools and anemia. Per patient's chart patient is currently taking Mounjaro and dose had been increased to 7.5. Patient developed nausea and has not been able to keep food down. She had nausea and vomiting w hile in the emergency room. Were consulted for bloody stools and anemia. The patient's WBC of 5.7, hemoglobin initially was 8.9 has trended down to 7.7, platelets 187. Chemistries significant for sodium of 133, BUN 61, creatinine 2.9, total calcium 7.2, phosphorus 5.1, magnesium 2.2. Urine toxicology positive for opiates. UA positive for occult blood. Chest x-ray showing ret icular opacities involving the left lower lung zone concerning for infective etiology. X-ray showing nonspecific nonobstructive bowel gas pattern with a distended stomach no evidence of high-grade bowel obstruction for diagnostic features of constipation. Previous EGD on 02/10/25 positive for gastritis, esophageal hyperkeratosis, and normal duodenum. On exam patient is awake alert and oriented x3 in no acute distress. BBS are clear. Abdomen is soft. She reports she was pending an EGD and colonoscopy to be scheduled at the hospital but had required cardiac clearance. Cardiac clearance from Dr. Balbuena obtained and places patient at high-risk for periprocedural cardiac complications. Will obtain Bleeding scan. ] Review of Systems: CONSTITUTIONAL: No malaise or change in sensation of wellbeing. ENMT: No rhinorrhea, otorrhea, sinus pain, ear ache. CARDIOVASCULAR: No angina, palpitations, orthopnea or paroxysmal dyspnea. RESPIRATORY: No SOB. GASTROINTESTINAL: No abdominal pain, nausea, vomiting, diarrhea, hematemesis, melena or change in the patient's habitual bowel movements consistency/number. GENITOURINARY: No dysuria, hematuria or change in bladder continence. MUSCULOSKELETAL: No new muscle pain or decrease in muscular strength. No new joint swelling, redness or tenderness. SKIN: No new rash. PAST MEDICAL HISTORY: [Atrial fibrillation, asthma Diabetes, hypertension, hyperlipidemia, CVA cocaine use, CKD stage 4, peripheral arterial disease to bilateral lower extremities, chronic hypoxemic respiratory failure on home O2] Cardiovascular disease MOTHER FATHER Completed stroke BROTHER Diabetes mellitus MOTHER FATHER Hypertension MOTHER FATHER Sudden MOTHER FATHER PAST SURGICAL HISTORY: [ Cholecystectomy and liver mass excision ] PAST SOCIAL HISTORY: [ Patient lives alone. Patient states to be a heavy smoker alcohol drinker and recreational drug user qt she stopped smoking cigarette six months ago and stopped drinking beer five months ago. Last cocaine use three weeks ago] Coded Allergies: No Known Drug Allergies (Unverified Allergy, Unknown, 11/05/21) Physical Exam: GEN: Awake, alert, oriented in person, time and place, and in no acute distress. HEENT: No rhinorrhea. Oral mucosa is pink, moist and within normal limits. CHEST: Lung auscultation revealed normal breath sounds bilaterally. CARDIAC:Heart sounds are regular. ABD: Soft, non-tender and not distended. No peritoneal signs on palpation. Normal bowel sounds.. EXT: No cyanosis or clubbing. No edema. SKIN: Intact. No rashes. NEURO: Alert and oriented to name, place and person.No focal motor deficits. Normal speech. Vital Sign (Last 24 Hours) 09/08/25 09/08/25 09/08/25 12:00 12:38 12:44 Temp 99.0 Pulse 88 Resp 20 B/P (MAP) 162/82 Pulse Ox 93 O2 Delivery Room Air* O2 Flow Rate 0 FiO2 21 Laboratory: [ ] Laboratory: Test 09/08/25 11:17 09/08/25 05:10 09/07/25 12:34 Range/Units Whole Blood Glucose 128 H 70-110 MG/DL White Blood Count 5.7 4.8-10.8 K/uL Red Blood Count 2.71 L 4.00-5.50 MIL/uL Hemoglobin 7.7 L 12.0-16.0 g/dL Hematocrit 26.8 L 36-48 % Mean Corpuscular Volume 98.9 79-99 fL Mean Corpuscular Hemoglobin 28.4 27.0-33.0 pg Mean Corpuscular Hemoglobin Concent 28.7 L 32.0-36.0 g/dL Red Cell Distribution Width 13.8 11.0-15.5 % Platelet Count 187 130-400 K/uL Mean Platelet Volume 10.2 7.5-10.5 fL Nucleated Red Blood Cells 0.0 0.0-0.19 % Sodium Level 133 L 136-145 mmol/L Potassium Level 4.9 3.5-5.1 mmol/L Chloride Level 102 101-111 mmol/L Carbon Dioxide Level 22 21-32 mmol/L Blood Urea Nitrogen 61 H 7-18 mg/dL Creatinine 2.9 H 0.5-1.0 mg/dL Glomerular Filtration Rate Calc 20 >90 mL/min Random Glucose 105 70-105 mg/dL Total Calcium 7.2 L 8.5-10.1 mg/dL Phosphorus Level 4.9 2.5-4.9 mg/dL Magnesium Level 2.10 1.80-2.40 mg/dL Urine Random Creatinine 46.43 30-135 mg/dL Current Medications Medications (Trade) Dose Ordered Sig/Jai Route PRN Reason Start Time Stop Time Status Last Admin Dose Admin Acetaminophen (TYLenol 325MG TAB) 650 mg Q6H PRN PO TEMPERATURE GREATER THAN 101.5 09/05/25 22:00 10/05/25 21:59 Albuterol Sulfate (Proventil 0.083% 2.5mg/3ml) 2.5 mg [id number] IH 09/06/25 00:00 10/06/25 00:00 09/08/25 12:38 2.5 MG Aspirin (Aspirin 81mg Ec Tab) 81 mg DAILY PO 09/07/25 09:00 10/07/25 08:59 09/08/25 09:57 81 MG Atorvastatin Calcium (LIPItor 40MG) 40 mg HS PO 09/06/25 21:00 10/06/25 20:59 09/07/25 20:26 40 MG Bumetanide (Bumex 1mg Tab) 1 mg BID PO 09/06/25 21:00 10/06/25 20:59 09/08/25 10:06 1 MG Clopidogrel Bisulfate (plaVIX 75MG) 75 mg DAILY PO 09/07/25 09:00 10/07/25 08:59 09/08/25 09:57 75 MG Dextrose 1,000 ml @ 75 mls/hr [id number] IV 09/05/25 21:30 10/05/25 21:29 09/08/25 10:20 75 MLS/HR Dextrose (D50w) 50 ml AD PRN IV HYPOGLYCEMIA PROTOCOL 09/06/25 01:00 10/06/25 00:59 09/06/25 05:27 50 ML Docusate Sodium (COLace 100MG CAP) 100 mg BID PO 09/07/25 21:00 10/07/25 20:59 09/08/25 09:57 100 MG Gabapentin (NEURontin 100 mg CAP) 300 mg BID PO 09/06/25 21:00 10/06/25 20:59 09/08/25 09:56 300 MG Glucagon (Glucagon 1mg Kit) 1 mg AD PRN IM HYPOGLYCEMIA PROTOCOL 09/06/25 01:00 10/06/25 00:59 Heparin Sodium (Porcine) (HEParin 5,000 UNIT VIAL) 5,000 unit BID SQ 09/06/25 09:00 10/06/25 08:59 09/08/25 10:19 5,000 UNIT Hydralazine HCl (APRESOLine 20MG INJ) 10 mg Q6H PRN IV For:SBP above 160;DBP above 90 09/05/25 22:00 10/05/25 21:59 Hydromorphone HCl (DiLAUDid 0.5MG INJ) 0.25 mg Q4H PRN IVP SEVERE PAIN (7-10) 09/05/25 22:00 09/10/25 21:59 09/08/25 05:43 0.25 MG Labetalol HCl (TRANdate 100 MG TABLET) 100 mg BID PO 09/06/25 21:00 10/06/25 20:59 09/08/25 09:57 100 MG Lactulose (Constulose 20gm/ 30ml Udcup) 20 gm BID PRN PO CONSTIPATION 09/05/25 22:00 10/05/25 21:59 Metoprolol Tartrate (loprESSOR) 5 mg Q5M PRN IV AFIB RVR HR >120 BPM 09/05/25 22:30 Metoprolol Tartrate (loprESSOR) 12.5 mg TID PO 09/06/25 09:00 09/06/25 16:06 DC 09/06/25 15:34 12.5 MG Morphine Sulfate (morPHINE 2MG SYG) 1 mg Q4HPRN PRN IVP MODERATE PAIN (4-6) 09/06/25 17:00 09/13/25 16:59 09/08/25 14:00 1 MG Ondansetron HCl (zoFRAN 4MG INJ) 4 mg Q6H PRN IV NAUSEA/VOMITING 09/05/25 22:00 10/05/25 21:59 09/06/25 10:26 4 MG Pantoprazole Sodium (PROTonix 40MG TAB) 40 mg DAILY PO 09/06/25 09:00 10/06/25 08:59 09/08/25 09:57 40 MG Pharmacy Profile Note (Lace Assessment) 1 each AD MISC 09/06/25 14:30 09/06/25 14:05 DC Pharmacy Profile Note (Pharmacy Communication) 1 each ONCE MISC 09/05/25 22:00 09/06/25 07:05 DC Sennosides (Senna) 1 tab DAILY PO 09/08/25 09:00 10/08/25 08:59 09/08/25 09:57 1 TAB Sertraline HCl (ZOloft 50 mg tab) 100 mg HS PO 09/06/25 21:00 10/06/25 20:59 09/07/25 20:27 100 MG Vitamin B Complex/ Vit C/Folic Acid (Nephrovite Tablet) 1 cap DAILY PO 09/07/25 09:00 10/07/25 08:59 09/08/25 09:56 1 [facility]: [COPY/PASTE HERE IF NO REPORTS PLEASE DELETE SECTION] Assessment: [Concern for GI bleed anemia Nausea and vomiting CAD Atrial fibrillation Renal Disease ] Plan: [Case discussed with Clear fluids Plan for Bleeding scan given patient's high risk for periprocedural cardiac complications. Please call with questions, concerns, and change in clinical status Thank you for this consult ] CRISTOFER SARABIA Sep 08, 2025 16:02
--- NOTE | 2025-09-08 19:55 | NUR ---
RAD NUCLEAR MEDICINE SPOKE TO NURSE SALGUERO STATED FOR EXAM TO BE ATTEMPTED TOMORROW PATIENT HAD JUST RECEIVED MORPHINE.
[2025-09-09] VITALS (15 sets, daily range): BP systolic 120–163; BP diastolic 64–78; PULSE 79–89; RESP 18–20; TEMP 98.1–99.1; O2SAT 96–99
--- NOTE | 2025-09-09 07:58 | NUR ---
TAKEN TO [facility] FOR GI BLEED SCAN; PER TECH OK TO GIVE MORPHINE PRIOR TO EXAM PATIENT STATING SHE NEED IT BECAUSE OF HER PAIN
--- NOTE | 2025-09-09 08:45 | PN ---
[facility] PROGRESS NOTE Date of Service: Sep 08, 2025 Time of Service: 16:00 SUBJECTIVE: She is a 40 year old female with past medical history of Atrial fibrillation, asthma Diabetes, hypertension, hyperlipidemia, CVA cocaine use, CKD stage 4, peripheral arterial disease to bilateral lower extremities, chronic hypoxemic respiratory failure on home O2 came to the hospital with confusion and dizziness. Recently her mounjaro dose was increased from 5mg to 7.5mg. She took a dose of mounjaro 3 days back. Then she developed nausea, vomiting and constipation. She said that she didn't have a bowel movement for the past 2 days. She is able to eat food but she had nausea, vomiting and she said that she couldn't keep her food down. When she is about to go to her PCP office she developed confusion and dizziness. She fell down and she was brought to the ER. Also she said that she took glipizide 1 or 2 pills before the episode. In the ER she had many episodes of diarrhea, nausea and vomiting. She also complained of abdominal pain in the epigastric region. She has a surgical history of Cholecystectomy and liver mass excision. She is a smoker, drink alcohol and recreational drug user. She stopped smoking cigarette six months ago and stopped drinking beer five months ago. Last cocaine use three weeks ago. In the emergency department, CBC unremarkable, BUN 61, creatinine 2.4, GFR 25, glucose is 40 mg/dL, no urinalysis has been collected or sent to lab, toxicology is positive for opiates. The patient is admitted to the hospital for further management. As she is hypoglycemic we started her on dextrose 50W at 50ml/hr. 09/06/2025: Patient is seen and evaluated in the room 323. She complained of abdominal pain, nausea, vomiting. She has abdominal pain in the epigastric region. Overnight the nurses reported that the patient is unable to tolerate any solid foods but she took liquids and jelly. Also today morning she could not keep her food down. Vital signs are in the normal range. Labs are normal except for hemoglobin 8.2, sodium 135, BUN 62, creatinine 2.5, glucose levels are 92>60>71>73>106>75. Today we increased the dose of D50W to 75ml/hr. Also complained that she is having pain in her left wrist. When we asked about it then she said that she had a fracture of the wrist. She is requesting IV pain meds. So we added IV morphine for moderate pain. We also did a abdominal X -ray to rule out any obstruction and we are waiting for the report. She is also requesting bariatric surgery for weight loss. So we will consult bariatric donaldson sarah. 09/07/2025: Patient is seen and evaluated in the room 323. She said is having mild nausea but her stomach pain got better. She is able to eat her diet. Her vitals are in the normal range. Her labs are normal except for hemoglobin 7.6, phosphate 5.1, sodium 134, BUN is 61, creatinine is 3.2, glucose is 124. As her creatinine level is increased we gave a bolus of lactate ringer at 50 ml/hr. Her X-ray showed non obstructive bowel gas pattern. We also added docusate 100mg BID and senna 1 tab PO for constipation. We may decrease the dosage of glipizide to 0.5 mg on discharge. We also informed bariatric surgery. 09/08/2025: Patient is seen and evaluated in the room 323. She said that she had a bowel movement overnight and she noticed blood in the stool.. She also had chest pain overnight and the pain got relieved after sometime. She is having back pain today. Her vitals are in the normal range. Her labs are normal except for hemoglobin 7.7, sodium 133, BUN is 61, creatinine 2.9. As she complained of blood in the stool. So we consulted GI and they recommended bleeding scan tomorrow. REVIEW OF SYSTEMS CONSTITUTIONAL: Denies fevers, chills, or night sweats. No unintentional weight loss reported. NEUROLOGICAL: Denies headache, amaurosis fugax, motor weakness, sensory deficit, vertigo/spinning sensation, gait abnormalities, or tremors. ENT: No hearing loss, otalgia, otorrhea, rhinitis, rhinorrhea, hoarseness, or sore throat. CARDIOVASCULAR: Denies any exertional angina, dyspnea on exertion, orthopnea, paroxysmal nocturnal dyspnea, palpitations, life-threatening arrhythmias, claudication. PULMONARY: Denies any shortness of breath, cough, phlegm/sputum, hemoptysis, pleuritic chest pain. SLEEP: Denies morning headaches, daytime somnolence or napping. Denies difficulty falling asleep, staying asleep, waking from sleep. Denies knowledge of snoring. GASTROINTESTINAL: hematochezia Denies any type of dysphagia to either liquids or solids. Denies nausea, vomiting, abdominal pain, diarrhea, constipation. pyrosis, early satiety, or changes in stool consistency or caliber. Denies coffee-ground emesis, hematemesis, or melanotic stools. GENITOURINARY: Denies frequency, urgency, nocturia, hematuria or incontinence (Storage/Irritative symptoms.) Low urinary stream, straining to void, urinary intermittency or hesitancy, splitting of the voiding stream, terminal dribbling. ENDOCRINOLOGIC: Denies polyuria, polydipsia, polyphagia or heat/cold intolerances. HEMATOLOGIC: Denies thrombophilia/previous clots, or coagulopathy/bleeding disorders. ONCOLOGIC: Denies personal history of malignancy. DERMATOLOGIC: Denies rashes or pruritus. PSYCHIATRIC: Denies any suicidal or homicidal ideation. Denies hallucinations. PHYSICAL EXAM GENERAL APPEARANCE: The patient is awake, alert, and oriented, in no acute cardiopulmonary distress. NEUROLOGICAL: Cranial nerves II-XII grossly intact. Motor is 5/5 in bilateral upper and lower extremities proximal to distal. No sensory deficits. HEENT: Face is symmetric. Pupils are equal and reactive. Extraocular movements are intact. NECK: Supple. No JVD. No thyromegaly. No submental, submandibular, pre- /postauricular, occipital or supraclavicular lymphadenopathy. CHEST: Normal chest expansion. No Telemetry. LUNGS: Absence of any rales, rhonchi or any wheezing. CARDIOVASCULAR: Regular. S1 and S2 normal. No appreciable rubs, murmurs or gallops. ABDOMEN: Soft, non tender and nondistended. There is no rebound, voluntary g uarding, or rigidity. : Deferred. No Hawley. EXTREMITIES: bruises on her legs. Non-edematous and not cyanotic. No clubbing. Good capillary refill. SKIN: No skin breakdown. Vital Signs (last 8hr) Date Time Temp Pulse Resp B/P (MAP) Pulse Ox O2 Delivery O2 Flow Rate FiO2 09/09/25 08:00 98.4 81 19 126/67 96 Room Air 09/09/25 04:00 98.1 84 18 128/64 97 Room Air LABS: Laboratory: Test 09/09/25 05:53 09/08/25 05:10 09/07/25 12:34 Range/Units Whole Blood Glucose 127 H 70-110 MG/DL White Blood Count 5.7 4.8-10.8 K/uL Red Blood Count 2.71 L 4.00-5.50 MIL/uL Hemoglobin 7.7 L 12.0-16.0 g/dL Hematocrit 26.8 L 36-48 % Mean Corpuscular Volume 98.9 79-99 fL Mean Corpuscular Hemoglobin 28.4 27.0-33.0 pg Mean Corpuscular Hemoglobin Concent 28.7 L 32.0-36.0 g/dL Red Cell Distribution Width 13.8 11.0-15.5 % Platelet Count 187 130-400 K/uL Mean Platelet Volume 10.2 7.5-10.5 fL Nucleated Red Blood Cells 0.0 0.0-0.19 % Sodium Level 133 L 136-145 mmol/L Potassium Level 4.9 3.5-5.1 mmol/L Chloride Level 102 101-111 mmol/L Carbon Dioxide Level 22 21-32 mmol/L Blood Urea Nitrogen 61 H 7-18 mg/dL Creatinine 2.9 H 0.5-1.0 mg/dL Glomerular Filtration Rate Calc 20 >90 mL/min Random Glucose 105 70-105 mg/dL Total Calcium 7.2 L 8.5-10.1 mg/dL Phosphorus Level 4.9 2.5-4.9 mg/dL Magnesium Level 2.10 1.80-2.40 mg/dL Urine Random Creatinine 46.43 30-135 mg/dL Urine Random Urea Nitrogen 365 Not Estab. mg/dL Current Medications Medications (Trade) Dose Ordered Sig/Jai Route PRN Reason Start Time Stop Time Status Last Admin Dose Admin Acetaminophen (TYLenol 325MG TAB) 650 mg Q6H PRN PO TEMPERATURE GREATER THAN 101.5 09/05/25 22:00 10/05/25 21:59 Albuterol Sulfate (Proventil 0.083% 2.5mg/3ml) 2.5 mg [id number] IH 09/06/25 00:00 10/06/25 00:00 09/09/25 07:26 2.5 MG Aspirin (Aspirin 81mg Ec Tab) 81 mg DAILY PO 09/07/25 09:00 10/07/25 08:59 09/08/25 09:57 81 MG Atorvastatin Calcium (LIPItor 40MG) 40 mg HS PO 09/06/25 21:00 10/06/25 20:59 09/08/25 20:48 40 MG Bumetanide (Bumex 1mg Tab) 1 mg BID PO 09/06/25 21:00 10/06/25 20:59 09/08/25 21:26 1 MG Clopidogrel Bisulfate (plaVIX 75MG) 75 mg DAILY PO 09/07/25 09:00 10/07/25 08:59 09/08/25 09:57 75 MG Dextrose 1,000 ml @ 75 mls/hr [id number] IV 09/05/25 21:30 10/05/25 21:29 09/09/25 04:37 75 MLS/HR Dextrose (D50w) 50 ml AD PRN IV HYPOGLYCEMIA PROTOCOL 09/06/25 01:00 10/06/25 00:59 09/06/25 05:27 50 ML Docusate Sodium (COLace 100MG CAP) 100 mg BID PO 09/07/25 21:00 10/07/25 20:59 09/08/25 20:47 100 MG Gabapentin (NEURontin 100 mg CAP) 300 mg BID PO 09/06/25 21:00 10/06/25 20:59 09/08/25 20:47 300 MG Glucagon (Glucagon 1mg Kit) 1 mg AD PRN IM HYPOGLYCEMIA PROTOCOL 09/06/25 01:00 10/06/25 00:59 Heparin Sodium (Porcine) (HEParin 5,000 UNIT VIAL) 5,000 unit BID SQ 09/06/25 09:00 10/06/25 08:59 09/08/25 20:51 5,000 UNIT Hydralazine HCl (APRESOLine 20MG INJ) 10 mg Q6H PRN IV For:SBP above 160;DBP above 90 09/05/25 22:00 10/05/25 21:59 Hydromorphone HCl (DiLAUDid 0.5MG INJ) 0.25 mg Q4H PRN IVP SEVERE PAIN (7-10) 09/05/25 22:00 09/10/25 21:59 09/08/25 05:43 0.25 MG Labetalol HCl (TRANdate 100 MG TABLET) 100 mg BID PO 09/06/25 21:00 10/06/25 20:59 09/08/25 20:48 100 MG Lactulose (Constulose 20gm/ 30ml Udcup) 20 gm BID PRN PO CONSTIPATION 09/05/25 22:00 10/05/25 21:59 Metoprolol Tartrate (loprESSOR) 5 mg Q5M PRN IV AFIB RVR HR >120 BPM 09/05/25 22:30 Metoprolol Tartrate (loprESSOR) 12.5 mg TID PO 09/06/25 09:00 09/06/25 16:06 DC 09/06/25 15:34 12.5 MG Morphine Sulfate (morPHINE 2MG SYG) 1 mg Q4HPRN PRN IVP MODERATE PAIN (4-6) 09/06/25 17:00 09/13/25 16:59 09/09/25 07:49 1 MG Ondansetron HCl (zoFRAN 4MG INJ) 4 mg Q6H PRN IV NAUSEA/VOMITING 09/05/25 22:00 10/05/25 21:59 09/06/25 10:26 4 MG Pantoprazole Sodium (PROTonix 40MG TAB) 40 mg DAILY PO 09/06/25 09:00 10/06/25 08:59 09/08/25 09:57 40 MG Pharmacy Profile Note (Lace Assessment) 1 each AD MISC 09/06/25 14:30 09/06/25 14:05 DC Pharmacy Profile Note (Pharmacy Communication) 1 each ONCE MISC 09/05/25 22:00 09/06/25 07:05 DC Sennosides (Senna) 1 tab DAILY PO 09/08/25 09:00 10/08/25 08:59 09/08/25 09:57 1 TAB Sertraline HCl (ZOloft 50 mg tab) 100 mg HS PO 09/06/25 21:00 10/06/25 20:59 09/08/25 20:48 100 MG Vitamin B Complex/ Vit C/Folic Acid (Nephrovite Tablet) 1 cap DAILY PO 09/07/25 09:00 10/07/25 08:59 09/08/25 09:56 1 CAP DIAGNOSTICS / RADIOLOGY: [ ] ASSESSMENT: Blood in stools Constipation and abdominal pain due to Mounjaro use, POA Hypoglycemia due to glipizide use and constipation, POA Hypertension Hyperlipidemia atrial fibrillation CKD stage 4 Hyponatremia Hyperphosphoremia Low hemoglobin Anxiety Asthma History of CVA CHF with LVEF 55 to 60% by 2D echo on 06/01/2025 BMI of 51. PLAN: Blood in stools She had a episode of bloody stools. So we consulted GI. They recommended bleeding scan which is to be done tomorrow. Constipation and abdominal pain due to Mounjaro use, POA Her mounjaro dose is increased from 5mg to 7.5mg. Then she developed constipation. She also had abdominal pain, nausea and diarrhea. We ordered a KUB and it showed non obstructive bowel gas pattern We started her on a renal non dialysis diet. We also added docusate 100mg BID and senna 1 tab PO for constipation. She is not having any symptoms today. Hypoglycemia due to glipizide use and constipation, POA Her glucose levels are 36>124>88>65>56>132>57 >92>60>71>73>106>75>98>137>124>156>121>127. She is started on dextrose 50W at 50 ml/hr in the ER. we will monitor her blood glucose levels. We may decrease the dosage of glipizide to 0.5 mg on discharge. Today her glucose levels are in the normal range. Hypertension Today her blood pressure is 134/58. Continue bumetanide, labetalol. We will monitor her blood pressure. Hyperlipidemia Continue atorvastatin. atrial fibrillation She is not having any symptoms now. Continue heparin, aspirin and clopidogrel. CKD stage 4 His BUN is 61>62>61>61 and creatinine is 2.4>2.5>3.2>2.9. We gave a bolus of lactate ringer at 50 ml/hr. We will repeat her labs tomorrow. Hyponatremia Her sodium levels are 135>135>134>133. We will repeat her labs tomorrow. Hyperphosphoremia Today her phosphorus level is 4.9. Low hemoglobin Her hemoglobin is 8.9>8.2>7.6>7.7. Her MCV, MCH and RDW are in the normal range. We will repeat her labs tomorrow. BMI of 51. Her BMI is 51. She is requesting bariatric surgery. So we placed a consult for bariatric surgery. DVT prophylaxis with SCD and heparin. GI prophylaxis with pantoprazole. She is on renal non dialysis diet. ATTESTATION BY PHYSICIAN I have seen and examined the patient. I reviewed the documentation, medical decision making, and treatment plan as noted by the resident physician above. I agree with the findings and plan of care. BENJAMIN Maria IV, MD, MD Sep 09, 2025 08:45
[2025-09-09 09:27] LABS: NUCLEATED RED BLOOD CELLS 0.0 % (0.0-0.19); PLATELET COUNT (AUTO) 193.0 K/uL (130-400); RED BLOOD CELL COUNT(AUTO) 2.8 MIL/uL (4.00-5.50); RED CELL DISTRIBUTION WIDTH 13.6 % (11.0-15.5); WHITE BLOOD COUNT (AUTO) 5.7 K/uL (4.8-10.8)
[2025-09-09 09:35] LABS: CREATININE 2.9 mg/dL (0.5-1.0); GLOMERULAR FILTR. RATE CALC 20.0 mL/min (>90); GLUCOSE,RANDOM 116.0 mg/dL (70-105); SODIUM SERUM 133.0 mmol/L (136-145); UREA NITROGEN, BLOOD 60.0 mg/dL (7-18)
--- NOTE | 2025-09-09 09:37 | HMCIMG ---
EXAM: [facility] GI Bleeding Scan. CLINICAL HISTORY: 40 YEAR OLD FEMALE INPATIENT STAT PATIENT HX: WEAKNESS ORDER DX: ANEMIA [id number] 09:19:51 TECHNIQUE: Dynamic anterior images of the abdomen and pelvis were obtained during the time of radio-labeled autologous red blood cells. Images were acquired for 60 minutes. RADIOPHARMACEUTICAL: 25 mci TcMDP COMPARISON: None provided. FINDINGS: STOMACH AND BOWEL: No focal area of abnormally increased radiotracer meet criteria for active GI bleeding. OTHER VISCERA: Physiologic activity in the liver, vasculature, and bladder noted. IMPRESSION: No active GI bleeding localized. /Mcdonough
--- NOTE | 2025-09-09 15:25 | PN ---
[facility] PROGRESS NOTE Date of Service: Sep 09, 2025 Time of Service: 15:21 SUBJECTIVE: She is a 40 year old female with past medical history of Atrial fibrillation, asthma Diabetes, hypertension, hyperlipidemia, CVA cocaine use, CKD stage 4, peripheral arterial disease to bilateral lower extremities, chronic hypoxemic respiratory failure on home O2 came to the hospital with confusion and dizziness. Recently her mounjaro dose was increased from 5mg to 7.5mg. She took a dose of mounjaro 3 days back. Then she developed nausea, vomiting and constipation. She said that she didn't have a bowel movement for the past 2 days. She is able to eat food but she had nausea, vomiting and she said that she couldn't keep her food down. When she is about to go to her PCP office she developed confusion and dizziness. She fell down and she was brought to the ER. Also she said that she took glipizide 1 or 2 pills before the episode. In the ER she had many episodes of diarrhea, nausea and vomiting. She also complained of abdominal pain in the epigastric region. She has a surgical history of Cholecystectomy and liver mass excision. She is a smoker, drink alcohol and recreational drug user. She stopped smoking cigarette six months ago and stopped drinking beer five months ago. Last cocaine use three weeks ago. In the emergency department, CBC unremarkable, BUN 61, creatinine 2.4, GFR 25, glucose is 40 mg/dL, no urinalysis has been collected or sent to lab, toxicology is positive for opiates. The patient is admitted to the hospital for further management. As she is hypoglycemic we started her on dextrose 50W at 50ml/hr. 09/06/2025: Patient is seen and evaluated in the room 323. She complained of abdominal pain, nausea, vomiting. She has abdominal pain in the epigastric region. Overnight the nurses reported that the patient is unable to tolerate any solid foods but she took liquids and jelly. Also today morning she could not keep her food down. Vital signs are in the normal range. Labs are normal except for hemoglobin 8.2, sodium 135, BUN 62, creatinine 2.5, glucose levels are 92>60>71>73>106>75. Today we increased the dose of D50W to 75ml/hr. Also complained that she is having pain in her left wrist. When we asked about it then she said that she had a fracture of the wrist. She is requesting IV pain meds. So we added IV morphine for moderate pain. We also did a abdominal X -ray to rule out any obstruction and we are waiting for the report. She is also requesting bariatric surgery for weight loss. So we will consult bariatric donaldson sarah. 09/07/2025: Patient is seen and evaluated in the room 323. She said is having mild nausea but her stomach pain got better. She is able to eat her diet. Her vitals are in the normal range. Her labs are normal except for hemoglobin 7.6, phosphate 5.1, sodium 134, BUN is 61, creatinine is 3.2, glucose is 124. As her creatinine level is increased we gave a bolus of lactate ringer at 50 ml/hr. Her X-ray showed non obstructive bowel gas pattern. We also added docusate 100mg BID and senna 1 tab PO for constipation. We may decrease the dosage of glipizide to 0.5 mg on discharge. We also informed bariatric surgery. 09/08/2025: Patient is seen and evaluated in the room 323. She said that she had a bowel movement overnight and she noticed blood in the stool.. She also had chest pain overnight and the pain got relieved after sometime. She is having back pain today. Her vitals are in the normal range. Her labs are normal except for hemoglobin 7.7, sodium 133, BUN is 61, creatinine 2.9. As she complained of blood in the stool. So we consulted GI and they recommended bleeding scan tomorrow. 09/09/2025: Patient is seen and evaluated in the room 323. GI canceled her EGD and instead did a nuclear GI bleeding scan. It showed that there was no active GI bleeding localized. They place the patient on clear liquid diet so that thinking they might undergo colonoscopy. No new recommendations as of now. Further treatment based on their recommendations. REVIEW OF SYSTEMS CONSTITUTIONAL: Denies fevers, chills, or night sweats. No unintentional weight loss reported. NEUROLOGICAL: Denies headache, amaurosis fugax, motor weakness, sensory deficit, vertigo/spinning sensation, gait abnormalities, or tremors. ENT: No hearing loss, otalgia, otorrhea, rhinitis, rhinorrhea, hoarseness, or sore throat. CARDIOVASCULAR: Denies any exertional angina, dyspnea on exertion, orthopnea, paroxysmal nocturnal dyspnea, palpitations, life-threatening arrhythmias, claudication. PULMONARY: Denies any shortness of breath, cough, phlegm/sputum, hemoptysis, pleuritic chest pain. SLEEP: Denies morning headaches, daytime somnolence or napping. Denies difficulty falling asleep, staying asleep, waking from sleep. Denies knowledge of snoring. GASTROINTESTINAL: hematochezia Denies any type of dysphagia to either liquids or solids. Denies nausea, vomiting, abdominal pain, diarrhea, constipation. pyrosis, early satiety, or changes in stool consistency or caliber. Denies coffee-ground emesis, hematemesis, or melanotic stools. GENITOURINARY: Denies frequency, urgency, nocturia, hematuria or incontinence (Storage/Irritative symptoms.) Low urinary stream, straining to void, urinary intermittency or hesitancy, splitting of the voiding stream, terminal dribbling. ENDOCRINOLOGIC: Denies polyuria, polydipsia, polyphagia or heat/cold intolerances. HEMATOLOGIC: Denies thrombophilia/previous clots, or coagulopathy/bleeding disorders. ONCOLOGIC: Denies personal history of malignancy. DERMATOLOGIC: Denies rashes or pruritus. PSYCHIATRIC: Denies any suicidal or homicidal ideation. Denies hallucinations. PHYSICAL EXAM GENERAL APPEARANCE: The patient is awake, alert, and oriented, in no acute cardiopulmonary distress. NEUROLOGICAL: Cranial nerves II-XII grossly intact. Motor is 5/5 in bilateral upper and lower extremities proximal to distal. No sensory deficits. HEENT: Face is symmetric. Pupils are equal and reactive. Extraocular movements are intact. NECK: Supple. No JVD. No thyromegaly. No submental, submandibular, pre- /postauricular, occipital or supraclavicular lymphadenopathy. CHEST: Normal chest expansion. No Telemetry. LUNGS: Absence of any rales, rhonchi or any wheezing. CARDIOVASCULAR: Regular. S1 and S2 normal. No appreciable rubs, murmurs or gallops. ABDOMEN: Soft, non tender and nondistended. There is no rebound, voluntary guarding, or rigidity. : Deferred. No Hawley. EXTREMITIES: bruises on her legs. Non-edematous and not cyanotic. No clubbing. Good capillary refill. SKIN: No skin breakdown. Vital Signs (last 8hr) Date Time Temp Pulse Resp B/P (MAP) Pulse Ox O2 Delivery O2 Flow Rate FiO2 09/09/25 11:47 98.4 80 20 156/77 96 Room Air 09/09/25 11:45 85 18 N/A Room Air 09/09/25 11:34 84 20 09/09/25 11:23 96 Room Air* 0 21 09/09/25 08:10 84 18 N/A Room Air 09/09/25 08:00 98.4 81 19 126/67 96 Room Air 09/09/25 07:26 81 20 LABS: Laboratory: Test 09/09/25 11:16 09/09/25 09:18 09/08/25 05:10 Range/Units Whole Blood Glucose 145 H 70-110 MG/DL White Blood Count 5.7 4.8-10.8 K/uL Red Blood Count 2.80 L 4.00-5.50 MIL/uL Hemoglobin 8.1 L 12.0-16.0 g/dL Hematocrit 25.8 L 36-48 % Mean Corpuscular Volume 92.1 79-99 fL Mean Corpuscular Hemoglobin 28.9 27.0-33.0 pg Mean Corpuscular Hemoglobin Concent 31.4 L 32.0-36.0 g/dL Red Cell Distribution Width 13.6 11.0-15.5 % Platelet Count 193 130-400 K/uL Mean Platelet Volume 10.1 7.5-10.5 fL Nucleated Red Blood Cells 0.0 0.0-0.19 % Sodium Level 133 L 136-145 mmol/L Potassium Level 4.8 3.5-5.1 mmol/L Chloride Level 98 L 101-111 mmol/L Carbon Dioxide Level 24 21-32 mmol/L Blood Urea Nitrogen 60 H 7-18 mg/dL Creatinine 2.9 H 0.5-1.0 mg/dL Glomerular Filtration Rate Calc 20 >90 mL/min Random Glucose 116 H 70-105 mg/dL Total Calcium 7.9 L 8.5-10.1 mg/dL Phosphorus Level 4.9 2.5-4.9 mg/dL Magnesium Level 2.10 1.80-2.40 mg/dL Current Medications Medications (Trade) Dose Ordered Sig/Jai Route PRN Reason Start Time Stop Time Status Last Admin Dose Admin Acetaminophen (TYLenol 325MG TAB) 650 mg Q6H PRN PO TEMPERATURE GREATER THAN 101.5 09/05/25 22:00 10/05/25 21:59 Albuterol Sulfate (Proventil 0.083% 2.5mg/3ml) 2.5 mg [id number] IH 09/06/25 00:00 10/06/25 00:00 09/09/25 11:34 2.5 MG Aspirin (Aspirin 81mg Ec Tab) 81 mg DAILY PO 09/07/25 09:00 10/07/25 08:59 09/09/25 09:56 81 MG Atorvastatin Calcium (LIPItor 40MG) 40 mg HS PO 09/06/25 21:00 10/06/25 20:59 09/08/25 20:48 40 MG Bumetanide (Bumex 1mg Tab) 1 mg BID PO 09/06/25 21:00 10/06/25 20:59 09/09/25 09:57 1 MG Clopidogrel Bisulfate (plaVIX 75MG) 75 mg DAILY PO 09/07/25 09:00 10/07/25 08:59 09/09/25 09:56 75 MG Dextrose 1,000 ml @ 75 mls/hr [id number] IV 09/05/25 21:30 10/05/25 21:29 09/09/25 04:37 75 MLS/HR Dextrose (D50w) 50 ml AD PRN IV HYPOGLYCEMIA PROTOCOL 09/06/25 01:00 10/06/25 00:59 09/06/25 05:27 50 ML Docusate Sodium (COLace 100MG CAP) 100 mg BID PO 09/07/25 21:00 10/07/25 20:59 09/09/25 09:57 100 MG Gabapentin (NEURontin 100 mg CAP) 300 mg BID PO 09/06/25 21:00 10/06/25 20:59 09/09/25 09:57 300 MG Glucagon (Glucagon 1mg Kit) 1 mg AD PRN IM HYPOGLYCEMIA PROTOCOL 09/06/25 01:00 10/06/25 00:59 Heparin Sodium (Porcine) (HEParin 5,000 UNIT VIAL) 5,000 unit BID SQ 09/06/25 09:00 10/06/25 08:59 09/09/25 10:03 5,000 UNIT Hydralazine HCl (APRESOLine 20MG INJ) 10 mg Q6H PRN IV For:SBP above 160;DBP above 90 09/05/25 22:00 10/05/25 21:59 Hydromorphone HCl (DiLAUDid 0.5MG INJ) 0.25 mg Q4H PRN IVP SEVERE PAIN (7-10) 09/05/25 22:00 09/10/25 21:59 09/08/25 05:43 0.25 MG Labetalol HCl (TRANdate 100 MG TABLET) 100 mg BID PO 09/06/25 21:00 10/06/25 20:59 09/09/25 09:56 100 MG Lactulose (Constulose 20gm/ 30ml Udcup) 20 gm BID PRN PO CONSTIPATION 09/05/25 22:00 10/05/25 21:59 Metoprolol Tartrate (loprESSOR) 5 mg Q5M PRN IV AFIB RVR HR >120 BPM 09/05/25 22:30 Metoprolol Tartrate (loprESSOR) 12.5 mg TID PO 09/06/25 09:00 09/06/25 16:06 DC 09/06/25 15:34 12.5 MG Morphine Sulfate (morPHINE 2MG SYG) 1 mg Q4HPRN PRN IVP MODERATE PAIN (4-6) 09/06/25 17:00 09/13/25 16:59 09/09/25 13:39 1 MG Ondansetron HCl (zoFRAN 4MG INJ) 4 mg Q6H PRN IV NAUSEA/VOMITING 09/05/25 22:00 10/05/25 21:59 09/06/25 10:26 4 MG Pantoprazole Sodium (PROTonix 40MG TAB) 40 mg DAILY PO 09/06/25 09:00 10/06/25 08:59 09/09/25 09:56 40 MG Pharmacy Profile Note (Lace Assessment) 1 each AD MIS 09/06/25 14:30 09/06/25 14:05 DC Pharmacy Profile Note (Pharmacy Communication) 1 each ONCE MISC 09/05/25 22:00 09/06/25 07:05 DC Sennosides (Senna) 1 tab DAILY PO 09/08/25 09:00 10/08/25 08:59 09/09/25 09:56 1 TAB Sertraline HCl (ZOloft 50 mg tab) 100 mg HS PO 09/06/25 21:00 10/06/25 20:59 09/08/25 20:48 100 MG Vitamin B Complex/ Vit C/Folic Acid (Nephrovite Tablet) 1 cap DAILY PO 09/07/25 09:00 10/07/25 08:59 09/09/25 09:56 1 [facility] / [facility]OLOG[facility]: [facility] [address] [place] [address] IMAGING REPORT Signed PATIENT: ALBERTO LEIGH MR#: [id number] : 1985 SEX: F AGE: 40 LOCATION: [facility] ORDER 180 STATUS: ADM IN REPORT#: [id number] SERVICE [id number] REASON: ANEMIA ORDERING PHYSICIAN: CRISTOFER SARABIA PROCEDURE: GIBLEED - NM GI BLOOD LOSS IMAG EXAM: NM GI Bleeding Scan. CLINICAL HISTORY: 40 YEAR OLD FEMALE INPATIENT STAT PATIENT HX: WEAKNESS ORDER DX: ANEMIA Tc99m 09:19:51 TECHNIQUE: Dynamic anterior images of the abdomen and pelvis were obtained during the time of radio-labeled autologous red blood cells. Images were acquired for 60 minutes. RADIOPHARMACEUTICAL: 25 mci TcMDP COMPARISON: None provided. FINDINGS: STOMACH AND BOWEL: No focal area of abnormally increased radiotracer meet criteria for active GI bleeding. OTHER VISCERA: Physiologic activity in the liver, vasculature, and bladder noted. IMPRESSION: No active GI bleeding localized. /[place] DICTATED BY: TRENTON HATHAWAY MD DATE: 09/09/25 103 ELECTRONICALLY SIGNED BY: TRENTON HATHAWAY MD DATE: 09/09/25 103 ASSESSMENT: Blood in stools Constipation and abdominal pain due to Mounjaro use, POA Hypoglycemia due to glipizide use and constipation, POA Hypertension Hyperlipidemia atrial fibrillation CKD stage 4 Hyponatremia Hyperphosphoremia Low hemoglobin Anxiety Asthma History of CVA CHF with LVEF 55 to 60% by 2D echo on 06/01/2025 BMI of 51. PLAN: Blood in stools She had a episode of bloody stools. So we consulted GI. They recommended bleeding scan which was performed and it showed no active GI bleeding localized No new recommendations today, further treatment based on their recommendations Constipation and abdominal pain due to Mounjaro use, POA Her mounjaro dose is increased from 5mg to 7.5mg. Then she developed constipation. She also had abdominal pain, nausea and diarrhea. We ordered a KUB and it showed non obstructive bowel gas pattern We started her on a renal non dialysis diet. We also added docusate 100mg BID and senna 1 tab PO for constipation. She is not having any symptoms today. Hypoglycemia due to glipizide use and constipation, POA Her glucose levels are 36>124>88>65>56>132>57>92>60>71>73>106>75>98>137>124>156>121>127. She is started on dextrose 50W at 50 ml/hr in the ER. we will monitor her blood glucose levels. We may decrease the dosage of glipizide to 0.5 mg on discharge. Today her glucose levels are in the normal range. Hypertension Today her blood pressure is 134/58. Continue bumetanide, labetalol. We will monitor her blood pressure. Hyperlipidemia Continue atorvastatin. atrial fibrillation She is not having any symptoms now. Continue heparin, aspirin and clopidogrel. CKD stage 4 His BUN is 61>62>61>61 and creatinine is 2.4>2.5>3.2>2.9. We gave a bolus of lactate ringer at 50 ml/hr. We will repeat her labs tomorrow. Hyponatremia Her sodium levels are 135>135>134>133. We will repeat her labs tomorrow. Hyperphosphoremia Today her phosphorus level is 4.9. Low hemoglobin Her hemoglobin is 8.9>8.2>7.6>7.7. Her MCV, MCH and RDW are in the normal range. We will repeat her labs tomorrow. BMI of 51. Her BMI is 51. She is requesting bariatric surgery. So we placed a consult for bariatric surgery. DVT prophylaxis with SCD and heparin. GI prophylaxis with pantoprazole. She is on renal non dialysis diet. ATTESTATION BY PHYSICIAN I have seen and examined the patient. I reviewed the documentation, medical decision making, and treatment plan as noted by the resident physician above. I agree with the findings and plan of care. JOAQUIM COLÓN MD, ABHINAV MD Sep 09, 2025 15:25
[2025-09-10] VITALS (13 sets, daily range): BP systolic 124–160; BP diastolic 66–89; PULSE 75–85; RESP 18–20; TEMP 97.8–98.6; O2SAT 95–98
[2025-09-10 06:03] LABS: NUCLEATED RED BLOOD CELLS 0.0 % (0.0-0.19); PLATELET COUNT (AUTO) 190.0 K/uL (130-400); RED BLOOD CELL COUNT(AUTO) 2.72 MIL/uL (4.00-5.50); RED CELL DISTRIBUTION WIDTH 13.7 % (11.0-15.5); WHITE BLOOD COUNT (AUTO) 5.6 K/uL (4.8-10.8)
[2025-09-10 06:30] LABS: ASPARTATE AMINOTRANSFERASE 19.0 U/L (10-37); CREATININE 2.8 mg/dL (0.5-1.0); GLOMERULAR FILTR. RATE CALC 21.0 mL/min (>90); GLUCOSE,RANDOM 110.0 mg/dL (70-105); SODIUM SERUM 133.0 mmol/L (136-145); TOTAL PROTEIN, SERUM 6.1 g/dL (6.0-8.3); UREA NITROGEN, BLOOD 63.0 mg/dL (7-18)
[2025-09-10 08:11] LABS: % IRON SATURATION 12.8 % (22-44); IRON, SERUM 31.0 mcg/dL (50-170)
[2025-09-10] MEDS: SODIUM BICARBONATE 650 MG TAB PO SCH (14:27)
--- NOTE | 2025-09-10 16:20 | NUR ---
INFORMED DR MOTA THAT PATIENT STATED HAD 7 LOOSE BM EPISODES TODAY. INSTRUCTED PATIENT TO COLLECT SPECIMEN SO WE CAN SEE BM CONSISTENCY
--- NOTE | 2025-09-10 17:47 | NUR ---
PCT PASSING BY ROOM ANSWERED CALL LIGHT AND PATIENT REQUESTING PAIN MED MORPHINE "FOR OVER AN HOUR". PATIENT TOLD HER "SHE WENT TO THE BATHROOM, SLID AND GRABBED ONTO RAILING AND HURT HER RIGHT ARM". INFORMED DR CEE
[2025-09-10] MEDS: LOPERAMIDE HCL 2 MG CAP PO ONE (17:50)
--- NOTE | 2025-09-10 18:00 | NUR ---
PROVIDED PATIENT WITH URINE CUP FOR URINE COLLECTION
--- NOTE | 2025-09-10 19:52 | PN ---
[facility] PROGRESS NOTE Date of Service: Sep 10, 2025 Time of Service: 19:13 SUBJECTIVE: She is a 40 year old female with past medical history of Atrial fibrillation, asthma Diabetes, hypertension, hyperlipidemia, CVA cocaine use, CKD stage 4, peripheral arterial disease to bilateral lower extremities, chronic hypoxemic respiratory failure on home O2 came to the hospital with confusion and dizziness. Recently her mounjaro dose was increased from 5mg to 7.5mg. She took a dose of mounjaro 3 days back. Then she developed nausea, vomiting and constipation. She said that she didn't have a bowel movement for the past 2 days. She is able to eat food but she had nausea, vomiting and she said that she couldn't keep her food down. When she is about to go to her PCP office she developed confusion and dizziness. She fell down and she was brought to the ER. Also she said that she took glipizide 1 or 2 pills before the episode. In the ER she had many episodes of diarrhea, nausea and vomiting. She also complained of abdominal pain in the epigastric region. She has a surgical history of Cholecystectomy and liver mass excision. She is a smoker, drink alcohol and recreational drug user. She stopped smoking cigarette six months ago and stopped drinking beer five months ago. Last cocaine use three weeks ago. In the emergency department, CBC unremarkable, BUN 61, creatinine 2.4, GFR 25, glucose is 40 mg/dL, no urinalysis has been collected or sent to lab, toxicology is positive for opiates. The patient is admitted to the hospital for further management. As she is hypoglycemic we started her on dextrose 50W at 50ml/hr. 09/06/2025: Patient is seen and evaluated in the room 323. She complained of abdominal pain, nausea, vomiting. She has abdominal pain in the epigastric region. Overnight the nurses reported that the patient is unable to tolerate any solid foods but she took liquids and jelly. Also today morning she could not keep her food down. Vital signs are in the normal range. Labs are normal except for hemoglobin 8.2, sodium 135, BUN 62, creatinine 2.5, glucose levels are 92>60>71>73>106>75. Today we increased the dose of D50W to 75ml/hr. Also complained that she is having pain in her left wrist. When we asked about it then she said that she had a fracture of the wrist. She is requesting IV pain meds. So we added IV morphine for moderate pain. We also did a abdominal X -ray to rule out any obstruction and we are waiting for the report. She is also requesting bariatric surgery for weight loss. So we will consult bariatric donaldson sarah. 09/07/2025: Patient is seen and evaluated in the room 323. She said is having mild nausea but her stomach pain got better. She is able to eat her diet. Her vitals are in the normal range. Her labs are normal except for hemoglobin 7.6, phosphate 5.1, sodium 134, BUN is 61, creatinine is 3.2, glucose is 124. As her creatinine level is increased we gave a bolus of lactate ringer at 50 ml/hr. Her X-ray showed non obstructive bowel gas pattern. We also added docusate 100mg BID and senna 1 tab PO for constipation. We may decrease the dosage of glipizide to 0.5 mg on discharge. We also informed bariatric surgery. 09/08/2025: Patient is seen and evaluated in the room 323. She said that she had a bowel movement overnight and she noticed blood in the stool.. She also had chest pain overnight and the pain got relieved after sometime. She is having back pain today. Her vitals are in the normal range. Her labs are normal except for hemoglobin 7.7, sodium 133, BUN is 61, creatinine 2.9. As she complained of blood in the stool. So we consulted GI and they recommended bleeding scan tomorrow. 09/09/2025: Patient is seen and evaluated in the room 323. GI canceled her EGD and instead did a nuclear GI bleeding scan. It showed that there was no active GI bleeding localized. They place the patient on clear liquid diet so that thinking they might undergo colonoscopy. No new recommendations as of now. Further treatment based on their recommendations. 09/10/2025: Patient is seen and evaluated in the room 323. She complained of back pain. Her vitals are in the normal range. Her labs are normal except for hemoglobin 7.7, sodium 133, chloride 100, iron 31, TIBC is 242, % saturation is 12.8. We ordered a urine protein/creatinine ratio.We stopped D5W and consulted endocrinology for adjustment of her medications. We are waiting for the GI recommendations. In the evening she had 7 episodes of diarrhea. So we stopped the laxatives and added imodium. Today we also resumed her sodium bicarbonate tablets. REVIEW OF SYSTEMS CONSTITUTIONAL: Denies fevers, chills, or night sweats. No unintentional weight loss reported. NEUROLOGICAL: Denies headache, amaurosis fugax, motor weakness, sensory deficit, vertigo/spinning sensation, gait abnormalities, or tremors. ENT: No hearing loss, otalgia, otorrhea, rhinitis, rhinorrhea, hoarseness, or sore throat. CARDIOVASCULAR: Denies any exertional angina, dyspnea on exertion, orthopnea, paroxysmal nocturnal dyspnea, palpitations, life-threatening arrhythmias, claudication. PULMONARY: Denies any shortness of breath, cough, phlegm/sputum, hemoptysis, pleuritic chest pain. SLEEP: Denies morning headaches, daytime somnolence or napping. Denies difficulty falling asleep, staying asleep, waking from sleep. Denies knowledge of snoring. GASTROINTESTINAL: hematochezia, diarrhea Denies any type of dysphagia to either liquids or solids. Denies nausea, vomiting, abdominal pain, constipation. pyrosis, early satiety, or changes in stool consistency or caliber. Denies coffee-ground emesis, hematemesis, or melanotic stools. GENITOURINARY: Denies frequency, urgency, nocturia, hematuria or incontinence (Storage/Irritative symptoms.) Low urinary stream, straining to void, urinary intermittency or hesitancy, splitting of the voiding stream, terminal dribbling. ENDOCRINOLOGIC: Denies polyuria, polydipsia, polyphagia or heat/cold intolerances. HEMATOLOGIC: Denies thrombophilia/previous clots, or coagulopathy/bleeding disorders. ONCOLOGIC: Denies personal history of malignancy. DERMATOLOGIC: Denies rashes or pruritus. PSYCHIATRIC: Denies any suicidal or homicidal ideation. Denies hallucinations. PHYSICAL EXAM GENERAL APPEARANCE: The patient is awake, alert, and oriented, in no acute cardiopulmonary distress. NEUROLOGICAL: Cranial nerves II-XII grossly intact. Motor is 5/5 in bilateral upper and lower extremities proximal to distal. No sensory deficits. HEENT: Face is symmetric. Pupils are equal and reactive. Extraocular movements are intact. NECK: Supple. No JVD. No thyromegaly. No submental, submandibular, pre- /postauricular, occipital or supraclavicular lymphadenopathy. CHEST: Normal chest expansion. No Telemetry. LUNGS: Absence of any rales, rhonchi or any wheezing. CARDIOVASCULAR: Regular. S1 and S2 normal. No appreciable rubs, murmurs or gallops. ABDOMEN: Soft, non tender and nondistended. There is no rebound, voluntary guarding, or rigidity. : Deferred. No Hawley. EXTREMITIES: bruises on her legs. Non-edematous and not cyanotic. No clubbing. Good capillary refill. SKIN: No skin breakdown. Vital Signs (last 8hr) Date Time Temp Pulse Resp B/P (MAP) Pulse Ox O2 Delivery O2 Flow Rate FiO2 09/10/25 16:00 97.9 78 19 160/72 99 Room Air 09/10/25 12:06 85 20 09/10/25 12:00 98.2 78 20 124/73 98 Room Air LABS: Laboratory: Test 09/10/25 16:29 09/10/25 05:58 Range/Units Whole Blood Glucose 94 70-110 MG/DL White Blood Count 5.6 4.8-10.8 K/uL Red Blood Count 2.72 L 4.00-5.50 MIL/uL Hemoglobin 7.7 L 12.0-16.0 g/dL Hematocrit 24.8 L 36-48 % Mean Corpuscular Volume 91.2 79-99 fL Mean Corpuscular Hemoglobin 28.3 27.0-33.0 pg Mean Corpuscular Hemoglobin Concent 31.0 L 32.0-36.0 g/dL Red Cell Distribution Width 13.7 11.0-15.5 % Platelet Count 190 130-400 K/uL Mean Platelet Volume 10.1 7.5-10.5 fL Nucleated Red Blood Cells 0.0 0.0-0.19 % Sodium Level 133 L 136-145 mmol/L Potassium Level 4.6 3.5-5.1 mmol/L Chloride Level 100 L 101-111 mmol/L Carbon Dioxide Level 22 21-32 mmol/L Blood Urea Nitrogen 63 H 7-18 mg/dL Creatinine 2.8 H 0.5-1.0 mg/dL Glomerular Filtration Rate Calc 21 >90 mL/min Random Glucose 110 H 70-105 mg/dL Total Calcium 7.7 L 8.5-10.1 mg/dL Iron Level 31 #L 50-170 mcg/dL Total Iron Binding Capacity 242 L 250-450 mcg/dL Percent Iron Saturation 12.8 L 22-44 % Total Bilirubin 0.3 0.2-1.0 mg/dL Direct Bilirubin 0.1 0.0-0.3 mg/dL Aspartate Amino Transf (AST/SGOT) 19 10-37 U/L Alanine Aminotransferase (ALT/SGPT) 24 12-78 U/L Alkaline Phosphatase 122 50-136 U/L Total Protein 6.1 6.0-8.3 g/dL Albumin 2.7 L 3.5-5.0 g/dL Current Medications Medications (Trade) Dose Ordered Sig/Jai Route PRN Reason Start Time Stop Time Status Last Admin Dose Admin Acetaminophen (TYLenol 325MG TAB) 650 mg Q6H PRN PO TEMPERATURE GREATER THAN 101.5 09/05/25 22:00 10/05/25 21:59 Albuterol Sulfate (Proventil 0.083% 2.5mg/3ml) 2.5 mg [id number] IH 09/06/25 00:00 10/06/25 00:00 09/10/25 11:28 2.5 MG Aspirin (Aspirin 81mg Ec Tab) 81 mg DAILY PO 09/07/25 09:00 10/07/25 08:59 09/10/25 09:04 81 MG Atorvastatin Calcium (LIPItor 40MG) 40 mg HS PO 09/06/25 21:00 10/06/25 20:59 09/09/25 20:54 40 MG Bumetanide (Bumex 1mg Tab) 1 mg BID PO 09/06/25 21:00 10/06/25 20:59 09/10/25 09:04 1 MG Clopidogrel Bisulfate (plaVIX 75MG) 75 mg DAILY PO 09/07/25 09:00 10/07/25 08:59 09/10/25 08:43 75 MG Dextrose 1,000 ml @ 75 mls/hr [id number] IV 09/05/25 21:30 09/10/25 14:44 DC 09/09/25 18:27 75 MLS/HR Dextrose (D50w) 50 ml AD PRN IV HYPOGLYCEMIA PROTOCOL 09/06/25 01:00 10/06/25 00:59 09/06/25 05:27 50 ML Docusate Sodium (COLace 100MG CAP) 100 mg BID PO 09/07/25 21:00 09/10/25 16:24 DC 09/10/25 08:43 100 MG Gabapentin (NEURontin 100 mg CAP) 300 mg BID PO 09/06/25 21:00 10/06/25 20:59 09/10/25 08:43 300 MG Glucagon (Glucagon 1mg Kit) 1 mg AD PRN IM HYPOGLYCEMIA PROTOCOL 09/06/25 01:00 10/06/25 00:59 Heparin Sodium (Porcine) (HEParin 5,000 UNIT VIAL) 5,000 unit BID SQ 09/06/25 09:00 10/06/25 08:59 09/10/25 08:52 5,000 UNIT Hydralazine HCl (APRESOLine 20MG INJ) 10 mg Q6H PRN IV For:SBP above 160;DBP above 90 09/05/25 22:00 10/05/25 21:59 Hydromorphone HCl (DiLAUDid 0.5MG INJ) 0.25 mg Q4H PRN IVP SEVERE PAIN (7-10) 09/05/25 22:00 09/10/25 21:59 09/08/25 05:43 0.25 MG Labetalol HCl (TRANdate 100 MG TABLET) 100 mg BID PO 09/06/25 21:00 10/06/25 20:59 09/10/25 08:43 100 MG Lactulose (Constulose 20gm/ 30ml Udcup) 20 gm BID PRN PO CONSTIPATION 09/05/25 22:00 09/10/25 16:24 DC Metoprolol Tartrate (loprESSOR) 5 mg Q5M PRN IV AFIB RVR HR >120 BPM 09/05/25 22:30 Metoprolol Tartrate (loprESSOR) 12.5 mg TID PO 09/06/25 09:00 09/06/25 16:06 DC 09/06/25 15:34 12.5 MG Morphine Sulfate (morPHINE 2MG SYG) 1 mg Q4HPRN PRN IVP MODERATE PAIN (4-6) 09/06/25 17:00 09/13/25 16:59 09/10/25 17:51 1 MG Ondansetron HCl (zoFRAN 4MG INJ) 4 mg Q6H PRN IV NAUSEA/VOMITING 09/05/25 22:00 10/05/25 21:59 09/06/25 10:26 4 MG Pantoprazole Sodium (PROTonix 40MG TAB) 40 mg DAILY PO 09/06/25 09:00 10/06/25 08:59 09/10/25 08:43 40 MG Pharmacy Profile Note (Lace Assessment) 1 each AD MISC 09/06/25 14:30 09/06/25 14:05 DC Pharmacy Profile Note (Pharmacy Communication) 1 each ONCE MISC 09/05/25 22:00 09/06/25 07:05 DC Sennosides (Senna) 1 tab DAILY PO 09/08/25 09:00 09/10/25 16:24 DC 09/10/25 08:44 1 TAB Sertraline HCl (ZOloft 50 mg tab) 100 mg HS PO 09/06/25 21:00 10/06/25 20:59 09/09/25 20:54 100 MG Sodium Bicarbonate (Sodium Bicarbonate) 1,300 mg TID PO 09/10/25 14:00 10/10/25 13:59 09/10/25 14:27 1,300 MG Vitamin B Complex/ Vit C/Folic Acid (Nephrovite Tablet) 1 cap DAILY PO 09/07/25 09:00 10/07/25 08:59 09/10/25 08:42 1 CAP DIAGNOSTICS / RADIOLOGY: ASSESSMENT: Blood in stools Constipation and abdominal pain due to Mounjaro use, POA Hypoglycemia due to glipizide use and constipation, POA Hypertension Hyperlipidemia atrial fibrillation CKD stage 4 Hyponatremia Hyperphosphoremia Low hemoglobin Anxiety Asthma History of CVA CHF with LVEF 55 to 60% by 2D echo on 06/01/2025 BMI of 51. PLAN: Blood in stools She had a episode of bloody stools. So we consulted GI. They recommended bleeding scan which was performed and it showed no active GI bleeding localized No new recommendations today, further treatment based on their recommendations Constipation and abdominal pain due to Mounjaro use, POA Her mounjaro dose is increased from 5mg to 7.5mg. Then she developed constipation. She also had abdominal pain, nausea and diarrhea. We ordered a KUB and it showed non obstructive bowel gas pattern We started her on a renal non dialysis diet. We also added docusate 100mg BID and senna 1 tab PO for constipation. She had 7 episodes of diarrhea so we stopped the laxatives and added imodium. Hypoglycemia due to glipizide use and constipation, POA Her glucose levels are 36>124>88>65>56>132>57>92>60>71>73>106>75>98>137>124>156>121>127>114. She is started on dextrose 50W at 50 ml/hr in the ER. we will monitor her blood glucose levels. We may decrease the dosage of glipizide to 0.5 mg on discharge. Today her glucose levels are in the normal range. We stopped D50W. Consulted endocrinology for adjustment of her medications. Hypertension Today her blood pressure is 124/73. Continue bumetanide, labetalol. We will monitor her blood pressure. Hyperlipidemia Continue atorvastatin. atrial fibrillation She is not having any symptoms now. Continue heparin, aspirin and clopidogrel. CKD stage 4 His BUN is 61>62>61>61>63 and creatinine is 2.4>2.5>3.2>2.9>2.8. We gave a bolus of lactate ringer at 50 ml/hr. We will repeat her labs tomorrow. Hyponatremia Her sodium levels are 135>135>134>133>133>133. We added sodium bicarbonate tablets. We will repeat her labs tomorrow. Hyperphosphoremia Her recent phosphorus level is 4.9. Low hemoglobin Her hemoglobin is 8.9>8.2>7.6>7.7>8.1>7.7. Her MCV, MCH and RDW are in the normal range. Iron is 31, TIBC is 242, % saturation is 12.8 We will repeat her labs tomorrow. BMI of 51. Her BMI is 51. She is requesting bariatric surgery. So we placed a consult for bariatric surgery. DVT prophylaxis with SCD and heparin. GI prophylaxis with pantoprazole. She is on renal non dialysis diet. ATTESTATION BY PHYSICIAN I have seen and examined the patient. I reviewed the documentation, medical decision making, and treatment plan as noted by the resident physician above. I agree with the findings and plan of care. JOAQUIM COLÓN MD, AKSHAY MD Sep 10, 2025 19:52
[2025-09-11] VITALS (9 sets, daily range): BP systolic 102–164; BP diastolic 59–90; PULSE 71–84; RESP 18–20; TEMP 97.4–98.4; O2SAT 92–97
[2025-09-11 01:48] LABS: CREATININE,URINE RANDOM 12.43 mg/dL (30-135); PROTEIN,URINE RANDOM 47.5 mg/dL (0-11.9)
[2025-09-11 05:14] LABS: NUCLEATED RED BLOOD CELLS 0.0 % (0.0-0.19); PLATELET COUNT (AUTO) 220.0 K/uL (130-400); RED BLOOD CELL COUNT(AUTO) 2.76 MIL/uL (4.00-5.50); RED CELL DISTRIBUTION WIDTH 13.5 % (11.0-15.5); WHITE BLOOD COUNT (AUTO) 5.6 K/uL (4.8-10.8)
[2025-09-11 05:28] LABS: CREATININE 2.6 mg/dL (0.5-1.0); GLOMERULAR FILTR. RATE CALC 23.0 mL/min (>90); GLUCOSE,RANDOM 81.0 mg/dL (70-105); SODIUM SERUM 135.0 mmol/L (136-145); UREA NITROGEN, BLOOD 60.0 mg/dL (7-18)
--- NOTE | 2025-09-11 05:52 | CONS ---
CONSULT NOTE: Chief complaint: confusion Reason for consult: hypoglycemia and uncontrolled dm-2 DOS:09/11/25 History of Present Illness Patient reports that she came to the emergency department with a chief complaint of confusion. . There was no aggravating factors. Patient denies any current chest pain or shortness and breath. Patient states that she took glipizide last night and has not eaten all day. Today in the emergency department CBC unremarkable, BUN 61, creatinine 2.4, GFR 25, glucose is 40 mg/dL, no urinalysis has been collected or sent to lab, toxicology is positive for opiates. glucose was 40 mg/dl. I saw this patient in clinic 1 years ago in 2023 but she never followed in the clinic after that. Home diabetic regimen: lantus 25 units daily, humalog 5 units qac before meals,glipizide 10 mg daily, mounjaro 5 mg weekly, Hba1c 7.7% glucose was 40 mg/dl and was on dextrose drip. glucose are stable now and does not require insulin. Past Medical History Patient History: Cardiovascular disease MOTHER FATHER Completed stroke BROTHER Diabetes mellitus MOTHER FATHER Hypertension MOTHER FATHER Sudden MOTHER FATHER PAST MEDICAL HISTORY: [Atrial fibrillation, asthma Diabetes, hypertension, hyperlipidemia, CVA cocaine use, CKD stage 4, peripheral arterial disease to bilateral lower extremities, chronic hypoxemic respiratory failure on home O2] PAST SURGICAL HISTORY: [ Cholecystectomy and liver mass excision ] PAST SOCIAL HISTORY: [ Patient lives alone. Patient states to be a heavy smoker alcohol drinker and recreational drug user qt she stopped smoking cigarette six months ago and stopped drinking beer five months ago. Last cocaine use three weeks ago] Review of Systems General: No Fever, No Chills, No Night Sweats, No Fatigue, No Malaise, No Appetite, No Other HEENT: No Head Aches, No Visual Changes, No Eye Pain, No Ear Pain, No Dysphasia, No Sinus Congestion, No Post Nasal Drip, No Sore Throat, No Other Pulmonary: No Dyspnea, No Cough, No Pleuritic Chest Pain, No Other Cardiovascular: No: Chest Pain, Palpitations, Orthopnea, Paroxysmal Noc. Dyspnea, Edema, Lt Headedness, Other Gastrointestinal: No: Nausea, Vomiting, Abdominal Pain, Diarrhea, Constipation, Melena, Hematochezia, Other Genitourinary: No Dysuria, No Frequency, No Incontinence, No Hematuria, No Retention, No Other Musculoskeletal: No: other, neck pain, shoulder pain, arm pain, back pain, hand pain, leg pain, foot pain Skin: No Urticaria, No Rash, No Other Neurological: Confusion; No: Weakness, Numbness, Incoordination, Change in speech, Seizures, Other Allergies: Coded Allergies: No Known Drug Allergies (Unverified Allergy, Unknown, 11/05/21) Scheduled Aspirin (Aspirin), 81 MG PO DAILY, (Reported) Atorvastatin Calcium (Atorvastatin Calcium), 20 MG PO HS, (Reported) Bumetanide (Bumex), 2 TAB PO BID Gabapentin (Gabapentin), 300 MG PO TID, (Reported) Glimepiride (Glimepiride), 4 MG PO DAILY, (Reported) Hydralazine HCl (Apresoline), 50 MG PO TID Insulin Glargine,Hum.rec.anlog (Lantus Solostar), 25 UNIT SQ HS Montelukast Sodium (Montelukast Sodium), 10 MG PO DAILY, (Reported) Sertraline HCl (Sertraline HCl), 1 TAB PO HS, (Reported) Sodium Bicarbonate (Sodium Bicarbonate), 1,300 MG PO TID Tizanidine HCl (Tizanidine HCl), 2 MG PO TID, (Reported) Scheduled PRN Acetaminophen (Tylenol), 1 TAB PO Q6HPRN PRN for pain or fever Exam General Appearance: Alert, Oriented X3, Cooperative, mild distress HEENT: Atraumatic, EOMI Respiratory: Clear to auscultation, Normal air movement, NL respiratory effort Cardiovascular: Regular rate, Regular rhythm, Normal S1, Normal S2 Abdominal: Normal bowel sounds, Soft, No tenderness Extremities: No edema Skin: No significant lesion Neuro: Normal gait, Normal speech, Strength at 5/5 X4 ext, Sensation intact, Cranial nerves 3-12 NL Psych/Mental Status: Mental status NL, Mood NL, Thoughts/Content NL ASSESSMENT: Hypoglycemia, POA due to glipizide and lantus insulin. Home diabetic regimen: lantus 25 units daily, humalog 5 units qac before meals,glipizide 10 mg daily, mounjaro 5 mg weekly, Hba1c 7.7% glucose was 40 mg/dl and was on dextrose drip. glucose are stable now and does not require insulin. DM-2, POA CKD stage 4, POA CHF with LVEF 55-60 by 2D echo on 06/01/2025 Hypertension Hyperlipidemia Anxiety Atrial fibrillation Asthma CAD History of CVA] PLAN: start medium dose sliding scale insulin, if hyperglycemia. Monitor glucose q x 6 hourly. Continue carb consistent diet. Keep glucose less than 180 mg/dl. Patient will need to decrease lantus to 20 units daily with gradual titration to 15 units daily, stop glipizide and ok to continue mounjaro 5 mg weekly and humalog 5 units qac before meals. patient can be scheduled with me in 2 weeks. Thanks for allowing me to participate in patient care and will continue to follow up. Vital Signs 09/10/25 09/11/25 20:51 03:57 Temp 98.1 Pulse 71 Resp 18 B/P (MAP) 156/63 Pulse Ox 97 O2 Delivery Room Air O2 Flow Rate 0 Hematology Labs: Test 09/11/25 05:00 Range/Units White Blood Count 5.6 4.8-10.8 K/uL Red Blood Count 2.76 L 4.00-5.50 MIL/uL Hemoglobin 8.0 L 12.0-16.0 g/dL Hematocrit 25.2 L 36-48 % Mean Corpuscular Volume 91.3 79-99 fL Mean Corpuscular Hemoglobin 29.0 27.0-33.0 pg Mean Corpuscular Hemoglobin Concent 31.7 L 32.0-36.0 g/dL Red Cell Distribution Width 13.5 11.0-15.5 % Platelet Count 220 130-400 K/uL Mean Platelet Volume 10.4 7.5-10.5 fL Nucleated Red Blood Cells 0.0 0.0-0.19 % Chemistry Labs: Test 09/11/25 05:17 09/11/25 05:00 09/10/25 05:58 Range/Units Whole Blood Glucose 89 70-110 MG/DL Sodium Level 135 L 136-145 mmol/L Potassium Level 4.4 3.5-5.1 mmol/L Chloride Level 101 101-111 mmol/L Carbon Dioxide Level 24 21-32 mmol/L Blood Urea Nitrogen 60 H 7-18 mg/dL Creatinine 2.6 H 0.5-1.0 mg/dL Glomerular Filtration Rate Calc 23 >90 mL/min Random Glucose 81 70-105 mg/dL Total Calcium 7.7 L 8.5-10.1 mg/dL Iron Level 31 #L 50-170 mcg/dL Total Iron Binding Capacity 242 L 250-450 mcg/dL Percent Iron Saturation 12.8 L 22-44 % Total Bilirubin 0.3 0.2-1.0 mg/dL Direct Bilirubin 0.1 0.0-0.3 mg/dL Aspartate Amino Transf (AST/SGOT) 19 10-37 U/L Alanine Aminotransferase (ALT/SGPT) 24 12-78 U/L Alkaline Phosphatase 122 50-136 U/L Total Protein 6.1 6.0-8.3 g/dL Albumin 2.7 L 3.5-5.0 g/dL Current Medications Medications (Trade) Dose Ordered Sig/Jai Route Start Time Stop Time Status Last Admin Dose Admin Albuterol Sulfate (Proventil 0.083% 2.5mg/3ml) 2.5 mg [id number] IH 09/06/25 00:00 10/06/25 00:00 09/10/25 23:53 2.5 MG Aspirin (Aspirin 81mg Ec Tab) 81 mg DAILY PO 09/07/25 09:00 10/07/25 08:59 09/10/25 09:04 81 MG Atorvastatin Calcium (LIPItor 40MG) 40 mg HS PO 09/06/25 21:00 10/06/25 20:59 09/10/25 20:53 40 MG Bumetanide (Bumex 1mg Tab) 1 mg BID PO 09/06/25 21:00 10/06/25 20:59 09/10/25 21:01 1 MG Clopidogrel Bisulfate (plaVIX 75MG) 75 mg DAILY PO 09/07/25 09:00 10/07/25 08:59 09/10/25 08:43 75 MG Dextrose 1,000 ml @ 75 mls/hr [id number] IV 09/05/25 21:30 09/10/25 14:44 DC 09/09/25 18:27 75 MLS/HR Docusate Sodium (COLace 100MG CAP) 100 mg BID PO 09/07/25 21:00 09/10/25 16:24 DC 09/10/25 08:43 100 MG Gabapentin (NEURontin 100 mg CAP) 300 mg BID PO 09/06/25 21:00 10/06/25 20:59 09/10/25 20:53 300 MG Heparin Sodium (Porcine) (HEParin 5,000 UNIT VIAL) 5,000 unit BID SQ 09/06/25 09:00 10/06/25 08:59 09/10/25 20:55 5,000 UNIT Labetalol HCl (TRANdate 100 MG TABLET) 100 mg BID PO 09/06/25 21:00 10/06/25 20:59 09/10/25 20:54 100 MG Metoprolol Tartrate (loprESSOR) 12.5 mg TID PO 09/06/25 09:00 09/06/25 16:06 DC 09/06/25 15:34 12.5 MG Pantoprazole Sodium (PROTonix 40MG TAB) 40 mg DAILY PO 09/06/25 09:00 10/06/25 08:59 09/10/25 08:43 40 MG Pharmacy Profile Note (Lace Assessment) 1 each AD MISC 09/06/25 14:30 09/06/25 14:05 DC Pharmacy Profile Note (Pharmacy Communication) 1 each ONCE MISC 09/05/25 22:00 09/06/25 07:05 DC Sennosides (Senna) 1 tab DAILY PO 09/08/25 09:00 09/10/25 16:24 DC 09/10/25 08:44 1 TAB Sertraline HCl (ZOloft 50 mg tab) 100 mg HS PO 09/06/25 21:00 10/06/25 20:59 09/10/25 20:53 100 MG Sodium Bicarbonate (Sodium Bicarbonate) 1,300 mg TID PO 09/10/25 14:00 10/10/25 13:59 09/10/25 20:56 1,300 MG Vitamin B Complex/ Vit C/Folic Acid (Nephrovite Tablet) 1 cap DAILY PO 09/07/25 09:00 10/07/25 08:59 09/10/25 08:42 1 CAP MILLI TUBBS MD Sep 11, 2025 05:52
[2025-09-11] MEDS: GABAPENTIN 300 MG CAPSULE PO SCH (09:48)
--- NOTE | 2025-09-11 11:21 | PN ---
GASTROENTEROLOGY PROGRESS NOTE Date of Visit: Sep 11, 2025 Time of Visit: 11:17 Events / Notes: [ 09/11/25: Patient had GI bleed scan on 09/09/2025 and was found to have no active GI bleeding localized. Patient has remained afebrile. She remains hemodynamically stable. WBC of 5.6, hemoglobin at 8.0, platelets 220. Sodium 135, BUN 60, creatinine 2.6, calcium 7.7. ] Review of Systems: CONSTITUTIONAL: No malaise or change in sensation of wellbeing. ENMT: No rhinorrhea, otorrhea, sinus pain, ear ache. CARDIOVASCULAR: No angina, palpitations, orthopnea or paroxysmal dyspnea. RESPIRATORY: No SOB. GASTROINTESTINAL: No abdominal pain, nausea, vomiting, diarrhea, hematemesis, melena or change in the patient's habitual bowel movements consistency/number. GENITOURINARY: No dysuria, hematuria or change in bladder continence. MUSCULOSKELETAL: No new muscle pain or decrease in muscular strength. No new joint swelling, redness or tenderness. SKIN: No new rash. Physical Exam: GEN: Awake, alert, oriented in person, time and place, and in no acute distress. HEENT: No rhinorrhea. Oral mucosa is pink, moist and within normal limits. CHEST: Lung auscultation revealed normal breath sounds bilaterally. CARDIAC:Heart sounds are regular. ABD: Soft, non-tender and not distended. No peritoneal signs on palpation. Normal bowel sounds.. EXT: No cyanosis or clubbing. No edema. SKIN: Intact. No rashes. NEURO: Alert and oriented to name, place and person.No focal motor deficits. Normal speech. Vital Signs (last 8hr) Date Time Temp Pulse Resp B/P (MAP) Pulse Ox O2 Delivery O2 Flow Rate FiO2 09/11/25 08:00 98.1 78 20 102/59 92 Room Air 09/11/25 06:23 80 20 N/A Room Air 21 09/11/25 06:21 80 20 09/11/25 03:57 98.1 71 18 156/63 97 Room Air Laboratory: [ ] Laboratory: Test 09/11/25 05:17 09/11/25 05:00 09/11/25 01:07 09/10/25 05:58 Range/Units Whole Blood Glucose 89 70-110 MG/DL White Blood Count 5.6 4.8-10.8 K/uL Red Blood Count 2.76 L 4.00-5.50 MIL/uL Hemoglobin 8.0 L 12.0-16.0 g/dL Hematocrit 25.2 L 36-48 % Mean Corpuscular Volume 91.3 79-99 fL Mean Corpuscular Hemoglobin 29.0 27.0-33.0 pg Mean Corpuscular Hemoglobin Concent 31.7 L 32.0-36.0 g/dL Red Cell Distribution Width 13.5 11.0-15.5 % Platelet Count 220 130-400 K/uL Mean Platelet Volume 10.4 7.5-10.5 fL Nucleated Red Blood Cells 0.0 0.0-0.19 % Sodium Level 135 L 136-145 mmol/L Potassium Level 4.4 3.5-5.1 mmol/L Chloride Level 101 101-111 mmol/L Carbon Dioxide Level 24 21-32 mmol/L Blood Urea Nitrogen 60 H 7-18 mg/dL Creatinine 2.6 H 0.5-1.0 mg/dL Glomerular Filtration Rate Calc 23 >90 mL/min Random Glucose 81 70-105 mg/dL Total Calcium 7.7 L 8.5-10.1 mg/dL Urine Random Creatinine 12.43 L 30-135 mg/dL Urine Random Total Protein 47.5 #H 0-11.9 mg/dL Iron Level 31 #L 50-170 mcg/dL Total Iron Binding Capacity 242 L 250-450 mcg/dL Percent Iron Saturation 12.8 L 22-44 % Total Bilirubin 0.3 0.2-1.0 mg/dL Direct Bilirubin 0.1 0.0-0.3 mg/dL Aspartate Amino Transf (AST/SGOT) 19 10-37 U/L Alanine Aminotransferase (ALT/SGPT) 24 12-78 U/L Alkaline Phosphatase 122 50-136 U/L Total Protein 6.1 6.0-8.3 g/dL Albumin 2.7 L 3.5-5.0 g/dL Current Medications Medications (Trade) Dose Ordered Sig/Jai Route PRN Reason Start Time Stop Time Status Last Admin Dose Admin Acetaminophen (TYLenol 325MG TAB) 650 mg Q6H PRN PO TEMPERATURE GREATER THAN 101.5 09/05/25 22:00 10/05/25 21:59 Albuterol Sulfate (Proventil 0.083% 2.5mg/3ml) 2.5 mg [id number] IH 09/06/25 00:00 10/06/25 00:00 09/11/25 06:20 2.5 MG Aspirin (Aspirin 81mg Ec Tab) 81 mg DAILY PO 09/07/25 09:00 10/07/25 08:59 09/11/25 09:48 81 MG Atorvastatin Calcium (LIPItor 40MG) 40 mg HS PO 09/06/25 21:00 10/06/25 20:59 09/10/25 20:53 40 MG Bumetanide (Bumex 1mg Tab) 1 mg BID PO 09/06/25 21:00 10/06/25 20:59 09/11/25 09:59 1 MG Clopidogrel Bisulfate (plaVIX 75MG) 75 mg DAILY PO 09/07/25 09:00 10/07/25 08:59 09/11/25 09:49 75 MG Dextrose 1,000 ml @ 75 mls/hr [id number] IV 09/05/25 21:30 09/10/25 14:44 DC 09/09/25 18:27 75 MLS/HR Dextrose (D50w) 50 ml AD PRN IV HYPOGLYCEMIA PROTOCOL 09/06/25 01:00 10/06/25 00:59 09/06/25 05:27 50 ML Docusate Sodium (COLace 100MG CAP) 100 mg BID PO 09/07/25 21:00 09/10/25 16:24 DC 09/10/25 08:43 100 MG Gabapentin (NEURontin 100 mg CAP) 300 mg BID PO 09/06/25 21:00 09/11/25 07:07 DC 09/10/25 20:53 300 MG Gabapentin (NEURontin 300 MG CAP) 300 mg BID PO 09/11/25 09:00 10/06/25 20:59 09/11/25 09:48 300 MG Glucagon (Glucagon 1mg Kit) 1 mg AD PRN IM HYPOGLYCEMIA PROTOCOL 09/06/25 01:00 10/06/25 00:59 Heparin Sodium (Porcine) (HEParin 5,000 UNIT VIAL) 5,000 unit BID SQ 09/06/25 09:00 10/06/25 08:59 09/11/25 09:53 5,000 UNIT Hydralazine HCl (APRESOLine 20MG INJ) 10 mg Q6H PRN IV For:SBP above 160;DBP above 90 09/05/25 22:00 10/05/25 21:59 Hydromorphone HCl (DiLAUDid 0.5MG INJ) 0.25 mg Q4H PRN IVP SEVERE PAIN (7-10) 09/05/25 22:00 09/10/25 21:59 DC 09/08/25 05:43 0.25 MG Labetalol HCl (TRANdate 100 MG TABLET) 100 mg BID PO 09/06/25 21:00 10/06/25 20:59 09/11/25 09:49 100 MG Lactulose (Constulose 20gm/ 30ml Udcup) 20 gm BID PRN PO CONSTIPATION 09/05/25 22:00 09/10/25 16:24 DC Metoprolol Tartrate (loprESSOR) 5 mg Q5M PRN IV AFIB RVR HR >120 BPM 09/05/25 22:30 Metoprolol Tartrate (loprESSOR) 12.5 mg TID PO 09/06/25 09:00 09/06/25 16:06 DC 09/06/25 15:34 12.5 MG Morphine Sulfate (morPHINE 2MG SYG) 1 mg Q4HPRN PRN IVP MODERATE PAIN (4-6) 09/06/25 17:00 09/13/25 16:59 09/11/25 11:04 1 MG Ondansetron HCl (zoFRAN 4MG INJ) 4 mg Q6H PRN IV NAUSEA/VOMITING 09/05/25 22:00 10/05/25 21:59 09/06/25 10:26 4 MG Pantoprazole Sodium (PROTonix 40MG TAB) 40 mg DAILY PO 09/06/25 09:00 10/06/25 08:59 09/11/25 09:49 40 MG Pharmacy Profile Note (Lace Assessment) 1 each AD MISC 09/06/25 14:30 09/06/25 14:05 DC Pharmacy Profile Note (Pharmacy Communication) 1 each ONCE MISC 09/05/25 22:00 09/06/25 07:05 DC Sennosides (Senna) 1 tab DAILY PO 09/08/25 09:00 09/10/25 16:24 DC 09/10/25 08:44 1 TAB Sertraline HCl (ZOloft 50 mg tab) 100 mg HS PO 09/06/25 21:00 10/06/25 20:59 09/10/25 20:53 100 MG Sodium Bicarbonate (Sodium Bicarbonate) 1,300 mg TID PO 09/10/25 14:00 10/10/25 13:59 09/11/25 09:49 1,300 MG Vitamin B Complex/ Vit C/Folic Acid (Nephrovite Tablet) 1 cap DAILY PO 09/07/25 09:00 10/07/25 08:59 09/11/25 09:48 1 CAP Diagnostics / Radiology: [COPY/PASTE HERE IF NO REPORTS PLEASE DELETE SECTION] Assessment: [Concern for GI bleed anemia Nausea and vomiting CAD Atrial fibrillation Renal Disease ] Plan: [Case discussed with Clear fluids and advance as tolerated GI bleed scan negative. Will hold off on any endoscopic evaluation at this time given patients stable HGB, and high risk for MACE. Please call with questions, concerns, and change in clinical status Thank you for this consult ] CRISTOFER SARABIA CAR UNLOADER Sep 11, 2025 11:21
--- NOTE | 2025-09-11 12:37 | PN ---
[facility] PROGRESS NOTE Date of Service: Sep 11, 2025 Time of Service: 12:37 SUBJECTIVE: She is a 40 year old female with past medical history of Atrial fibrillation, asthma Diabetes, hypertension, hyperlipidemia, CVA cocaine use, CKD stage 4, peripheral arterial disease to bilateral lower extremities, chronic hypoxemic respiratory failure on home O2 came to the hospital with confusion and dizziness. Recently her mounjaro dose was increased from 5mg to 7.5mg. She took a dose of mounjaro 3 days back. Then she developed nausea, vomiting and constipation. She said that she didn't have a bowel movement for the past 2 days. She is able to eat food but she had nausea, vomiting and she said that she couldn't keep her food down. When she is about to go to her PCP office she developed confusion and dizziness. She fell down and she was brought to the ER. Also she said that she took glipizide 1 or 2 pills before the episode. In the ER she had many episodes of diarrhea, nausea and vomiting. She also complained of abdominal pain in the epigastric region. She has a surgical history of Cholecystectomy and liver mass excision. She is a smoker, drink alcohol and recreational drug user. She stopped smoking cigarette six months ago and stopped drinking beer five months ago. Last cocaine use three weeks ago. In the emergency department, CBC unremarkable, BUN 61, creatinine 2.4, GFR 25, glucose is 40 mg/dL, no urinalysis has been collected or sent to lab, toxicology is positive for opiates. The patient is admitted to the hospital for further management. As she is hypoglycemic we started her on dextrose 50W at 50ml/hr. 09/06/2025: Patient is seen and evaluated in the room 323. She complained of abdominal pain, nausea, vomiting. She has abdominal pain in the epigastric region. Overnight the nurses reported that the patient is unable to tolerate any solid foods but she took liquids and jelly. Also today morning she could not keep her food down. Vital signs are in the normal range. Labs are normal except for hemoglobin 8.2, sodium 135, BUN 62, creatinine 2.5, glucose levels are 92>60>71>73>106>75. Today we increased the dose of D50W to 75ml/hr. Also complained that she is having pain in her left wrist. When we asked about it then she said that she had a fracture of the wrist. She is requesting IV pain meds. So we added IV morphine for moderate pain. We also did a abdominal X -ray to rule out any obstruction and we are waiting for the report. She is also requesting bariatric surgery for weight loss. So we will consult bariatric donaldson sarah. 09/07/2025: Patient is seen and evaluated in the room 323. She said is having mild nausea but her stomach pain got better. She is able to eat her diet. Her vitals are in the normal range. Her labs are normal except for hemoglobin 7.6, phosphate 5.1, sodium 134, BUN is 61, creatinine is 3.2, glucose is 124. As her creatinine level is increased we gave a bolus of lactate ringer at 50 ml/hr. Her X-ray showed non obstructive bowel gas pattern. We also added docusate 100mg BID and senna 1 tab PO for constipation. We may decrease the dosage of glipizide to 0.5 mg on discharge. We also informed bariatric surgery. 09/08/2025: Patient is seen and evaluated in the room 323. She said that she had a bowel movement overnight and she noticed blood in the stool.. She also had chest pain overnight and the pain got relieved after sometime. She is having back pain today. Her vitals are in the normal range. Her labs are normal except for hemoglobin 7.7, sodium 133, BUN is 61, creatinine 2.9. As she complained of blood in the stool. So we consulted GI and they recommended bleeding scan tomorrow. 09/09/2025: Patient is seen and evaluated in the room 323. GI canceled her EGD and instead did a nuclear GI bleeding scan. It showed that there was no active GI bleeding localized. They place the patient on clear liquid diet so that thinking they might undergo colonoscopy. No new recommendations as of now. Further treatment based on their recommendations. 09/10/2025: Patient is seen and evaluated in the room 323. She complained of back pain. Her vitals are in the normal range. Her labs are normal except for hemoglobin 7.7, sodium 133, chloride 100, iron 31, TIBC is 242, % saturation is 12.8. We ordered a urine protein/creatinine ratio.We stopped D5W and consulted endocrinology for adjustment of her medications. We are waiting for the GI recommendations. In the evening she had 7 episodes of diarrhea. So we stopped the laxatives and added imodium. Today we also resumed her sodium bicarbonate tablets. REVIEW OF SYSTEMS CONSTITUTIONAL: Denies fevers, chills, or night sweats. No unintentional weight loss reported. NEUROLOGICAL: Denies headache, amaurosis fugax, motor weakness, sensory deficit, vertigo/spinning sensation, gait abnormalities, or tremors. ENT: No hearing loss, otalgia, otorrhea, rhinitis, rhinorrhea, hoarseness, or sore throat. CARDIOVASCULAR: Denies any exertional angina, dyspnea on exertion, orthopnea, paroxysmal nocturnal dyspnea, palpitations, life-threatening arrhythmias, claudication. PULMONARY: Denies any shortness of breath, cough, phlegm/sputum, hemoptysis, pleuritic chest pain. SLEEP: Denies morning headaches, daytime somnolence or napping. Denies difficulty falling asleep, staying asleep, waking from sleep. Denies knowledge of snoring. GASTROINTESTINAL: hematochezia, diarrhea Denies any type of dysphagia to either liquids or solids. Denies nausea, vomiting, abdominal pain, constipation. pyrosis, early satiety, or changes in stool consistency or caliber. Denies coffee-ground emesis, hematemesis, or melanotic stools. GENITOURINARY: Denies frequency, urgency, nocturia, hematuria or incontinence (Storage/Irritative symptoms.) Low urinary stream, straining to void, urinary intermittency or hesitancy, splitting of the voiding stream, terminal dribbling. ENDOCRINOLOGIC: Denies polyuria, polydipsia, polyphagia or heat/cold intolerances. HEMATOLOGIC: Denies thrombophilia/previous clots, or coagulopathy/bleeding disorders. ONCOLOGIC: Denies personal history of malignancy. DERMATOLOGIC: Denies rashes or pruritus. PSYCHIATRIC: Denies any suicidal or homicidal ideation. Denies hallucinations. PHYSICAL EXAM GENERAL APPEARANCE: The patient is awake, alert, and oriented, in no acute cardiopulmonary distress. NEUROLOGICAL: Cranial nerves II-XII grossly intact. Motor is 5/5 in bilateral upper and lower extremities proximal to distal. No sensory deficits. HEENT: Face is symmetric. Pupils are equal and reactive. Extraocular movements are intact. NECK: Supple. No JVD. No thyromegaly. No submental, submandibular, pre- /postauricular, occipital or supraclavicular lymphadenopathy. CHEST: Normal chest expansion. No Telemetry. LUNGS: Absence of any rales, rhonchi or any wheezing. CARDIOVASCULAR: Regular. S1 and S2 normal. No appreciable rubs, murmurs or gallops. ABDOMEN: Soft, non tender and nondistended. There is no rebound, voluntary guarding, or rigidity. : Deferred. No Hawley. EXTREMITIES: bruises on her legs. Non-edematous and not cyanotic. No clubbing. Good capillary refill. SKIN: No skin breakdown. Vital Signs (last 8hr) Date Time Temp Pulse Resp B/P (MAP) Pulse Ox O2 Delivery O2 Flow Rate FiO2 09/11/25 11:12 75 20 N/A Room Air 21 09/11/25 11:11 75 20 09/11/25 08:00 98.1 78 20 102/59 92 Room Air 09/11/25 06:23 80 20 N/A Room Air 09/11/25 06:21 80 20 LABS: Laboratory: Test 09/11/25 11:57 09/11/25 05:00 09/11/25 01:07 09/10/25 05:58 Range/Units Whole Blood Glucose 97 70-110 MG/DL White Blood Count 5.6 4.8-10.8 K/uL Red Blood Count 2.76 L 4.00-5.50 MIL/uL Hemoglobin 8.0 L 12.0-16.0 g/dL Hematocrit 25.2 L 36-48 % Mean Corpuscular Volume 91.3 79-99 fL Mean Corpuscular Hemoglobin 29.0 27.0-33.0 pg Mean Corpuscular Hemoglobin Concent 31.7 L 32.0-36.0 g/dL Red Cell Distribution Width 13.5 11.0-15.5 % Platelet Count 220 130-400 K/uL Mean Platelet Volume 10.4 7.5-10.5 fL Nucleated Red Blood Cells 0.0 0.0-0.19 % Sodium Level 135 L 136-145 mmol/L Potassium Level 4.4 3.5-5.1 mmol/L Chloride Level 101 101-111 mmol/L Carbon Dioxide Level 24 21-32 mmol/L Blood Urea Nitrogen 60 H 7-18 mg/dL Creatinine 2.6 H 0.5-1.0 mg/dL Glomerular Filtration Rate Calc 23 >90 mL/min Random Glucose 81 70-105 mg/dL Total Calcium 7.7 L 8.5-10.1 mg/dL Urine Random Creatinine 12.43 L 30-135 mg/dL Urine Random Total Protein 47.5 #H 0-11.9 mg/dL Iron Level 31 #L 50-170 mcg/dL Total Iron Binding Capacity 242 L 250-450 mcg/dL Percent Iron Saturation 12.8 L 22-44 % Total Bilirubin 0.3 0.2-1.0 mg/dL Direct Bilirubin 0.1 0.0-0.3 mg/dL Aspartate Amino Transf (AST/SGOT) 19 10-37 U/L Alanine Aminotransferase (ALT/SGPT) 24 12-78 U/L Alkaline Phosphatase 122 50-136 U/L Total Protein 6.1 6.0-8.3 g/dL Albumin 2.7 L 3.5-5.0 g/dL Current Medications Medications (Trade) Dose Ordered Sig/Jai Route PRN Reason Start Time Stop Time Status Last Admin Dose Admin Acetaminophen (TYLenol 325MG TAB) 650 mg Q6H PRN PO TEMPERATURE GREATER THAN 101.5 09/05/25 22:00 10/05/25 21:59 Albuterol Sulfate (Proventil 0.083% 2.5mg/3ml) 2.5 mg [id number] IH 09/06/25 00:00 10/06/25 00:00 09/11/25 11:11 2.5 MG Aspirin (Aspirin 81mg Ec Tab) 81 mg DAILY PO 09/07/25 09:00 10/07/25 08:59 09/11/25 09:48 81 MG Atorvastatin Calcium (LIPItor 40MG) 40 mg HS PO 09/06/25 21:00 10/06/25 20:59 09/10/25 20:53 40 MG Bumetanide (Bumex 1mg Tab) 1 mg BID PO 09/06/25 21:00 10/06/25 20:59 09/11/25 09:59 1 MG Clopidogrel Bisulfate (plaVIX 75MG) 75 mg DAILY PO 09/07/25 09:00 10/07/25 08:59 09/11/25 09:49 75 MG Dextrose 1,000 ml @ 75 mls/hr [id number] IV 09/05/25 21:30 09/10/25 14:44 DC 09/09/25 18:27 75 MLS/HR Dextrose (D50w) 50 ml AD PRN IV HYPOGLYCEMIA PROTOCOL 09/06/25 01:00 10/06/25 00:59 09/06/25 05:27 50 ML Docusate Sodium (COLace 100MG CAP) 100 mg BID PO 09/07/25 21:00 09/10/25 16:24 DC 09/10/25 08:43 100 MG Gabapentin (NEURontin 100 mg CAP) 300 mg BID PO 09/06/25 21:00 09/11/25 07:07 DC 09/10/25 20:53 300 MG Gabapentin (NEURontin 300 MG CAP) 300 mg BID PO 09/11/25 09:00 10/06/25 20:59 09/11/25 09:48 300 MG Glucagon (Glucagon 1mg Kit) 1 mg AD PRN IM HYPOGLYCEMIA PROTOCOL 09/06/25 01:00 10/06/25 00:59 Heparin Sodium (Porcine) (HEParin 5,000 UNIT VIAL) 5,000 unit BID SQ 09/06/25 09:00 10/06/25 08:59 09/11/25 09:53 5,000 UNIT Hydralazine HCl (APRESOLine 20MG INJ) 10 mg Q6H PRN IV For:SBP above 160;DBP above 90 09/05/25 22:00 10/05/25 21:59 Hydromorphone HCl (DiLAUDid 0.5MG INJ) 0.25 mg Q4H PRN IVP SEVERE PAIN (7-10) 09/05/25 22:00 09/10/25 21:59 DC 09/08/25 05:43 0.25 MG Labetalol HCl (TRANdate 100 MG TABLET) 100 mg BID PO 09/06/25 21:00 10/06/25 20:59 09/11/25 09:49 100 MG Lactulose (Constulose 20gm/ 30ml Udcup) 20 gm BID PRN PO CONSTIPATION 09/05/25 22:00 09/10/25 16:24 DC Metoprolol Tartrate (loprESSOR) 5 mg Q5M PRN IV AFIB RVR HR >120 BPM 09/05/25 22:30 Metoprolol Tartrate (loprESSOR) 12.5 mg TID PO 09/06/25 09:00 09/06/25 16:06 DC 09/06/25 15:34 12.5 MG Morphine Sulfate (morPHINE 2MG SYG) 1 mg Q4HPRN PRN IVP MODERATE PAIN (4-6) 09/06/25 17:00 09/13/25 16:59 09/11/25 11:04 1 MG Ondansetron HCl (zoFRAN 4MG INJ) 4 mg Q6H PRN IV NAUSEA/VOMITING 09/05/25 22:00 10/05/25 21:59 09/06/25 10:26 4 MG Pantoprazole Sodium (PROTonix 40MG TAB) 40 mg DAILY PO 09/06/25 09:00 10/06/25 08:59 09/11/25 09:49 40 MG Pharmacy Profile Note (Lace Assessment) 1 each AD MISC 09/06/25 14:30 09/06/25 14:05 DC Pharmacy Profile Note (Pharmacy Communication) 1 each ONCE [facility] [place] 09/05/25 22:00 09/06/25 07:05 DC Sennosides (Senna) 1 tab DAILY PO 09/08/25 09:00 09/10/25 16:24 DC 09/10/25 08:44 1 TAB Sertraline HCl (ZOloft 50 mg tab) 100 mg HS PO 09/06/25 21:00 10/06/25 20:59 09/10/25 20:53 100 MG Sodium Bicarbonate (Sodium Bicarbonate) 1,300 mg TID PO 09/10/25 14:00 10/10/25 13:59 09/11/25 09:49 1,300 MG Vitamin B Complex/ Vit C/Folic Acid (Nephrovite Tablet) 1 cap DAILY PO 09/07/25 09:00 10/07/25 08:59 09/11/25 09:48 1 CAP DIAGNOSTICS / RADIOLOGY: [ ] ASSESSMENT: Blood in stools Constipation and abdominal pain due to Mounjaro use, POA Hypoglycemia due to glipizide use and constipation, POA Hypertension Hyperlipidemia atrial fibrillation CKD stage 4 Hyponatremia Hyperphosphoremia Low hemoglobin Anxiety Asthma History of CVA CHF with LVEF 55 to 60% by 2D echo on 06/01/2025 BMI of 51. PLAN: Blood in stools She had a episode of bloody stools. So we consulted GI. They recommended bleeding scan which was performed and it showed no active GI bleeding localized No new recommendations today, further treatment based on their recommendations Constipation and abdominal pain due to Mounjaro use, POA Her mounjaro dose is increased from 5mg to 7.5mg. Then she developed constipation. She also had abdominal pain, nausea and diarrhea. We ordered a KUB and it showed non obstructive bowel gas pattern We started her on a renal non dialysis diet. We also added docusate 100mg BID and senna 1 tab PO for constipation. She had 7 episodes of diarrhea so we stopped the laxatives and added imodium. Hypoglycemia due to glipizide use and constipation, POA Her glucose levels are 36>124>88>65>56>132>57>92>60>71>73>106>75>98>137>124>156>121>127>114. She is started on dextrose 50W at 50 ml/hr in the ER. we will monitor her blood glucose levels. We may decrease the dosage of glipizide to 0.5 mg on discharge. Today her glucose levels are in the normal range. We stopped D50W. Consulted endocrinology for adjustment of her medications. Hypertension Today her blood pressure is 124/73. Continue bumetanide, labetalol. We will monitor her blood pressure. Hyperlipidemia Continue atorvastatin. atrial fibrillation She is not having any symptoms now. Continue heparin, aspirin and clopidogrel. CKD stage 4 His BUN is 61>62>61>61>63 and creatinine is 2.4>2.5>3.2>2.9>2.8. We gave a bolus of lactate ringer at 50 ml/hr. We will repeat her labs tomorrow. Hyponatremia Her sodium levels are 135>135>134>133>133>133. We added sodium bicarbonate tablets. We will repeat her labs tomorrow. Hyperphosphoremia Her recent phosphorus level is 4.9. Low hemoglobin Her hemoglobin is 8.9>8.2>7.6>7.7>8.1>7.7. Her MCV, MCH and RDW are in the normal range. Iron is 31, TIBC is 242, % saturation is 12.8 We will repeat her labs tomorrow. BMI of 51. Her BMI is 51. She is requesting bariatric surgery. So we placed a consult for bariatric surgery. DVT prophylaxis with SCD and heparin. GI prophylaxis with pantoprazole. She is on renal non dialysis diet. JYOTSNA SALAZAR MD Sep 11, 2025 12:37
--- NOTE | 2025-09-11 16:40 | DS ---
Discharge Summary Hospital Course Summary: Presentation & Initial Evaluation: The patient presented with confusion, dizziness, and a fall after several days of nausea, vomiting, constipation, and poor oral intake following a recent increase in Mounjaro dose. She also reported taking glipizide prior to presentation. In the emergency department, she was found to be severely hypoglycemic (glucose 40 mg/dL) with acute kidney injury on chronic kidney disease. She was started on continuous dextrose infusion with close glucose monitoring and admitted for further management. Inpatient Management: During hospitalization, hypoglycemia resolved with IV dextrose and discontinuation of glipizide. Gastrointestinal symptoms improved with supportive care, bowel rest, and later stool softeners, though these were stopped after she developed diarrhea. Abdominal imaging showed no obstruction. She experienced a single episode of bloody stool; Gastroenterology was consulted, and a nuclear GI bleeding scan showed no active bleeding. Endoscopy was deferred due to clinical stability and cardiac risk. Renal function fluctuated but improved with gentle IV fluids. Endocrinology was consulted for diabetes medication adjustment. Stabilization & Discharge Readiness: By discharge, the patient was tolerating diet, blood glucose levels were stable off IV dextrose, abdominal pain had resolved, and bowel movements normalized. Hemoglobin remained stable without evidence of active bleeding. Renal function improved toward baseline. No further hypoglycemia, confusion, or dizziness occurred. She was deemed medically stable for discharge with medication adjustments and close outpatient follow-up. Starch Dumper(s): Gastroenterology: Assessment: [Concern for GI bleed anemia Nausea and vomiting CAD Atrial fibrillation Renal Disease ] Plan: [Case discussed with Clear fluids and advance as tolerated GI bleed scan negative. Will hold off on any endoscopic evaluation at this time given patients stable HGB, and high risk for MACE. Please call with questions, concerns, and change in clinical status Thank you for this consult ] Procedure(s): [place] [address] [place] [id number] IMAGING REPORT Signed PATIENT: ALBERTO LEIGH MR#: [id number] : 1985 SEX: F AGE: 40 LOCATION: [facility] ORDER 01 STATUS: ADM IN REPORT#: [id number] SERVICE 99 REASON: sob ORDERING PHYSICIAN: AJAY MASTERS CNP PROCEDURE: CXR1VW - CHEST 1VW EXAM: CR Chest, 2 Views. CLINICAL HISTORY: Sob. COMPARISON: CR dated 08/09/2025. FINDINGS: LUNGS: Reticular opacities involving the left lower lung zone, concerning infective aetiology. PLEURAL SPACES: No pleural effusion or pneumothorax. MEDIASTINUM: Cardiac size and mediastinal contours within normal limits. BONES: No acute osseous abnormality. IMPRESSION: Reticular opacities involving the left lower lung zone, concerning infective aetiology. Compared to the prior study, there is mild resolution of the left-sided haziness. /[place] DICTATED BY: JOHN PALACIOS Jr., MD DATE: 09/05/252234 ELECTRONICALLY SIGNED BY: JOHN PALACIOS Jr., MD DATE: 09/05/252234 [place] [id number] IMAGING REPORT Signed PATIENT: ALBERTO LEIGH MR#: [id number] : 1985 SEX: F AGE: 40 LOCATION: [facility] ORDER 28 STATUS: ADM IN REPORT#: [id number] SERVICE 112 REASON: rule out constipation ORDERING PHYSICIAN: BENJAMIN MOTA MD PROCEDURE: ABD 1VW - ABD 1VW STUDY: X-RAY OF THE ABDOMEN, 1 VIEW HISTORY: Rule out constipation. TECHNIQUE: A single supine frontal view of the abdomen was obtained and submitted for interpretation. COMPARISON: Abdominal ultrasound from 08/10/2025 (limited examination due to body habitus). FINDINGS: Bowel gas pattern: Non-specific, non-obstructive bowel gas pattern with fecal material present in the colon. The stomach appears distended. No markedly dilated small bowel loops, abnormal airfluid levels, or free intraperitoneal air are identified on this supine view. Soft tissues: Multiple surgical clips are seen in the right upper abdomen, likely related to prior cholecystectomy. No abnormal soft tissue mass, organomegaly, or radiopaque foreign body is identified. Bones and joints: Visualized lumbar spine demonstrates degenerative changes, including endplate osteophytes and facet arthropathy. Pelvic bones and visualized hips appear intact without acute osseous abnormality. IMPRESSION: * Non-specific, non-obstructive bowel gas pattern with a distended stomach; no plain-film evidence of high-grade bowel obstruction or radiographic features diagnostic of constipation. Correlate with clinical examination and, if symptoms persist or worsen, consider further evaluation with cross-sectional imaging as clinically indicated. * Right upper quadrant surgical clips compatible with prior cholecystectomy. * Degenerative changes in the lumbar spine without acute osseous abnormality. * Compared with the limited abdominal ultrasound from 08/10/2025, there is no new radiographic abnormality identified; assessment of bowel and solid organs remains constrained by differences in imaging modality and the single supine view. /[place] DICTATED BY: LUCRECIA FRANCE MD DATE: 09/06/252124 ELECTRONICALLY SIGNED BY: LUCRECIA FRANCE MD DATE: 09/06/252124 [place] [address] IMAGING REPORT Signed PATIENT: ALBERTO LEIGH MR#: [id number] : 1985 SEX: F AGE: 40 LOCATION: [facility] ORDER 1803 STATUS: ADM IN REPORT#: [id number] SERVICE 0600 REASON: ANEMIA ORDERING PHYSICIAN: CRISTOFER SARABIA PROCEDURE: GIBLEED - NM GI BLOOD LOSS IMAG EXAM: NM GI Bleeding Scan. CLINICAL HISTORY: 40 YEAR OLD FEMALE INPATIENT STAT PATIENT HX: WEAKNESS ORDER DX: ANEMIA Tc99m 09:19:51 TECHNIQUE: Dynamic anterior images of the abdomen and pelvis were obtained during the time of radio-labeled autologous red blood cells. Images were acquired for 60 minutes. RADIOPHARMACEUTICAL: 25 mci TcMDP COMPARISON: None provided. FINDINGS: STOMACH AND BOWEL: No focal area of abnormally increased radiotracer meet criteria for active GI bleeding. OTHER VISCERA: Physiologic activity in the liver, vasculature, and bladder noted. IMPRESSION: No active GI bleeding localized. /[place] DICTATED BY: TRENTON HATHAWAY MD DATE: 09/09/251035 ELECTRONICALLY SIGNED BY: TRENTON HATHAWAY MD DATE: 09/09/251035 Assessment/Plan: ASSESSMENT: Blood in stools Constipation and abdominal pain due to Mounjaro use, POA Hypoglycemia due to glipizide use and constipation, POA Hypertension Hyperlipidemia atrial fibrillation CKD stage 4 Hyponatremia Hyperphosphoremia Low hemoglobin Anxiety Asthma History of CVA CHF with LVEF 55 to 60% by 2D echo on 06/01/2025 BMI of 51. Discharge Instructions: Blood Sugar / Diabetes Stop glipizide due to low blood sugar episodes. Do not resume Mounjaro until cleared by your doctor. Check blood sugar as instructed. Call your doctor if sugars are low, you feel dizzy, confused, or sweaty. Stomach & Bowel Symptoms Your nausea and constipation were likely from medication side effects. Eat small meals and drink fluids. Avoid restarting laxatives unless instructed. Seek care if you have black or bloody stools. Kidney Disease Drink fluids as advised. Avoid NSAIDs (ibuprofen, naproxen). Get labs checked as scheduled. Anemia You may need iron supplementation; follow up with your doctor. Report weakness, dizziness, or dark stools. Heart Conditions Continue medications for atrial fibrillation and blood pressure as prescribed. Use home oxygen as directed. Follow-Up Appointments Primary Care Endocrinology (diabetes medication adjustment) Gastroenterology Nephrology Bariatric Surgery (as discussed) When to Seek Emergency Care Go to the ER for: Low blood sugar symptoms Chest pain or shortness of breath Severe abdominal pain Black or bloody stools Confusion or fainting Home Medications: Active Scripts Bumetanide (Bumex) 1 Mg Tab, 2 TAB PO BID for 30 Days, #60 TAB 0 Refills Prov:KARMEN AGUIRRE 08/12/25 Sodium Bicarbonate (Sodium Bicarbonate) 650 Mg Tablet, 1300 MG PO TID for 30 Days, #90 TAB Prov:KARMEN AGUIRRE 08/12/25 Acetaminophen (Tylenol) 500 Mg Tab, 1 TAB PO Q6HPRN PRN for pain or fever for 5 Days, #30 TAB 0 Refills Prov:INDRA ARGUELLES MD 07/30/25 Insulin Glargine,Hum.rec.anlog (Lantus Solostar) 100 Unit/Ml (3 Ml) Insuln.pen, 25 UNIT SQ HS for 30 Days, #7.5 ML 0 Refills Use with SoloStar pen, 100 units/mL ; 1 injection of 25 units daily Prov:ROSA LOZANO MD 06/13/25 Hydralazine HCl (Apresoline) 25 Mg Tab, 50 MG PO TID, #90 TAB 0 Refills Prov:ROSA LOZANO MD 06/13/25 Reported Medications Folic Acid/Vitamin B Comp W-C (Carina-Martin Tablet) 0.8 Mg Tablet, 1 TAB PO DAILY for 30 Days, #30 TAB 0 Refills 09/06/25 Clopidogrel Bisulfate (Clopidogrel) 75 Mg Tablet, 1 TAB PO DAILY for 30 Days, #30 TAB 0 Refills 09/06/25 Glimepiride (Glimepiride) 2 Mg Tablet, 1 TAB PO DAILY for 30 Days, #30 TAB 0 Refills 09/06/25 Furosemide (Furosemide) 80 Mg Tablet, 1 TAB PO BID for 30 Days, #60 TAB 0 Refills 09/06/25 Labetalol HCl (Labetalol HCl) 100 Mg Tablet, 1 TAB PO BID for 30 Days, #60 TAB 0 Refills 09/06/25 Dapagliflozin Propanediol (Farxiga) 5 Mg Tablet, 1 TAB PO DAILY for 30 Days, #30 TAB 0 Refills 09/06/25 Omeprazole (Omeprazole) 40 Mg Capsule.dr, 1 CAP PO DAILY for 30 Days, #30 CAP 0 Refills 09/06/25 Acetaminophen with Codeine (Acetaminophen-Cod #3 Tablet) 300 Mg-30 Mg Tablet, 1 TAB PO Q6HPRN PRN for pain for 7 Days, #28 TAB 0 Refills 09/06/25 Tirzepatide (Mounjaro) 7.5 Mg/0.5 Ml Pen.injctr, 7.5 MG SQ QWEEK 09/06/25 Aspirin (Aspirin) 81 Mg Tablet, 81 MG PO DAILY, TAB 02/11/25 Sertraline HCl (Sertraline HCl) 100 Mg Tablet, 1 TAB PO HS for ANXIETY for 30 Days, #30 TAB 0 Refills 02/08/25 Tizanidine HCl (Tizanidine HCl) 2 Mg Capsule, 2 MG PO TID PRN for MUSCLE SPASMS, CAP 09/18/24 Gabapentin (Gabapentin) 100 Mg Capsule, 300 MG PO TID, CAP 09/18/24 Atorvastatin Calcium (Atorvastatin Calcium) 20 Mg Tablet, 20 MG PO HS, TAB 06/05/24 Montelukast Sodium (Montelukast Sodium) 10 Mg Tablet, 10 MG PO DAILY, TAB 03/18/23 Discontinued Reported Medications Glimepiride (Glimepiride) 4 Mg Tablet, 4 MG PO DAILY, TAB 05/31/25 Changed Medications: Insulin Glargine,Hum.rec.anlog (Lantus Solostar) 100 Unit/Ml (3 Ml) Insuln.pen 20 UNIT SQ HS for 30 Days, #7.5 ML 0 Refills (Changed from: 25 UNIT; Use with SoloStar pen, 100 units/mL ; 1 injection of 25 units daily) Use with SoloStar pen, 100 units/mL ; 1 injection of 20 units daily Continued Medications: Acetaminophen (Tylenol) 500 Mg Tab 1 TAB PO Q6HPRN PRN for pain or fever for 5 Days, #30 TAB 0 Refills Acetaminophen with Codeine (Acetaminophen-Cod #3 Tablet) 300 Mg-30 Mg Tablet 1 TAB PO Q6HPRN PRN for pain for 7 Days, #28 TAB 0 Refills Aspirin (Aspirin) 81 Mg Tablet 81 MG PO DAILY, TAB Atorvastatin Calcium (Atorvastatin Calcium) 20 Mg Tablet 20 MG PO HS, TAB Bumetanide (Bumex) 1 Mg Tab 2 TAB PO BID for 30 Days, #60 TAB 0 Refills Clopidogrel Bisulfate (Clopidogrel) 75 Mg Tablet 1 TAB PO DAILY for 30 Days, #30 TAB 0 Refills Dapagliflozin Propanediol (Farxiga) 5 Mg Tablet 1 TAB PO DAILY for 30 Days, #30 TAB 0 Refills Folic Acid/Vitamin B Comp W-C (Carina-Martin Tablet) 0.8 Mg Tablet 1 TAB PO DAILY for 30 Days, #30 TAB 0 Refills Furosemide (Furosemide) 80 Mg Tablet 1 TAB PO BID for 30 Days, #60 TAB 0 Refills Gabapentin (Gabapentin) 100 Mg Capsule 300 MG PO TID, CAP Hydralazine HCl (Apresoline) 25 Mg Tab 50 MG PO TID, #90 TAB 0 Refills Labetalol HCl (Labetalol HCl) 100 Mg Tablet 1 TAB PO BID for 30 Days, #60 TAB 0 Refills Montelukast Sodium (Montelukast Sodium) 10 Mg Tablet 10 MG PO DAILY, TAB Omeprazole (Omeprazole) 40 Mg Capsule.dr 1 CAP PO DAILY for 30 Days, #30 CAP 0 Refills Sertraline HCl (Sertraline HCl) 100 Mg Tablet 1 TAB PO HS for ANXIETY for 30 Days, #30 TAB 0 Refills Sodium Bicarbonate (Sodium Bicarbonate) 650 Mg Tablet 1300 MG PO TID for 30 Days, #90 TAB Tirzepatide (Mounjaro) 7.5 Mg/0.5 Ml Pen.injctr 7.5 MG SQ QWEEK Tizanidine HCl (Tizanidine HCl) 2 Mg Capsule 2 MG PO TID PRN for MUSCLE SPASMS, CAP Discontinued Medications: Glimepiride (Glimepiride) 2 Mg Tablet 1 TAB PO DAILY for 30 Days, #30 TAB 0 Refills Time spent arranging discharge: 1-30 minutes ATTESTATION BY PHYSICIAN I have seen and examined the patient. I reviewed the documentation, medical decision making, and treatment plan as noted by the resident physician above. I agree with the findings and plan of care. JOAQUIM COLÓN MD, HEMA MD Sep 11, 2025 16:40
[2025-09-11] MEDS ORDERED: INSU3INS3 SQ (17:29)
== END 2025-09-11 18:35 | disposition home or self-care (01) | DRG 638 ==
LOC: EDH 18:45 → EDHIP 21:24 → 3DH 09-06 13:35
PROVIDERS: ADMIT Internal Medicine; ATTEND Internal Medicine
PROC: 05HC33Z Insertion of Infusion Device into Left Basilic Vein, Percutaneous Approach (ICD-10-PCS; principal; 2025-09-08)
PROC: B54NZZA Ultrasonography of Left Upper Extremity Veins, Guidance (ICD-10-PCS; 2025-09-08)
DX: E11.649 Type 2 diabetes mellitus with hypoglycemia without coma (principal); E87.1 Hypo-osmolality and hyponatremia; I13.2 Hypertensive heart and chronic kidney disease with heart failure and with stage 5 chronic kidney disease, or end stage renal disease; K92.2 Gastrointestinal hemorrhage, unspecified; J96.11 Chronic respiratory failure with hypoxia; Z99.81 Dependence on supplemental oxygen; N17.9 Acute kidney failure, unspecified; D64.9 Anemia, unspecified; E11.22 Type 2 diabetes mellitus with diabetic chronic kidney disease; J45.909 Unspecified asthma, uncomplicated; K59.03 Drug induced constipation; T38.3X5A Adverse effect of insulin and oral hypoglycemic [antidiabetic] drugs, initial encounter; E11.51 Type 2 diabetes mellitus with diabetic peripheral angiopathy without gangrene; I48.91 Unspecified atrial fibrillation; R07.9 Chest pain, unspecified; E11.65 Type 2 diabetes mellitus with hyperglycemia; E78.00 Pure hypercholesterolemia, unspecified; M47.816 Spondylosis without myelopathy or radiculopathy, lumbar region; F17.200 Nicotine dependence, unspecified, uncomplicated; F41.9 Anxiety disorder, unspecified; I25.10 Atherosclerotic heart disease of native coronary artery without angina pectoris; Z79.4 Long term (current) use of insulin; Z79.84 Long term (current) use of oral hypoglycemic drugs; Z79.899 Other long term (current) drug therapy; Z86.73 Personal history of transient ischemic attack (TIA), and cerebral infarction without residual deficits; Z90.49 Acquired absence of other specified parts of digestive tract
CPT/HCPCS: 36415; 36556; 71045; 74018; 78278; 80048; 80076; 80305; 81001; 82140; 82570; 82948; 83036; 83540; 83550; 83735; 83880; 84100; 84156; 84484; 84540; 85025; 85027; 93005; 94640; 94664; 96374; 99285; A9512; C1894; G0378; J1171; J1644; J2270; J2405; J3490; J7070; C1750